=== PATIENT | male | born 1955 | race Two or more races ===

== ENCOUNTER 2018-07-10 11:31 | Emergency (ER) | payer MEDICAID ==
[~2018-07-10] VITALS: Ht 180.3 cm; Wt 95.3 kg
--- NOTE | 2018-07-10 11:29 | NUR ---
ED Nurse Note: PT BROUGHT IN BY [id number] FROM [facility] DUE TO CHRONIC BACK PAIN. PER EMS, PT C/O CHRONIC BACK PAIN, 8/10 X 4 YEARS AGO. PT WAS GIVEN NORCO 5/325 X 1 HOUR AGO BUT STATES PAIN IS UNRELIEVED BY MEDICATION. EMS STATES FACILITY REFUSED TO GIVE PT MORE MEDICATION. PT STATES HE HAD BACK SURGERY X 4 YEARS AGO AND HAS BEEN SUFFERING FROM PAIN SINCE THEN. PT STATES HE HAS AN APPOINTMENT WITH PAIN MANAGEMENT ON THURSDAY AT [facility]. OF NOTE, PT PRESENTS WITH BILATERAL LOWER EXTREMITY PITTING EDEMA, RIGHT>LEFT.
[2018-07-10 11:31] VITALS: BP 141/64
[2018-07-10] MEDS ORDERED: PANTOPRAZOLE SO40 MG ORAL (11:37)
[2018-07-10] MEDS ORDERED: GABAPENTIN600 MG ORAL (11:37)
[2018-07-10] MEDS ORDERED: METFORMIN HCL500 M1 ORAL (11:37)
[2018-07-10] MEDS ORDERED: NORCO 5-325 TA1 EACH ORAL (11:37)
[2018-07-10] MEDS ORDERED: LEVOTHYROXINE125 MCG ORAL (11:37)
[2018-07-10] MEDS ORDERED: DOCUSATE SODIU100 MG ORAL (11:37)
[2018-07-10] MEDS ORDERED: ATORVASTATIN CA40 MG ORAL (11:37)
[2018-07-10] MEDS ORDERED: LACTULOSE20 GM/301 ORAL (11:37)
[2018-07-10] MEDS ORDERED: JANUVIA25 MG ORAL (11:37)
[2018-07-10] MEDS ORDERED: FOLIC ACID1 MG ORAL (11:37)
[2018-07-10] MEDS ORDERED: ENALAPRIL MALEAT5 MG ORAL (11:37)
[2018-07-10] MEDS ORDERED: LANTUS SOL100 UNIT/1 SUBQ (11:37)
[2018-07-10] MEDS ORDERED: CALCIUM 500 +1 EAC3 PO (11:37)
[2018-07-10] MEDS ORDERED: Morphine Sulfate 2mg/ml Inj(IV/IM USE ONLY) IM ONE (12:30)
--- NOTE | 2018-07-10 12:30 | NUR ---
ED Nurse Note: MED ORDERED BUT UNABLE TO PULL MED DUE TO PYXIS MALFUNCTION. PHARMACY NOTIFIED.
--- NOTE | 2018-07-10 12:55 | NUR ---
ED Nurse Note: ER PYXIS NOT WORKING. MORPHINE ORDER PULLED FROM TELEMTRY PYXIS BY RENALDO CROWDER. MEDICATION ADMINISTERED TO PT BY PRIMARY RN IN ER.
--- NOTE | 2018-07-10 13:13 | NUR ---
ED Nurse Note: [facility] CALLED. SPOKE WITH CUSTOMER SERVICE SECURITY OFFICER, LUIS A, TO LET HER KNOW THAT PT IS READY FOR DISCHARGE AND THAT TRANSPORT WILL BE ARRIVING TO [facility] IN 10-15 MINUTES. PER LUIS A, FACILITY READY TO ACCEPT PT. WILL AWAIT TRANSPORT.
--- NOTE | 2018-07-10 13:32 | NUR ---
ED Nurse Note: [facility] AT BEDSIDE. REPORT GIVEN TO EMS. DISCHARGE PAPERWORK EXPLAINED TO PT. PT VERBALIZES UNDERSTANDING AND ALL QUESTIONS ANSWERED. DISCHARGE PAPERWORK GIVEN TO PT AND ID WRISTBAND REMOVED. PT TAKEN BACK TO [facility] VIA AMBULANCE WITH ALL BELONGINGS ACCOMPANIED BY EMS. VSS.
--- NOTE | 2018-07-10 13:32 | NUR ---
Note [place] in EDM - 07/10/18 at 1334 by PRINCESS ED Nurse Note: [facility] AT BEDSIDE. REPORT GIVEN TO EMS. PT TAKEN BACK TO [facility] VIA AMBULANCE WITH ALL BELONGINGS ACCOMPANIED ACCOMPANIED BY EMS. VSS.
--- NOTE | 2018-07-10 13:32 | NUR ---
Note [place] in EDM - 07/10/18 at 1344 by PRINCESS ED Nurse Note: [facility] AT BEDSIDE. REPORT GIVEN TO EMS. DISCHARGE PAPERWORK EXPLAINED TO PT. PT VERBALIZES UNDERSTANDING AND ALL QUESTIONS ANSWERED. DISCHARGE PAPERWORK GIVEN TO PT AND ID WRISTBAND REMOVED. PT TAKEN BACK TO [facility] VIA AMBULANCE WITH ALL BELONGINGS ACCOMPANIED ACCOMPANIED BY EMS. VSS.
[2018-07-10 13:44] VITALS: BP 136/68
--- NOTE | 2018-07-12 14:52 | Emergency Room Report ---
History of Present Illness General Chief Complaint: Back Pain-No Injury Source: Patient, Medical Record Present Illness HPI Patient presents with complaints of lower back pain Patient reports extensive past medical history of low back problems including previous surgery Patient also has multiple cardiac history including bypass grafting Patient reports that he has been recently transferred to the elderly care facility He was in rehabilitation for about one month prior to that Patient has not received his pain medication this morning and reports that he has pain because of this denies any change in weakness denies any change with bowel or urination habits denies any chest pain or shortness of breath And essentially presents reporting an complaining of pain secondary to lack of medication Allergies: Coded Allergies: No Known Allergies (Verified , 06/13/09) Patient History Past Medical History: see triage record Pertinent Family History: none Reviewed Nursing Documentation: PMH: Agreed; PSxH: Agreed Nursing Documentation-PMH Past Medical History: No History, Except For Hx Hypertension: Yes Hx Diabetes: Yes Hx Gastrointestinal Problems: No - ALCOHOLIC LIVER DISEASE History Of Psychiatric Problem: Yes - DEPRESSION Hx Neurological Problems: No - HYPOTHYROIDISM, HYPERLIPIDEMIA, SPINAL STENOSIS Review of Systems All Other Systems: negative except mentioned in HPI Physical Exam Vital Signs Date Time Temp Pulse Resp B/P (MAP) Pulse Ox O2 Delivery O2 Flow Rate FiO2 07/10/18 11:23 99.1 86 20 99 Room Air 07/10/18 11:31 141/64 Sp02 EP Interpretation: reviewed, normal General Appearance: mild distress Head: normocephalic, atraumatic Eyes: bilateral eye PERRL, bilateral eye EOMI ENT: normal pharynx, no angioedema Neck: supple Respiratory: lungs clear, no retraction, no accessory muscle use Cardiovascular #1: regular rate, rhythm Gastrointestinal: non tender, soft Musculoskeletal: other - Patient has sensory intact diffusely edema is noted in both lower extremity patient reports that this is baseline for him moving lower extremity appropriately as well Neurologic: alert, oriented x3, responsive Skin: normal color, no rash Lymphatic: no adenopathy Medical Decision Making Diagnostic Impression: Primary Impression: Back pain ER Course Contact was made with the patient's sister who reports the patient has been dealing with chronic back pain Multiple differential including the not limited to neurological, neurosurgical, infectious, orthopedic differentials and consideration patient is otherwise afebrile Denies any change with his muscle strength in upper or lower extremity Patient requesting pain medication And has done significantly better after intervention further evaluation or imaging has not been performed Patient reports fairly extensive workup recently and will have close follow-up , Last Vital Signs Date Time Temp Pulse Resp B/P (MAP) Pulse Ox O2 Delivery O2 Flow Rate FiO2 07/10/18 13:44 98.9 84 18 136/68 98 Room Air Status: improved Disposition: HOME, SELF-CARE Condition: Improved Referrals: NON PHYSICIAN (PCP) Patient Instructions: Back Pain, Adult Additional Instructions: Patient is provided with the discharge instructions notified to follow up with primary doctor in the next 2-3 days otherwise return to the er with any worsening symptoms. Please note that this report is being documented using PushCall technology. This can lead to erroneous entry secondary to incorrect interpretation by the dictating instrument. Raiza Will DO July 12, 2018 14:52
== END 2018-07-10 13:32 ==
LOC: EDBD 11:31 → EMR 12:00
DX: M54.5 Low back pain (principal); Z95.1 Presence of aortocoronary bypass graft; I10 Essential (primary) hypertension; E11.9 Type 2 diabetes mellitus without complications; F32.9 Major depressive disorder, single episode, unspecified; E03.9 Hypothyroidism, unspecified; E78.5 Hyperlipidemia, unspecified; G89.29 Other chronic pain; M48.00 Spinal stenosis, site unspecified
CPT/HCPCS: 96372; 99283; J2270

== ENCOUNTER 2018-08-15 00:17 | Emergency (ER) | payer MEDICAID ==
[~2018-08-15] VITALS: Ht 180.3 cm; Wt 95.3 kg
[~2018-08-15 00:17] MED LIST: ATORVASTATIN CA40 MG ORAL; CALCIUM 500 +1 EAC3 PO; DOCUSATE SODIU100 MG ORAL; ENALAPRIL MALEAT5 MG ORAL; FOLIC ACID1 MG ORAL; GABAPENTIN600 MG ORAL; JANUVIA25 MG ORAL; LACTULOSE20 GM/301 ORAL; LANTUS SOL100 UNIT/1 SUBQ; LEVOTHYROXINE125 MCG ORAL; METFORMIN HCL500 M1 ORAL; NORCO 5-325 TA1 EACH ORAL; PANTOPRAZOLE SO40 MG ORAL
[2018-08-15 00:20] VITALS: BP 125/82
--- NOTE | 2018-08-15 00:20 | NUR ---
ED Nurse Note: Pt was BIBA from home , c/o back pain tonight. Pt is A/OX4. Vital signs stable at this time, waiting for orders.
[2018-08-15] MEDS ORDERED: HYDROmorphone 1mg/ml Carpuject IM ONE (00:45)
--- NOTE | 2018-08-15 00:49 | Emergency Room Report ---
History of Present Illness General Chief Complaint: Back Pain-No Injury Source: Patient Present Illness HPI This is a 62-year-old male with a history of chronic back pain with prior surgery. Also history of high blood pressure and diabetes. He presents with chief complaint of back pain going down his knee. No trauma. He was just discharged from [place] [id number] a [facility]. At the usp he said that he is not getting his [place] or his morphine. He was only getting Tylenol No. 3 and gabapentin. He called 911 because of the pain. He told EMS that he has an appointment with his doctor at 6 AM. But the pain was too severe so he called 911. Per EMS, they have several runs on him for pain complaint and sepsis abuse. Prior visit here has very elevated alcohol level. Patient denies any new trauma. No fever chills. No unconscious of bowel or urine. Pain is 10 out of 10. Allergies: Coded Allergies: No Known Allergies (Verified , 06/13/09) Patient History Past Medical History: see triage record, old chart reviewed Past Surgical History: other Pertinent Family History: none Social History: Denies: smoking Immunizations: other Reviewed Nursing Documentation: PMH: Agreed; PSxH: Agreed Nursing Documentation-PMH Past Medical History: No History, Except For Hx Hypertension: Yes Hx Asthma: Yes Hx Diabetes: Yes Hx Gastrointestinal Problems: No - ALCOHOLIC LIVER DISEASE Hx Neurological Problems: No - HYPOTHYROIDISM, HYPERLIPIDEMIA, SPINAL STENOSIS Review of Systems Eye: Denies: eye pain, blurred vision ENT: Denies: ear pain, nose congestion, throat swelling Respiratory: Denies: cough, shortness of breath Cardiovascular: Denies: chest pain, palpitations Gastrointestinal: Denies: abdominal pain, diarrhea, nausea, vomiting Musculoskeletal: Reports: back pain; Denies: joint pain Skin: Denies: rash Neurological: Denies: headache, numbness Endocrine: Denies: increased thirst, increased urine Hematologic/Lymphatic: Denies: easy bruising All Other Systems: negative except mentioned in HPI Physical Exam Vital Signs Date Time Temp Pulse Resp B/P (MAP) Pulse Ox O2 Delivery O2 Flow Rate FiO2 08/15/18 00:15 98.2 108 19 125/82 (96) 99 Room Air vitals normal Sp02 EP Interpretation: reviewed, normal General Appearance: well appearing, no apparent distress, alert Head: normocephalic, atraumatic Eyes: bilateral eye PERRL, bilateral eye EOMI ENT: hearing grossly normal, normal pharynx Neck: full range of motion, supple, no meningismus Respiratory: chest non-tender, lungs clear, normal breath sounds Cardiovascular #1: regular rate, rhythm, no murmur Gastrointestinal: normal bowel sounds, non tender, no mass, no organomegaly, no bruit, non-distended Musculoskeletal: back normal - Diffuse tenderness. No step-off or anesthesia. , normal range of motion Psychiatric: mood/affect normal Skin: warm/dry Medical Decision Making Diagnostic Impression: Primary Impression: Back pain Qualified Codes: M54.5 - Low back pain ER Course Patient with exacerbation of chronic pain. No trauma. No red flags indicate cauda equina syndrome, spinal after abscess or neoplastic process. Patient has multiple workups done already. Said that he scheduled for another MRI. I see no need for emergent x-rays or CT scan done here. Last Vital Signs Date Time Temp Pulse Resp B/P (MAP) Pulse Ox O2 Delivery O2 Flow Rate FiO2 08/15/18 00:15 98.2 108 19 125/82 (96) 99 Room Air Status: improved Disposition: XFER SNF Condition: Stable Patient Instructions: Back Pain, Adult Additional Instructions: Follow-up with your Dr. in 2-3 days. Return if symptom worsen. Jossue Singer MD Aug 15, 2018 00:49
--- NOTE | 2018-08-15 00:52 | NUR ---
ED Nurse Note: [facility] was called and expecting arrival time @ 0200.
--- NOTE | 2018-08-15 00:57 | NUR ---
ED Nurse Note: Meds given as ordered.
--- NOTE | 2018-08-15 02:00 | NUR ---
ED Nurse Note: Still waiting for ambulance to arrive.
[2018-08-15 03:34] VITALS: BP 128/81
--- NOTE | 2018-08-15 03:34 | NUR ---
ER DISCHARGE NOTE: Ambulance arrived. Patient is cleared to be discharged per Lucrecia. Pt is aox4 on room air with stable vital signs. Pt was given dc and prescription instructions and was able to verbalize understanding. Pt ID band removed. pt is able to ambulate with cane and took all belongings.
== END 2018-08-15 03:34 ==
LOC: EDBD 00:17 → EMR 00:58
DX: M54.5 Low back pain (principal); I10 Essential (primary) hypertension; J45.909 Unspecified asthma, uncomplicated; E11.9 Type 2 diabetes mellitus without complications
CPT/HCPCS: 96372; 99283; J1170

== ENCOUNTER 2018-09-06 17:57 | Inpatient (IN) | payer MEDICAID ==
[~2018-09-06] VITALS: Ht 182.9 cm; Wt 90.7 kg
[2018-09-06] MEDS ORDERED: FOLIC ACID1 MG ORAL (17:58)
[2018-09-06] MEDS ORDERED: PANTOPRAZOLE SO40 MG ORAL (17:58)
[2018-09-06] MEDS ORDERED: METFORMIN HCL500 M1 ORAL (17:58)
[2018-09-06] MEDS ORDERED: DOCUSATE SODIU100 MG ORAL (17:58)
[2018-09-06] MEDS ORDERED: LEVOTHYROXINE125 MCG ORAL (17:58)
[2018-09-06] MEDS ORDERED: ATORVASTATIN CA40 MG ORAL (17:58)
[2018-09-06] MEDS ORDERED: GABAPENTIN600 MG ORAL (17:58)
[2018-09-06] MEDS ORDERED: JANUVIA25 MG ORAL (17:58)
[2018-09-06] MEDS ORDERED: ENALAPRIL MALEAT5 MG ORAL (17:58)
--- NOTE | 2018-09-06 18:00 | NUR ---
ED Nurse Note: Patient brought in by ambulance from [facility] per ems, caregiver at the facility witnessed patient's syncopal episode, "patient passed out on the bed" per ems, no head trauma noted. patient's BS on scene was 306. at this time, patient is sleepy, drowsy obtunded, not easily arousable.
[2018-09-06 18:09] VITALS: BP 156/89
[2018-09-06 18:53] LABS: APPEARANCE,URINE CLEAR; BILIRUBIN, URINE NEGATIVE (NEGATIVE); GLUCOSE, URINE (UA) 2+ (NEGATIVE); KETONES,URINE 1+ (NEGATIVE); LEUKOCYTE ESTERASE ,URINE 1+ (NEGATIVE); NITRITE,URINE NEGATIVE (NEGATIVE); PH,URINE 5 (4.5-8.0); PROTEIN,URINE 2+ (NEGATIVE); UROBILINOGEN,URINE 1 MG/DL (0.0-1.0)
[2018-09-06 18:54] LABS: COLOR,URINE YELLOW
--- NOTE | 2018-09-06 18:56 | NUR ---
ED Nurse Note: blood culture sent to lab. per maylin, it's ok as long as 1complete set of blood culture is sent.
--- NOTE | 2018-09-06 19:05 | NUR ---
ED Nurse Note: redness on the sacral area due to his pre-existing skin problem noted, picture taken, endorsed to Li MACARIO.
[2018-09-06 19:06] LABS: HEMATOCRIT 34.4 % (42.0-52.0); HEMOGLOBIN 10.7 G/DL (14.2-18.0); MEAN CORPUSCULAR VOLUME 93 FL (80-99); PLATELET COUNT 61 K/UL (150-450); RED BLOOD COUNT 3.72 M/UL (4.70-6.10); RED CELL DISTRIBUTION WIDTH 21.6 % (11.6-14.8); WHITE BLOOD COUNT 5.7 K/UL (4.8-10.8)
--- NOTE | 2018-09-06 19:08 | NUR ---
HAND-OFF: Report given to Li MACARIO.
[2018-09-06 19:16] LABS: ANION GAP 12 mmol/L (5-15); BLOOD UREA NITROGEN 27 mg/dL (7-18); CALCIUM 10.7 MG/DL (8.5-10.1); CARBON DIOXIDE 24 MMOL/L (21-32); CHLORIDE 100 MMOL/L (98-107); CREATININE 2.3 MG/DL (0.55-1.30); POTASSIUM 3.9 MMOL/L (3.5-5.1); SODIUM 136 MMOL/L (136-145)
[2018-09-06 19:30] LABS: ALANINE AMINOTRANSFERASE 31 U/L (12-78); ALBUMIN 3.3 G/DL (3.4-5.0); ALBUMIN/GLOBULIN RATIO 0.7 (1.0-2.7); ALKALINE PHOSPHATASE 115 U/L (46-116); ASPARTATE AMINO TRANSFERASE 76 U/L (15-37); BILIRUBIN,TOTAL 1.8 MG/DL (0.2-1.0); CKMB 15.5 NG/ML (0.0-3.6); CREATINE KINASE 3213 U/L (26-308)
[2018-09-06] MEDS ORDERED: cefTRIAXone 1 GM in NS 55 ML IVPB ONE (19:30)
[2018-09-06 19:32] LABS: BILIRUBIN,DIRECT 0.7 MG/DL (0.0-0.3)
[2018-09-06 20:13] VITALS: BP 137/65
--- NOTE | 2018-09-06 20:20 | NUR ---
ED Nurse Note: Patient had one episod of vomitting, AAO x1, HR 115, other VSS at this time. Tryed to give report, KenRN states that patient does not asighn to the alex yet.
--- NOTE | 2018-09-06 20:49 | NUR ---
NURSE NOTES: Pt received from RENALDO [place] alert and oriented x1 to name only, pt is lethargic (Per VISOR INSTALLER, pt is alert and oriented x4 as baseline). IV site on R upper arm 20g, saline lock. Belongings all with patient upon admission - signed with transferring RN, pt unable to sign for himself. Pt has skin tear on right 5th metatarsal toe and left 2nd metatarsal toe, localized rashes round in appearance on bilateral knees, bilateral elbows, bilateral buttocks, and bilateral trochanter. WCP taken and uploaded in chart - WCP implemented. Bed in lowest position, call light and belongings within reach. VSS stable. bus monitor on - ST (102).
--- NOTE | 2018-09-06 20:55 | NUR ---
ED Nurse Note: Patient was admited to Tele due to syncopy episode. Patient remain AAO x1, HR 107, other VSS at this time. Patient has psoriasis all over his body, severe red posey on his both buttocks, picture was taken and uploaded. Patient was transfered to TELE unit via gurney, by ACLS protocol with all belongings.
--- NOTE | 2018-09-06 21:05 | NUR ---
NURSE NOTES: Left message for Dr. Dodd for admission orders, currently awaiting call back.
[2018-09-06 21:56] VITALS: BP 144/66
[2018-09-06] MEDS ORDERED: Miralax 17gm pkt ORAL PRN (22:30)
[2018-09-06] MEDS ORDERED: Albuterol/Ipratropium 3ml neb HHN PRN (22:30)
[2018-09-06] MEDS ORDERED: Nitroglycerin Subl 0.4mg tab SL PRN (22:30)
--- NOTE | 2018-09-06 22:30 | NUR ---
NURSE NOTES: Dr. Dodd called back with admission orders: - Keep pt NPO d/t vomiting - NS with 20 of KCl at 75 - CBC, BMP, total CPK, TSH with T4, CT Brain w/o contrast, Troponin x3 q8h (IN AM) - Zofran 4 mg q4h PRN for nausea - continue atorvastatin 80 mg HS, enalapril 5 mg PO daily, synthroid 100 mcg PO, metformin 500 mg PO BID, Protonix 40 mg PO daily, Januvia 100 mg PO daily,
--- NOTE | 2018-09-06 22:57 | Emergency Room Report ---
History of Present Illness General Chief Complaint: Syncope Source: Medical Record Present Illness HPI Patient is a 63-year-old male brought in by EMS after a syncopal episode at his nursing facility. Patient had a prior history of hepatic encephalopathy. He had been noted to be tachycardic by EMS. He was noted to be somewhat somnolent. History is markedly limited by poor historian. Patient has had been sent in from [facility]. He had prior history of hepatic encephalopathy as well as chronic debilitation. He had also had some prior cardiac history. Allergies: Coded Allergies: No Known Allergies (Verified , 06/13/09) Patient History Past Medical History: see triage record Reviewed Nursing Documentation: PMH: Agreed; PSxH: Agreed Nursing Documentation-PMH Past Medical History: No History, Except For Hx Cardiac Problems: Yes Hx Hypertension: Yes Hx Asthma: Yes Hx Diabetes: Yes Hx Cancer: No Hx Gastrointestinal Problems: No Hx Neurological Problems: No Review of Systems All Other Systems: limited - by poor historian Physical Exam Vital Signs Date Time Temp Pulse Resp B/P (MAP) Pulse Ox O2 Delivery O2 Flow Rate FiO2 09/06/18 17:50 97.9 105 18 144/76 (98) 96 Room Air General Appearance: lethargic, Chronically Ill Eyes: bilateral eye PERRL ENT: hearing grossly normal Neck: limited range of motion Respiratory: crackles Cardiovascular #1: edema Gastrointestinal: non tender, soft Neurologic: motor weakness, other Psychiatric: depressed affect Skin: no rash Medical Decision Making Diagnostic Impression: Primary Impression: Syncope Additional Impressions: Rhabdomyolysis Chronic liver disease Encephalopathy ER Course Patient presented for syncopal episode. Differential diagnosis include is not limited to cardiac arrhythmia, sepsis, hepatic encephalopathy, seizure among others. Because of complexity of patient's case laboratory testing and imaging studies were ordered. Patient was noted to have prior history of some cardiac disease. He was noted to have prior medical diagnosis of hypothyroidism diabetes major depressive disorder rheumatoid arthritis as well as spinal stenosis. Patient started on IV fluids and given IV antibiotics.Chest x-ray one view interpreted by me showed status post sternotomy as well as bilateral vascular congestion and cardiomegaly. Questionable infiltrate. Patient was discussed with Dr. Mike Dodd for inpatient management due to covering physician Labs Test 09/06/18 18:20 09/06/18 19:55 White Blood Count 5.7 K/UL (4.8-10.8) Red Blood Count 3.72 M/UL (4.70-6.10) Hemoglobin 10.7 G/DL (14.2-18.0) Hematocrit 34.4 % (42.0-52.0) Mean Corpuscular Volume 93 FL (80-99) Mean Corpuscular Hemoglobin 28.7 PG (27.0-31.0) Mean Corpuscular Hemoglobin Concent 31.0 G/DL (32.0-36.0) Red Cell Distribution Width 21.6 % (11.6-14.8) Platelet Count 61 K/UL (150-450) Mean Platelet Volume 8.2 FL (6.5-10.1) Neutrophils (%) (Auto) % (45.0-75.0) Lymphocytes (%) (Auto) % (20.0-45.0) Monocytes (%) (Auto) % (1.0-10.0) Eosinophils (%) (Auto) % (0.0-3.0) Basophils (%) (Auto) % (0.0-2.0) Differential Total Cells Counted 100 Neutrophils % (Manual) 81 % (45-75) Lymphocytes % (Manual) 9 % (20-45) Monocytes % (Manual) 7 % (1-10) Eosinophils % (Manual) 1 % (0-3) Basophils % (Manual) 0 % (0-2) Band Neutrophils 2 % (0-8) Platelet Estimate Decreased Platelet Morphology Normal Hypochromasia 1+ Anisocytosis 1+ Urine Color Yellow Urine Appearance Clear Urine pH 5 (4.5-8.0) Urine Specific [place] 1.020 (1.005-1.035) Urine Protein 2+ (NEGATIVE) Urine Glucose (UA) 2+ (NEGATIVE) Urine Ketones 1+ (NEGATIVE) Urine Blood 5+ (NEGATIVE) Urine Nitrite Negative (NEGATIVE) Urine Bilirubin Negative (NEGATIVE) Urine Urobilinogen 1 MG/DL (0.0-1.0) Urine Leukocyte Esterase 1+ (NEGATIVE) Urine RBC 5-10 /HPF (0 - 0) Urine WBC 2-4 /HPF (0 - 0) Urine Squamous Epithelial Cells None /LPF (NONE/OCC) Urine Amorphous Sediment Few /LPF (NONE) Urine Bacteria Few /HPF (NONE) Sodium Level 136 MMOL/L (136-145) Potassium Level 3.9 MMOL/L (3.5-5.1) Chloride Level 100 MMOL/L (98-107) Carbon Dioxide Level 24 MMOL/L (21-32) Anion Gap 12 mmol/L (5-15) Blood Urea Nitrogen 27 mg/dL (7-18) Creatinine 2.3 MG/DL (0.55-1.30) Estimat Glomerular Filtration Rate 28.8 mL/min (>60) Glucose Level 290 MG/DL (74-106) Calcium Level 10.7 MG/DL (8.5-10.1) Total Bilirubin 1.8 MG/DL (0.2-1.0) Direct Bilirubin 0.7 MG/DL (0.0-0.3) Aspartate Amino Transf (AST/SGOT) 76 U/L (15-37) Alanine Aminotransferase (ALT/SGPT) 31 U/L (12-78) Alkaline Phosphatase 115 U/L (46-116) Total Creatine Kinase 3213 U/L (26-308) Creatine Kinase MB 15.5 NG/ML (0.0-3.6) Creatine Kinase MB Relative Index 0.4 Troponin I 0.002 ng/mL (0.000-0.056) Total Protein 8.2 G/DL (6.4-8.2) Albumin 3.3 G/DL (3.4-5.0) Globulin 4.9 g/dL Albumin/Globulin Ratio 0.7 (1.0-2.7) Lactic Acid Level 2.40 mmol/L (0.66-2.22) EKG Diagnostic Results Rate: tachycardiac Rhythm: NSR ST Segments: no acute changes Last Vital Signs Date Time Temp Pulse Resp B/P (MAP) Pulse Ox O2 Delivery O2 Flow Rate FiO2 09/06/18 22:02 Room Air 09/06/18 21:56 97.0 100 20 144/66 (92) 97 100 Status: improved Disposition: ADMITTED INPATIENT Condition: Stable Referrals: NON PHYSICIAN (PCP) Dom Arreola MD Sep 06, 2018 22:57
[2018-09-07] VITALS: BP 131/72
[2018-09-07] MEDS: NS w/KCl 20mEq 1000ml 1,000 ML IV SCH ×2 (00:05→13:28)
[2018-09-07] MEDS: Morphine Sulfate 2mg/ml Inj(IV/IM USE ONLY) IVP PRN ×5 (00:32→23:06)
[2018-09-07 04:00] VITALS: BP 130/65
[2018-09-07] MEDS: NovoLOG Insulin Flexpen SUBQ SCH ×4 (05:41→20:14)
[2018-09-07 06:51] LABS: HEMATOCRIT 32.3 % (42.0-52.0); HEMOGLOBIN 9.8 G/DL (14.2-18.0); MEAN CORPUSCULAR VOLUME 93 FL (80-99); PLATELET COUNT 75 K/UL (150-450); RED BLOOD COUNT 3.47 M/UL (4.70-6.10); RED CELL DISTRIBUTION WIDTH 22.4 % (11.6-14.8); WHITE BLOOD COUNT 5.4 K/UL (4.8-10.8)
--- NOTE | 2018-09-07 06:57 | General Progress Note ---
Assessment/Plan Problem List: (1) Hypothyroid ICD Codes: E03.9 - Hypothyroidism, unspecified SNOMED: 29434261 (2) KUMAR (acute kidney injury) ICD Codes: N17.9 - Acute kidney failure, unspecified SNOMED: 1236727, 75393268 (3) Diabetes mellitus out of control ICD Codes: E11.65 - Type 2 diabetes mellitus with hyperglycemia SNOMED: 03080326, 369756057 (4) Lactic acidosis ICD Codes: E87.2 - Acidosis SNOMED: 56353221 (5) Syncope ICD Codes: R55 - Syncope and collapse SNOMED: 150077912 (6) Chronic liver disease ICD Codes: K76.9 - Liver disease, unspecified SNOMED: 059140620 (7) Encephalopathy ICD Codes: G93.40 - Encephalopathy, unspecified SNOMED: 23214704 (8) Rhabdomyolysis ICD Codes: M62.82 - Rhabdomyolysis SNOMED: 233492916 Assessment/Plan: - hold Metformin - start Levemir 10 units daily - continue NISS ac / hs - IV hydration - follow TSH, A1c - continue LT4 100 mcg for now Subjective ROS Limited/Unobtainable: Yes Allergies: Coded Allergies: No Known Allergies (Verified , 06/13/09) Subjective Patient is a 63-year-old male brought in by EMS after a syncopal episode at his nursing facility. Patient had a prior history of hepatic encephalopathy. He had been noted to be tachycardic by EMS. He was noted to be somewhat somnolent. History is markedly limited by poor historian. Patient has had been sent in from [facility]. He had prior history of hepatic encephalopathy as well as chronic debilitation. He had also had some prior cardiac history. Objective Last 24 Hour Vital Signs Date Time Temp Pulse Resp B/P (MAP) Pulse Ox O2 Delivery O2 Flow Rate FiO2 09/07/18 04:00 88 09/07/18 04:00 98.1 100 20 130/65 (86) 98 100 09/07/18 00:00 98.3 105 20 131/72 (91) 98 105 09/07/18 00:00 90 09/06/18 22:02 Room Air 09/06/18 21:56 97.0 100 20 144/66 (92) 97 100 09/06/18 21:35 99 09/06/18 20:55 98.4 107 22 136/65 100 Room Air 107 09/06/18 20:13 97.9 100 18 137/65 100 Room Air 100 09/06/18 18:09 97.9 106 18 156/89 97 Room Air 09/06/18 17:50 97.9 105 18 144/76 (98) 96 Room Air Intake and Output 09/06/18 09/07/18 19:00 07:00 Intake Total 50 ml Balance 50 ml Intake Oral 50 ml # Voids 3 Laboratory Tests 09/06/18 18:20: White Blood Count 5.7, Red Blood Count 3.72L, Hemoglobin 10.7L, Hematocrit 34.4L , Mean Corpuscular Volume 93, Mean Corpuscular Hemoglobin 28.7, Mean Corpuscular Hemoglobin Concent 31.0L, Red Cell Distribution Width 21.6H, Platelet Count 61L, Mean Platelet Volume 8.2, Neutrophils (%) (Auto) , Lymphocytes (%) (Auto) , Monocytes (%) (Auto) , Eosinophils (%) (Auto) , Basophils (%) (Auto) , Differential Total Cells Counted 100, Neutrophils % ( Manual) 81H, Lymphocytes % (Manual) 9L, Monocytes % (Manual) 7, Eosinophils % ( Manual) 1, Basophils % (Manual) 0, Band Neutrophils 2, Platelet Estimate DecreasedL, Platelet Morphology Normal, Hypochromasia 1+, Anisocytosis 1+, Urine Color Yellow, Urine Appearance Clear, Urine pH 5, Urine Specific [place] 1.020, Urine Protein 2+H, Urine Glucose (UA) 2+H, Urine Ketones 1+H, Urine Blood 5+H, Urine Nitrite Negative, Urine Bilirubin Negative, Urine Urobilinogen 1H, Urine Leukocyte Esterase 1+H, Urine RBC 5-10H, Urine WBC 2-4, Urine Squamous Epithelial Cells None, Urine Amorphous Sediment FewH, Urine Bacteria Few, Sodium Level 136, Potassium Level 3.9, Chloride Level 100, Carbon Dioxide Level 24, Anion Gap 12, Blood Urea Nitrogen 27H, Creatinine 2.3H, Estimat Glomerular Filtration Rate 28.8, Glucose Level 290H, Lactic Acid Level 3.60H, Calcium Level 10.7H, Total Bilirubin 1.8H, Direct Bilirubin 0.7H, Aspartate Amino Transf (AST/SGOT) 76H, Alanine Aminotransferase (ALT/SGPT) 31, Alkaline Phosphatase 115, Total Creatine Kinase 3213H, Creatine Kinase MB 15.5H, Creatine Kinase MB Relative Index 0.4, Troponin I 0.002, Total Protein 8.2, Albumin 3.3L, Globulin 4.9, Albumin/Globulin Ratio 0.7L 09/06/18 19:55: Lactic Acid Level 2.40H 09/07/18 06:00: White Blood Count [Pending], Red Blood Count [Pending], Hemoglobin [Pending], Hematocrit [Pending], Mean Corpuscular Volume [Pending], Mean Corpuscular Hemoglobin [Pending], Mean Corpuscular Hemoglobin Concent [Pending], Red Cell Distribution Width [Pending], Platelet Count [Pending], Mean Platelet Volume [ Pending], Neutrophils (%) (Auto) [Pending], Lymphocytes (%) (Auto) [Pending], Monocytes (%) (Auto) [Pending], Eosinophils (%) (Auto) [Pending], Basophils (%) (Auto) [Pending], Sodium Level [Pending], Potassium Level [Pending], Chloride Level [Pending], Carbon Dioxide Level [Pending], Blood Urea Nitrogen [Pending], Creatinine [Pending], Estimat Glomerular Filtration Rate [Pending], Glucose Level [Pending], Calcium Level [Pending], Total Bilirubin [Pending], Aspartate Amino Transf (AST/SGOT) [Pending], Alanine Aminotransferase (ALT/SGPT) [Pending] , Alkaline Phosphatase [Pending], Total Creatine Kinase [Pending], Troponin I [ Pending], Total Protein [Pending], Albumin [Pending], Globulin [Pending], Hemoglobin A1c [Pending], Triglycerides Level [Pending], Cholesterol Level [ Pending], LDL Cholesterol [Pending], HDL Cholesterol [Pending], Cholesterol/HDL Ratio [Pending], Thyroid Stimulating Hormone (TSH) [Pending], Free Thyroxine [ Pending] Height (Feet): 6 Height (Inches): 0.00 Weight (Pounds): 200 General Appearance: no apparent distress Neck: normal alignment Cardiovascular: normal rate Respiratory/Chest: lungs clear Abdomen: normal bowel sounds Objective Current Medications Medications (Trade) Dose Ordered Sig/Alfredo Route PRN Reason Start Time Stop Time Status Last Admin Dose Admin Acetaminophen (Tylenol) 650 mg Q4H PRN ORAL fever 09/06/18 22:30 10/06/18 22:29 Acetaminophen/ Hydrocodone Bitart ([place] 5/325) 1 tab DAILY PRN ORAL For Pain 09/06/18 22:30 09/13/18 22:29 Albuterol/ Ipratropium (Albuterol/ Ipratropium) 3 ml EVERY 4 HOURS PRN HHN Shortness of Breath 09/06/18 22:30 09/11/18 22:29 Clonidine HCl (Catapres Tab) 0.1 mg EVERY 4 HOURS PRN ORAL sbp more than 160 09/06/18 22:30 10/06/18 22:29 Dextrose (Dextrose 50%) 25 ml Q30M PRN IV Hypoglycemia 09/06/18 22:30 10/06/18 22:29 Dextrose (Dextrose 50%) 50 ml Q30M PRN IV Hypoglycemia 09/06/18 22:30 10/06/18 22:29 Enalapril Maleate (Vasotec) 5 mg DAILY ORAL 09/07/18 09:00 10/07/18 08:59 Gabapentin (Neurontin) 600 mg BID ORAL 09/07/18 09:00 10/07/18 08:59 Heparin Sodium (Porcine) (Heparin 5000 units/ml) 5,000 units EVERY 12 HOURS SUBQ 09/07/18 09:00 10/07/18 08:59 UNV Insulin Aspart (NovoLOG) BEFORE MEALS AND HS SUBQ 09/07/18 06:30 10/07/18 06:29 Levothyroxine Sodium (Synthroid) 100 mcg DAILY@0630 ORAL 09/07/18 06:30 10/07/18 06:29 09/07/18 05:45 Morphine Sulfate (Morphine Sulfate) 2 mg EVERY 4 HOURS PRN IVP severe pain 7-10 09/06/18 22:30 09/13/18 22:29 09/07/18 00:32 Nitroglycerin (Ntg) 0.4 mg Q5M X 3 DOSES PRN SL Prn Chest Pain 09/06/18 22:30 10/06/18 22:29 Ondansetron HCl (Zofran) 4 mg EVERY 4 HOURS PRN IVP Nausea & Vomiting 09/06/18 22:45 10/06/18 22:29 Polyethylene Glycol (Miralax) 17 gm HSPRN PRN ORAL Constipation 09/06/18 22:30 10/06/18 22:29 Potassium Chloride/Sodium Chloride 1,000 ml @ 75 mls/hr [id number] IV 09/06/18 22:45 10/06/18 22:44 09/07/18 00:05 Sitagliptin Phosphate (Januvia) 100 mg DAILY ORAL 09/07/18 09:00 10/07/18 08:59 Temazepam (Restoril) 15 mg HSPRN PRN ORAL Insomnia 09/06/18 22:30 09/13/18 22:29 Sascha Oleary MD Sep 07, 2018 06:57
[2018-09-07 07:14] LABS: ALANINE AMINOTRANSFERASE 43 U/L (12-78); ALBUMIN 2.7 G/DL (3.4-5.0); ALBUMIN/GLOBULIN RATIO 0.6 (1.0-2.7); ALKALINE PHOSPHATASE 82 U/L (46-116); ANION GAP 12 mmol/L (5-15); ASPARTATE AMINO TRANSFERASE 209 U/L (15-37); BLOOD UREA NITROGEN 20 mg/dL (7-18); CALCIUM 9.7 MG/DL (8.5-10.1); CARBON DIOXIDE 23 MMOL/L (21-32); CHLORIDE 108 MMOL/L (98-107); CHOLESTEROL 97 MG/DL (< 200); CREATININE 1.5 MG/DL (0.55-1.30); HDL CHOLESTEROL 51 MG/DL (40-60); POTASSIUM 3.9 MMOL/L (3.5-5.1); SODIUM 143 MMOL/L (136-145); TRIGLYCERIDES 89 MG/DL (30-150)
--- NOTE | 2018-09-07 07:31 | NUR ---
HAND-OFF: Report given to RENALDO Silveira. No acute s/s of distress noted.
--- NOTE | 2018-09-07 07:46 | NUR ---
Nurse Note A+O x2-3, 11/26 pain in back. offered massage, refused. NPO, admin Morphine. BP 139/70, HR 85, O2 99% on room air
[2018-09-07 07:53] LABS: CREATINE KINASE 7161 U/L (26-308)
[2018-09-07 08:00] VITALS: BP 139/70
[2018-09-07] MEDS: Enalapril 5mg tab ORAL SCH (09:00)
[2018-09-07] MEDS: sitaGLIPtin 25mg tab ORAL SCH (09:00)
--- NOTE | 2018-09-07 09:27 | NUR ---
nurse note left message @ Dr. Dodd's office regarding NPO status and if ok to admin med.
--- NOTE | 2018-09-07 10:00 | NUR ---
CASE MANAGEMENT: INITIAL REVIEW 63 YO M CLEMENTE FROM PRISON CC: SYNCOPE PMHx: HEPATIC ENCEPHALOPATHY. HTN. ASTHMA. DM. SI: SYNCOPE. HYPERGLYCEMIA. T 97.9 HR 105 RR 18 B/P 144/76 SATS 96% ON RA BUN 27 CR 2.3 GLU 290 CR 10.7 TBILI 1.8 DBILI 0.7 AST 76 TOTAL CK 3213 IS: NS BOLUS X1 CEFTRIAXONE IV X1 PATIENT ADMITTED TO TELE 09/06/2018 @ 1928 DCP: PATIENT TO BE DISCHARGED TO HOME ONCE MEDICALLY CLEARED. PLAN OF CARE PER MD: - hold Metformin - start Levemir 10 units daily - continue NISS ac / hs - IV hydration - follow TSH, A1c - continue LT4 100 mcg for now 09/07/2018 SI: SYNCOPE. HYPERGLYCEMIA. T 98.1 HR 100 RR 20 B/P 130/65 SATS 98% ON RA CL 108 BUN 29 CR 1.5 GLU 191 AST 209 TOTAL CK 7161 IS: NS BOLUS X1 CEFTRIAXONE IV X1 TELE STATUS DCP: PATIENT TO BE DISCHARGED TO HOME ONCE MEDICALLY CLEARED. PLAN OF CARE PER MD: GLYCEMIC CONTROL AND MONITORING Addendum: 09/07/18 at 1254 by Leslie García CM INTERANDREA GONZALEZ
--- NOTE | 2018-09-07 11:09 | NUR ---
nurse note performed full bed bath skin assessment and skin treatment with wound care nurse. noted rash. informed MD Cho with TO for Elimite x1 and place on isolation. informed no meds given and NPO status d/t risk of aspiration. New order for swallow eval.
--- NOTE | 2018-09-07 11:48 | Consultation ---
History of Present Illness General Chief Complaint: Syncope Present Illness HPI 63-year-old male DM, HTN, chronic liver disease, a resident of an Assisted living, (for unclear reason), chronic debilitation, poor historian brought in by EMS after a syncopal episode at his nursing facility. He had been noted to be tachycardic and somnolent. He was found to have uncontrolled diabetes, renal insufficiency and severe anemia. Allergies: Coded Allergies: No Known Allergies (Verified , 06/13/09) Medication History Scheduled Atorvastatin Calcium* (Atorvastatin Calcium*), 80 MG ORAL BEDTIME, (Reported) Atorvastatin Calcium* (Atorvastatin Calcium*), 80 MG ORAL BEDTIME, (Reported) Docusate Sodium* (Docusate Sodium*), 100 MG ORAL TWICE A DAY, (Reported) Docusate Sodium* (Docusate Sodium*), 100 MG ORAL TWICE A DAY, (Reported) Enalapril Maleate* (Enalapril Maleate*), 5 MG ORAL DAILY, (Reported) Enalapril Maleate* (Enalapril Maleate*), 5 MG ORAL DAILY, (Reported) Folic Acid* (Folic Acid*), 1 MG ORAL DAILY, (Reported) Folic Acid* (Folic Acid*), 1 MG ORAL DAILY, (Reported) Gabapentin* (Gabapentin*), 600 MG ORAL TWICE A DAY, (Reported) Gabapentin* (Gabapentin*), 600 MG ORAL BID, (Reported) Insulin Glargine (Lantus), 0 SUBQ BEDTIME, (Reported) Lactulose (Lactulose*), 27.5 ML ORAL QID, (Reported) Levothyroxine Sodium* (Levothyroxine Sodium*), 100 MCG ORAL DAILY, (Reported) Levothyroxine Sodium* (Levothyroxine Sodium*), 100 MCG ORAL DAILY, (Reported) Metformin Hcl* (Metformin Hcl*), 500 MG ORAL TWICE A DAY, (Reported) Metformin Hcl* (Metformin Hcl*), 500 MG ORAL TWICE A DAY, (Reported) Pantoprazole* (Pantoprazole*), 40 MG ORAL DAILY, (Reported) Pantoprazole* (Pantoprazole*), 40 MG ORAL DAILY, (Reported) Sitagliptin* (Januvia*), 100 MG ORAL DAILY, (Reported) Sitagliptin* (Januvia*), 100 MG ORAL DAILY, (Reported) Scheduled PRN Hydrocodone Bit/Acetaminophen 5-325* ([place] 5-325*), 1 TAB ORAL DAILY PRN for For Pain, (Reported) Miscellaneous Medications Calcium Carbonate/Vitamin D3 (Calcium 500 + D Tablet), 1 EACH PO, (Reported) Patient History Healthcare decision maker N Resuscitation status Advanced Directive on File Past Medical/Surgical History Past Medical/Surgical History: (1) Chronic liver disease (2) Hypothyroid (3) Severe anemia (4) Diabetes mellitus Review of Systems Constitutional: Reports: no symptoms Eye: Reports: discharge Physical Exam General Appearance: WD/WN, no apparent distress Lines, tubes and drains: central line HEENT: normocephalic, atraumatic Neck: non-tender, normal alignment Respiratory/Chest: chest wall non-tender, normal breath sounds Cardiovascular/Chest: normal peripheral pulses Abdomen: normal bowel sounds, non tender Genitourinary/Rectal: normal genital exam Skin Exam: normal pigmentation Last 24 Hour Vital Signs Date Time Temp Pulse Resp B/P (MAP) Pulse Ox O2 Delivery O2 Flow Rate FiO2 09/07/18 09:58 85 18 97 Room Air 21 09/07/18 09:00 Room Air 09/07/18 09:00 139/70 09/07/18 08:00 98.6 86 16 139/70 (93) 99 86 09/07/18 08:00 104 09/07/18 04:00 88 09/07/18 04:00 98.1 100 20 130/65 (86) 98 100 09/07/18 00:00 98.3 105 20 131/72 (91) 98 105 09/07/18 00:00 90 09/06/18 22:02 Room Air 09/06/18 21:56 97.0 100 20 144/66 (92) 97 100 09/06/18 21:35 99 09/06/18 20:55 98.4 107 22 136/65 100 Room Air 107 09/06/18 20:13 97.9 100 18 137/65 100 Room Air 100 09/06/18 18:09 97.9 106 18 156/89 97 Room Air 09/06/18 17:50 97.9 105 18 144/76 (98) 96 Room Air Intake and Output 09/06/18 09/07/18 19:00 07:00 Intake Total 50 ml Balance 50 ml Intake Oral 50 ml # Voids 3 Laboratory Tests Test 09/06/18 18:20 09/06/18 19:55 09/07/18 06:00 White Blood Count 5.7 K/UL (4.8-10.8) 5.4 K/UL (4.8-10.8) Red Blood Count 3.72 M/UL (4.70-6.10) L 3.47 M/UL (4.70-6.10) L Hemoglobin 10.7 G/DL (14.2-18.0) L 9.8 G/DL (14.2-18.0) L Hematocrit 34.4 % (42.0-52.0) L 32.3 % (42.0-52.0) L Mean Corpuscular Volume 93 FL (80-99) 93 FL (80-99) Mean Corpuscular Hemoglobin 28.7 PG (27.0-31.0) 28.1 PG (27.0-31.0) Mean Corpuscular Hemoglobin Concent 31.0 G/DL (32.0-36.0) L 30.3 G/DL (32.0-36.0) L Red Cell Distribution Width 21.6 % (11.6-14.8) H 22.4 % (11.6-14.8) H Platelet Count 61 K/UL (150-450) L 75 K/UL (150-450) L Mean Platelet Volume 8.2 FL (6.5-10.1) 8.4 FL (6.5-10.1) Neutrophils (%) (Auto) % (45.0-75.0) % (45.0-75.0) Lymphocytes (%) (Auto) % (20.0-45.0) % (20.0-45.0) Monocytes (%) (Auto) % (1.0-10.0) % (1.0-10.0) Eosinophils (%) (Auto) % (0.0-3.0) % (0.0-3.0) Basophils (%) (Auto) % (0.0-2.0) % (0.0-2.0) Differential Total Cells Counted 100 100 Neutrophils % (Manual) 81 % (45-75) H 66 % (45-75) Lymphocytes % (Manual) 9 % (20-45) L 22 % (20-45) Monocytes % (Manual) 7 % (1-10) 10 % (1-10) Eosinophils % (Manual) 1 % (0-3) 2 % (0-3) Basophils % (Manual) 0 % (0-2) 0 % (0-2) Band Neutrophils 2 % (0-8) 0 % (0-8) Platelet Estimate Decreased L Decreased L Platelet Morphology Normal Normal Hypochromasia 1+ 2+ Anisocytosis 1+ 3+ Urine Color Yellow Urine Appearance Clear Urine pH 5 (4.5-8.0) Urine Specific [place] 1.020 (1.005-1.035) Urine Protein 2+ (NEGATIVE) H Urine Glucose (UA) 2+ (NEGATIVE) H Urine Ketones 1+ (NEGATIVE) H Urine Blood 5+ (NEGATIVE) H Urine Nitrite Negative (NEGATIVE) Urine Bilirubin Negative (NEGATIVE) Urine Urobilinogen 1 MG/DL (0.0-1.0) H Urine Leukocyte Esterase 1+ (NEGATIVE) H Urine RBC 5-10 /HPF (0 - 0) H Urine WBC 2-4 /HPF (0 - 0) Urine Squamous Epithelial Cells None /LPF (NONE/OCC) Urine Amorphous Sediment Few /LPF (NONE) H Urine Bacteria Few /HPF (NONE) Sodium Level 136 MMOL/L (136-145) 143 MMOL/L (136-145) Potassium Level 3.9 MMOL/L (3.5-5.1) 3.9 MMOL/L (3.5-5.1) Chloride Level 100 MMOL/L (98-107) 108 MMOL/L (98-107) H Carbon Dioxide Level 24 MMOL/L (21-32) 23 MMOL/L (21-32) Anion Gap 12 mmol/L (5-15) 12 mmol/L (5-15) Blood Urea Nitrogen 27 mg/dL (7-18) H 20 mg/dL (7-18) H Creatinine 2.3 MG/DL (0.55-1.30) H 1.5 MG/DL (0.55-1.30) H Estimat Glomerular Filtration Rate 28.8 mL/min (>60) 47.1 mL/min (>60) Glucose Level 290 MG/DL (74-106) H 191 MG/DL (74-106) #H Lactic Acid Level 3.60 mmol/L (0.4-2.0) H 2.40 mmol/L (0.66-2.22) H Calcium Level 10.7 MG/DL (8.5-10.1) H 9.7 MG/DL (8.5-10.1) Total Bilirubin 1.8 MG/DL (0.2-1.0) H 1.0 MG/DL (0.2-1.0) Direct Bilirubin 0.7 MG/DL (0.0-0.3) H Aspartate Amino Transf (AST/SGOT) 76 U/L (15-37) H 209 U/L (15-37) H Alanine Aminotransferase (ALT/SGPT) 31 U/L (12-78) 43 U/L (12-78) Alkaline Phosphatase 115 U/L (46-116) 82 U/L (46-116) Total Creatine Kinase 3213 U/L (26-308) H 7161 U/L (26-308) H Creatine Kinase MB 15.5 NG/ML (0.0-3.6) H Creatine Kinase MB Relative Index 0.4 Troponin I 0.002 ng/mL (0.000-0.056) 0.030 ng/mL (0.000-0.056) Total Protein 8.2 G/DL (6.4-8.2) 7.0 G/DL (6.4-8.2) Albumin 3.3 G/DL (3.4-5.0) L 2.7 G/DL (3.4-5.0) L Globulin 4.9 g/dL 4.3 g/dL Albumin/Globulin Ratio 0.7 (1.0-2.7) L 0.6 (1.0-2.7) L Hemoglobin A1c 8.0 % (4.3-6.0) H Triglycerides Level 89 MG/DL (30-150) Cholesterol Level 97 MG/DL (< 200) LDL Cholesterol 32 mg/dL (<100) HDL Cholesterol 51 MG/DL (40-60) Cholesterol/HDL Ratio 1.9 (3.3-4.4) L Thyroid Stimulating Hormone (TSH) 2.293 uiU/mL (0.358-3.740) Free Thyroxine 1.69 NG/DL (0.76-1.46) H Microbiology Date/Time Source Procedure Growth Status 09/06/18 19:55 Rectum Received Height (Feet): 6 Height (Inches): 0.00 Weight (Pounds): 200 Medications Current Medications Medications (Trade) Dose Ordered Sig/Alfredo Route PRN Reason Start Time Stop Time Status Last Admin Dose Admin Acetaminophen (Tylenol) 650 mg Q4H PRN ORAL fever 09/06/18 22:30 10/06/18 22:29 Acetaminophen/ Hydrocodone Bitart ([place] 5/325) 1 tab DAILY PRN ORAL For Pain 09/06/18 22:30 09/13/18 22:29 Albuterol/ Ipratropium (Albuterol/ Ipratropium) 3 ml EVERY 4 HOURS PRN HHN Shortness of Breath 09/06/18 22:30 09/11/18 22:29 Clonidine HCl (Catapres Tab) 0.1 mg EVERY 4 HOURS PRN ORAL sbp more than 160 09/06/18 22:30 10/06/18 22:29 Dextrose (Dextrose 50%) 25 ml Q30M PRN IV Hypoglycemia 09/06/18 22:30 10/06/18 22:29 Dextrose (Dextrose 50%) 50 ml Q30M PRN IV Hypoglycemia 09/06/18 22:30 10/06/18 22:29 Enalapril Maleate (Vasotec) 5 mg DAILY ORAL 09/07/18 09:00 10/07/18 08:59 Gabapentin (Neurontin) 600 mg BID ORAL 09/07/18 09:00 10/07/18 08:59 Heparin Sodium (Porcine) (Heparin 5000 units/ml) 5,000 units EVERY 12 HOURS SUBQ 09/07/18 09:00 10/07/18 08:59 UNV Insulin Aspart (NovoLOG) BEFORE MEALS AND HS SUBQ 09/07/18 06:30 10/07/18 06:29 Levothyroxine Sodium (Synthroid) 100 mcg DAILY@0630 ORAL 09/07/18 06:30 10/07/18 06:29 09/07/18 05:45 Morphine Sulfate (Morphine Sulfate) 2 mg EVERY 4 HOURS PRN IVP severe pain 7-10 09/06/18 22:30 09/13/18 22:29 09/07/18 07:46 Nitroglycerin (Ntg) 0.4 mg Q5M X 3 DOSES PRN SL Prn Chest Pain 09/06/18 22:30 10/06/18 22:29 Ondansetron HCl (Zofran) 4 mg EVERY 4 HOURS PRN IVP Nausea & Vomiting 09/06/18 22:45 10/06/18 22:29 Polyethylene Glycol (Miralax) 17 gm HSPRN PRN ORAL Constipation 09/06/18 22:30 10/06/18 22:29 Potassium Chloride/Sodium Chloride 1,000 ml @ 75 mls/hr [id number] IV 09/06/18 22:45 10/06/18 22:44 09/07/18 00:05 Sitagliptin Phosphate (Januvia) 100 mg DAILY ORAL 09/07/18 09:00 10/07/18 08:59 Temazepam (Restoril) 15 mg HSPRN PRN ORAL Insomnia 09/06/18 22:30 09/13/18 22:29 Assessment/Plan Problem List: (1) Diabetes mellitus out of control ICD Codes: E11.65 - Type 2 diabetes mellitus with hyperglycemia SNOMED: 45292590, 704732239 (2) Acute encephalopathy ICD Codes: G93.40 - Encephalopathy, unspecified SNOMED: 49044112, 137815919 (3) Severe anemia ICD Codes: D64.9 - Anemia, unspecified SNOMED: 349502322 (4) ATN (acute tubular necrosis) ICD Codes: N17.0 - Acute kidney failure with tubular necrosis SNOMED: 11852434 (5) Hypothyroid ICD Codes: E03.9 - Hypothyroidism, unspecified SNOMED: 93961748 (6) Chronic liver disease ICD Codes: K76.9 - Liver disease, unspecified SNOMED: 627212187 Assessment/Plan: iv fluids sliding scale check electrolytes renal evaluation pt.ot bedside swallow evaluation. dvt prophylaxis. Sudha Cho MD Sep 07, 2018 11:48
[2018-09-07 12:00] VITALS: BP 133/56
--- NOTE | 2018-09-07 12:01 | Diagnostic Imaging Report ---
Indication: Syncope Technique: Contiguous 5 mm thick transaxial imaging of the head obtained in a Siemens Sensation [address] scanner. Soft tissue and bone windows generated. Automatic Exposure Control was utilized. Total Dose length Product (DLP): 1471.[address] Dose Index Volume (CTDIvol): 70.38 mGy Comparison: none Findings: There is moderate prominence of the ventricles, basal cisterns, and cerebral sulci consistent with atrophy. Moderate, nonspecific, white matter hypoattenuation is noted throughout the brain consistent with chronic small vessel disease. There is no midline shift, edema, acute hemorrhage, mass effect, or abnormal extra-axial fluid collections. Bones are unremarkable. Impression: No acute intracranial bleed, mass effect or edema. Moderate atrophy of the brain. Evidence of chronic small vessel disease involving white matter tracts. The CT scanner at [facility] is accredited by the [place] [employer] and the scans are performed using dose optimization techniques as appropriate to a performed exam including Automatic Exposure control.
[2018-09-07 13:09] LABS: CREATINE KINASE 5519 U/L (26-308)
--- NOTE | 2018-09-07 13:15 | Diagnostic Imaging Report ---
Indication: Dyspnea Comparison: None A single view chest radiograph was obtained. Findings: Pulmonary vascular congestion is present. The heart is enlarged. Sternotomy noted. Bones are unremarkable. IMPRESSION: CHF
--- NOTE | 2018-09-07 13:49 | NUR ---
REFERRED BY DR CHILEL FOR A SWALLOW EVALUATION (PRIMARY MD DR BLAND) SEE FULL REPORT IN [facility] ACTIVITY SECTION DYSPHAGIA RISK FACTORS FOR THIS 63 Y.O. FARSI-SPEAKING MALE: ACUTE SYNCOPE, HYPERGLYCEMIA, HEPATIC ENCEPHALOPATHY (H/O), RHABDOMYOLYSIS, TACHYCARDIC, SOMNOLENT LUNGS MAY HAVE AN INFILTRATE BILATERAL VASCULAR CONGESTION AND CARDIOMEGALY AND CT HEAD SCAN: NEG FOR ACUTE ISSUES BUT HAS MODERATE BRAIN ATROPHY AND POOR HISTORIAN RELEVANT MEDS: ALBUTEROL, INSULIN H/O HTN, ASTHMA, DM, CHRONIC LIVER DZ, MDD, RA, AND SPINAL STENOSIS SCANNING CLERK AT [facility] ASSISTED LIVING ON A REGULAR TEXTURE DIET AND THIN LIQUIDS. CURRENTLY NPO (WAS ON CCHO-MED REGULAR TEXTURE DIET AND THIN LIQUIDS ? IF HE RECEIVED A TRAY). ALERT AND ABLE TO EXPRESS/UNDERSTAND BASIC NEEDS AND CONVERSE IN [place] THOUGH PRIMARY LANGUAGE IS FARSI. ORIENTED TO PLACE/TIME/SELF/SITUATION. HAS UPPER FULL DENTURES AND PARTIAL LOWER DENTURES MISSING DENTITION. DENIES ANY SWALLOWING PROBLEMS. INITIAL IMPRESSIONS: GROSSLY FUNCTIONAL SWALLOW WITH THIN LIQUIDS VIA CUP SEQUENTIAL SIPS (SHAQ 3 OZ SWALLOW EVAL), PUREED TSP, AND MASTICATED SOLID (1/2 CRACKER SALTINE CRACKER) W/O OVERT S/S OF ASPIRATION. HAS POSSIBLE RISK OF SILENT ASPIRATION (NEURO ISSUES ON CT HEAD SCAN AND POOR HISTORIAN) AND HAS POSSIBLE LUNG INFILTRATE. RECOMMENDATIONS: GIVEN SILENT ASPIRATION, CONSIDER COMPLETING A MODIFIED BARIUM SWALLOW STUDY (MBSS) IP OR OP IF DC TO FURTHER ASSESS SWALLOW, DETERMINE SILENT ASPIRATION RISK/ETIOLOGY, AND ATTEMPT TRIAL TX TECHNIQUES. INITIATE A CCHO-MED REGULAR TEXTURE DIET AND THIN LIQUIDS WITH GENERAL ASPIRATION PRECAUTIONS AND SUPERVISION INITIALLY (DOES NOT WANT ANY DOWNGRADED DIET/LIQUIDS) EDUCATED/TRAINED RN MING IN POSTED ASPIRATION PRECAUTIONS ESTABLISH ST GOALS IF INDICATED POST MEAL OBSERVATION AND MBSS. CONSIDER COGNITIVE-COMMUNICATIVE EVAL/TX TO MAKE SURE COGNITIVE SKILLS CLEARED FULLY. D/W RN AND PATIENT AND LEFT MESSAGE WITH DR CIHLEL
[2018-09-07 14:00] LABS: APPEARANCE,URINE CLEAR; BILIRUBIN, URINE NEGATIVE (NEGATIVE); COLOR,URINE PALE YELLOW; GLUCOSE, URINE (UA) NEGATIVE (NEGATIVE); KETONES,URINE 1+ (NEGATIVE); LEUKOCYTE ESTERASE ,URINE NEGATIVE (NEGATIVE); NITRITE,URINE NEGATIVE (NEGATIVE); PH,URINE 7 (4.5-8.0); PROTEIN,URINE 2+ (NEGATIVE); UROBILINOGEN,URINE NORMAL MG/DL (0.0-1.0)
[2018-09-07 16:00] VITALS: BP 136/64
--- NOTE | 2018-09-07 16:04 | NUR ---
NURSE NOTES:WOUND CARE NOTES:Pt presented on admission with red pimple and scaly rash noted to both axillae. Both upper ext,including web spaces of fingers both hands, abd folds , both groin areas and back. Pt complained of itching. Contact precautions observed during skin assessment. Dr. Cho visited and informed of rash and of pt's complaints of itching. Dr. Cho ordered Elimite Lotion.Primary nurse present during wound assessment and aware of Md's orders.No other evidence of skin breakdown noted.
--- NOTE | 2018-09-07 16:56 | History & Physical ---
History and Physical History & Physicial Dictated for Int Med no. [id number]. Mike Dodd MD Sep 07, 2018 16:56
--- NOTE | 2018-09-07 18:37 | Cardiac Electrophysiology PN ---
Subjective Subjective CABG Jorge, Syncope [id number] Objective Last 24 Hour Vital Signs Date Time Temp Pulse Resp B/P (MAP) Pulse Ox O2 Delivery O2 Flow Rate FiO2 09/07/18 17:03 97.9 09/07/18 12:00 90 09/07/18 12:00 97.9 107 20 133/56 (81) 96 107 09/07/18 09:58 85 18 97 Room Air 21 09/07/18 09:00 Room Air 09/07/18 09:00 139/70 09/07/18 08:00 98.6 86 16 139/70 (93) 99 86 09/07/18 08:00 104 09/07/18 04:00 88 09/07/18 04:00 98.1 100 20 130/65 (86) 98 100 09/07/18 00:00 98.3 105 20 131/72 (91) 98 105 09/07/18 00:00 90 09/06/18 22:02 Room Air 09/06/18 21:56 97.0 100 20 144/66 (92) 97 100 09/06/18 21:35 99 09/06/18 20:55 98.4 107 22 136/65 100 Room Air 107 09/06/18 20:13 97.9 100 18 137/65 100 Room Air 100 Intake and Output 09/06/18 09/07/18 19:00 07:00 Intake Total 50 ml Balance 50 ml Intake Oral 50 ml # Voids 3 Laboratory Tests Test 09/06/18 19:55 09/07/18 06:00 09/07/18 12:00 09/07/18 13:40 Lactic Acid Level 2.40 mmol/L (0.66-2.22) H White Blood Count 5.4 K/UL (4.8-10.8) Red Blood Count 3.47 M/UL (4.70-6.10) L Hemoglobin 9.8 G/DL (14.2-18.0) L Hematocrit 32.3 % (42.0-52.0) L Mean Corpuscular Volume 93 FL (80-99) Mean Corpuscular Hemoglobin 28.1 PG (27.0-31.0) Mean Corpuscular Hemoglobin Concent 30.3 G/DL (32.0-36.0) L Red Cell Distribution Width 22.4 % (11.6-14.8) H Platelet Count 75 K/UL (150-450) L Mean Platelet Volume 8.4 FL (6.5-10.1) Neutrophils (%) (Auto) % (45.0-75.0) Lymphocytes (%) (Auto) % (20.0-45.0) Monocytes (%) (Auto) % (1.0-10.0) Eosinophils (%) (Auto) % (0.0-3.0) Basophils (%) (Auto) % (0.0-2.0) Differential Total Cells Counted 100 Neutrophils % (Manual) 66 % (45-75) Lymphocytes % (Manual) 22 % (20-45) Monocytes % (Manual) 10 % (1-10) Eosinophils % (Manual) 2 % (0-3) Basophils % (Manual) 0 % (0-2) Band Neutrophils 0 % (0-8) Platelet Estimate Decreased L Platelet Morphology Normal Hypochromasia 2+ Anisocytosis 3+ Sodium Level 143 MMOL/L (136-145) Potassium Level 3.9 MMOL/L (3.5-5.1) Chloride Level 108 MMOL/L (98-107) H Carbon Dioxide Level 23 MMOL/L (21-32) Anion Gap 12 mmol/L (5-15) Blood Urea Nitrogen 20 mg/dL (7-18) H Creatinine 1.5 MG/DL (0.55-1.30) H Estimat Glomerular Filtration Rate 47.1 mL/min (>60) Glucose Level 191 MG/DL (74-106) #H Hemoglobin A1c 8.0 % (4.3-6.0) H Calcium Level 9.7 MG/DL (8.5-10.1) Total Bilirubin 1.0 MG/DL (0.2-1.0) Aspartate Amino Transf (AST/SGOT) 209 U/L (15-37) H Alanine Aminotransferase (ALT/SGPT) 43 U/L (12-78) Alkaline Phosphatase 82 U/L (46-116) Total Creatine Kinase 7161 U/L (26-308) H 5519 U/L (26-308) H Troponin I 0.030 ng/mL (0.000-0.056) Pro-B-Type Natriuretic Peptide 408 pg/mL (0-125) H Total Protein 7.0 G/DL (6.4-8.2) Albumin 2.7 G/DL (3.4-5.0) L Globulin 4.3 g/dL Albumin/Globulin Ratio 0.6 (1.0-2.7) L Triglycerides Level 89 MG/DL (30-150) Cholesterol Level 97 MG/DL (< 200) LDL Cholesterol 32 mg/dL (<100) HDL Cholesterol 51 MG/DL (40-60) Cholesterol/HDL Ratio 1.9 (3.3-4.4) L Thyroid Stimulating Hormone (TSH) 2.293 uiU/mL (0.358-3.740) Free Thyroxine 1.69 NG/DL (0.76-1.46) H Uric Acid 9.6 MG/DL (2.6-7.2) H Urine Color Pale yellow Urine Appearance Clear Urine pH 7 (4.5-8.0) Urine Specific [place] 1.010 (1.005-1.035) Urine Protein 2+ (NEGATIVE) H Urine Glucose (UA) Negative (NEGATIVE) Urine Ketones 1+ (NEGATIVE) H Urine Blood 5+ (NEGATIVE) H Urine Nitrite Negative (NEGATIVE) Urine Bilirubin Negative (NEGATIVE) Urine Urobilinogen Normal MG/DL (0.0-1.0) Urine Leukocyte Esterase Negative (NEGATIVE) Urine RBC 2-4 /HPF (0 - 0) H Urine WBC 2-4 /HPF (0 - 0) Urine Squamous Epithelial Cells Occasional /LPF Urine Bacteria Occasional /HPF (NONE) Urine Eosinophils None seen (NONE SEEN) Urine Random Sodium 127 mmol/L (20-110) H Urine Potassium Timed 16 mmol/L (12-62) Microbiology Date/Time Source Procedure Growth Status 09/06/18 19:55 Rectum Received Gabino Juarez MD Sep 07, 2018 18:37
--- NOTE | 2018-09-07 19:20 | NUR ---
NURSE NOTES: Report received from RENALDO Silveira. Observed pt lying on the bed. A/O x3 but forgetful, c/o pain at left hip area, constant aching, 10/10, will give prn pain med. SR with monitor technician. On room air with no signs of SOB. Abd soft, round, and non-tender. Condom catheter intact and draining well. Sacral redness noted. Small skin tears on both feet noted. IV on R UA 22G, running NS 20KCL at 75cc/hr. Bed in the lowest position. Side rails up x2. Call light within reach. Will continue to monitor.
--- NOTE | 2018-09-07 19:30 | History and Physical Report ---
DATE OF ADMISSION: 09/06/2018 CHIEF COMPLAINT: The patient is a 63-year-old white male with history of coronary artery disease, who presents with chief complaint of syncopal episode. HISTORY OF PRESENT ILLNESS: The patient is a resident of an assisted living facility. The patient was apparently trying to get out of his bed yesterday, 09/06/2018. The patient fell backwards onto the bed. The patient was found more less unresponsive. EMS was called. The patient presented to [facility]. The patient then began to develop chest pain. The patient is admitted with syncopal episode and chest pain to rule out acute coronary syndrome. REVIEW OF SYSTEMS: CONSTITUTIONAL: The patient denies weight loss or weight gain. The patient denies fevers or chills. HEENT: The patient denies ear or throat pain. The patient denies headache. CARDIOVASCULAR: The patient complains of chest pain as above. The patient denies palpitations. ABDOMEN: The patient denies nausea, vomiting, diarrhea, or constipation. CHEST: The patient denies wheeze or shortness of breath. GENITOURINARY: The patient denies dysuria or increased frequency of urination. NEUROMUSCULAR: The patient denies seizures. The patient complains of syncopal episode as above. The patient denies generalized weakness. PAST MEDICAL HISTORY: Significant for: 1. Coronary artery disease, status post coronary artery bypass graft. 2. Diabetes type 2. 3. Hypertension. 4. Iron deficiency anemia. 5. History of hepatic encephalopathy. PAST SURGICAL HISTORY: Significant for: 1. Lumbar laminectomy. 2. Coronary artery bypass graft in 2004. 3. Right hip open reduction and internal fixation in 2017. CURRENT MEDICATIONS: 1. Atorvastatin 80 mg p.o. daily. 2. Calcium carbonate 500 mg plus D daily. 3. Enalapril 5 mg p.o. daily. 4. Folic acid 1 mg p.o. daily. 5. Gabapentin 600 mg p.o. twice daily. 6. [place] 5/325 mg one tablet p.o. q.6 h. p.r.n. 7. Lantus insulin, unknown dose nightly. 8. Lactulose 20 g p.o. twice daily. 9. Levoxyl 100 mcg p.o. daily. 10. Metformin 500 mg one tablet p.o. twice daily. 11. Pantoprazole 40 mg p.o. daily. 12. Januvia 100 mg p.o. daily. ALLERGIES: No known drug allergies. SOCIAL HISTORY: The patient is and lives in an assisted living facility named [facility]. The patient denies tobacco use. The patient denies alcohol use, having quit "when my divorce was final." PHYSICAL EXAMINATION: VITAL SIGNS: Temperature 97.9, respirations 18, pulse 105, and blood pressure 144/76. GENERAL: A well-developed and well-nourished white male, in no apparent distress. HEENT: Eyes, pupils are equal and responsive to light and accommodation. Extraocular movements are intact. NECK: Supple without lymphadenopathy. CHEST: Lungs are clear to auscultation bilaterally without wheezes or rales. CARDIOVASCULAR: Regular rhythm and rate. S1 and S2 are normal with a 2/6 systolic ejection murmur without gallops. ABDOMEN: Soft, nontender, and nondistended. Positive bowel sounds. No evidence of hepatosplenomegaly. Currently, no rebound or guarding noted. EXTREMITIES: Negative for clubbing, cyanosis, or edema. RECTAL/GENITAL: Not performed. NEUROLOGIC: Cranial nerves II through XII are grossly intact without focal deficits. Motor strength is 5/5 bilaterally. Deep tendon reflexes are 2+ plantar. LABORATORY STUDIES: WBC 5.7, hemoglobin 10.7, hematocrit 34.4, and platelets 61,000. Sodium 136, potassium 3.9, chloride 100, CO2 24, BUN 27, and creatinine 2.3. Glucose 290. Total CPK elevated at 3213. CK-MB fraction 15.5. A CT scan of the brain failed to demonstrate acute bleed or infarct. An EKG demonstrated sinus rhythm at approximately 100 beats per minute. There were occasional premature ventricular contractions noted. Otherwise, no acute ST changes or Q-waves noted. ASSESSMENT: This is a 63-year-old white male with: 1. Syncopal episode. 2. Chest pain. 3. Diabetes type 2. 4. Hypertension. 5. History of coronary artery disease. 6. Hypercholesterolemia. 7. Hypothyroidism. TREATMENT: 1. Syncopal episode/chest pain. Chest pain is concerning in a patient with previous history of coronary artery disease, status post coronary artery bypass graft. The patient has an elevated total CPK and MB fraction. Troponin is within normal limits. This may indicate a previous myocardial infarction. A Cardiology consultation has been obtained with Dr. Gabino Juarez. Serial troponin levels will be performed. An echocardiogram is pending. 2. Diabetes type 2. Lantus has been discontinued. An Endocrinology consultation has been obtained with Dr. Oleary. The patient has been started on a NovoLog sliding scale. 3. Hypertension. Continue enalapril as above. 4. Hypercholesterolemia. Continue Lipitor as above. 5. Hypothyroidism. Continue Levoxyl as above. 6. Anemia. An iron panel is pending. Mike Dodd M.D. DR: JOE JOB#: [id number] CC:
[2018-09-07 20:00] VITALS: BP 120/72
--- NOTE | 2018-09-07 20:00 | Consultation ---
DATE OF CONSULTATION: 09/07/2018 CARDIOLOGY CONSULTATION CONSULTING PHYSICIAN: Gabino Juarez M.D. REFERRING PHYSICIAN: Mike Dodd M.D. REASON FOR CONSULTATION: Syncope. HISTORY OF PRESENT ILLNESS: The patient is a 63-year-old gentleman with history of hypertension, diabetes, and asthma, was brought in after he had a syncopal episode in the nursing facility. The patient also has history of hepatic encephalopathy. The patient also noted to be tachycardic by paramedics, was somnolent. The patient was sent from [facility]. On telemetry, the patient was in sinus rhythm with occasional PVCs. REVIEW OF SYSTEMS: Negative other than what was mentioned in history of present illness. PAST MEDICAL HISTORY: As mentioned above. FAMILY HISTORY: Noncontributory. SOCIAL HISTORY: He is a halfway resident. Does not smoke or drink alcohol. PHYSICAL EXAMINATION: VITAL SIGNS: Show blood pressure 132/56, pulse 107, respirations 18, and temperature 97.9. HEAD AND NECK: Shows no JVD. LUNGS: Decreased breath sounds. CARDIOVASCULAR: Shows irregular S1 and S2 with no gallop or murmur. ABDOMEN: Soft. EXTREMITIES: 1+ pitting edema. LABORATORY AND DIAGNOSTIC DATA: His EKG shows sinus tachycardia with occasional PVCs with poor R-wave progression. His labs show white count 5.4, hemoglobin 9.8, hematocrit 32.3, and platelet count 75. Sodium 142, potassium 3.9, BUN 20, and creatinine 1.5. Glucose of 191. His uric acid is 9.6. CK is 7161. Troponin is negative. BNP is 408. ASSESSMENT AND PLAN: 1. Hypertension. The patient is on Vasotec 5 mg daily that will be continued. The patient is also on p.r.n. clonidine. 2. Syncope, etiology is not clear. Head CT showed no acute intracranial findings. We will see what the echocardiogram shows. Keep the patient on telemetry and check orthostatic vital signs. 3. Chronic liver disease. 4. Chronic debilitation. 5. History of hyperlipidemia for which he is on Lipitor. 6. Hypothyroidism, on Synthroid. 7. Diabetes, on metformin. 8. Severe anemia. Thank you very much for allowing me to participate in the care of this patient. Please do not hesitate to contact me for any questions regarding my evaluation. Gabino Juarez M.D. DR: DAIVD JOB#: [id number] CC:
--- NOTE | 2018-09-07 20:00 | NUR ---
NURSE NOTES: Pt took off every dressing on him and refused to put dressings back. Sacral redness noted. Small skin tears noted on both feet. Will continue to monitor.
[2018-09-07] MEDS: HYDROcodone/Acetamin 5/325 tab ORAL PRN (20:12)
[2018-09-07] MEDS: Heparin 5000 units/ml inj SUBQ SCH (20:33)
--- NOTE | 2018-09-07 22:00 | NUR ---
NURSE NOTES: Pt does not want any information and medical record given to his family member except his mother.
--- NOTE | 2018-09-07 23:00 | NUR ---
NURSE NOTES: pt c/o pain at left hip area. prn med given. Bed bath given to distract pain. New IV on right hand 18G, running NS 20KCL at 75cc/hr. Observed pt tying to sleep. Will continue to monitor.
[2018-09-08] VITALS: BP 124/71
--- NOTE | 2018-09-08 01:13 | NUR ---
NURSE NOTES: Pt refused to have IV fluid, explained risks and benefits, and still refused. Will continue to monitor.
[2018-09-08] MEDS: NS w/KCl 20mEq 1000ml 1,000 ML IV SCH ×2 (01:25→15:09)
[2018-09-08 04:00] VITALS: BP 145/81
[2018-09-08] MEDS: NovoLOG Insulin Flexpen SUBQ SCH ×4 (05:56→21:39)
[2018-09-08] MEDS: Morphine Sulfate 2mg/ml Inj(IV/IM USE ONLY) IVP PRN ×3 (06:30→21:30)
--- NOTE | 2018-09-08 07:00 | NUR ---
NURSE NOTES: pt awake alert, no distress. no c/o pain. call light within reach. bed in lowest position, locked.
[2018-09-08 07:15] LABS: HEMOGLOBIN 9.7 G/DL (14.2-18.0); MEAN CORPUSCULAR VOLUME 94 FL (80-99); PLATELET COUNT 58 K/UL (150-450); RED BLOOD COUNT 3.41 M/UL (4.70-6.10); RED CELL DISTRIBUTION WIDTH 22.3 % (11.6-14.8); WHITE BLOOD COUNT 3.6 K/UL (4.8-10.8)
--- NOTE | 2018-09-08 07:22 | NUR ---
CASE MANAGEMENT: REVIEW 09/08/2018 SI: SYNCOPE. HYPERGLYCEMIA. T 98.4 HR 69 RR 20 B/P 124/71 SATS 96% ON RA AML PENDING IS: LOPRESSOR PO Q12H NORVASC PO QD PROTONIX PO QD CARAFATE PO QID TELE STATUS DCP: PATIENT TO BE DISCHARGED TO HOME ONCE MEDICALLY CLEARED. PLAN OF CARE PER MD: GLYCEMIC CONTROL AND MONITORING MRI L SPINE NM myocardial perfusion study results (-)
--- NOTE | 2018-09-08 07:25 | NUR ---
HAND-OFF: Report given to RENALDO Raines. No acute distress noted at this time.
[2018-09-08 07:54] VITALS: BP 118/78
[2018-09-08 07:55] LABS: ANION GAP 14 mmol/L (5-15); BLOOD UREA NITROGEN 18 mg/dL (7-18); CALCIUM 9.3 MG/DL (8.5-10.1); CARBON DIOXIDE 21 MMOL/L (21-32); CHLORIDE 107 MMOL/L (98-107); CKMB 5.7 NG/ML (0.0-3.6); CREATINE KINASE 3653 U/L (26-308); CREATININE 1.2 MG/DL (0.55-1.30); POTASSIUM 3.9 MMOL/L (3.5-5.1); SODIUM 142 MMOL/L (136-145)
[2018-09-08 07:56] LABS: LACTATE DEHYDROGENASE 338 U/L (81-234); PHOSPHORUS 2.8 MG/DL (2.5-4.9)
[2018-09-08] MEDS: Heparin 5000 units/ml inj SUBQ SCH ×2 (08:10→19:43)
[2018-09-08] MEDS: Enalapril 5mg tab ORAL SCH (08:10)
[2018-09-08] MEDS: sitaGLIPtin 25mg tab ORAL SCH (08:10)
[2018-09-08 08:17] LABS: INR 1.1 (0.9-1.1)
[2018-09-08] MEDS: HYDROcodone/Acetamin 5/325 tab ORAL PRN (08:50)
[2018-09-08 08:59] LABS: % IRON SATURATION 21 % (15-50); IRON 68 ug/dL (50-175); TOTAL IRON BINDING CAPACITY 325 ug/dL (250-450)
--- NOTE | 2018-09-08 11:24 | Diagnostic Imaging Report ---
APPROVED REPORT CPT Code: 37565 Vascular Symptoms Comments: SYNCOPE. Doppler Spectral Velocity Analysis RightLeft carotid artery.Imaging also reveals irregular, minimal plaque in the carotid bulb and carotid artery. The Doppler spectral flow analysis indicates the degree of stenosis is minimal (10%) in the common carotid artery, mild (20%) in the internal carotid artery. VERTEBRAL- The vertebral artery is patent, without evidence of stenosis or steal. Imaging reveals no significant plaque in the internal and external carotid arteries. . The Doppler spectral flow analysis is within normal limits throughout the extracranial carotid arteries. VERTEBRAL- The vertebral artery was not well visualized.
--- NOTE | 2018-09-08 11:39 | Internal Med Progress Note ---
Subjective Date of Service: Sep 08, 2018 Physician Name Mike Dodd Attending Physician Mike Dodd MD Current Medications Medications (Trade) Dose Ordered Sig/Alfredo Route PRN Reason Start Time Stop Time Status Last Admin Dose Admin Acetaminophen (Tylenol) 650 mg Q4H PRN ORAL fever 09/06/18 22:30 10/06/18 22:29 Acetaminophen/ Hydrocodone Bitart ([place] 5/325) 1 tab DAILY PRN ORAL For Pain 09/06/18 22:30 09/13/18 22:29 09/08/18 08:50 Albuterol/ Ipratropium (Albuterol/ Ipratropium) 3 ml EVERY 4 HOURS PRN HHN Shortness of Breath 09/06/18 22:30 09/11/18 22:29 Clonidine HCl (Catapres Tab) 0.1 mg EVERY 4 HOURS PRN ORAL sbp more than 160 09/06/18 22:30 10/06/18 22:29 Dextrose (Dextrose 50%) 25 ml Q30M PRN IV Hypoglycemia 09/06/18 22:30 10/06/18 22:29 Dextrose (Dextrose 50%) 50 ml Q30M PRN IV Hypoglycemia 09/06/18 22:30 10/06/18 22:29 Enalapril Maleate (Vasotec) 5 mg DAILY ORAL 09/07/18 09:00 10/07/18 08:59 09/08/18 08:10 Gabapentin (Neurontin) 600 mg Q12HR ORAL 09/08/18 21:00 10/08/18 20:59 Heparin Sodium (Porcine) (Heparin 5000 units/ml) 5,000 units EVERY 12 HOURS SUBQ 09/07/18 21:00 10/07/18 20:59 Insulin Aspart (NovoLOG) BEFORE MEALS AND HS SUBQ 09/07/18 06:30 10/07/18 06:29 09/08/18 05:56 Levothyroxine Sodium (Synthroid) 100 mcg DAILY@0630 ORAL 09/07/18 06:30 10/07/18 06:29 09/08/18 05:54 Morphine Sulfate (Morphine Sulfate) 2 mg EVERY 4 HOURS PRN IVP severe pain 7-09/06/18 22:30 09/13/18 22:29 09/08/18 10:53 Nitroglycerin (Ntg) 0.4 mg Q5M X 3 DOSES PRN SL Prn Chest Pain 09/06/18 22:30 10/06/18 22:29 Ondansetron HCl (Zofran) 4 mg EVERY 4 HOURS PRN IVP Nausea & Vomiting 09/06/18 22:45 10/06/18 22:29 Polyethylene Glycol (Miralax) 17 gm HSPRN PRN ORAL Constipation 09/06/18 22:30 10/06/18 22:29 Potassium Chloride/Sodium Chloride 1,000 ml @ 75 mls/hr [id number] IV 09/06/18 22:45 10/06/18 22:44 09/07/18 13:28 Sitagliptin Phosphate (Januvia) 100 mg DAILY ORAL 09/07/18 09:00 10/07/18 08:59 09/08/18 08:10 Temazepam (Restoril) 15 mg HSPRN PRN ORAL Insomnia 09/06/18 22:30 09/13/18 22:29 09/08/18 00:18 Allergies: Coded Allergies: No Known Allergies (Verified , 06/13/09) ROS Limited/Unobtainable: No Constitutional: Reports: no symptoms HEENT: Reports: no symptoms Cardiovascular: Reports: chest pain Respiratory: Reports: no symptoms Gastrointestinal/Abdominal: Reports: no symptoms Genitourinary: Reports: no symptoms Neurologic/Psychiatric: Reports: no symptoms Subjective 63 YO M admitted with chest pain and elevated CPK. Await echocardiogram. Objective Last Vital Signs Date Time Temp Pulse Resp B/P (MAP) Pulse Ox O2 Delivery O2 Flow Rate FiO2 09/08/18 09:20 98.0 09/08/18 08:25 Room Air 09/08/18 08:10 118/78 09/08/18 07:54 91 20 98 09/08/18 07:16 21 Laboratory Tests Test 09/07/18 12:00 09/07/18 13:40 09/08/18 06:11 Uric Acid 9.6 MG/DL (2.6-7.2) H Total Creatine Kinase 5519 U/L (26-308) H 3653 U/L (26-308) H Urine Color Pale yellow Urine Appearance Clear Urine pH 7 (4.5-8.0) Urine Specific [place] 1.010 (1.005-1.035) Urine Protein 2+ (NEGATIVE) H Urine Glucose (UA) Negative (NEGATIVE) Urine Ketones 1+ (NEGATIVE) H Urine Blood 5+ (NEGATIVE) H Urine Nitrite Negative (NEGATIVE) Urine Bilirubin Negative (NEGATIVE) Urine Urobilinogen Normal MG/DL (0.0-1.0) Urine Leukocyte Esterase Negative (NEGATIVE) Urine RBC 2-4 /HPF (0 - 0) H Urine WBC 2-4 /HPF (0 - 0) Urine Squamous Epithelial Cells Occasional /LPF Urine Bacteria Occasional /HPF (NONE) Urine Eosinophils None seen (NONE SEEN) Urine Random Sodium 127 mmol/L (20-110) H Urine Potassium Timed 16 mmol/L (12-62) White Blood Count 3.6 K/UL (4.8-10.8) L Red Blood Count 3.41 M/UL (4.70-6.10) L Hemoglobin 9.7 G/DL (14.2-18.0) L Hematocrit 32.0 % (42.0-52.0) L Mean Corpuscular Volume 94 FL (80-99) Mean Corpuscular Hemoglobin 28.6 PG (27.0-31.0) Mean Corpuscular Hemoglobin Concent 30.4 G/DL (32.0-36.0) L Red Cell Distribution Width 22.3 % (11.6-14.8) H Platelet Count 58 K/UL (150-450) L Mean Platelet Volume 8.8 FL (6.5-10.1) Neutrophils (%) (Auto) % (45.0-75.0) Lymphocytes (%) (Auto) % (20.0-45.0) Monocytes (%) (Auto) % (1.0-10.0) Eosinophils (%) (Auto) % (0.0-3.0) Basophils (%) (Auto) % (0.0-2.0) Differential Total Cells Counted 100 Neutrophils % (Manual) 65 % (45-75) Lymphocytes % (Manual) 26 % (20-45) Monocytes % (Manual) 7 % (1-10) Eosinophils % (Manual) 2 % (0-3) Basophils % (Manual) 0 % (0-2) Band Neutrophils 0 % (0-8) Platelet Estimate Decreased L Platelet Morphology Normal Polychromasia 1+ Hypochromasia 1+ Anisocytosis 3+ Tear Drop Cells Occasional Ovalocytes 1+ Erythrocyte Sedimentation Rate 51 MM/HR (0-20) H Reticulocyte Count Pending Prothrombin Time 11.9 SEC (9.30-11.50) H Prothromb Time International Ratio 1.1 (0.9-1.1) Activated Partial Thromboplast Time 24 SEC (23-33) Sodium Level 142 MMOL/L (136-145) Potassium Level 3.9 MMOL/L (3.5-5.1) Chloride Level 107 MMOL/L (98-107) Carbon Dioxide Level 21 MMOL/L (21-32) Anion Gap 14 mmol/L (5-15) Blood Urea Nitrogen 18 mg/dL (7-18) Creatinine 1.2 MG/DL (0.55-1.30) Estimat Glomerular Filtration Rate > 60 mL/min (>60) Glucose Level 163 MG/DL (74-106) H Calcium Level 9.3 MG/DL (8.5-10.1) Phosphorus Level 2.8 MG/DL (2.5-4.9) Magnesium Level 1.2 MG/DL (1.8-2.4) L Iron Level 68 ug/dL (50-175) Total Iron Binding Capacity 325 ug/dL (250-450) Percent Iron Saturation 21 % (15-50) Unsaturated Iron Binding 257 ug/dL (112-346) Lactate Dehydrogenase 338 U/L (81-234) H Creatine Kinase MB 5.7 NG/ML (0.0-3.6) H Creatine Kinase MB Relative Index 0.1 Troponin I 0.011 ng/mL (0.000-0.056) C-Reactive Protein, Quantitative 3.6 mg/dL (0.00-0.90) H Pro-B-Type Natriuretic Peptide 677 pg/mL (0-125) H Carcinoembryonic Antigen Pending Vitamin B12 Level > 2000 PG/ML (193-986) H Folate 24.3 NG/ML (8.6-58.9) Thyroid Stimulating Hormone (TSH) 3.300 uiU/mL (0.358-3.740) Microbiology Date/Time Source Procedure Growth Status 09/06/18 18:45 Blood Blood Culture - Preliminary NO GROWTH AFTER 24 HOURS Resulted 09/06/18 19:55 Rectum Received Intake and Output 09/07/18 09/08/18 19:00 07:00 Intake Total 315 ml 540 ml Output Total 400 ml Balance -85 ml 540 ml Intake Oral 240 ml 240 ml IV Total 75 ml 300 ml Output Urine Total 400 ml # Voids 1 2 Objective PHYSICAL EXAMINATION: GENERAL: A well-developed and well-nourished white male, in no apparent distress. HEENT: Eyes, pupils are equal and responsive to light and accommodation. Extraocular movements are intact. NECK: Supple without lymphadenopathy. CHEST: Lungs are clear to auscultation bilaterally without wheezes or rales. CARDIOVASCULAR: Regular rhythm and rate. S1 and S2 are normal with a 2/6 systolic ejection murmur without gallops. ABDOMEN: Soft, nontender, and nondistended. Positive bowel sounds. No evidence of hepatosplenomegaly. Currently, no rebound or guarding noted. EXTREMITIES: Negative for clubbing, cyanosis, or edema. RECTAL/GENITAL: Not performed. NEUROLOGIC: Cranial nerves II through XII are grossly intact without focal deficits. Motor strength is 5/5 bilaterally. Deep tendon reflexes are 2+ plantar. Assessment/Plan Assessment/Plan ASSESSMENT: This is a 63-year-old white male with: 1. Syncopal episode. 2. Chest pain. 3. Diabetes type 2. 4. Hypertension. 5. History of coronary artery disease. 6. Hypercholesterolemia. 7. Hypothyroidism. 8. Elevated CPK TREATMENT: 1. Syncopal episode/chest pain. Chest pain is concerning in a patient with previous history of coronary artery disease, status post coronary artery bypass graft. The patient has an elevated total CPK and MB fraction. Troponin is within normal limits. ?rhabdomyolysis vs previous myocardial infarction. A Cardiology consultation has been obtained with Dr. Gabino Juarez. An echocardiogram is pending. 2. Diabetes type 2. Lantus has been discontinued. An Endocrinology consultation has been obtained with Dr. Oleary. The patient has been started on a NovoLog sliding scale. 3. Hypertension. Continue enalapril as above. 4. Hypercholesterolemia. Continue Lipitor as above. 5. Hypothyroidism. Continue Levoxyl as above. 6. Anemia. An iron panel is pending. Mike Dodd MD Sep 08, 2018 11:39
[2018-09-08 12:00] VITALS: BP 120/69
--- NOTE | 2018-09-08 12:08 | Cardiac Electrophysiology PN ---
Assessment/Plan Assessment/Plan 1. Hypertension. The patient is on Vasotec 5 mg daily and p.r.n. clonidine. 2. Syncope, etiology is not clear. Head CT showed no acute intracranial findings. Echocardiogram shows Nl EF. 3. S/P CABG 4. Chronic debilitation. 5. Hyperlipidemia on Lipitor. 6. Hypothyroidism, on Synthroid. 7. Diabetes, on metformin. 8. Severe anemia. TIMBO RN and Dr Cho Subjective Subjective No CP or SOB.In SR Objective Last 24 Hour Vital Signs Date Time Temp Pulse Resp B/P (MAP) Pulse Ox O2 Delivery O2 Flow Rate FiO2 09/08/18 11:23 98.0 09/08/18 09:20 98.0 09/08/18 08:25 Room Air 09/08/18 08:10 118/78 09/08/18 07:54 98.0 91 20 118/78 (91) 98 09/08/18 07:31 85 09/08/18 07:16 88 20 94 Room Air 21 09/08/18 04:00 98.0 91 20 145/81 (102) 98 83 09/08/18 04:00 93 09/08/18 00:00 88 09/08/18 00:00 97.8 92 20 124/71 (88) 98 83 09/07/18 21:00 Room Air 09/07/18 20:07 88 20 97 Room Air 21 09/07/18 20:00 98.2 104 20 120/72 (88) 96 83 09/07/18 20:00 100 09/07/18 16:00 98.3 83 20 136/64 (88) 96 83 09/07/18 16:00 88 Intake and Output 09/07/18 09/08/18 19:00 07:00 Intake Total 315 ml 540 ml Output Total 400 ml Balance -85 ml 540 ml Intake Oral 240 ml 240 ml IV Total 75 ml 300 ml Output Urine Total 400 ml # Voids 1 2 Laboratory Tests Test 09/07/18 13:40 09/08/18 06:11 Urine Color Pale yellow Urine Appearance Clear Urine pH 7 (4.5-8.0) Urine Specific [place] 1.010 (1.005-1.035) Urine Protein 2+ (NEGATIVE) H Urine Glucose (UA) Negative (NEGATIVE) Urine Ketones 1+ (NEGATIVE) H Urine Blood 5+ (NEGATIVE) H Urine Nitrite Negative (NEGATIVE) Urine Bilirubin Negative (NEGATIVE) Urine Urobilinogen Normal MG/DL (0.0-1.0) Urine Leukocyte Esterase Negative (NEGATIVE) Urine RBC 2-4 /HPF (0 - 0) H Urine WBC 2-4 /HPF (0 - 0) Urine Squamous Epithelial Cells Occasional /LPF Urine Bacteria Occasional /HPF (NONE) Urine Eosinophils None seen (NONE SEEN) Urine Random Sodium 127 mmol/L (20-110) H Urine Potassium Timed 16 mmol/L (12-62) White Blood Count 3.6 K/UL (4.8-10.8) L Red Blood Count 3.41 M/UL (4.70-6.10) L Hemoglobin 9.7 G/DL (14.2-18.0) L Hematocrit 32.0 % (42.0-52.0) L Mean Corpuscular Volume 94 FL (80-99) Mean Corpuscular Hemoglobin 28.6 PG (27.0-31.0) Mean Corpuscular Hemoglobin Concent 30.4 G/DL (32.0-36.0) L Red Cell Distribution Width 22.3 % (11.6-14.8) H Platelet Count 58 K/UL (150-450) L Mean Platelet Volume 8.8 FL (6.5-10.1) Neutrophils (%) (Auto) % (45.0-75.0) Lymphocytes (%) (Auto) % (20.0-45.0) Monocytes (%) (Auto) % (1.0-10.0) Eosinophils (%) (Auto) % (0.0-3.0) Basophils (%) (Auto) % (0.0-2.0) Differential Total Cells Counted 100 Neutrophils % (Manual) 65 % (45-75) Lymphocytes % (Manual) 26 % (20-45) Monocytes % (Manual) 7 % (1-10) Eosinophils % (Manual) 2 % (0-3) Basophils % (Manual) 0 % (0-2) Band Neutrophils 0 % (0-8) Platelet Estimate Decreased L Platelet Morphology Normal Polychromasia 1+ Hypochromasia 1+ Anisocytosis 3+ Tear Drop Cells Occasional Ovalocytes 1+ Erythrocyte Sedimentation Rate 51 MM/HR (0-20) H Reticulocyte Count Pending Prothrombin Time 11.9 SEC (9.30-11.50) H Prothromb Time International Ratio 1.1 (0.9-1.1) Activated Partial Thromboplast Time 24 SEC (23-33) Sodium Level 142 MMOL/L (136-145) Potassium Level 3.9 MMOL/L (3.5-5.1) Chloride Level 107 MMOL/L (98-107) Carbon Dioxide Level 21 MMOL/L (21-32) Anion Gap 14 mmol/L (5-15) Blood Urea Nitrogen 18 mg/dL (7-18) Creatinine 1.2 MG/DL (0.55-1.30) Estimat Glomerular Filtration Rate > 60 mL/min (>60) Glucose Level 163 MG/DL (74-106) H Calcium Level 9.3 MG/DL (8.5-10.1) Phosphorus Level 2.8 MG/DL (2.5-4.9) Magnesium Level 1.2 MG/DL (1.8-2.4) L Iron Level 68 ug/dL (50-175) Total Iron Binding Capacity 325 ug/dL (250-450) Percent Iron Saturation 21 % (15-50) Unsaturated Iron Binding 257 ug/dL (112-346) Lactate Dehydrogenase 338 U/L (81-234) H Total Creatine Kinase 3653 U/L (26-308) H Creatine Kinase MB 5.7 NG/ML (0.0-3.6) H Creatine Kinase MB Relative Index 0.1 Troponin I 0.011 ng/mL (0.000-0.056) C-Reactive Protein, Quantitative 3.6 mg/dL (0.00-0.90) H Pro-B-Type Natriuretic Peptide 677 pg/mL (0-125) H Carcinoembryonic Antigen Pending Vitamin B12 Level > 2000 PG/ML (193-986) H Folate 24.3 NG/ML (8.6-58.9) Thyroid Stimulating Hormone (TSH) 3.300 uiU/mL (0.358-3.740) Microbiology Date/Time Source Procedure Growth Status 09/06/18 18:45 Blood Blood Culture - Preliminary NO GROWTH AFTER 24 HOURS Resulted 09/06/18 19:55 Rectum Received Objective HEAD AND NECK: No JVD. LUNGS: Decreased breath sounds. CARDIOVASCULAR: Irregular S1 and S2 with no gallop or murmur. CABG scar intact ABDOMEN: Soft. EXTREMITIES: 1+ pitting edema. Gabino Juarez MD Sep 08, 2018 12:08
--- NOTE | 2018-09-08 12:11 | Pulmonology Progress Note ---
Assessment/Plan Problems: (1) Diabetes mellitus out of control (2) Acute encephalopathy (3) Severe anemia (4) ATN (acute tubular necrosis) (5) Hypothyroid (6) Chronic liver disease Assessment/Plan BS controlled no new complains anemia w/u in progress Subjective ROS Limited/Unobtainable: No Interval Events: doing better Allergies: Coded Allergies: No Known Allergies (Verified , 06/13/09) Objective Last 24 Hour Vital Signs Date Time Temp Pulse Resp B/P (MAP) Pulse Ox O2 Delivery O2 Flow Rate FiO2 09/08/18 11:23 98.0 09/08/18 09:20 98.0 09/08/18 08:25 Room Air 09/08/18 08:10 118/78 09/08/18 07:54 98.0 91 20 118/78 (91) 98 09/08/18 07:31 85 09/08/18 07:16 88 20 94 Room Air 21 09/08/18 04:00 98.0 91 20 145/81 (102) 98 83 09/08/18 04:00 93 09/08/18 00:00 88 09/08/18 00:00 97.8 92 20 124/71 (88) 98 83 09/07/18 21:00 Room Air 09/07/18 20:07 88 20 97 Room Air 21 09/07/18 20:00 98.2 104 20 120/72 (88) 96 83 09/07/18 20:00 100 09/07/18 16:00 98.3 83 20 136/64 (88) 96 83 09/07/18 16:00 88 Intake and Output 09/07/18 09/08/18 19:00 07:00 Intake Total 315 ml 540 ml Output Total 400 ml Balance -85 ml 540 ml Intake Oral 240 ml 240 ml IV Total 75 ml 300 ml Output Urine Total 400 ml # Voids 1 2 General Appearance: WD/WN HEENT: normocephalic, atraumatic, anicteric Respiratory/Chest: chest wall non-tender, lungs clear Cardiovascular: normal peripheral pulses, normal rate Abdomen: normal bowel sounds, soft, non tender Genitourinary: normal external genitalia Extremities: no clubbing Skin: no rash Microbiology Date/Time Source Procedure Growth Status 09/06/18 18:45 Blood Blood Culture - Preliminary NO GROWTH AFTER 24 HOURS Resulted 09/06/18 19:55 Rectum Received Laboratory Tests 09/07/18 13:40: Urine Color Pale yellow, Urine Appearance Clear, Urine pH 7, Urine Specific [place] 1.010, Urine Protein 2+H, Urine Glucose (UA) Negative, Urine Ketones 1+H , Urine Blood 5+H, Urine Nitrite Negative, Urine Bilirubin Negative, Urine Urobilinogen Normal, Urine Leukocyte Esterase Negative, Urine RBC 2-4H, Urine WBC 2-4, Urine Squamous Epithelial Cells Occasional, Urine Bacteria Occasional, Urine Eosinophils None seen, Urine Random Sodium 127H, Urine Potassium Timed 16 09/08/18 06:11: White Blood Count 3.6L, Red Blood Count 3.41L, Hemoglobin 9.7L, Hematocrit 32.0L , Mean Corpuscular Volume 94, Mean Corpuscular Hemoglobin 28.6, Mean Corpuscular Hemoglobin Concent 30.4L, Red Cell Distribution Width 22.3H, Platelet Count 58L, Mean Platelet Volume 8.8, Neutrophils (%) (Auto) , Lymphocytes (%) (Auto) , Monocytes (%) (Auto) , Eosinophils (%) (Auto) , Basophils (%) (Auto) , Differential Total Cells Counted 100, Neutrophils % ( Manual) 65, Lymphocytes % (Manual) 26, Monocytes % (Manual) 7, Eosinophils % ( Manual) 2, Basophils % (Manual) 0, Band Neutrophils 0, Platelet Estimate DecreasedL, Platelet Morphology Normal, Polychromasia 1+, Hypochromasia 1+, Anisocytosis 3+, Tear Drop Cells Occasional, Ovalocytes 1+, Erythrocyte Sedimentation Rate 51H, Reticulocyte Count [Pending], Prothrombin Time 11.9H, Prothromb Time International Ratio 1.1, Activated Partial Thromboplast Time 24, Sodium Level 142, Potassium Level 3.9, Chloride Level 107, Carbon Dioxide Level 21, Anion Gap 14, Blood Urea Nitrogen 18, Creatinine 1.2, Estimat Glomerular Filtration Rate > 60, Glucose Level 163H, Calcium Level 9.3, Phosphorus Level 2.8, Magnesium Level 1.2L, Iron Level 68, Total Iron Binding Capacity 325, Percent Iron Saturation 21, Unsaturated Iron Binding 257, Lactate Dehydrogenase 338H, Total Creatine Kinase 3653H, Creatine Kinase MB 5.7H, Creatine Kinase MB Relative Index 0.1, Troponin I 0.011, C-Reactive Protein, Quantitative 3.6H, Pro -B-Type Natriuretic Peptide 677H, Carcinoembryonic Antigen [Pending], Vitamin B12 Level > 2000H, Folate 24.3, Thyroid Stimulating Hormone (TSH) 3.300 Current Medications Medications (Trade) Dose Ordered Sig/Alfredo Route PRN Reason Start Time Stop Time Status Last Admin Dose Admin Acetaminophen (Tylenol) 650 mg Q4H PRN ORAL fever 09/06/18 22:30 10/06/18 22:29 Acetaminophen/ Hydrocodone Bitart ([place] 5/325) 1 tab DAILY PRN ORAL For Pain 09/06/18 22:30 09/13/18 22:29 09/08/18 08:50 Albuterol/ Ipratropium (Albuterol/ Ipratropium) 3 ml EVERY 4 HOURS PRN HHN Shortness of Breath 09/06/18 22:30 09/11/18 22:29 Clonidine HCl (Catapres Tab) 0.1 mg EVERY 4 HOURS PRN ORAL sbp more than 160 09/06/18 22:30 10/06/18 22:29 Dextrose (Dextrose 50%) 25 ml Q30M PRN IV Hypoglycemia 09/06/18 22:30 10/06/18 22:29 Dextrose (Dextrose 50%) 50 ml Q30M PRN IV Hypoglycemia 09/06/18 22:30 10/06/18 22:29 Enalapril Maleate (Vasotec) 5 mg DAILY ORAL 09/07/18 09:00 10/07/18 08:59 09/08/18 08:10 Gabapentin (Neurontin) 600 mg Q12HR ORAL 09/08/18 21:00 10/08/18 20:59 Heparin Sodium (Porcine) (Heparin 5000 units/ml) 5,000 units EVERY 12 HOURS SUBQ 09/07/18 21:00 10/07/18 20:59 Insulin Aspart (NovoLOG) BEFORE MEALS AND HS SUBQ 09/07/18 06:30 10/07/18 06:29 09/08/18 11:38 Levothyroxine Sodium (Synthroid) 100 mcg DAILY@0630 ORAL 09/07/18 06:30 10/07/18 06:29 09/08/18 05:54 Morphine Sulfate (Morphine Sulfate) 2 mg EVERY 4 HOURS PRN IVP severe pain 7-09/06/18 22:30 09/13/18 22:29 09/08/18 10:53 Nitroglycerin (Ntg) 0.4 mg Q5M X 3 DOSES PRN SL Prn Chest Pain 09/06/18 22:30 10/06/18 22:29 Ondansetron HCl (Zofran) 4 mg EVERY 4 HOURS PRN IVP Nausea & Vomiting 09/06/18 22:45 10/06/18 22:29 Polyethylene Glycol (Miralax) 17 gm HSPRN PRN ORAL Constipation 09/06/18 22:30 10/06/18 22:29 Potassium Chloride/Sodium Chloride 1,000 ml @ 75 mls/hr [id number] IV 09/06/18 22:45 10/06/18 22:44 09/07/18 13:28 Sitagliptin Phosphate (Januvia) 100 mg DAILY ORAL 09/07/18 09:00 10/07/18 08:59 09/08/18 08:10 Temazepam (Restoril) 15 mg HSPRN PRN ORAL Insomnia 09/06/18 22:30 09/13/18 22:29 09/08/18 00:18 Sudha Cho MD Sep 08, 2018 12:11
--- NOTE | 2018-09-08 12:45 | NUR ---
SWALLOW/SPEECH THERAPY NOTE: SWALLOW STATUS: PATIENT WANTS A SHOWER, WILL TELL R.N. PATIENT HAS NO APPETITE, WILL SEND GLUCERNA VANILLA FLAVOR SINCE HE IS NOT EATING HIS MEAL TODAY (TOOK 75% YESTERDAY ONE MEAL). PATIENT ENCOURAGED INCREASE INTAKE OF MEAL OR HIGH CALORIE DRINK. ORDER FOR MOD BARIUM SWALLOW STUDY AND COG-COM EVAL NOT YET SIGNED. PLAN: CONTINUE WITH CURRENT DIET/LIQUIDS WITH GENERAL ASPIRATION PRECAUTIONS F/UP WITH PLAN OF CARE IN SWALLOW EVAL REPORT. D/W PATIENT AND RN (MELINA) D/W RD NEED FOR DESK SERGEANT TO GIVE FOODS OF PREFERENCE CONSIDER APPETITE STIMULANT
--- NOTE | 2018-09-08 13:29 | NUR ---
NURSE NOTES: pt refused tele monitor, rn attempted contact dr Marquis ackerman level 1.2 , no response pt wants to leave ama, paged dr Dodd's office pt refusing iv pt refused bed bath, wants to shower, patient is unsteady gait, assisted pt while ambulating to shower , rn explained risks of falling , patient got up and walked, pt is in shower at this time, pole frame construction worker on stand-by assist with the patient Addendum: 09/08/18 at 1345 by MELINA GOMES RN Received order from dr Marquis ackerman 2gm iv x1 received call from dr Dodd "pt can leave ama if he wants"
--- NOTE | 2018-09-08 15:21 | Cardiology Report ---
APPROVED REPORT EXAM: Two-dimensional and M-mode echocardiogram with Doppler and color Doppler. INDICATION Chest Pain M-Mode DIMENSIONS IVSd1.0 (0.7-1.1cm)Left Atrium (MM)3.8 (1.6-4.0cm) LVDd4.8 (3.5-5.6cm)Aortic Root3.5 (2.0-3.7cm) PWd0.9 (0.7-1.1cm)Aortic Cusp Exc.2.2 (1.5-2.0cm) IVSs1.3 cm LVDs3.3 (2.5-4.0cm) PWs1.5 cm Technically difficult study due to poor acoustical windows. Normal left ventricular chamber size. Anteroseptal wall hypokinesis. Left ventricular ejection fraction estimated to be 45-50%. Mild left ventricular hypertrophy by 2-D. Anterior Echo-free space, may be due to pericardial fat or effusion. All other cardiac chamber sizes are within normal limits. Aortic valve calcification with normal cusp excursion . Mildly thickened mitral valve leaflets with normal excursion. Mild mitral annulus and aortic root calcification. Pulmonic valve not well visualized. IVC at normal size with physiologic collapse . A color flow and spectral Doppler study was performed and revealed: No aortic insufficiency . Mitral diastolic velocities suggest reduced left ventricular relaxation c/w mild LV diastolic dysfunction (Grade I ) Mild mitral regurgitation. Mild tricuspid regurgitation. Tricuspid systolic velocities suggests peak right ventricular systolic pressure of 33mmHg.
--- NOTE | 2018-09-08 15:46 | NUR ---
HAND-OFF: Report given to KEESHA MACARIO.
--- NOTE | 2018-09-08 15:47 | NUR ---
NURSE NOTES: Received report from RENALDO Raines. Patient is resting, sleeping in bed in stable condition. Breathing unlabored on room air. Bed in lowest position with two side rails up, brakes on, call light and bed side table within reach. Will continue plan of care.
[2018-09-08 16:00] VITALS: BP 124/72
--- NOTE | 2018-09-08 16:08 | Cardiology Report ---
APPROVED REPORT EKG Measurement Heart [id number] Sinus tachycardia with occasional premature ventricular complexes Possible Anterior infarct, age undetermined Abnormal ECG
--- NOTE | 2018-09-08 19:13 | General Progress Note ---
Assessment/Plan Problem List: (1) Hypothyroid ICD Codes: E03.9 - Hypothyroidism, unspecified SNOMED: 15173187 (2) Diabetes mellitus out of control ICD Codes: E11.65 - Type 2 diabetes mellitus with hyperglycemia SNOMED: 95240943, 455976322 (3) Lactic acidosis ICD Codes: E87.2 - Acidosis SNOMED: 68643421 (4) Chronic liver disease ICD Codes: K76.9 - Liver disease, unspecified SNOMED: 710790274 Assessment/Plan: - start Levemir 10 units qhs - continue Januvia 100 mg daily - continue NISS ac / hs - continue LT4 100 mcg Subjective ROS Limited/Unobtainable: Yes Allergies: Coded Allergies: No Known Allergies (Verified , 06/13/09) Subjective events noted interval notes reviewed Item Value Date Time Bedside Blood Glucose 183 mg/dl H 09/07/18 0630 Bedside Blood Glucose 308 mg/dl H 09/08/18 1709 Bedside Blood Glucose 236 mg/dl H 09/08/18 1138 Bedside Blood Glucose 171 mg/dl H 09/08/18 0630 Objective Last 24 Hour Vital Signs Date Time Temp Pulse Resp B/P (MAP) Pulse Ox O2 Delivery O2 Flow Rate FiO2 09/08/18 16:00 98.0 83 18 124/72 (89) 99 09/08/18 12:00 97.8 85 20 120/69 (86) 98 09/08/18 11:30 84 09/08/18 11:23 98.0 09/08/18 09:20 98.0 09/08/18 08:25 Room Air 09/08/18 08:10 118/78 09/08/18 07:54 98.0 91 20 118/78 (91) 98 09/08/18 07:31 85 09/08/18 07:16 88 20 94 Room Air 21 09/08/18 04:00 98.0 91 20 145/81 (102) 98 83 09/08/18 04:00 93 09/08/18 00:00 88 09/08/18 00:00 97.8 92 20 124/71 (88) 98 83 09/07/18 21:00 Room Air 09/07/18 20:07 88 20 97 Room Air 21 09/07/18 20:00 98.2 104 20 120/72 (88) 96 83 09/07/18 20:00 100 Intake and Output 09/07/18 09/08/18 19:00 07:00 Intake Total 315 ml 540 ml Output Total 400 ml Balance -85 ml 540 ml Intake Oral 240 ml 240 ml IV Total 75 ml 300 ml Output Urine Total 400 ml # Voids 1 2 Laboratory Tests 09/08/18 06:11: White Blood Count 3.6L, Red Blood Count 3.41L, Hemoglobin 9.7L, Hematocrit 32.0L , Mean Corpuscular Volume 94, Mean Corpuscular Hemoglobin 28.6, Mean Corpuscular Hemoglobin Concent 30.4L, Red Cell Distribution Width 22.3H, Platelet Count 58L, Mean Platelet Volume 8.8, Neutrophils (%) (Auto) , Lymphocytes (%) (Auto) , Monocytes (%) (Auto) , Eosinophils (%) (Auto) , Basophils (%) (Auto) , Differential Total Cells Counted 100, Neutrophils % ( Manual) 65, Lymphocytes % (Manual) 26, Monocytes % (Manual) 7, Eosinophils % ( Manual) 2, Basophils % (Manual) 0, Band Neutrophils 0, Platelet Estimate DecreasedL, Platelet Morphology Normal, Polychromasia 1+, Hypochromasia 1+, Anisocytosis 3+, Tear Drop Cells Occasional, Ovalocytes 1+, Erythrocyte Sedimentation Rate 51H, Reticulocyte Count 3.3H, Prothrombin Time 11.9H, Prothromb Time International Ratio 1.1, Activated Partial Thromboplast Time 24, Sodium Level 142, Potassium Level 3.9, Chloride Level 107, Carbon Dioxide Level 21, Anion Gap 14, Blood Urea Nitrogen 18, Creatinine 1.2, Estimat Glomerular Filtration Rate > 60, Glucose Level 163H, Calcium Level 9.3, Phosphorus Level 2.8, Magnesium Level 1.2L, Iron Level 68, Total Iron Binding Capacity 325, Percent Iron Saturation 21, Unsaturated Iron Binding 257, Lactate Dehydrogenase 338H, Total Creatine Kinase 3653H, Creatine Kinase MB 5.7H, Creatine Kinase MB Relative Index 0.1, Troponin I 0.011, C-Reactive Protein, Quantitative 3.6H, Pro -B-Type Natriuretic Peptide 677H, Carcinoembryonic Antigen [Pending], Vitamin B12 Level > 2000H, Folate 24.3, Thyroid Stimulating Hormone (TSH) 3.300 Height (Feet): 6 Height (Inches): 0.00 Weight (Pounds): 214 General Appearance: no apparent distress Neck: normal alignment Cardiovascular: normal rate Respiratory/Chest: decreased breath sounds Abdomen: normal bowel sounds Objective Current Medications Medications (Trade) Dose Ordered Sig/Alfredo Route PRN Reason Start Time Stop Time Status Last Admin Dose Admin Acetaminophen (Tylenol) 650 mg Q4H PRN ORAL fever 09/06/18 22:30 10/06/18 22:29 Acetaminophen/ Hydrocodone Bitart ([place] 5/325) 1 tab DAILY PRN ORAL For Pain 09/06/18 22:30 09/13/18 22:29 09/08/18 08:50 Albuterol/ Ipratropium (Albuterol/ Ipratropium) 3 ml EVERY 4 HOURS PRN HHN Shortness of Breath 09/06/18 22:30 09/11/18 22:29 Clonidine HCl (Catapres Tab) 0.1 mg EVERY 4 HOURS PRN ORAL sbp more than 160 09/06/18 22:30 10/06/18 22:29 Dextrose (Dextrose 50%) 25 ml Q30M PRN IV Hypoglycemia 09/06/18 22:30 10/06/18 22:29 Dextrose (Dextrose 50%) 50 ml Q30M PRN IV Hypoglycemia 09/06/18 22:30 10/06/18 22:29 Enalapril Maleate (Vasotec) 5 mg DAILY ORAL 09/07/18 09:00 10/07/18 08:59 09/08/18 08:10 Gabapentin (Neurontin) 600 mg TID ORAL 09/08/18 13:11 10/08/18 13:10 09/08/18 17:05 Heparin Sodium (Porcine) (Heparin 5000 units/ml) 5,000 units EVERY 12 HOURS SUBQ 09/07/18 21:00 10/07/18 20:59 Insulin Aspart (NovoLOG) BEFORE MEALS AND HS SUBQ 09/07/18 06:30 10/07/18 06:29 09/08/18 17:09 Levothyroxine Sodium (Synthroid) 100 mcg DAILY@0630 ORAL 09/07/18 06:30 10/07/18 06:29 09/08/18 05:54 Morphine Sulfate (Morphine Sulfate) 2 mg EVERY 4 HOURS PRN IVP severe pain 7-09/06/18 22:30 09/13/18 22:29 09/08/18 10:53 Nitroglycerin (Ntg) 0.4 mg Q5M X 3 DOSES PRN SL Prn Chest Pain 09/06/18 22:30 10/06/18 22:29 Ondansetron HCl (Zofran) 4 mg EVERY 4 HOURS PRN IVP Nausea & Vomiting 09/06/18 22:45 10/06/18 22:29 Polyethylene Glycol (Miralax) 17 gm HSPRN PRN ORAL Constipation 09/06/18 22:30 10/06/18 22:29 Potassium Chloride/Sodium Chloride 1,000 ml @ 75 mls/hr [id number] IV 09/06/18 22:45 10/06/18 22:44 09/08/18 15:09 Sitagliptin Phosphate (Januvia) 100 mg DAILY ORAL 09/07/18 09:00 10/07/18 08:59 09/08/18 08:10 Temazepam (Restoril) 15 mg HSPRN PRN ORAL Insomnia 09/06/18 22:30 09/13/18 22:29 09/08/18 00:18 Sascha Oleary MD Sep 08, 2018 19:13
--- NOTE | 2018-09-08 19:33 | NUR ---
HAND-OFF: Report given to RENALDO Krishnamurthy.
--- NOTE | 2018-09-08 19:35 | NUR ---
NURSE NOTES: Received report from Viridiana Luque RN. Patient in bed AAO X3-4 with no complaints of acute pain or discomfort at this time. Kept clean, dry, and comfortable in bed with continuous cardiac monitoring in place per protocol. IV line intact and patent with prescribed fluids running as ordered. Placed on contact isolation per protocol d/t unknown skin issue, given Elimite cream 7/2 HS and showered after the following morning. offered bedside urinal PRN and changed for episodes of incontinence. Safety precaution in place; siderails X3 up, call light within reach, bed in lowest position, brakes and alarm on at all times. Needs and wants anticipated and attended, will continue plan of care and monitor for any changes noted.
[2018-09-08 20:00] VITALS: BP 101/66
--- NOTE | 2018-09-08 20:00 | NUR ---
NURSE NOTES: Report received from Warren MACARIO. Patient is observed in bed, awake, alert, oriented, and able to make needs known. Patient denies pain at this time. Respiratory even and unlabored. IVF is running at a prescribed rate. Bed is in lowest position with side rails up x2 and brakes are engaged. Bed alarm is on. Call light and urinal at bedside. Will continue to monitor. Addendum: 09/10/18 at 0153 by ANDREY MORALES RN Wrong date: 09/09/18
[2018-09-08] MEDS: Levemir Flexpen SUBQ SCH (21:38)
[2018-09-09] VITALS: BP 110/63
--- NOTE | 2018-09-09 02:16 | NUR ---
NURSE NOTES: Patient in bed asleep with no complaint of distress or discomfort at this time. Will continue to monitor.
[2018-09-09] MEDS: NS w/KCl 20mEq 1000ml 1,000 ML IV SCH ×2 (02:29→17:14)
[2018-09-09 04:00] VITALS: BP 105/53
[2018-09-09] MEDS: NovoLOG Insulin Flexpen SUBQ SCH ×4 (05:59→21:53)
[2018-09-09] MEDS: Morphine Sulfate 2mg/ml Inj(IV/IM USE ONLY) IVP PRN ×4 (06:08→21:58)
[2018-09-09 06:27] LABS: HEMATOCRIT 30.6 % (42.0-52.0); HEMOGLOBIN 9.3 G/DL (14.2-18.0); MEAN CORPUSCULAR VOLUME 94 FL (80-99); PLATELET COUNT 56 K/UL (150-450); RED BLOOD COUNT 3.24 M/UL (4.70-6.10); RED CELL DISTRIBUTION WIDTH 21.4 % (11.6-14.8); WHITE BLOOD COUNT 3.4 K/UL (4.8-10.8)
--- NOTE | 2018-09-09 07:11 | NUR ---
HAND-OFF: Report given to Viridiana Luque RN. Patient in bed in stable condition. Endorsed plan of care.
--- NOTE | 2018-09-09 07:11 | NUR ---
NURSE NOTES: Received report from RENALDO Krishnamurthy. Patient is resting in bed, sleeping in stable condition. Breathing unlabored in Room Air. Bed in lowest position with two side rails up, brakes on, call light and bed side table within reach. Will continue plan of care.
[2018-09-09 07:12] LABS: ALANINE AMINOTRANSFERASE 54 U/L (12-78); ALBUMIN 2.5 G/DL (3.4-5.0); ALBUMIN/GLOBULIN RATIO 0.7 (1.0-2.7); ALKALINE PHOSPHATASE 80 U/L (46-116); ANION GAP 4 mmol/L (5-15); ASPARTATE AMINO TRANSFERASE 132 U/L (15-37); BILIRUBIN,TOTAL 0.9 MG/DL (0.2-1.0); BLOOD UREA NITROGEN < 1 mg/dL (7-18); CALCIUM 9.3 MG/DL (8.5-10.1); CARBON DIOXIDE 21 MMOL/L (21-32); CKMB 2.1 NG/ML (0.0-3.6)
[2018-09-09 07:34] LABS: CHLORIDE 108 MMOL/L (98-107); CREATINE KINASE 2471 U/L (26-308); POTASSIUM 4.5 MMOL/L (3.5-5.1); SODIUM 142 MMOL/L (136-145)
[2018-09-09] MEDS: Heparin 5000 units/ml inj SUBQ SCH ×2 (07:42→19:57)
--- NOTE | 2018-09-09 07:50 | General Progress Note ---
Assessment/Plan Problem List: (1) Hypothyroid ICD Codes: E03.9 - Hypothyroidism, unspecified SNOMED: 71711245 (2) Diabetes mellitus out of control ICD Codes: E11.65 - Type 2 diabetes mellitus with hyperglycemia SNOMED: 11033810, 487680401 (3) Lactic acidosis ICD Codes: E87.2 - Acidosis SNOMED: 06573569 (4) Chronic liver disease ICD Codes: K76.9 - Liver disease, unspecified SNOMED: 017586235 Assessment/Plan: - continue Levemir 10 units qhs - continue Januvia 100 mg daily - continue NISS ac / hs - continue LT4 100 mcg Subjective ROS Limited/Unobtainable: Yes Allergies: Coded Allergies: No Known Allergies (Verified , 06/13/09) Subjective events noted interval notes reviewed Item Value Date Time Bedside Blood Glucose 167 mg/dl H 09/09/18 0630 Bedside Blood Glucose 187 mg/dl H 09/08/18 2139 Bedside Blood Glucose 308 mg/dl H 09/08/18 1709 Objective Last 24 Hour Vital Signs Date Time Temp Pulse Resp B/P (MAP) Pulse Ox O2 Delivery O2 Flow Rate FiO2 09/09/18 04:00 98.0 93 18 105/53 (70) 94 09/09/18 04:00 92 09/09/18 00:00 98.2 85 18 110/63 (79) 95 09/09/18 00:00 94 09/08/18 21:00 Room Air 09/08/18 20:00 90 20 93 Room Air 21 09/08/18 20:00 98.2 87 18 101/66 (78) 96 09/08/18 16:00 98.0 83 18 124/72 (89) 99 09/08/18 12:00 97.8 85 20 120/69 (86) 98 09/08/18 11:30 84 09/08/18 11:23 98.0 09/08/18 09:20 98.0 09/08/18 08:25 Room Air 09/08/18 08:10 118/78 09/08/18 07:54 98.0 91 20 118/78 (91) 98 Intake and Output 09/08/18 09/09/18 18:59 06:59 Intake Total 2500 ml 400 ml Balance 2500 ml 400 ml Intake Oral 2500 ml 400 ml # Voids 5 4 # Bowel Movements 1 Laboratory Tests 09/09/18 05:44: White Blood Count 3.4L, Red Blood Count 3.24L, Hemoglobin 9.3L, Hematocrit 30.6L , Mean Corpuscular Volume 94, Mean Corpuscular Hemoglobin 28.6, Mean Corpuscular Hemoglobin Concent 30.3L, Red Cell Distribution Width 21.4H, Platelet Count 56L, Mean Platelet Volume 8.9, Neutrophils (%) (Auto) , Lymphocytes (%) (Auto) , Monocytes (%) (Auto) , Eosinophils (%) (Auto) , Basophils (%) (Auto) , Neutrophils % (Manual) [Pending], Lymphocytes % (Manual) [Pending], Platelet Estimate [Pending], Platelet Morphology [Pending], Sodium Level 142, Potassium Level 4.5, Chloride Level 108H, Carbon Dioxide Level 21, Anion Gap 4L, Blood Urea Nitrogen < 1L, Creatinine 1.0, Estimat Glomerular Filtration Rate > 60, Glucose Level 166H, Calcium Level 9.3, Total Bilirubin 0.9 , Aspartate Amino Transf (AST/SGOT) 132H, Alanine Aminotransferase (ALT/SGPT) 54 , Alkaline Phosphatase 80, Total Creatine Kinase 2471H, Creatine Kinase MB 2.1, Creatine Kinase MB Relative Index 0.0, Troponin I 0.006, Pro-B-Type Natriuretic Peptide 515H, Total Protein 6.2L, Albumin 2.5L, Globulin 3.7, Albumin/Globulin Ratio 0.7L Height (Feet): 6 Height (Inches): 0.00 Weight (Pounds): 200 General Appearance: no apparent distress Neck: normal alignment Cardiovascular: normal rate Respiratory/Chest: lungs clear Abdomen: normal bowel sounds Pelvis: normal external exam Objective Current Medications Medications (Trade) Dose Ordered Sig/Alfredo Route PRN Reason Start Time Stop Time Status Last Admin Dose Admin Acetaminophen (Tylenol) 650 mg Q4H PRN ORAL fever 09/06/18 22:30 10/06/18 22:29 Acetaminophen/ Hydrocodone Bitart ([place] 5/325) 1 tab DAILY PRN ORAL For Pain 09/06/18 22:30 09/13/18 22:29 09/08/18 08:50 Albuterol/ Ipratropium (Albuterol/ Ipratropium) 3 ml EVERY 4 HOURS PRN HHN Shortness of Breath 09/06/18 22:30 09/11/18 22:29 Clonidine HCl (Catapres Tab) 0.1 mg EVERY 4 HOURS PRN ORAL sbp more than 160 09/06/18 22:30 10/06/18 22:29 Dextrose (Dextrose 50%) 25 ml Q30M PRN IV Hypoglycemia 09/08/18 19:30 10/08/18 19:29 Dextrose (Dextrose 50%) 50 ml Q30M PRN IV Hypoglycemia 09/08/18 19:30 10/08/18 19:29 Enalapril Maleate (Vasotec) 5 mg DAILY ORAL 09/07/18 09:00 10/07/18 08:59 09/08/18 08:10 Gabapentin (Neurontin) 600 mg Q8HR ORAL 09/09/18 06:00 10/08/18 13:10 09/09/18 05:58 Heparin Sodium (Porcine) (Heparin 5000 units/ml) 5,000 units EVERY 12 HOURS SUBQ 09/07/18 21:00 10/07/18 20:59 Insulin Aspart (NovoLOG) BEFORE MEALS AND HS SUBQ 09/07/18 06:30 10/07/18 06:29 09/09/18 05:59 Insulin Detemir (Levemir) 10 units BEDTIME SUBQ 09/08/18 21:00 10/08/18 20:59 09/08/18 21:38 Levothyroxine Sodium (Synthroid) 100 mcg DAILY@0630 ORAL 09/07/18 06:30 10/07/18 06:29 09/09/18 05:58 Morphine Sulfate (Morphine Sulfate) 2 mg EVERY 4 HOURS PRN IVP severe pain 7-09/06/18 22:30 09/13/18 22:29 09/09/18 06:08 Nitroglycerin (Ntg) 0.4 mg Q5M X 3 DOSES PRN SL Prn Chest Pain 09/06/18 22:30 10/06/18 22:29 Ondansetron HCl (Zofran) 4 mg EVERY 4 HOURS PRN IVP Nausea & Vomiting 09/06/18 22:45 10/06/18 22:29 Polyethylene Glycol (Miralax) 17 gm HSPRN PRN ORAL Constipation 09/06/18 22:30 10/06/18 22:29 Potassium Chloride/Sodium Chloride 1,000 ml @ 75 mls/hr [id number] IV 09/06/18 22:45 10/06/18 22:44 09/09/18 02:29 Sitagliptin Phosphate (Januvia) 100 mg DAILY ORAL 09/07/18 09:00 10/07/18 08:59 09/08/18 08:10 Temazepam (Restoril) 15 mg HSPRN PRN ORAL Insomnia 09/06/18 22:30 09/13/18 22:29 09/08/18 23:01 Sascha Oleary MD Sep 09, 2018 07:50
[2018-09-09 08:00] VITALS: BP 123/66
--- NOTE | 2018-09-09 08:32 | Diagnostic Imaging Report ---
EXAM: XR Chest, 1 View CLINICAL HISTORY: DYSPNEA TECHNIQUE: Frontal view of the chest. COMPARISON: Chest x-ray dated 09/06/18 FINDINGS: Lungs: Interval improvement of the pulmonary vascular congestion. The lungs are otherwise clear. Pleural space: Unremarkable. The costophrenic angles are sharp. No visible pneumothorax. Heart: Cardiomegaly. Mediastinum: Unremarkable. Bones/joints: Status post median sternotomy. Tubes, lines and devices: Telemetry leads overlie the thorax. IMPRESSION: 1. Interval improvement of the pulmonary vascular congestion. 2. Cardiomegaly.
[2018-09-09] MEDS: Enalapril 5mg tab ORAL SCH (09:14)
[2018-09-09] MEDS: sitaGLIPtin 25mg tab ORAL SCH (09:14)
[2018-09-09 12:00] VITALS: BP 127/69
--- NOTE | 2018-09-09 12:08 | NUR ---
CASE MANAGEMENT: REVIEW 09/09/2018 SI: SYNCOPE. HYPERGLYCEMIA. T 98 HR 79 RR 20 B/P 123/66 SATS 97% ON RA WBC 3.4 CL 108 BUN <1 GLU 166 AST 132 TOTAL CK 2471 BNP 515 IS: LOPRESSOR PO Q12H NORVASC PO QD PROTONIX PO QD CARAFATE PO QID TELE STATUS DCP: PATIENT TO BE DISCHARGED TO HOME ONCE MEDICALLY CLEARED. PLAN OF CARE PER MD: GLYCEMIC CONTROL AND MONITORING
--- NOTE | 2018-09-09 13:44 | Cardiac Electrophysiology PN ---
Assessment/Plan Assessment/Plan 1. Hypertension. On Vasotec 5 mg daily and p.r.n. clonidine. 2. Syncope, etiology is not clear. Head CT showed no acute intracranial findings. Echocardiogram shows Nl EF. 3. S/P CABG, no CP 4. Chronic debilitation. 5. Hyperlipidemia on Lipitor. 6. Hypothyroidism, on Synthroid. 7. Diabetes, on metformin. 8. Severe anemia. DW RN Subjective Subjective No CP or SOB.Comfortable in SR Objective Last 24 Hour Vital Signs Date Time Temp Pulse Resp B/P (MAP) Pulse Ox O2 Delivery O2 Flow Rate FiO2 09/09/18 12:00 97.7 83 20 127/69 (88) 97 09/09/18 09:14 123/66 09/09/18 09:00 Room Air 09/09/18 08:00 82 09/09/18 08:00 98.0 79 20 123/66 (85) 97 09/09/18 07:54 80 18 96 Room Air 21 09/09/18 04:00 98.0 93 18 105/53 (70) 94 09/09/18 04:00 92 09/09/18 00:00 98.2 85 18 110/63 (79) 95 09/09/18 00:00 94 09/08/18 21:00 Room Air 09/08/18 20:00 90 20 93 Room Air 21 09/08/18 20:00 98.2 87 18 101/66 (78) 96 09/08/18 16:00 98.0 83 18 124/72 (89) 99 Intake and Output 09/08/18 09/09/18 19:00 07:00 Intake Total 2500 ml 400 ml Balance 2500 ml 400 ml Intake Oral 2500 ml 400 ml # Voids 5 4 # Bowel Movements 1 Laboratory Tests Test 09/09/18 05:44 White Blood Count 3.4 K/UL (4.8-10.8) L Red Blood Count 3.24 M/UL (4.70-6.10) L Hemoglobin 9.3 G/DL (14.2-18.0) L Hematocrit 30.6 % (42.0-52.0) L Mean Corpuscular Volume 94 FL (80-99) Mean Corpuscular Hemoglobin 28.6 PG (27.0-31.0) Mean Corpuscular Hemoglobin Concent 30.3 G/DL (32.0-36.0) L Red Cell Distribution Width 21.4 % (11.6-14.8) H Platelet Count 56 K/UL (150-450) L Mean Platelet Volume 8.9 FL (6.5-10.1) Neutrophils (%) (Auto) % (45.0-75.0) Lymphocytes (%) (Auto) % (20.0-45.0) Monocytes (%) (Auto) % (1.0-10.0) Eosinophils (%) (Auto) % (0.0-3.0) Basophils (%) (Auto) % (0.0-2.0) Differential Total Cells Counted 100 Neutrophils % (Manual) 59 % (45-75) Lymphocytes % (Manual) 30 % (20-45) Monocytes % (Manual) 9 % (1-10) Eosinophils % (Manual) 1 % (0-3) Basophils % (Manual) 1 % (0-2) Band Neutrophils 0 % (0-8) Platelet Estimate Decreased L Platelet Morphology Normal Hypochromasia 2+ Anisocytosis 3+ Sodium Level 142 MMOL/L (136-145) Potassium Level 4.5 MMOL/L (3.5-5.1) Chloride Level 108 MMOL/L (98-107) H Carbon Dioxide Level 21 MMOL/L (21-32) Anion Gap 4 mmol/L (5-15) L Blood Urea Nitrogen < 1 mg/dL (7-18) L Creatinine 1.0 MG/DL (0.55-1.30) Estimat Glomerular Filtration Rate > 60 mL/min (>60) Glucose Level 166 MG/DL (74-106) H Calcium Level 9.3 MG/DL (8.5-10.1) Total Bilirubin 0.9 MG/DL (0.2-1.0) Aspartate Amino Transf (AST/SGOT) 132 U/L (15-37) H Alanine Aminotransferase (ALT/SGPT) 54 U/L (12-78) Alkaline Phosphatase 80 U/L (46-116) Total Creatine Kinase 2471 U/L (26-308) H Creatine Kinase MB 2.1 NG/ML (0.0-3.6) Creatine Kinase MB Relative Index 0.0 Troponin I 0.006 ng/mL (0.000-0.056) Pro-B-Type Natriuretic Peptide 515 pg/mL (0-125) H Total Protein 6.2 G/DL (6.4-8.2) L Albumin 2.5 G/DL (3.4-5.0) L Globulin 3.7 g/dL Albumin/Globulin Ratio 0.7 (1.0-2.7) L Microbiology Date/Time Source Procedure Growth Status 09/06/18 18:45 Blood Blood Culture - Preliminary NO GROWTH AFTER 48 HOURS Resulted 09/06/18 19:55 Nasal Nares MRSA Culture - Final Staphylococcus Aureus - Mrsa Complete 09/06/18 19:55 Rectum VRE Culture - Final NO VANCOMYCIN RESISTANT ENTEROCOCCUS ... Complete 09/06/18 19:55 Rectum - Final NO CARBAPENEM-RESISTANT ENTEROBACTERI... Complete Objective HEAD AND NECK: No JVD. LUNGS: Decreased breath sounds. CARDIOVASCULAR: Irregular S1 and S2 with no gallop or murmur. CABG scar intact ABDOMEN: Soft. EXTREMITIES: 1+ pitting edema. Gabino Juarez MD Sep 09, 2018 13:44
[2018-09-09 16:00] VITALS: BP 125/73
--- NOTE | 2018-09-09 19:31 | NUR ---
HAND-OFF: Report given to RENALDO Foster.
[2018-09-09 20:11] VITALS: BP 110/63
[2018-09-09] MEDS: Levemir Flexpen SUBQ SCH (21:53)
[2018-09-10] VITALS: BP 118/57
--- NOTE | 2018-09-10 01:53 | NUR ---
NURSE NOTES: Patient is asleep but arousable by voice. Denies pain at this time. VSS. Will continue to monitor.
[2018-09-10] MEDS: Morphine Sulfate 2mg/ml Inj(IV/IM USE ONLY) IVP PRN ×3 (02:34→10:06)
[2018-09-10 04:00] VITALS: BP 98/50
[2018-09-10] MEDS: NovoLOG Insulin Flexpen SUBQ SCH ×2 (06:21→11:52)
--- NOTE | 2018-09-10 06:21 | NUR ---
NURSE NOTES: Patient is complaining of "20 out of 10" back pain. Upon assessment, patient's blood pressure is 98/67. Primary RN suggested non-pharmacological interventions and recommended [place] until blood pressure stabilizes, patient verbalized understanding and agreed.
[2018-09-10] MEDS: HYDROcodone/Acetamin 5/325 tab ORAL PRN (06:22)
--- NOTE | 2018-09-10 06:44 | General Progress Note ---
Assessment/Plan Problem List: (1) Hypothyroid ICD Codes: E03.9 - Hypothyroidism, unspecified SNOMED: 39954689 (2) Diabetes mellitus out of control ICD Codes: E11.65 - Type 2 diabetes mellitus with hyperglycemia SNOMED: 05474592, 757321963 (3) Lactic acidosis ICD Codes: E87.2 - Acidosis SNOMED: 24320464 (4) Chronic liver disease ICD Codes: K76.9 - Liver disease, unspecified SNOMED: 349755844 Assessment/Plan: - add Starlix 60 mg ac tid - continue Levemir 10 units qhs - continue Januvia 100 mg daily - continue NISS ac / hs - continue LT4 100 mcg Subjective ROS Limited/Unobtainable: Yes Allergies: Coded Allergies: No Known Allergies (Verified , 06/13/09) Subjective events noted interval notes reviewed Item Value Date Time Bedside Blood Glucose 121 mg/dl H 09/10/18 0621 Bedside Blood Glucose 229 mg/dl H 09/09/18 2153 Bedside Blood Glucose 246 mg/dl H 09/09/18 1641 Bedside Blood Glucose 276 mg/dl H 09/09/18 1137 Objective Last 24 Hour Vital Signs Date Time Temp Pulse Resp B/P (MAP) Pulse Ox O2 Delivery O2 Flow Rate FiO2 09/10/18 04:00 98.0 79 18 98/50 (66) 98 09/10/18 03:51 72 09/10/18 00:00 98.6 85 20 118/57 (77) 98 09/09/18 23:27 94 09/09/18 21:00 Room Air 09/09/18 20:11 98.0 83 20 110/63 (79) 98 09/09/18 19:42 81 18 95 Room Air 21 09/09/18 19:10 82 09/09/18 16:00 80 09/09/18 16:00 98.0 81 20 125/73 (90) 98 09/09/18 12:00 97.7 83 20 127/69 (88) 97 09/09/18 12:00 76 09/09/18 09:14 123/66 09/09/18 09:00 Room Air 09/09/18 08:00 82 09/09/18 08:00 98.0 79 20 123/66 (85) 97 09/09/18 07:54 80 18 96 Room Air 21 Intake and Output 09/09/18 09/10/18 18:59 06:59 # Voids 3 Height (Feet): 6 Height (Inches): 0.00 Weight (Pounds): 200 General Appearance: no apparent distress Neck: normal alignment Cardiovascular: normal rate Respiratory/Chest: lungs clear Abdomen: normal bowel sounds Pelvis: normal external exam Objective Current Medications Medications (Trade) Dose Ordered Sig/Alfredo Route PRN Reason Start Time Stop Time Status Last Admin Dose Admin Acetaminophen (Tylenol) 650 mg Q4H PRN ORAL fever 09/06/18 22:30 10/06/18 22:29 Acetaminophen/ Hydrocodone Bitart ([place] 5/325) 1 tab DAILY PRN ORAL For Pain 09/06/18 22:30 09/13/18 22:29 09/10/18 06:22 Albuterol/ Ipratropium (Albuterol/ Ipratropium) 3 ml EVERY 4 HOURS PRN HHN Shortness of Breath 09/06/18 22:30 09/11/18 22:29 Clonidine HCl (Catapres Tab) 0.1 mg EVERY 4 HOURS PRN ORAL sbp more than 160 09/06/18 22:30 10/06/18 22:29 Dextrose (Dextrose 50%) 25 ml Q30M PRN IV Hypoglycemia 09/08/18 19:30 10/08/18 19:29 Dextrose (Dextrose 50%) 50 ml Q30M PRN IV Hypoglycemia 09/08/18 19:30 10/08/18 19:29 Enalapril Maleate (Vasotec) 5 mg DAILY ORAL 09/07/18 09:00 10/07/18 08:59 09/09/18 09:14 Gabapentin (Neurontin) 600 mg Q8HR ORAL 09/09/18 06:00 10/08/18 13:10 09/10/18 06:21 Heparin Sodium (Porcine) (Heparin 5000 units/ml) 5,000 units EVERY 12 HOURS SUBQ 09/07/18 21:00 10/07/18 20:59 Insulin Aspart (NovoLOG) BEFORE MEALS AND HS SUBQ 09/07/18 06:30 10/07/18 06:29 09/10/18 06:21 Insulin Detemir (Levemir) 10 units BEDTIME SUBQ 09/08/18 21:00 10/08/18 20:59 09/09/18 21:53 Levothyroxine Sodium (Synthroid) 100 mcg DAILY@0630 ORAL 09/07/18 06:30 10/07/18 06:29 09/10/18 06:21 Morphine Sulfate (Morphine Sulfate) 2 mg EVERY 4 HOURS PRN IVP severe pain 7-10 09/06/18 22:30 09/13/18 22:29 09/10/18 02:34 Nitroglycerin (Ntg) 0.4 mg Q5M X 3 DOSES PRN SL Prn Chest Pain 09/06/18 22:30 10/06/18 22:29 Ondansetron HCl (Zofran) 4 mg EVERY 4 HOURS PRN IVP Nausea & Vomiting 09/06/18 22:45 10/06/18 22:29 Polyethylene Glycol (Miralax) 17 gm HSPRN PRN ORAL Constipation 09/06/18 22:30 10/06/18 22:29 Potassium Chloride/Sodium Chloride 1,000 ml @ 75 mls/hr [id number] IV 09/06/18 22:45 10/06/18 22:44 09/09/18 17:14 Sitagliptin Phosphate (Januvia) 100 mg DAILY ORAL 09/07/18 09:00 10/07/18 08:59 09/09/18 09:14 Temazepam (Restoril) 15 mg HSPRN PRN ORAL Insomnia 09/06/18 22:30 09/13/18 22:29 09/09/18 23:43 Sascha Oleary MD Sep 10, 2018 06:44
[2018-09-10] MEDS: NS w/KCl 20mEq 1000ml 1,000 ML IV SCH (06:58)
--- NOTE | 2018-09-10 07:45 | NUR ---
NURSE NOTES: During change of shift report, BUSINESS CHANGE MANAGER reported that the patient stated "I fell on the floor." BUSINESS CHANGE MANAGER Torri Vu stated that she found the patient on bed with non-skid socks on and bed alarm is still green and in zone 1. When primary RN assessed the patient, the patient stated "I was trying to pull myself up after breakfast but I slipped and fell on the floor, but nothing happened. I did not hurt myself." Upon assessment, primary RN asked the patient who helped him off the floor, patient stated "No one. I did it by myself. The bed alarm was off. It is on right now because it goes on and off by itself." Night charge nurse and day shift charge nurse are at the bedside. Vital signs are stable. No acute changes in mental status. Will notify primary MD.
[2018-09-10 08:00] VITALS: BP 126/72
--- NOTE | 2018-09-10 08:09 | NUR ---
NURSE NOTES: pt in bed in lowest position. Bed is locked,alarm is on. Call light is next to pt. Pt AOx4. Pt on pipe puller no signs of cardiac or respiratory distress. Breakfast at bedside. IV running fluids intact and patent, Pt calm and cooperative but at times attempts to get out of bed and is at high risk for fall... was instructed to call the nurse if he needs to get up. Pt stated that he slid to the floor this morning but get himself back on the bed, he stated he did not fall, pt however, does complain of back pain, Charge nurse from previous shift had spoken to the patient but his recall was very confusing, will notify MD of incident, no s/s of distress or sob noted.
--- NOTE | 2018-09-10 08:16 | NUR ---
HAND-OFF: Report given to Fernando MACARIO. Patient is in stable condition. senior research manager at the bedside. Patient denies pain at this time. Endorsed plan of care.
--- NOTE | 2018-09-10 08:39 | NUR ---
CASE MANAGEMENT: REVIEW 09/10/2018 SI: SYNCOPE. HYPERGLYCEMIA. T 98 HR 86 RR 18 B/P 126/72 SATS 99% ON RA WBC 3.4 CL 108 BUN <1 GLU 166 AST 132 TOTAL CK 2471 BNP 515 IS: LOPRESSOR PO Q12H NORVASC PO QD PROTONIX PO QD CARAFATE PO QID TELE STATUS DCP: PATIENT TO BE DISCHARGED TO HOME ONCE MEDICALLY CLEARED. PLAN OF CARE PER MD: GLYCEMIC CONTROL AND MONITORING
[2018-09-10] MEDS: Heparin 5000 units/ml inj SUBQ SCH (09:00)
[2018-09-10] MEDS: sitaGLIPtin 25mg tab ORAL SCH (09:09)
[2018-09-10] MEDS: Enalapril 5mg tab ORAL SCH (09:10)
[2018-09-10] MEDS ORDERED: LEVEMIR FL100 UNIT/1 SUBQ (10:52)
[2018-09-10] MEDS ORDERED: NOVOLOG100 UNITS1 SUBQ (10:52)
[2018-09-10] MEDS ORDERED: STARLIX60 MG ORAL (10:52)
--- NOTE | 2018-09-10 10:53 | Pulmonology Progress Note ---
Assessment/Plan Problems: (1) Diabetes mellitus out of control (2) Acute encephalopathy (3) Severe anemia (4) ATN (acute tubular necrosis) (5) Hypothyroid (6) Chronic liver disease Assessment/Plan wants to go back to his assisted living Endo recommendations appreciated and followed. cardio note reviewed no new complains anemia w/u in progress Subjective ROS Limited/Unobtainable: No Constitutional: Reports: no symptoms HEENT: Repors: no symptoms Respiratory: Reports: no symptoms Allergies: Coded Allergies: No Known Allergies (Verified , 06/13/09) Objective Last 24 Hour Vital Signs Date Time Temp Pulse Resp B/P (MAP) Pulse Ox O2 Delivery O2 Flow Rate FiO2 09/10/18 10:36 98.0 09/10/18 09:10 126/72 09/10/18 08:52 Room Air 09/10/18 08:00 91 09/10/18 08:00 98.0 86 18 126/72 (90) 99 09/10/18 04:00 98.0 79 18 98/50 (66) 98 09/10/18 03:51 72 09/10/18 00:00 98.6 85 20 118/57 (77) 98 09/09/18 23:27 94 09/09/18 21:00 Room Air 09/09/18 20:11 98.0 83 20 110/63 (79) 98 09/09/18 19:42 81 18 95 Room Air 21 09/09/18 19:10 82 09/09/18 16:00 80 09/09/18 16:00 98.0 81 20 125/73 (90) 98 09/09/18 12:00 97.7 83 20 127/69 (88) 97 09/09/18 12:00 76 Intake and Output 09/09/18 09/10/18 18:59 06:59 # Voids 3 General Appearance: WD/WN HEENT: normocephalic, atraumatic Respiratory/Chest: chest wall non-tender, lungs clear Cardiovascular: normal peripheral pulses, normal rate Abdomen: normal bowel sounds, soft, non tender Neurologic/Psychiatric: edge molder II-XII grossly normal Lymphatic: no neck adenopathy Current Medications Medications (Trade) Dose Ordered Sig/Alfredo Route PRN Reason Start Time Stop Time Status Last Admin Dose Admin Acetaminophen (Tylenol) 650 mg Q4H PRN ORAL fever 09/06/18 22:30 10/06/18 22:29 Acetaminophen/ Hydrocodone Bitart ([place] 5/325) 1 tab DAILY PRN ORAL For Pain 09/06/18 22:30 09/13/18 22:29 09/10/18 06:22 Albuterol/ Ipratropium (Albuterol/ Ipratropium) 3 ml EVERY 4 HOURS PRN HHN Shortness of Breath 09/06/18 22:30 09/11/18 22:29 Clonidine HCl (Catapres Tab) 0.1 mg EVERY 4 HOURS PRN ORAL sbp more than 160 09/06/18 22:30 10/06/18 22:29 Dextrose (Dextrose 50%) 25 ml Q30M PRN IV Hypoglycemia 09/08/18 19:30 10/08/18 19:29 Dextrose (Dextrose 50%) 50 ml Q30M PRN IV Hypoglycemia 09/08/18 19:30 10/08/18 19:29 Enalapril Maleate (Vasotec) 5 mg DAILY ORAL 09/07/18 09:00 10/07/18 08:59 09/10/18 09:10 Gabapentin (Neurontin) 600 mg Q8HR ORAL 09/09/18 06:00 10/08/18 13:10 09/10/18 06:21 Heparin Sodium (Porcine) (Heparin 5000 units/ml) 5,000 units EVERY 12 HOURS SUBQ 09/07/18 21:00 10/07/18 20:59 Insulin Aspart (NovoLOG) BEFORE MEALS AND HS SUBQ 09/07/18 06:30 10/07/18 06:29 09/10/18 06:21 Insulin Detemir (Levemir) 10 units BEDTIME SUBQ 09/08/18 21:00 10/08/18 20:59 09/09/18 21:53 Levothyroxine Sodium (Synthroid) 100 mcg DAILY@0630 ORAL 09/07/18 06:30 10/07/18 06:29 09/10/18 06:21 Morphine Sulfate (Morphine Sulfate) 2 mg EVERY 4 HOURS PRN IVP severe pain 7-09/06/18 22:30 09/13/18 22:29 09/10/18 10:06 Nateglinide (Starlix) 60 mg TIAC ORAL 09/10/18 11:30 10/10/18 11:29 Nitroglycerin (Ntg) 0.4 mg Q5M X 3 DOSES PRN SL Prn Chest Pain 09/06/18 22:30 10/06/18 22:29 Ondansetron HCl (Zofran) 4 mg EVERY 4 HOURS PRN IVP Nausea & Vomiting 09/06/18 22:45 10/06/18 22:29 Polyethylene Glycol (Miralax) 17 gm HSPRN PRN ORAL Constipation 09/06/18 22:30 10/06/18 22:29 Potassium Chloride/Sodium Chloride 1,000 ml @ 75 mls/hr [id number] IV 09/06/18 22:45 10/06/18 22:44 09/10/18 06:58 Sitagliptin Phosphate (Januvia) 100 mg DAILY ORAL 09/07/18 09:00 10/07/18 08:59 09/10/18 09:09 Temazepam (Restoril) 15 mg HSPRN PRN ORAL Insomnia 09/06/18 22:30 09/13/18 22:29 09/09/18 23:43 Sudha Cho MD Sep 10, 2018 10:53
--- NOTE | 2018-09-10 11:06 | Cardiac Electrophysiology PN ---
Assessment/Plan Assessment/Plan 1. Hypertension. On Vasotec 5 mg daily and p.r.n. clonidine. 2. Syncope, etiology is not clear. Head CT showed no acute intracranial findings. Echocardiogram shows Nl EF. 3. S/P CABG, no CP 4. Chronic debilitation. 5. Hyperlipidemia on Lipitor. 6. Hypothyroidism, on Synthroid. 7. Diabetes, on metformin. 8. Severe anemia. TIMBO RN DC to [facility] today Subjective Subjective No CP or SOB.Comfortable in SR. DC planning today to [facility]. In SR Objective Last 24 Hour Vital Signs Date Time Temp Pulse Resp B/P (MAP) Pulse Ox O2 Delivery O2 Flow Rate FiO2 09/10/18 10:36 98.0 09/10/18 09:10 126/72 09/10/18 08:52 Room Air 09/10/18 08:00 91 09/10/18 08:00 98.0 86 18 126/72 (90) 99 09/10/18 04:00 98.0 79 18 98/50 (66) 98 09/10/18 03:51 72 09/10/18 00:00 98.6 85 20 118/57 (77) 98 09/09/18 23:27 94 09/09/18 21:00 Room Air 09/09/18 20:11 98.0 83 20 110/63 (79) 98 09/09/18 19:42 81 18 95 Room Air 21 09/09/18 19:10 82 09/09/18 16:00 80 09/09/18 16:00 98.0 81 20 125/73 (90) 98 09/09/18 12:00 97.7 83 20 127/69 (88) 97 09/09/18 12:00 76 Intake and Output 09/09/18 09/10/18 18:59 06:59 # Voids 3 Objective HEAD AND NECK: No JVD. LUNGS: Decreased breath sounds. CARDIOVASCULAR: Irregular S1 and S2 with no gallop or murmur. CABG scar intact ABDOMEN: Soft. EXTREMITIES: 1+ pitting edema. Gabino Juarez MD Sep 10, 2018 11:06
[2018-09-10] MEDS ORDERED: Nateglinide 60mg tab ORAL SCH (11:30)
[2018-09-10 11:58] VITALS: BP 121/67
--- NOTE | 2018-09-10 12:10 | NUR ---
DISCHARGE PLANNING: NOTE PATIENT TO BE DISCHARGED TO [facility] [address] [facility] [address] T: [phone] LUIS A (NO REPORT) [facility] ETA 1431 SISTER BYRON WAS MADE AWARE OF DC VIA VM
--- NOTE | 2018-09-10 13:41 | NUR ---
NURSE NOTES: phone engineer here to mushroom picker the patient, returning to [facility], ID and IV removed, pt reviewed belongings and stated he had all his stuff, aftercare plan and med recon given, vitals wnl, pt Ox4 calm and cooperative, no s/s of distress or sob noted. pt has discharge packet .. Pt leaving now will all belongings including cell phone and all property
--- NOTE | 2018-09-10 14:47 | Discharge Summary ---
Discharge Summary Hospital Course Date of Admission Sep 06, 2018 at 19:28 Date of Discharge Sep 10, 2018 at 13:57 Admitting Diagnosis SYNCOPE,HYPERGLYCEMIA HPI Toan Haider is a 63 year old male who was admitted on Sep 06, 2018 at 19: 28 for Syncope,Hyperglycemia Hospital Course Discharge Discharge Disposition Patient was discharged to Kumar Mcfarland MD Sep 10, 2018 14:47
--- NOTE | 2018-09-10 16:30 | Discharge Summary ---
DATE OF ADMISSION: 09/06/2018 DATE OF DISCHARGE: 09/10/2018 HOSPITAL COURSE: This is a 63-year-old gentleman with past medical history significant for coronary artery disease as well as hypertension, diabetes type 2, iron-deficiency anemia, hepatic encephalopathy with chronic liver disease who was presented to the hospital from nursing facility after was noted to have syncopal episode and altered mental status. Shortly after initial evaluation, the patient was admitted to the hospital with a syncopal episode with collapse. Throughout the hospital course, the patient was consulted with Dr. Sascha Oleary from Endocrine, Dr. Sudha Cho Pulmonary Critical Care and Dr. Gabino Juarez from Cardiology Electrophysiology. The patient status gradually improved and subsequently was discharged back to the nursing facility to be followed by as outpatient. FINAL DIAGNOSES: 1. Hypertension . 2. Syncope. 3. Chronic debilitation. 4. Acute encephalopathy . 5. Diabetes type 2. 6. ATN. 7. Chronic liver disease. 8. Lactic acidosis. 9. Hypothyroidism. 10. Anemia MEDICATIONS ON DISCHARGE: Continue discharge medication list . ACTIVITY: As tolerated. DIET: An 1800-ADA cardiac diet. The patient will be discharged to the nursing facility to be followed closely. Kumar Mcfarland M.D. DR: Amira JOB#: [id number] CC: HAI
== END 2018-09-10 13:57 | disposition home or self-care (01) | DRG 420 ==
LOC: EDBD 17:57 → EMR 19:10 → 2E 19:28 → EDBEDREQ 20:22
DX: E11.65 Type 2 diabetes mellitus with hyperglycemia (principal); N17.0 Acute kidney failure with tubular necrosis; G93.40 Encephalopathy, unspecified; M62.82 Rhabdomyolysis; E87.2 Acidosis; Z95.1 Presence of aortocoronary bypass graft; I25.10 Atherosclerotic heart disease of native coronary artery without angina pectoris; I10 Essential (primary) hypertension; Z79.4 Long term (current) use of insulin; E78.00 Pure hypercholesterolemia, unspecified; E03.9 Hypothyroidism, unspecified; K76.9 Liver disease, unspecified; R53.81 Other malaise; D64.9 Anemia, unspecified
CPT/HCPCS: 36415; 70450; 71045; 80048; 80053; 80061; 81001; 81003; 82248; 82378; 82550; 82553; 82607; 82746; 82962; 83036; 83540; 83550; 83605; 83615; 83735; 83880; 84100; 84133; 84300; 84439; 84443; 84484; 84550; 85007; 85025; 85044; 85060; 85610; 85651; 85730; 86140; 87040; 87081; 89050; 93005; 93306; 93880; 94664; 96361; 96365; 99285; J1815; S5561

== ENCOUNTER 2018-09-28 19:06 | Inpatient (IN) | payer MEDICAID ==
[~2018-09-28] VITALS: Ht 180.3 cm; Wt 95.3 kg
[~2018-09-28 19:06] MED LIST changes: +LEVEMIR FL100 UNIT/1 SUBQ; +NOVOLOG100 UNITS1 SUBQ; +STARLIX60 MG ORAL
[2018-09-28 19:20] VITALS: BP 73/54
--- NOTE | 2018-09-28 19:30 | NUR ---
ED Nurse Note: Patient was BIBA from [facility] due to generalized weakness x3 days. AAO x4, BP upon arrival 91/51, other VSS at this time, patient presented with a lot of bruises all over the body, when RN asked how he got them, stated that he is not remember. Skin is dry intact warm to touch.
--- NOTE | 2018-09-28 19:32 | Emergency Room Report ---
History of Present Illness General Chief Complaint: Generalized Weakness Source: Patient Present Illness HPI Patient presents from nursing facility with reports of general weakness patient himself is a poor historian appears to have been here recently with a questionable syncopal episode at that time patient denies any chest pain reports decreased oral intake denies any vomiting or diarrhea unknown regarding fever Patient otherwise is a poor historian and cannot provide significant medical history Allergies: Coded Allergies: No Known Allergies (Verified , 06/13/09) Patient History Past Medical History: see triage record Pertinent Family History: none Reviewed Nursing Documentation: PMH: Agreed; PSxH: Agreed Nursing Documentation-PMH Past Medical History: No History, Except For Hx Cardiac Problems: Yes Hx Hypertension: Yes Hx Asthma: Yes Hx Diabetes: Yes Hx Cancer: No Hx Gastrointestinal Problems: No Hx Neurological Problems: No Review of Systems All Other Systems: negative except mentioned in HPI Physical Exam Vital Signs Date Time Temp Pulse Resp B/P (MAP) Pulse Ox O2 Delivery O2 Flow Rate FiO2 09/28/18 19:09 97.7 100 14 73/54 (60) 96 Room Air Sp02 EP Interpretation: reviewed, normal General Appearance: no apparent distress Head: normocephalic, atraumatic Eyes: bilateral eye PERRL, bilateral eye EOMI ENT: dry mucus membranes Neck: supple Respiratory: lungs clear, no rhonchi, no respiratory distress Cardiovascular #1: regular rate, rhythm Gastrointestinal: non tender, soft Genitourinary: no CVA tenderness Musculoskeletal: swelling - Right lower extremity Neurologic: alert, oriented x3 Skin: other - As above Lymphatic: no adenopathy Medical Decision Making Diagnostic Impression: Primary Impression: Episode of generalized weakness Additional Impression: Dehydration ER Course Patient is a fairly complex patient with multiple differential to consideration including but not limited to cardiac cardiopulmonary and vascular emergencies patient's Blood work reveals similar findings as previous with low platelets otherwise urine sample is clear Patient does show some signs of acidosis and dehydration Further hydrated and requires inpatient care Labs Test 09/28/18 19:30 09/28/18 20:15 09/28/18 20:22 White Blood Count 5.4 K/UL (4.8-10.8) Red Blood Count 3.92 M/UL (4.70-6.10) Hemoglobin 11.9 G/DL (14.2-18.0) Hematocrit 36.9 % (42.0-52.0) Mean Corpuscular Volume 94 FL (80-99) Mean Corpuscular Hemoglobin 30.4 PG (27.0-31.0) Mean Corpuscular Hemoglobin Concent 32.4 G/DL (32.0-36.0) Red Cell Distribution Width 18.4 % (11.6-14.8) Platelet Count 69 K/UL (150-450) Mean Platelet Volume 8.4 FL (6.5-10.1) Neutrophils (%) (Auto) % (45.0-75.0) Lymphocytes (%) (Auto) % (20.0-45.0) Monocytes (%) (Auto) % (1.0-10.0) Eosinophils (%) (Auto) % (0.0-3.0) Basophils (%) (Auto) % (0.0-2.0) Differential Total Cells Counted 100 Neutrophils % (Manual) 66 % (45-75) Lymphocytes % (Manual) 21 % (20-45) Monocytes % (Manual) 8 % (1-10) Eosinophils % (Manual) 3 % (0-3) Basophils % (Manual) 2 % (0-2) Band Neutrophils 0 % (0-8) Platelet Estimate Decreased Platelet Morphology Normal Red Blood Cell Morphology Normal Sodium Level 141 MMOL/L (136-145) Potassium Level 3.9 MMOL/L (3.5-5.1) Chloride Level 104 MMOL/L (98-107) Carbon Dioxide Level 22 MMOL/L (21-32) Anion Gap 15 mmol/L (5-15) Blood Urea Nitrogen 29 mg/dL (7-18) Creatinine 1.6 MG/DL (0.55-1.30) Estimat Glomerular Filtration Rate 43.7 mL/min (>60) Glucose Level 124 MG/DL (74-106) Lactic Acid Level 3.50 mmol/L (0.4-2.0) Calcium Level 10.2 MG/DL (8.5-10.1) Total Bilirubin 1.5 MG/DL (0.2-1.0) Direct Bilirubin 0.7 MG/DL (0.0-0.3) Aspartate Amino Transf (AST/SGOT) 34 U/L (15-37) Alanine Aminotransferase (ALT/SGPT) 24 U/L (12-78) Alkaline Phosphatase 98 U/L (46-116) Total Creatine Kinase 275 U/L (26-308) Creatine Kinase MB 1.5 NG/ML (0.0-3.6) Creatine Kinase MB Relative Index 0.5 Troponin I 0.008 ng/mL (0.000-0.056) Total Protein 7.8 G/DL (6.4-8.2) Albumin 3.4 G/DL (3.4-5.0) Globulin 4.4 g/dL Albumin/Globulin Ratio 0.8 (1.0-2.7) Lipase 200 U/L (73-393) Urine Color Pale yellow Urine Appearance Clear Urine pH 5 (4.5-8.0) Urine Specific [place] 1.010 (1.005-1.035) Urine Protein Negative (NEGATIVE) Urine Glucose (UA) Negative (NEGATIVE) Urine Ketones Negative (NEGATIVE) Urine Blood Negative (NEGATIVE) Urine Nitrite Negative (NEGATIVE) Urine Bilirubin Negative (NEGATIVE) Urine Urobilinogen Normal MG/DL (0.0-1.0) Urine Leukocyte Esterase Negative (NEGATIVE) Rhythm Strip Diag. Results EP Interpretation: yes Rate: 80 Rhythm: NSR, no PVC's, no ectopy Chest X-Ray Diagnostic Results Chest X-Ray Diagnostic Results : Chest X-Ray Ordered: Yes # of Views/Limited/Complete: 1 View Indication: Chest Pain EP Interpretation: Yes Interpretation: no consolidation, no effusion, no pneumothorax Impression: No acute disease - Cardiomegaly mild congestion Electronically Signed by: Raiza Will DO Last Vital Signs Date Time Temp Pulse Resp B/P (MAP) Pulse Ox O2 Delivery O2 Flow Rate FiO2 09/28/18 19:09 97.7 100 14 73/54 (60) 96 Room Air Status: improved Disposition: ADMITTED INPATIENT Condition: Serious Raiza Will DO Sep 28, 2018 19:32
--- NOTE | 2018-09-28 19:40 | NUR ---
ED Nurse Note: blood collected sent down
[2018-09-28 19:51] LABS: HEMATOCRIT 36.9 % (42.0-52.0); HEMOGLOBIN 11.9 G/DL (14.2-18.0); MEAN CORPUSCULAR VOLUME 94 FL (80-99); PLATELET COUNT 69 K/UL (150-450); RED BLOOD COUNT 3.92 M/UL (4.70-6.10); RED CELL DISTRIBUTION WIDTH 18.4 % (11.6-14.8); WHITE BLOOD COUNT 5.4 K/UL (4.8-10.8)
[2018-09-28 20:07] LABS: ANION GAP 15 mmol/L (5-15); BLOOD UREA NITROGEN 29 mg/dL (7-18); CALCIUM 10.2 MG/DL (8.5-10.1); CARBON DIOXIDE 22 MMOL/L (21-32); CHLORIDE 104 MMOL/L (98-107); CREATININE 1.6 MG/DL (0.55-1.30); POTASSIUM 3.9 MMOL/L (3.5-5.1); SODIUM 141 MMOL/L (136-145)
[2018-09-28 20:20] LABS: ALANINE AMINOTRANSFERASE 24 U/L (12-78); ALBUMIN 3.4 G/DL (3.4-5.0); ALBUMIN/GLOBULIN RATIO 0.8 (1.0-2.7); ALKALINE PHOSPHATASE 98 U/L (46-116); ASPARTATE AMINO TRANSFERASE 34 U/L (15-37); BILIRUBIN,TOTAL 1.5 MG/DL (0.2-1.0); CKMB 1.5 NG/ML (0.0-3.6); CREATINE KINASE 275 U/L (26-308)
[2018-09-28 20:26] LABS: BILIRUBIN,DIRECT 0.7 MG/DL (0.0-0.3)
[2018-09-28 20:43] LABS: APPEARANCE,URINE CLEAR; BILIRUBIN, URINE NEGATIVE (NEGATIVE); COLOR,URINE PALE YELLOW; GLUCOSE, URINE (UA) NEGATIVE (NEGATIVE); KETONES,URINE NEGATIVE (NEGATIVE); LEUKOCYTE ESTERASE ,URINE NEGATIVE (NEGATIVE); NITRITE,URINE NEGATIVE (NEGATIVE); PH,URINE 5 (4.5-8.0); PROTEIN,URINE NEGATIVE (NEGATIVE); UROBILINOGEN,URINE NORMAL MG/DL (0.0-1.0)
[2018-09-28 21:30] VITALS: BP 73/54
--- NOTE | 2018-09-28 21:30 | NUR ---
ED Nurse Note: Patient was admited to Tele due to generalized weaknes. Patient was transfered to the unit via gurney, by ACLS protocol with all belongings. AAO x4, VSS at this time, skin is dry intact, warm to touch.
--- NOTE | 2018-09-28 22:00 | NUR ---
NURSE NOTES: Received patient from ED, patient is awake, oriented x4, but lethargic and a poor historian. Sister at bedside. On room air, no s/s of respiratory distress. Placed on cardiac monitor technician. Oriented patient to the unit and the admission process. Attempted to get medical history, patient was only able to give limited history and medications he is taking. Redness on sacrum, right hip, patient states he had right hip surgery and back surgery. Mild generalized rash throughout bilateral lower extremities, patient denies itching. Bilateral lower extremity swelling down to the ankles. Per sister, patient has psoriasis on both elbows. Bilateral lungs clear, bowel sounds active, last BM today according to the patient.
[2018-09-28 22:08] VITALS: BP 100/54
[2018-09-28 22:30] VITALS: BP 105/52
--- NOTE | 2018-09-28 23:15 | NUR ---
NURSE NOTES: Received admitting orders from Dr. Mcfarland.
[2018-09-28] MEDS ORDERED: LORazepam Inj 2mg/ml 1ml IV PRN (23:45)
[2018-09-28] MEDS ORDERED: Zolpidem 5mg tab ORAL PRN (23:45)
[2018-09-28] MEDS ORDERED: Miralax 17gm pkt ORAL PRN (23:45)
[2018-09-28] MEDS ORDERED: NS w/KCl 20mEq 1000ml 1,000 ML IV ONE (23:45)
[2018-09-29] VITALS: BP 118/71
[2018-09-29] MEDS ORDERED: Nitroglycerin Subl 0.4mg tab SL PRN (01:30)
[2018-09-29] MEDS: Morphine Sulfate 2mg/ml Inj(IV/IM USE ONLY) IVP PRN ×2 (03:07→06:52)
--- NOTE | 2018-09-29 03:07 | NUR ---
NURSE NOTES: Patient c/o back pain. Administered morphine 1mg ivp.
[2018-09-29 04:00] VITALS: BP 125/75
--- NOTE | 2018-09-29 04:02 | NUR ---
NURSE NOTES: Patient still c/o pain unrelieved by morphine. Explained to patient that he can only have the morphine every 4 hours. Offered tylenol and/or ativan. Patient refused.
[2018-09-29] MEDS: Nateglinide 60mg tab ORAL SCH ×3 (05:51→17:24)
[2018-09-29] MEDS: NovoLOG Insulin Flexpen SUBQ SCH ×4 (06:13→20:27)
[2018-09-29 07:11] LABS: HEMATOCRIT 33.6 % (42.0-52.0); HEMOGLOBIN 10.4 G/DL (14.2-18.0); MEAN CORPUSCULAR VOLUME 99 FL (80-99); PLATELET COUNT 48 K/UL (150-450); RED BLOOD COUNT 3.39 M/UL (4.70-6.10); RED CELL DISTRIBUTION WIDTH 19.9 % (11.6-14.8); WHITE BLOOD COUNT 4.5 K/UL (4.8-10.8)
[2018-09-29 07:38] LABS: ALANINE AMINOTRANSFERASE 17 U/L (12-78); ALBUMIN 2.7 G/DL (3.4-5.0); ALBUMIN/GLOBULIN RATIO 0.6 (1.0-2.7); ALKALINE PHOSPHATASE 76 U/L (46-116); ANION GAP 13 mmol/L (5-15); ASPARTATE AMINO TRANSFERASE 33 U/L (15-37); BILIRUBIN,DIRECT 0.4 MG/DL (0.0-0.3); BILIRUBIN,TOTAL 1.3 MG/DL (0.2-1.0); BLOOD UREA NITROGEN 27 mg/dL (7-18); CALCIUM 8.8 MG/DL (8.5-10.1); CARBON DIOXIDE 19 MMOL/L (21-32); CHLORIDE 107 MMOL/L (98-107); CHOLESTEROL 88 MG/DL (< 200); CREATININE 1.5 MG/DL (0.55-1.30); HDL CHOLESTEROL 41 MG/DL (40-60); POTASSIUM 3.7 MMOL/L (3.5-5.1); SODIUM 139 MMOL/L (136-145); TRIGLYCERIDES 104 MG/DL (30-150)
[2018-09-29 07:41] LABS: PHOSPHORUS 2.9 MG/DL (2.5-4.9)
[2018-09-29 08:00] VITALS: BP 124/68
--- NOTE | 2018-09-29 08:13 | NUR ---
NURSE NOTES: Received report from RENALDO Foster. Patient in bed resting, no active s/s cardiac ,respiratory distress noticed at this time. Patient on room air, AOX4. IV on right FA 22G, asymptomatic, patent, intact. Bed in lowest position, side rails upx3, call light within reach. Will continue to monitor.
[2018-09-29] MEDS ORDERED: Heparin 5000 units/ml inj SUBQ SCH ×2 (09:00)
[2018-09-29] MEDS: Lactulose 10gm/15ml UDC ORAL SCH ×3 (09:46→17:27)
[2018-09-29] MEDS: Aspirin Baby 81mg ORAL SCH (09:47)
[2018-09-29] MEDS: Enalapril 5mg tab ORAL SCH (09:47)
[2018-09-29] MEDS: sitaGLIPtin 25mg tab ORAL SCH (09:47)
--- NOTE | 2018-09-29 10:55 | Diagnostic Imaging Report ---
Indication: Chest pain Comparison: 09/09/2018 A single view chest radiograph was obtained. Findings: Pulmonary vascular congestion demonstrated with cardiomegaly. Sternotomy noted. IMPRESSION: CHF
--- NOTE | 2018-09-29 11:09 | Consultation ---
History of Present Illness General Date patient seen: Sep 29, 2018 Chief Complaint: Generalized Weakness Present Illness HPI 63-year-old male DM, HTN, chronic liver disease, a resident of an Assisted living, chronic debilitation, poor historian brought in by EMS with increased weakness and frequent falls.. He had been noted to be tachycardic and somnolent. He was found to have uncontrolled diabetes, renal insufficiency. He is admitted to telemetry for further evaluation. Allergies: Coded Allergies: No Known Allergies (Verified , 06/13/09) Medication History Scheduled Atorvastatin Calcium* (Atorvastatin Calcium*), 80 MG ORAL BEDTIME, (Reported) Atorvastatin Calcium* (Atorvastatin Calcium*), 80 MG ORAL BEDTIME, (Reported) Docusate Sodium* (Docusate Sodium*), 100 MG ORAL TWICE A DAY, (Reported) Docusate Sodium* (Docusate Sodium*), 100 MG ORAL TWICE A DAY, (Reported) Enalapril Maleate* (Enalapril Maleate*), 5 MG ORAL DAILY, (Reported) Enalapril Maleate* (Enalapril Maleate*), 5 MG ORAL DAILY, (Reported) Folic Acid* (Folic Acid*), 1 MG ORAL DAILY, (Reported) Folic Acid* (Folic Acid*), 1 MG ORAL DAILY, (Reported) Gabapentin* (Gabapentin*), 600 MG ORAL TWICE A DAY, (Reported) Gabapentin* (Gabapentin*), 600 MG ORAL BID, (Reported) Insulin Aspart (Novolog Flexpen), 0 UNITS SUBQ BEFORE MEALS AND HS Insulin Detemir (Levemir Flexpen), 10 UNITS SUBQ BEDTIME Insulin Glargine (Lantus), 0 SUBQ BEDTIME, (Reported) Lactulose (Lactulose*), 27.5 ML ORAL QID, (Reported) Levothyroxine Sodium* (Levothyroxine Sodium*), 100 MCG ORAL DAILY, (Reported) Levothyroxine Sodium* (Levothyroxine Sodium*), 100 MCG ORAL DAILY, (Reported) Metformin Hcl* (Metformin Hcl*), 500 MG ORAL TWICE A DAY, (Reported) Nateglinide* (Starlix*), 60 MG ORAL TIAC Pantoprazole* (Pantoprazole*), 40 MG ORAL DAILY, (Reported) Pantoprazole* (Pantoprazole*), 40 MG ORAL DAILY, (Reported) Sitagliptin* (Januvia*), 100 MG ORAL DAILY, (Reported) Sitagliptin* (Januvia*), 100 MG ORAL DAILY, (Reported) Scheduled PRN Hydrocodone Bit/Acetaminophen 5-325* ([place] 5-325*), 1 TAB ORAL DAILY PRN for For Pain, (Reported) Miscellaneous Medications Calcium Carbonate/Vitamin D3 (Calcium 500 + D Tablet), 1 EACH PO, (Reported) Patient History Healthcare decision maker N Resuscitation status Full Code Advanced Directive on File Past Medical/Surgical History Past Medical/Surgical History: (1) S/P CABG (coronary artery bypass graft) (2) Diabetes mellitus (3) Acute encephalopathy (4) Generalized weakness (5) Lactic acidosis (6) Hypothyroid Review of Systems All Other Systems: negative except mentioned in HPI Physical Exam General Appearance: WD/WN, mild distress Lines, tubes and drains: peripheral HEENT: normocephalic, atraumatic Neck: non-tender, normal alignment Respiratory/Chest: chest wall non-tender, lungs clear Breasts: no masses Cardiovascular/Chest: normal peripheral pulses Abdomen: normal bowel sounds, non tender Genitourinary/Rectal: normal genital exam Extremities: normal range of motion Skin Exam: normal pigmentation Last 24 Hour Vital Signs Date Time Temp Pulse Resp B/P (MAP) Pulse Ox O2 Delivery O2 Flow Rate FiO2 09/29/18 09:47 124/68 09/29/18 08:00 97.4 98 22 124/68 (86) 100 09/29/18 04:00 97.4 74 19 125/75 (92) 95 09/29/18 04:00 86 09/29/18 00:00 98.9 81 19 118/71 (87) 96 09/29/18 00:00 77 09/28/18 22:30 79 105/52 (69) 09/28/18 22:08 97.9 76 20 100/54 (69) 95 09/28/18 22:00 Room Air 09/28/18 21:30 97.7 14 73/54 96 Room Air 09/28/18 21:30 97.7 14 73/54 96 Room Air 09/28/18 19:20 97.7 14 73/54 96 Room Air 09/28/18 19:20 100 14 Room Air 09/28/18 19:09 97.7 100 14 73/54 (60) 96 Room Air Intake and Output 09/28/18 09/29/18 19:00 07:00 # Voids 1 Laboratory Tests Test 09/28/18 19:30 09/28/18 20:15 09/28/18 20:42 09/29/18 06:23 White Blood Count 5.4 K/UL (4.8-10.8) 4.5 K/UL (4.8-10.8) L Red Blood Count 3.92 M/UL (4.70-6.10) L 3.39 M/UL (4.70-6.10) L Hemoglobin 11.9 G/DL (14.2-18.0) L 10.4 G/DL (14.2-18.0) L Hematocrit 36.9 % (42.0-52.0) L 33.6 % (42.0-52.0) L Mean Corpuscular Volume 94 FL (80-99) 99 FL (80-99) Mean Corpuscular Hemoglobin 30.4 PG (27.0-31.0) 30.7 PG (27.0-31.0) Mean Corpuscular Hemoglobin Concent 32.4 G/DL (32.0-36.0) 31.0 G/DL (32.0-36.0) L Red Cell Distribution Width 18.4 % (11.6-14.8) H 19.9 % (11.6-14.8) H Platelet Count 69 K/UL (150-450) L 48 K/UL (150-450) L Mean Platelet Volume 8.4 FL (6.5-10.1) 9.1 FL (6.5-10.1) Neutrophils (%) (Auto) % (45.0-75.0) % (45.0-75.0) Lymphocytes (%) (Auto) % (20.0-45.0) % (20.0-45.0) Monocytes (%) (Auto) % (1.0-10.0) % (1.0-10.0) Eosinophils (%) (Auto) % (0.0-3.0) % (0.0-3.0) Basophils (%) (Auto) % (0.0-2.0) % (0.0-2.0) Differential Total Cells Counted 100 100 Neutrophils % (Manual) 66 % (45-75) 70 % (45-75) Lymphocytes % (Manual) 21 % (20-45) 21 % (20-45) Monocytes % (Manual) 8 % (1-10) 8 % (1-10) Eosinophils % (Manual) 3 % (0-3) 1 % (0-3) Basophils % (Manual) 2 % (0-2) 0 % (0-2) Band Neutrophils 0 % (0-8) 0 % (0-8) Platelet Estimate Decreased L Decreased L Platelet Morphology Normal Normal Red Blood Cell Morphology Normal Sodium Level 141 MMOL/L (136-145) 139 MMOL/L (136-145) Potassium Level 3.9 MMOL/L (3.5-5.1) 3.7 MMOL/L (3.5-5.1) Chloride Level 104 MMOL/L (98-107) 107 MMOL/L (98-107) Carbon Dioxide Level 22 MMOL/L (21-32) 19 MMOL/L (21-32) L Anion Gap 15 mmol/L (5-15) 13 mmol/L (5-15) Blood Urea Nitrogen 29 mg/dL (7-18) H 27 mg/dL (7-18) H Creatinine 1.6 MG/DL (0.55-1.30) H 1.5 MG/DL (0.55-1.30) H Estimat Glomerular Filtration Rate 43.7 mL/min (>60) 47.1 mL/min (>60) Glucose Level 124 MG/DL (74-106) H 230 MG/DL (74-106) #H Lactic Acid Level 3.50 mmol/L (0.4-2.0) H 3.30 mmol/L (0.66-2.22) H Calcium Level 10.2 MG/DL (8.5-10.1) H 8.8 MG/DL (8.5-10.1) Total Bilirubin 1.5 MG/DL (0.2-1.0) H 1.3 MG/DL (0.2-1.0) H Direct Bilirubin 0.7 MG/DL (0.0-0.3) H 0.4 MG/DL (0.0-0.3) H Aspartate Amino Transf (AST/SGOT) 34 U/L (15-37) 33 U/L (15-37) Alanine Aminotransferase (ALT/SGPT) 24 U/L (12-78) 17 U/L (12-78) Alkaline Phosphatase 98 U/L (46-116) 76 U/L (46-116) Total Creatine Kinase 275 U/L (26-308) Creatine Kinase MB 1.5 NG/ML (0.0-3.6) Creatine Kinase MB Relative Index 0.5 Troponin I 0.008 ng/mL (0.000-0.056) Total Protein 7.8 G/DL (6.4-8.2) 7.1 G/DL (6.4-8.2) Albumin 3.4 G/DL (3.4-5.0) 2.7 G/DL (3.4-5.0) L Globulin 4.4 g/dL 4.4 g/dL Albumin/Globulin Ratio 0.8 (1.0-2.7) L 0.6 (1.0-2.7) L Lipase 200 U/L (73-393) Urine Color Pale yellow Urine Appearance Clear Urine pH 5 (4.5-8.0) Urine Specific [place] 1.010 (1.005-1.035) Urine Protein Negative (NEGATIVE) Urine Glucose (UA) Negative (NEGATIVE) Urine Ketones Negative (NEGATIVE) Urine Blood Negative (NEGATIVE) Urine Nitrite Negative (NEGATIVE) Urine Bilirubin Negative (NEGATIVE) Urine Urobilinogen Normal MG/DL (0.0-1.0) Urine Leukocyte Esterase Negative (NEGATIVE) Hypochromasia 1+ Anisocytosis 1+ Macrocytosis 1+ Phosphorus Level 2.9 MG/DL (2.5-4.9) Magnesium Level 1.2 MG/DL (1.8-2.4) L Pro-B-Type Natriuretic Peptide 196 pg/mL (0-125) H Triglycerides Level 104 MG/DL (30-150) Cholesterol Level 88 MG/DL (< 200) LDL Cholesterol 37 mg/dL (<100) HDL Cholesterol 41 MG/DL (40-60) Cholesterol/HDL Ratio 2.1 (3.3-4.4) L Microbiology Date/Time Source Procedure Growth Status 09/28/18 20:35 Rectum Received Height (Feet): 5 Height (Inches): 11.00 Weight (Pounds): 210 Medications Current Medications Medications (Trade) Dose Ordered Sig/Alfredo Route PRN Reason Start Time Stop Time Status Last Admin Dose Admin Acetaminophen (Tylenol) 650 mg Q4H PRN ORAL fever 09/28/18 23:45 10/28/18 23:44 Acetaminophen (Tylenol) 650 mg Q6H PRN ORAL Mild Pain/Temp > 100.5 09/28/18 23:45 10/28/18 23:44 Aspirin (ASA) 81 mg DAILY ORAL 09/29/18 09:00 10/29/18 08:59 09/29/18 09:47 Atorvastatin Calcium (Lipitor) 80 mg BEDTIME ORAL 09/29/18 21:00 10/29/18 20:59 Dextrose (Dextrose 50%) 25 ml Q30M PRN IV Hypoglycemia 09/28/18 23:45 10/28/18 23:44 Dextrose (Dextrose 50%) 50 ml Q30M PRN IV Hypoglycemia 09/28/18 23:45 10/28/18 23:44 Enalapril Maleate (Vasotec) 5 mg DAILY ORAL 09/29/18 09:00 10/29/18 08:59 09/29/18 09:47 Folic Acid (Folate) 1 mg DAILY ORAL 09/29/18 09:00 10/29/18 08:59 09/29/18 09:46 Gabapentin (Neurontin) 600 mg BID ORAL 09/29/18 09:00 10/29/18 08:59 09/29/18 09:47 Hydroxyzine HCl (Atarax) 25 mg QHS ORAL 09/29/18 21:00 10/29/18 20:59 Insulin Aspart (NovoLOG) BEFORE MEALS AND HS SUBQ 09/29/18 06:30 10/29/18 06:29 09/29/18 06:13 Lactulose (Cephulac) 10 gm THREE TIMES A DAY ORAL 09/29/18 09:00 10/29/18 08:59 09/29/18 09:46 Levothyroxine Sodium (Synthroid) 100 mcg DAILY@0630 ORAL 09/29/18 06:30 10/29/18 06:29 09/29/18 05:51 Lorazepam (Ativan 2mg/ml 1ml) 0.5 mg Q4H PRN IV For Anxiety 09/28/18 23:45 10/05/18 23:44 Morphine Sulfate (Morphine Sulfate) 4 mg Q4H PRN IVP PAIN 4-10 09/29/18 08:00 10/06/18 07:59 Nateglinide (Starlix) 60 mg TIAC ORAL 09/29/18 06:30 10/29/18 06:29 09/29/18 05:51 Nitroglycerin (Ntg) 0.4 mg Q5M PRN SL Prn Chest Pain 09/29/18 01:30 10/29/18 01:29 Ondansetron HCl (Zofran ODT) 4 mg THREE TIMES A DAY PRN SL N/V 09/29/18 01:30 10/29/18 01:29 Ondansetron HCl (Zofran) 4 mg Q6H PRN IVP Nausea & Vomiting 09/28/18 23:45 10/28/18 23:44 Pantoprazole (Protonix) 40 mg DAILY ORAL 09/29/18 09:00 10/29/18 08:59 09/29/18 09:47 Polyethylene Glycol (Miralax) 17 gm HSPRN PRN ORAL Constipation 09/28/18 23:45 10/28/18 23:44 Potassium Chloride/Sodium Chloride 1,000 ml @ 75 mls/hr [id number] ONCE IV 09/28/18 23:45 09/29/18 13:04 09/29/18 00:11 Sitagliptin Phosphate (Januvia) 100 mg DAILY ORAL 09/29/18 09:00 10/29/18 08:59 09/29/18 09:47 Sodium Chloride 1,000 ml @ 150 mls/hr Q6H40M IV 09/29/18 11:00 10/29/18 10:59 UNV Sodium Chloride 1,000 ml @ 999 mls/hr Q1H1M ONCE IV 09/29/18 11:00 09/29/18 12:00 UNV Tamsulosin HCl (Flomax) 0.4 mg BEDTIME ORAL 09/29/18 21:00 10/29/18 20:59 Zolpidem Tartrate (Ambien) 5 mg HSPRN PRN ORAL Insomnia 09/28/18 23:45 10/05/18 23:44 Assessment/Plan Problem List: (1) Acute encephalopathy ICD Codes: G93.40 - Encephalopathy, unspecified SNOMED: 64869313, 800963370 (2) Generalized weakness ICD Codes: R53.1 - Weakness SNOMED: 08699750 (3) ATN (acute tubular necrosis) ICD Codes: N17.0 - Acute kidney failure with tubular necrosis SNOMED: 07983367 (4) Hypothyroid ICD Codes: E03.9 - Hypothyroidism, unspecified SNOMED: 69192586 (5) S/P CABG (coronary artery bypass graft) ICD Codes: Z95.1 - Presence of aortocoronary bypass graft SNOMED: 12811669, 869633156, 073170131 Assessment/Plan: iv fluids renal evaluation check electroltyes accucheck sliding scale NS bolus for tachycardia Sudha Cho MD Sep 29, 2018 11:08
[2018-09-29] MEDS: Morphine Sulfate 4mg/ml Inj (IV USE ONLY) IVP PRN ×2 (11:59→20:17)
[2018-09-29 12:00] VITALS: BP 119/64
--- NOTE | 2018-09-29 14:30 | NUR ---
NURSE NOTES:WOUND CARE NOTES:PT presented on admission with scaly rash to R flank,R thoracic area,bilat groin and posterior aspects of both upper thighs. Pt complained of being itchy .Dry plaques noted to R and L elbows .Pt stated he has Hx of Psoriasis. Partial thickness pressure injury to sacrum .Base of wound moist -viable with surrounding non-blanchable erythema without induration or fluctuance.(L)3.5cm x (W)3cm. Non-blanchable erythema without fluctuance or induration noted to R hip .Pt complained site is tender when palpated. (L)7.5cm x (W)5cm.Pt verbalized having fallen at Assisted Living facility and was on floor for 2 days. Serous blister medial L heel oozing serous exudate. Scattered small purple areas within base of blister.Non-blanching erythema with fluctuance periwound. R heel boggy but blanchable. Recommendations: Please follow up with PCP regarding rash. Apply Moisture Barrier paste to Sacrum .Cover with Optifoam drsg. Change every 3 days and prn. Apply Betadine to L heel blister.Cover with Optifoam drsg every 3 days and prn. Apply Cavilon Skin Barrier to R heel. Cover with Optifoam drsg. Change every 7 days and prn. Assist with repositioning at least every 2hours or as tolerated. Off-load heels with pillow.
--- NOTE | 2018-09-29 15:19 | Cardiology Report ---
APPROVED REPORT EKG Measurement Heart [id number] Normal sinus rhythm Normal ECG
--- NOTE | 2018-09-29 15:31 | NUR ---
CASE MANAGEMENT:REVIEW 63 YR OLD MALE BIBA FROM [facility] CC: GENERALIZED WEAKNESS X3 DAYS SI: WEAKNESS. HYPOTENSION. DEHYDRATION 97.7 100 14 73/54 96% ON RA PLT-69 BUN+29 CR+1.6 IS: 1L NS BOLUS X2 CHEST XRAY BLOOD CX : TO TELEMETRY UNIT DCP: RETURN TO [facility] INTERQUAL CRITERIA MET
--- NOTE | 2018-09-29 15:33 | NUR ---
NURSE NOTES: Wound assessment with wound nurse, Blister on right heel scant amount of leaking with clear fluid, Non blanchable redness on sacral , redness on right hip where patient got surgery done. Patient c/o itchiness on right lower abdomen, per wound nurse suspecting scabies. Dr. Cho made aware of scabies, no order given at this time. Will continue to monitor.
[2018-09-29 16:00] VITALS: BP 123/69
--- NOTE | 2018-09-29 18:48 | NUR ---
NURSE NOTES: Family member at the bedside, sister, stated patient observed left heel blister since 5 days ago. Patient and family member made aware blister has been treated with wound care nurse.
--- NOTE | 2018-09-29 18:49 | NUR ---
NURSE NOTES: Asked sister for the reason patient has two different name. Per Sister and patient, he has two name one Turkish name one Prussian name. When patient admitted Sister only have ID with Arturo Ramos which is different from previous admission name, Toan Tena
--- NOTE | 2018-09-29 18:50 | NUR ---
NURSE NOTES: Dr. Dodd at the bedside, made aware wound care nurse and RN suspecting scabies. Per Dr. Dodd will put order.
--- NOTE | 2018-09-29 18:56 | History & Physical ---
History and Physical History & Physicial Dictated for Int Med-Dr Mcfarland no. [id number]. Mike Dodd MD Sep 29, 2018 18:56
[2018-09-29] MEDS: Clobetasol Cream 0.05% 15gm TOPIC SCH (19:00)
[2018-09-29] MEDS ORDERED: NOVOLOG100 UNITS1 SUBQ (19:28)
[2018-09-29] MEDS ORDERED: GABAPENTIN300 MG ORAL (19:29)
--- NOTE | 2018-09-29 19:37 | NUR ---
HAND-OFF: Report given to RENALDO Foster.
[2018-09-29] MEDS ORDERED: CLOTRIMAZOLE15 GM TOPIC (19:41)
[2018-09-29] MEDS ORDERED: VOLTAREN100 G1 TP (19:41)
[2018-09-29] MEDS ORDERED: POTASSIUM CHLO10 MEQ ORAL (19:41)
[2018-09-29] MEDS ORDERED: LIDODERM700 M1 TOPIC (19:41)
[2018-09-29] MEDS ORDERED: ASPIRIN81 MG ORAL (19:41)
[2018-09-29] MEDS ORDERED: ZOFRAN ODT8 MG ORAL (19:41)
[2018-09-29] MEDS ORDERED: VITAMIN D250000 UNI1 ORAL (19:41)
[2018-09-29] MEDS ORDERED: HYDROXYZINE HCL25 M1 PO (19:41)
[2018-09-29] MEDS ORDERED: FLOMAX0.4 MG ORAL (19:41)
[2018-09-29] MEDS ORDERED: ACETAMINOPHEN325 M1 ORAL (19:41)
[2018-09-29] MEDS ORDERED: SPIRONOLACTONE50 MG ORAL (19:41)
[2018-09-29] MEDS ORDERED: DEXILANT60 MG ORAL (19:41)
[2018-09-29] MEDS ORDERED: ISOSORBIDE MONO30 M1 PO (19:41)
[2018-09-29] MEDS ORDERED: NITROSTAT0.4 M1 SL (19:41)
[2018-09-29] MEDS ORDERED: DOVONEX TP (19:41)
[2018-09-29] MEDS ORDERED: LIDEX15 GM TOPIC (19:41)
[2018-09-29] MEDS ORDERED: LIDOCAINE 3% TOPIC (19:41)
--- NOTE | 2018-09-29 19:42 | NUR ---
NURSE NOTES: Received patient from Toshia RN. Patient in bed, awake, alert and oriented x4. On room air, no s/s of respiratory distress. Bed in low position, locked, bed alarm on, call light within reach. PIV #22 on right forearm with 1/2 NS infusing at 150ml/hr. No signs of infection or infiltration.
[2018-09-29 20:00] VITALS: BP 133/74
[2018-09-29] MEDS ORDERED: Atorvastatin 80mg tab ORAL SCH (21:00)
[2018-09-29] MEDS ORDERED: HydrOXYzine tab 25mg tab ORAL SCH (21:00)
[2018-09-29] MEDS ORDERED: Tamsulosin 0.4mg cap ORAL SCH (21:00)
--- NOTE | 2018-09-29 22:00 | NUR ---
NURSE NOTES: Elamite applied to the patient as ordered.
--- NOTE | 2018-09-29 22:15 | History and Physical Report ---
DATE OF ADMISSION: 09/28/2018 CHIEF COMPLAINT: The patient is a 63-year-old white male, who presents with a chief complaint of syncopal episode. HISTORY OF PRESENT ILLNESS: The patient was admitted to [facility] from 09/06/2018 to 09/10/2018. The patient was admitted at that time for congestive heart failure. Please see history and physical and discharge summary dictated at that time. According to the patient and his sister, who is at the bedside, the patient essentially lost consciousness on 09/24/2018. The family had been trying to get a hold of them. The patient is a resident at [facility]. Currently, no body at the [facility] checked on the patient. The patient was visited by his niece yesterday. The patient was noted to have altered mental status. The patient presented to [place] emergency room. The patient is admitted with altered mental status and syncopal episode. PAST MEDICAL HISTORY: Significant for: 1. Coronary artery disease, status post coronary artery bypass graft. 2. Congestive heart failure. 3. Diabetes type 2. 4. Hypertension. 5. Iron deficiency anemia. 6. History of hepatic encephalopathy. 7. Hypothyroidism. PAST SURGICAL HISTORY: Significant for: 1. Lumbar laminectomy. 2. Coronary artery bypass graft in 2003. 3. Right hip open reduction and internal fixation in 2016. CURRENT MEDICATIONS: 1. Atorvastatin 80 mg p.o. at bedtime. 2. Calcium carbonate plus vitamin D one tablet p.o. daily. 3. Vasotec 5 mg p.o. daily. 4. Folic acid 1 mg p.o. daily. 5. Gabapentin 600 mg p.o. twice daily. 6. [place] 5/325 mg one tablet p.o. q.6 h. p.r.n. 7. NovoLog sliding scale. 8. Levemir 10 units subcutaneously at bedtime. 9. Lactulose 27.5 mL p.o. 4 times daily. 10. Levoxyl 0.1 mg p.o. daily. 11. Metformin 500 mg p.o. twice daily. 12. Nateglinide 60 mg one tab p.o. 3 times daily with meals. 13. Protonix 40 mg p.o. daily. 14. Januvia 100 mg p.o. daily. ALLERGIES: No known drug allergies. SOCIAL HISTORY: The patient is and lives at [facility]. The patient denies tobacco use. The patient admits to rare alcohol use. REVIEW OF SYSTEMS: CONSTITUTIONAL: The patient denies weight loss or weight gain. The patient denies fevers or chills. HEENT: The patient denies ear or throat pain. The patient denies headache. CARDIOVASCULAR: The patient denies palpitations or chest pain. CHEST: The patient denies wheeze or shortness of breath. ABDOMINAL: The patient denies nausea, vomiting, diarrhea, or constipation. GENITOURINARY: The patient denies dysuria or increased frequency of urination. NEUROMUSCULAR: The patient complains of syncopal episode as above. The patient denies seizures or generalized weakness. PHYSICAL EXAMINATION: VITAL SIGNS: Temperature 97.4, respirations 19, pulse 74, and blood pressure 125/75. GENERAL: The patient is a well-developed and well-nourished white male, in no apparent distress. HEENT: Eyes, pupils are equal and responsive to light and accommodation. Extraocular movements are intact. NECK: Supple without lymphadenopathy. CHEST: Lungs are clear to auscultation bilaterally without wheezes or rales. CARDIOVASCULAR: Regular rhythm and rate. S1 and S2 are normal without murmurs, rubs, or gallops. ABDOMEN: Soft, nontender, and nondistended. Positive bowel sounds. No evidence of hepatosplenomegaly. Currently, no rebound or guarding noted. EXTREMITIES: Negative for clubbing, cyanosis, or edema. RECTAL/GENITAL: Refused. NEUROLOGIC: Cranial nerves II through XII are grossly intact without focal deficits. Motor strength is 5/5 bilaterally. Deep tendon reflexes are 2+ plantar. LABORATORY STUDIES: WBC 5.4, hemoglobin 11.9, hematocrit 36.9, and platelets 69,000. Sodium 139, potassium 3.7, chloride 107, CO2 19, BUN 27, creatinine 1.5, and glucose 230. Lactic acid 3.5. Troponin 0.008. BNP 196. Chest x-ray was reported as pulmonary vascular congestion consistent with congestive heart failure. ASSESSMENT: This is a 63-year-old white male. 1. Syncopal episode. 2. Congestive heart failure. 3. Coronary artery disease. 4. Contusion to the right eye. 5. Psoriasis. 6. Diabetes type 2. 7. Hypertension. 8. Hypothyroidism. 9. History of hepatic encephalopathy. 10. History of iron deficiency anemia. TREATMENT: 1. Syncope. A MRI of the brain is pending. Carotid duplex Dopplers are pending. Syncope may be secondary to acute cerebrovascular accident versus acute arrhythmia. A Cardiology consultation has been obtained with Dr. Gabino Juarez. We will follow recommendations of Cardiology and Neurology. 2. Coronary artery disease. As above, a Cardiology consultation has been obtained with Dr. Gabino Juarez. 3. Right eye contusion. It is unknown whether the patient fell during his syncopal episode. A CT scan of the right eye orbit is pending. 4. Psoriasis. The patient will be placed on Temovate twice daily. 5. Diabetes type 2. NovoLog sliding scale has been instituted. 6. Hypertension. Continue enalapril as above. 7. Hypothyroidism. A TSH is pending. Continue Levoxyl as above. 8. Hepatic encephalopathy. Continue lactulose as above. Mike Dodd M.D. DR: DIANNE JOB#: [id number] CC:
[2018-09-30] VITALS: BP 139/72
[2018-09-30] MEDS: Morphine Sulfate 4mg/ml Inj (IV USE ONLY) IVP PRN ×3 (00:40→09:44)
[2018-09-30 04:00] VITALS: BP 114/74
[2018-09-30] MEDS: Nateglinide 60mg tab ORAL SCH ×3 (05:38→17:27)
[2018-09-30] MEDS: NovoLOG Insulin Flexpen SUBQ SCH ×3 (05:49→17:30)
[2018-09-30 07:09] LABS: HEMATOCRIT 31.4 % (42.0-52.0); MEAN CORPUSCULAR VOLUME 97 FL (80-99); PLATELET COUNT 34 K/UL (150-450); RED BLOOD COUNT 3.23 M/UL (4.70-6.10); RED CELL DISTRIBUTION WIDTH 19.1 % (11.6-14.8); WHITE BLOOD COUNT 3.2 K/UL (4.8-10.8)
[2018-09-30 07:14] LABS: ALANINE AMINOTRANSFERASE 7 U/L (12-78); ALBUMIN 2.5 G/DL (3.4-5.0); ALBUMIN/GLOBULIN RATIO 0.7 (1.0-2.7); ALKALINE PHOSPHATASE 98 U/L (46-116); ANION GAP 6 mmol/L (5-15); ASPARTATE AMINO TRANSFERASE 16 U/L (15-37); BILIRUBIN,TOTAL 0.9 MG/DL (0.2-1.0); BLOOD UREA NITROGEN 13 mg/dL (7-18); CALCIUM 8.5 MG/DL (8.5-10.1); CARBON DIOXIDE 26 MMOL/L (21-32); CHLORIDE 107 MMOL/L (98-107); CREATININE 1.1 MG/DL (0.55-1.30); PHOSPHORUS 2.2 MG/DL (2.5-4.9); POTASSIUM 3.8 MMOL/L (3.5-5.1); SODIUM 138 MMOL/L (136-145)
--- NOTE | 2018-09-30 07:42 | NUR ---
NURSE NOTES: Received report from RENALDO Foster. Patient is resting in bed, sleeping in semi-ely's position. No signs of acute distress at this moment. Respiration even and non labored on room air. IV is patent and running at RX dose. Bed in lowest position, side rails up x2, wheels locked. Call light and bed side table within reach. Will continue plan of care.
[2018-09-30 08:00] VITALS: BP 110/72
[2018-09-30] MEDS: Aspirin Baby 81mg ORAL SCH (09:30)
[2018-09-30] MEDS: Lactulose 10gm/15ml UDC ORAL SCH ×2 (09:35→12:15)
[2018-09-30] MEDS: Enalapril 5mg tab ORAL SCH (09:36)
[2018-09-30] MEDS: Clobetasol Cream 0.05% 15gm TOPIC SCH (09:37)
[2018-09-30] MEDS: sitaGLIPtin 25mg tab ORAL SCH (09:37)
--- NOTE | 2018-09-30 11:07 | Pulmonology Progress Note ---
Assessment/Plan Problems: (1) Acute encephalopathy (2) Generalized weakness (3) ATN (acute tubular necrosis) (4) Hypothyroid (5) S/P CABG (coronary artery bypass graft) Assessment/Plan no new complains doing better symptomatic treatment dc to [facility] dc aldactone Subjective ROS Limited/Unobtainable: No Constitutional: Reports: no symptoms HEENT: Repors: no symptoms Respiratory: Reports: no symptoms Allergies: Coded Allergies: No Known Allergies (Verified , 06/13/09) Objective Last 24 Hour Vital Signs Date Time Temp Pulse Resp B/P (MAP) Pulse Ox O2 Delivery O2 Flow Rate FiO2 09/30/18 09:36 114/74 09/30/18 04:00 98.1 98 20 114/74 (87) 96 09/30/18 03:26 96 09/30/18 00:00 98.1 98 20 139/72 (94) 98 09/29/18 23:41 82 09/29/18 21:00 Room Air 09/29/18 20:04 91 09/29/18 20:00 98.6 103 18 133/74 (93) 97 09/29/18 16:00 88 09/29/18 16:00 98.3 86 22 123/69 (87) 96 09/29/18 12:00 98.4 95 22 119/64 (82) 96 09/29/18 12:00 108 Intake and Output 09/29/18 09/30/18 19:00 07:00 Intake Total 517.5 ml 1080 ml Output Total 1500 ml Balance 517.5 ml -420 ml Intake Oral 480 ml 480 ml IV Total 37.5 ml 600 ml Output Urine Total 1500 ml # Voids 4 3 # Bowel Movements 1 1 General Appearance: WD/WN HEENT: normocephalic, atraumatic Respiratory/Chest: chest wall non-tender, lungs clear, no respiratory distress Cardiovascular: normal peripheral pulses, normal rate Abdomen: normal bowel sounds, soft, non tender Genitourinary: normal external genitalia Extremities: no cyanosis Skin: no rash Neurologic/Psychiatric: no motor/sensory deficits, abnormal gait Microbiology Date/Time Source Procedure Growth Status 09/28/18 19:30 Blood Blood Culture - Preliminary NO GROWTH AFTER 24 HOURS Resulted 09/28/18 19:15 Blood Blood Culture - Preliminary NO GROWTH AFTER 24 HOURS Resulted 09/29/18 05:00 Stool Clostridium difficile Toxin Assay - Final Complete 09/28/18 20:35 Rectum Received Laboratory Tests 09/30/18 04:00: Sodium Level 138, Potassium Level 3.8, Chloride Level 107, Carbon Dioxide Level 26, Anion Gap 6, Blood Urea Nitrogen 13, Creatinine 1.1, Estimat Glomerular Filtration Rate > 60, Glucose Level 169H, Calcium Level 8.5, Phosphorus Level 2.2L, Magnesium Level 1.2L, Total Bilirubin 0.9, Aspartate Amino Transf (AST/ SGOT) 16, Alanine Aminotransferase (ALT/SGPT) 7L, Alkaline Phosphatase 98, Total Protein 6.2L, Albumin 2.5L, Globulin 3.7, Albumin/Globulin Ratio 0.7L 09/30/18 06:25: White Blood Count 3.2L, Red Blood Count 3.23L, Hemoglobin 10.0L, Hematocrit 31.4L, Mean Corpuscular Volume 97, Mean Corpuscular Hemoglobin 31.0, Mean Corpuscular Hemoglobin Concent 31.9L, Red Cell Distribution Width 19.1H, Platelet Count 34L, Mean Platelet Volume 9.6, Neutrophils (%) (Auto) , Lymphocytes (%) (Auto) , Monocytes (%) (Auto) , Eosinophils (%) (Auto) , Basophils (%) (Auto) , Differential Total Cells Counted 100, Neutrophils % ( Manual) 63, Lymphocytes % (Manual) 26, Monocytes % (Manual) 7, Eosinophils % ( Manual) 4H, Basophils % (Manual) 0, Band Neutrophils 0, Platelet Estimate DecreasedL, Platelet Morphology Normal, Anisocytosis 1+, Macrocytosis 1+, Troponin I 0.019, Pro-B-Type Natriuretic Peptide 430H, Thyroid Stimulating Hormone (TSH) 3.193, Free Thyroxine 1.47H, Triiodothyonine (T3) [Pending], Triiodothyronine (T3) Uptake [Pending] Current Medications Medications (Trade) Dose Ordered Sig/Alfredo Route PRN Reason Start Time Stop Time Status Last Admin Dose Admin Acetaminophen (Tylenol) 650 mg Q4H PRN ORAL fever 09/28/18 23:45 10/28/18 23:44 Acetaminophen (Tylenol) 650 mg Q6H PRN ORAL Mild Pain/Temp > 100.5 09/28/18 23:45 10/28/18 23:44 Al Hydroxide/Mg Hydroxide (Mylanta) 30 ml Q6H PRN ORAL heartburn 09/30/18 07:45 10/30/18 07:44 Aspirin (ASA) 81 mg DAILY ORAL 09/29/18 09:00 10/29/18 08:59 09/29/18 09:47 Atorvastatin Calcium (Lipitor) 80 mg BEDTIME ORAL 09/29/18 21:00 10/29/18 20:59 09/29/18 20:19 Clobetasol Propionate (Temovate) 1 applic TWICE A DAY TOPIC 09/29/18 19:00 10/29/18 18:59 09/30/18 09:37 Dextrose (Dextrose 50%) 25 ml Q30M PRN IV Hypoglycemia 09/28/18 23:45 10/28/18 23:44 Dextrose (Dextrose 50%) 50 ml Q30M PRN IV Hypoglycemia 09/28/18 23:45 10/28/18 23:44 Enalapril Maleate (Vasotec) 5 mg DAILY ORAL 09/29/18 09:00 10/29/18 08:59 09/30/18 09:36 Folic Acid (Folate) 1 mg DAILY ORAL 09/29/18 09:00 10/29/18 08:59 09/30/18 09:36 Gabapentin (Neurontin) 600 mg BID ORAL 09/29/18 09:00 10/29/18 08:59 09/30/18 09:35 Hydroxyzine HCl (Atarax) 25 mg QHS ORAL 09/29/18 21:00 10/29/18 20:59 09/29/18 20:19 Insulin Aspart (NovoLOG) BEFORE MEALS AND HS SUBQ 09/29/18 06:30 10/29/18 06:29 09/30/18 05:49 Lactulose (Cephulac) 10 gm THREE TIMES A DAY ORAL 09/29/18 09:00 10/29/18 08:59 09/30/18 09:35 Levothyroxine Sodium (Synthroid) 100 mcg DAILY@0630 ORAL 09/29/18 06:30 10/29/18 06:29 09/30/18 05:38 Lorazepam (Ativan 2mg/ml 1ml) 0.5 mg Q4H PRN IV For Anxiety 09/28/18 23:45 10/05/18 23:44 09/30/18 03:21 Morphine Sulfate (Morphine Sulfate) 4 mg Q4H PRN IVP PAIN 4-10 09/29/18 08:00 10/06/18 07:59 09/30/18 09:44 Nateglinide (Starlix) 60 mg TIAC ORAL 09/29/18 06:30 10/29/18 06:29 09/30/18 05:38 Nitroglycerin (Ntg) 0.4 mg Q5M PRN SL Prn Chest Pain 09/29/18 01:30 10/29/18 01:29 Ondansetron HCl (Zofran ODT) 4 mg THREE TIMES A DAY PRN SL N/V 09/29/18 01:30 10/29/18 01:29 Ondansetron HCl (Zofran) 4 mg Q6H PRN IVP Nausea & Vomiting 09/28/18 23:45 10/28/18 23:44 09/29/18 13:47 Pantoprazole (Protonix) 40 mg DAILY ORAL 09/29/18 09:00 10/29/18 08:59 09/30/18 09:36 Polyethylene Glycol (Miralax) 17 gm HSPRN PRN ORAL Constipation 09/28/18 23:45 10/28/18 23:44 Sitagliptin Phosphate (Januvia) 100 mg DAILY ORAL 09/29/18 09:00 10/29/18 08:59 09/30/18 09:37 Sodium Chloride 1,000 ml @ 150 mls/hr Q6H40M IV 09/29/18 12:00 10/29/18 11:59 09/30/18 09:44 Tamsulosin HCl (Flomax) 0.4 mg BEDTIME ORAL 09/29/18 21:00 10/29/18 20:59 09/29/18 20:19 Zolpidem Tartrate (Ambien) 5 mg HSPRN PRN ORAL Insomnia 09/28/18 23:45 10/05/18 23:44 Sudha Cho MD Sep 30, 2018 11:07
--- NOTE | 2018-09-30 11:10 | Cardiac Electrophysiology PN ---
Subjective Subjective [id number] Objective Last 24 Hour Vital Signs Date Time Temp Pulse Resp B/P (MAP) Pulse Ox O2 Delivery O2 Flow Rate FiO2 09/30/18 09:36 114/74 09/30/18 04:00 98.1 98 20 114/74 (87) 96 09/30/18 03:26 96 09/30/18 00:00 98.1 98 20 139/72 (94) 98 09/29/18 23:41 82 09/29/18 21:00 Room Air 09/29/18 20:04 91 09/29/18 20:00 98.6 103 18 133/74 (93) 97 09/29/18 16:00 88 09/29/18 16:00 98.3 86 22 123/69 (87) 96 09/29/18 12:00 98.4 95 22 119/64 (82) 96 09/29/18 12:00 108 Intake and Output 09/29/18 09/30/18 19:00 07:00 Intake Total 517.5 ml 1080 ml Output Total 1500 ml Balance 517.5 ml -420 ml Intake Oral 480 ml 480 ml IV Total 37.5 ml 600 ml Output Urine Total 1500 ml # Voids 4 3 # Bowel Movements 1 1 Laboratory Tests Test 09/30/18 04:00 09/30/18 06:25 Sodium Level 138 MMOL/L (136-145) Potassium Level 3.8 MMOL/L (3.5-5.1) Chloride Level 107 MMOL/L (98-107) Carbon Dioxide Level 26 MMOL/L (21-32) Anion Gap 6 mmol/L (5-15) Blood Urea Nitrogen 13 mg/dL (7-18) Creatinine 1.1 MG/DL (0.55-1.30) Estimat Glomerular Filtration Rate > 60 mL/min (>60) Glucose Level 169 MG/DL (74-106) H Calcium Level 8.5 MG/DL (8.5-10.1) Phosphorus Level 2.2 MG/DL (2.5-4.9) L Magnesium Level 1.2 MG/DL (1.8-2.4) L Total Bilirubin 0.9 MG/DL (0.2-1.0) Aspartate Amino Transf (AST/SGOT) 16 U/L (15-37) Alanine Aminotransferase (ALT/SGPT) 7 U/L (12-78) L Alkaline Phosphatase 98 U/L (46-116) Total Protein 6.2 G/DL (6.4-8.2) L Albumin 2.5 G/DL (3.4-5.0) L Globulin 3.7 g/dL Albumin/Globulin Ratio 0.7 (1.0-2.7) L White Blood Count 3.2 K/UL (4.8-10.8) L Red Blood Count 3.23 M/UL (4.70-6.10) L Hemoglobin 10.0 G/DL (14.2-18.0) L Hematocrit 31.4 % (42.0-52.0) L Mean Corpuscular Volume 97 FL (80-99) Mean Corpuscular Hemoglobin 31.0 PG (27.0-31.0) Mean Corpuscular Hemoglobin Concent 31.9 G/DL (32.0-36.0) L Red Cell Distribution Width 19.1 % (11.6-14.8) H Platelet Count 34 K/UL (150-450) L Mean Platelet Volume 9.6 FL (6.5-10.1) Neutrophils (%) (Auto) % (45.0-75.0) Lymphocytes (%) (Auto) % (20.0-45.0) Monocytes (%) (Auto) % (1.0-10.0) Eosinophils (%) (Auto) % (0.0-3.0) Basophils (%) (Auto) % (0.0-2.0) Differential Total Cells Counted 100 Neutrophils % (Manual) 63 % (45-75) Lymphocytes % (Manual) 26 % (20-45) Monocytes % (Manual) 7 % (1-10) Eosinophils % (Manual) 4 % (0-3) H Basophils % (Manual) 0 % (0-2) Band Neutrophils 0 % (0-8) Platelet Estimate Decreased L Platelet Morphology Normal Anisocytosis 1+ Macrocytosis 1+ Troponin I 0.019 ng/mL (0.000-0.056) Pro-B-Type Natriuretic Peptide 430 pg/mL (0-125) H Thyroid Stimulating Hormone (TSH) 3.193 uiU/mL (0.358-3.740) Free Thyroxine 1.47 NG/DL (0.76-1.46) H Triiodothyonine (T3) Pending Triiodothyronine (T3) Uptake Pending Microbiology Date/Time Source Procedure Growth Status 09/28/18 19:30 Blood Blood Culture - Preliminary NO GROWTH AFTER 24 HOURS Resulted 09/28/18 19:15 Blood Blood Culture - Preliminary NO GROWTH AFTER 24 HOURS Resulted 09/29/18 05:00 Stool Clostridium difficile Toxin Assay - Final Complete 09/28/18 20:35 Rectum Received Gabino Juarez MD Sep 30, 2018 11:10
[2018-09-30 12:00] VITALS: BP 107/57
[2018-09-30 16:00] VITALS: BP 111/53
--- NOTE | 2018-09-30 17:02 | Internal Med Progress Note ---
Subjective Date of Service: Sep 30, 2018 Physician Name JuMike Attending Physician Kumar Mcfarland MD Current Medications Medications (Trade) Dose Ordered Sig/Alfredo Route PRN Reason Start Time Stop Time Status Last Admin Dose Admin Acetaminophen (Tylenol) 650 mg Q4H PRN ORAL fever 09/28/18 23:45 10/28/18 23:44 Acetaminophen (Tylenol) 650 mg Q6H PRN ORAL Mild Pain/Temp > 100.5 09/28/18 23:45 10/28/18 23:44 Al Hydroxide/Mg Hydroxide (Mylanta) 30 ml Q6H PRN ORAL heartburn 09/30/18 07:45 10/30/18 07:44 Aspirin (ASA) 81 mg DAILY ORAL 09/29/18 09:00 10/29/18 08:59 09/29/18 09:47 Atorvastatin Calcium (Lipitor) 80 mg BEDTIME ORAL 09/29/18 21:00 10/29/18 20:59 09/29/18 20:19 Clobetasol Propionate (Temovate) 1 applic TWICE A DAY TOPIC 09/29/18 19:00 10/29/18 18:59 09/30/18 09:37 Dextrose (Dextrose 50%) 25 ml Q30M PRN IV Hypoglycemia 09/28/18 23:45 10/28/18 23:44 Dextrose (Dextrose 50%) 50 ml Q30M PRN IV Hypoglycemia 09/28/18 23:45 10/28/18 23:44 Enalapril Maleate (Vasotec) 5 mg DAILY ORAL 09/29/18 09:00 10/29/18 08:59 09/30/18 09:36 Folic Acid (Folate) 1 mg DAILY ORAL 09/29/18 09:00 10/29/18 08:59 09/30/18 09:36 Gabapentin (Neurontin) 600 mg BID ORAL 09/29/18 09:00 10/29/18 08:59 09/30/18 09:35 Hydroxyzine HCl (Atarax) 25 mg QHS ORAL 09/29/18 21:00 10/29/18 20:59 09/29/18 20:19 Insulin Aspart (NovoLOG) BEFORE MEALS AND HS SUBQ 09/29/18 06:30 10/29/18 06:29 09/30/18 12:16 Lactulose (Cephulac) 10 gm THREE TIMES A DAY ORAL 09/29/18 09:00 10/29/18 08:59 09/30/18 12:15 Levothyroxine Sodium (Synthroid) 100 mcg DAILY@0630 ORAL 09/29/18 06:30 10/29/18 06:29 09/30/18 05:38 Lorazepam (Ativan 2mg/ml 1ml) 0.5 mg Q4H PRN IV For Anxiety 09/28/18 23:45 10/05/18 23:44 09/30/18 03:21 Morphine Sulfate (Morphine Sulfate) 4 mg Q4H PRN IVP PAIN 4-10 09/29/18 08:00 10/06/18 07:59 09/30/18 09:44 Nateglinide (Starlix) 60 mg TIAC ORAL 09/29/18 06:30 10/29/18 06:29 09/30/18 12:16 Nitroglycerin (Ntg) 0.4 mg Q5M PRN SL Prn Chest Pain 09/29/18 01:30 10/29/18 01:29 Ondansetron HCl (Zofran ODT) 4 mg THREE TIMES A DAY PRN SL N/V 09/29/18 01:30 10/29/18 01:29 Ondansetron HCl (Zofran) 4 mg Q6H PRN IVP Nausea & Vomiting 09/28/18 23:45 10/28/18 23:44 09/29/18 13:47 Pantoprazole (Protonix) 40 mg DAILY ORAL 09/29/18 09:00 10/29/18 08:59 09/30/18 09:36 Polyethylene Glycol (Miralax) 17 gm HSPRN PRN ORAL Constipation 09/28/18 23:45 10/28/18 23:44 Sitagliptin Phosphate (Januvia) 100 mg DAILY ORAL 09/29/18 09:00 10/29/18 08:59 09/30/18 09:37 Sodium Chloride 1,000 ml @ 150 mls/hr Q6H40M IV 09/29/18 12:00 10/29/18 11:59 09/30/18 15:09 Tamsulosin HCl (Flomax) 0.4 mg BEDTIME ORAL 09/29/18 21:00 10/29/18 20:59 09/29/18 20:19 Zolpidem Tartrate (Ambien) 5 mg HSPRN PRN ORAL Insomnia 09/28/18 23:45 10/05/18 23:44 Allergies: Coded Allergies: No Known Allergies (Verified , 06/13/09) ROS Limited/Unobtainable: No Constitutional: Reports: no symptoms HEENT: Reports: no symptoms Cardiovascular: Reports: no symptoms Respiratory: Reports: no symptoms Gastrointestinal/Abdominal: Reports: no symptoms Genitourinary: Reports: no symptoms Neurologic/Psychiatric: Reports: no symptoms Subjective 63 YO M admitted with syncope. Cover for Int Carlos-Dr Mcfarland Objective Last Vital Signs Date Time Temp Pulse Resp B/P (MAP) Pulse Ox O2 Delivery O2 Flow Rate FiO2 09/30/18 12:00 98.8 99 20 107/57 (74) 96 09/30/18 09:00 Room Air Laboratory Tests Test 09/30/18 04:00 09/30/18 06:25 Sodium Level 138 MMOL/L (136-145) Potassium Level 3.8 MMOL/L (3.5-5.1) Chloride Level 107 MMOL/L (98-107) Carbon Dioxide Level 26 MMOL/L (21-32) Anion Gap 6 mmol/L (5-15) Blood Urea Nitrogen 13 mg/dL (7-18) Creatinine 1.1 MG/DL (0.55-1.30) Estimat Glomerular Filtration Rate > 60 mL/min (>60) Glucose Level 169 MG/DL (74-106) H Calcium Level 8.5 MG/DL (8.5-10.1) Phosphorus Level 2.2 MG/DL (2.5-4.9) L Magnesium Level 1.2 MG/DL (1.8-2.4) L Total Bilirubin 0.9 MG/DL (0.2-1.0) Aspartate Amino Transf (AST/SGOT) 16 U/L (15-37) Alanine Aminotransferase (ALT/SGPT) 7 U/L (12-78) L Alkaline Phosphatase 98 U/L (46-116) Total Protein 6.2 G/DL (6.4-8.2) L Albumin 2.5 G/DL (3.4-5.0) L Globulin 3.7 g/dL Albumin/Globulin Ratio 0.7 (1.0-2.7) L White Blood Count 3.2 K/UL (4.8-10.8) L Red Blood Count 3.23 M/UL (4.70-6.10) L Hemoglobin 10.0 G/DL (14.2-18.0) L Hematocrit 31.4 % (42.0-52.0) L Mean Corpuscular Volume 97 FL (80-99) Mean Corpuscular Hemoglobin 31.0 PG (27.0-31.0) Mean Corpuscular Hemoglobin Concent 31.9 G/DL (32.0-36.0) L Red Cell Distribution Width 19.1 % (11.6-14.8) H Platelet Count 34 K/UL (150-450) L Mean Platelet Volume 9.6 FL (6.5-10.1) Neutrophils (%) (Auto) % (45.0-75.0) Lymphocytes (%) (Auto) % (20.0-45.0) Monocytes (%) (Auto) % (1.0-10.0) Eosinophils (%) (Auto) % (0.0-3.0) Basophils (%) (Auto) % (0.0-2.0) Differential Total Cells Counted 100 Neutrophils % (Manual) 63 % (45-75) Lymphocytes % (Manual) 26 % (20-45) Monocytes % (Manual) 7 % (1-10) Eosinophils % (Manual) 4 % (0-3) H Basophils % (Manual) 0 % (0-2) Band Neutrophils 0 % (0-8) Platelet Estimate Decreased L Platelet Morphology Normal Anisocytosis 1+ Macrocytosis 1+ Troponin I 0.019 ng/mL (0.000-0.056) Pro-B-Type Natriuretic Peptide 430 pg/mL (0-125) H Thyroid Stimulating Hormone (TSH) 3.193 uiU/mL (0.358-3.740) Free Thyroxine 1.47 NG/DL (0.76-1.46) H Triiodothyonine (T3) Pending Triiodothyronine (T3) Uptake Pending Microbiology Date/Time Source Procedure Growth Status 09/28/18 19:30 Blood Blood Culture - Preliminary NO GROWTH AFTER 24 HOURS Resulted 09/28/18 19:15 Blood Blood Culture - Preliminary NO GROWTH AFTER 24 HOURS Resulted 09/29/18 05:00 Stool Clostridium difficile Toxin Assay - Final Complete 09/28/18 20:35 Rectum Received Intake and Output 09/29/18 09/30/18 19:00 07:00 Intake Total 517.5 ml 1080 ml Output Total 1500 ml Balance 517.5 ml -420 ml Intake Oral 480 ml 480 ml IV Total 37.5 ml 600 ml Output Urine Total 1500 ml # Voids 4 3 # Bowel Movements 1 1 Objective PHYSICAL EXAMINATION: GENERAL: The patient is a well-developed and well-nourished white male, in no apparent distress. HEENT: Eyes, pupils are equal and responsive to light and accommodation. Extraocular movements are intact. NECK: Supple without lymphadenopathy. CHEST: Lungs are clear to auscultation bilaterally without wheezes or rales. CARDIOVASCULAR: Regular rhythm and rate. S1 and S2 are normal without murmurs, rubs, or gallops. ABDOMEN: Soft, nontender, and nondistended. Positive bowel sounds. No evidence of hepatosplenomegaly. Currently, no rebound or guarding noted. EXTREMITIES: Negative for clubbing, cyanosis, or edema. RECTAL/GENITAL: Refused. NEUROLOGIC: Cranial nerves II through XII are grossly intact without focal deficits. Motor strength is 5/5 bilaterally. Deep tendon reflexes are 2+ plantar. Assessment/Plan Assessment/Plan ASSESSMENT: This is a 63-year-old white male. 1. Syncopal episode. 2. Congestive heart failure. 3. Coronary artery disease. 4. Contusion to the right eye. 5. Psoriasis. 6. Diabetes type 2. 7. Hypertension. 8. Hypothyroidism. 9. History of hepatic encephalopathy. 10. History of iron deficiency anemia. TREATMENT: 1. Syncope. A MRI of the brain is pending. Carotid duplex Dopplers are pending. Syncope may be secondary to acute cerebrovascular accident versus acute arrhythmia. A Cardiology consultation has been obtained with Dr. Gabino Juarez. We will follow recommendations of Cardiology and Neurology. 2. Coronary artery disease. As above, a Cardiology consultation has been obtained with Dr. Gabino Juarez. 3. Right eye contusion. It is unknown whether the patient fell during his syncopal episode. A CT scan of the right eye orbit is pending. 4. Psoriasis. The patient will be placed on Temovate twice daily. 5. Diabetes type 2. NovoLog sliding scale has been instituted. 6. Hypertension. Continue enalapril as above. 7. Hypothyroidism. A TSH is pending. Continue Levoxyl as above. 8. Hepatic encephalopathy. Continue lactulose as above. Mike Dodd MD Sep 30, 2018 17:01
--- NOTE | 2018-09-30 17:55 | NUR ---
NURSE NOTES: Patient discharged home, self care per Dr. Cho's order. All discharge instruction explained to patient, verbalized understanding. IV removed, Heart monitor removed and returned to ekg monitor tech. Patient received all his belonging. ID band removed. Patient left the hospital with [facility] to home ( Assisted living) in stable condition.
--- NOTE | 2018-09-30 18:00 | Consultation ---
DATE OF CONSULTATION: 09/30/2018 CARDIOLOGY CONSULTATION CONSULTING PHYSICIAN: Gabino Juarez M.D. REFERRING PHYSICIAN: Kumar Mcfarland M.D. REASON FOR CONSULTATION: Evaluation of hypertension, syncope, and history of coronary artery bypass graft. HISTORY OF PRESENT ILLNESS: The patient is a 63-year-old [place] gentleman with history of hypertension, diabetes, and coronary artery bypass graft in the past as well as history of chronic liver disease, resident of half-way facility was brought in for frequent falls and weakness. The patient also noted to be tachycardic, have uncontrolled diabetes, and renal failure. The patient was admitted and a Cardiology consultation was obtained for further evaluation and management. REVIEW OF SYSTEMS: Review of systems was negative other than what was mentioned in the history of present illness. MEDICATIONS: Per reconciliation. FAMILY HISTORY: Noncontributory. SOCIAL HISTORY: He lives in intermediate. Does not smoke or drink alcohol. PHYSICAL EXAMINATION: VITAL SIGNS: Blood pressure is 140/74, pulse 98, respirations 18, and he is afebrile. HEAD AND NECK: Showed no JVD. LUNGS: Clear. CARDIOVASCULAR: Status post sternotomy. ABDOMEN: Soft. EXTREMITIES: No pitting edema. LABORATORY AND DIAGNOSTIC DATA: White count 3.7, hematocrit 10, hematocrit of 31.4, and platelet count 34,000. Sodium was 138, potassium 3.8, BUN of 13, creatinine 1.1, glucose of 169. Troponin is negative. ASSESSMENT AND PLAN: 1. Coronary artery disease with history of coronary artery bypass graft. He remains without any chest pain. The patient is on Lipitor 80 mg daily and aspirin 81 mg daily. I will discontinue aspirin as the patient's platelet count is only 34. 2. Status post fall versus syncope. We will get an echocardiogram for further evaluation and management. 3. Hyperlipidemia on Lipitor. 4. Hypertension on enalapril 5 mg daily. 5. History of liver failure on lactulose. 6. Hypothyroidism on Synthroid. 7. Diabetes. 8. Anemia. It is of note that the patient's recent echocardiogram showed ejection fraction. Thank you very much for allowing me to participate in the care of this patient. Please do not hesitate to contact me for any questions regarding my evaluation. Gabino Juarez M.D. DR: Alejandro JOB#: [id number] CC:
--- NOTE | 2018-10-01 10:34 | Discharge Summary ---
Discharge Summary Discharge Summary _ DATE OF ADMISSION: 09/28/2018 DATE OF DISCHARGE: 09/30/2018 DISCHARGED BY: Dr. Bartolo Wright REASON FOR ADMISSION: 63 years old male with past medical history of diabetes mellitus, hypertension, chronic liver disease, resident of assisted living, chronic debilitation, poor historian, brought by EMS with increased weakness and frequent falls. Upon evaluation patient noted to be tachycardic and somnolent. Blood pressure was in the low side. Laboratory work-up revealed low platelets 69. BUN 29, creatinine 1.6. Lactic acid 3.5. Total bilirubin 1.5. Stable AST and ALT. Troponin 0 0.008. Albumin 3.4. Lipase 200. Urinalysis revealed no evidence of UTI. EKG revealed normal sinus rhythm no acute ischemic changes chest x-ray revealed no acute cardiopulmonary pathology. Patient subsequently admitted to telemetry floor for further management CONSULTANTS: wool fleece grader Dr. Wright neurologist pulmonary Dr. Marquis PICKERING specialist GI specialist lye bath operator wind technician/oncologist surgery psychiatrist HOSPITAL COURSE: [] Patient admitted to telemetry floor. Patient started on IV fluids. Renal parameters electrolytes are closely monitor. Electrolytes corrected as needed. Nephrotoxins were avoided. Patient received wool fleece grader follow. Patient received IV bolus IV fluids for tachycardia. Patient was continued on antiplatelet therapy with aspirin and statin. However aspirin was discontinued since platelet count was low. Blood pressure was managed with Vasotec. Lactulose provided for renal failure. Synthroid continued. Blood sugar was managed with sliding scale of insulin. Hemoglobin hematocrit for closely monitor his goal to keep hemoglobin above 7. Prior BUN 13, creatinine 1.1. Hemoglobin 10, hematocrit 31.4. Platelet counts closely monitor renal due to chronic liver disease. Repeated troponin negative. Prior to discharge BUN 13, creatinine 1.1. TSH within normal limits. Panel stable. Magnesium was replaced urinalysis revealed no evidence of UTI echocardiogram preliminary revealed ejection fraction 40 to 45% with mild anteroseptal inferior septal and inferior hypokinesis. Borderline mild left ventricular hypertrophy. FINAL DIAGNOSES: 1. [] Acute encephalopathy Syncopal episode Acute tubular necrosis Coronary artery disease status post CABG Hypothyroidism History of hepatic encephalopathy. Anemia DISCHARGE MEDICATIONS: See Medication Reconciliation list. DISCHARGE INSTRUCTIONS: [] Patient was discharged home . Follow up with primary care provider in one week. I have been assigned to dictate discharge summary for this account. I was not involved in the patient's management. Stacey Hutson NP Oct 01, 2018 10:34
--- NOTE | 2018-10-01 11:00 | Cardiology Report ---
APPROVED REPORT EXAM: Two-dimensional and M-mode echocardiogram with Doppler and color Doppler. INDICATION Syncope M-Mode DIMENSIONS IVSd1.1 (0.7-1.1cm)Left Atrium (MM)4.7 (1.6-4.0cm) LVDd4.9 (3.5-5.6cm)Aortic Root3.2 (2.0-3.7cm) PWd1.1 (0.7-1.1cm)Aortic Cusp Exc.1.7 (1.5-2.0cm) LVDs3.7 (2.5-4.0cm) PWs1.4 cm Other Information Technically limited study due to poor apical acoustical windows. Normal left ventricular chamber size, systolic function and wall motion. Left ventricular ejection fraction estimated to be 55%. Borderline mild left ventricular hypertrophy by 2-D. Anterior Echo-free space, may be due to pericardial fat or effusion. Mild left atrial enlargement. Right cardiac chamber sizes are within normal limits. Focal aortic valve sclerosis with adequate cusp excursion. Thickened mitral valve leaflets with normal excursion. Mild mitral annulus and aortic root calcification. Pulmonic valve not well visualized. Normal tricuspid valve structure. IVC measured at 1.9 cm with physiologic collapse. A color flow and spectral Doppler study was performed and revealed: Trace aortic regurgitation. Trace to mild mitral regurgitation. Mitral diastolic velocities suggest reduced left ventricular relaxation c/w mild LV diastolic dysfunction (Grade I ). Trace to mild tricuspid regurgitation. Tricuspid systolic velocities suggests peak right ventricular systolic pressure of 35 mmHg, consistent with borderline mild pulmonary hypertension. No pulmonic regurgitation present.
== END 2018-09-30 17:55 | disposition home or self-care (01) | DRG 52 ==
LOC: EDBD 19:06 → EMR 19:45 → 2E 20:02 → EDBEDREQ 21:21
DX: G93.40 Encephalopathy, unspecified (principal); N17.0 Acute kidney failure with tubular necrosis; E11.65 Type 2 diabetes mellitus with hyperglycemia; I11.0 Hypertensive heart disease with heart failure; D64.9 Anemia, unspecified; S00.11XA Contusion of right eyelid and periocular area, initial encounter; R55 Syncope and collapse; E86.0 Dehydration; I25.10 Atherosclerotic heart disease of native coronary artery without angina pectoris; Z95.1 Presence of aortocoronary bypass graft; Z79.4 Long term (current) use of insulin; L40.9 Psoriasis, unspecified; R29.6 Repeated falls; E03.9 Hypothyroidism, unspecified; X58.XXXA Exposure to other specified factors, initial encounter
CPT/HCPCS: 36415; 71045; 80053; 80061; 81003; 82248; 82550; 82553; 82962; 83605; 83690; 83735; 83880; 84100; 84439; 84443; 84480; 84484; 85007; 85025; 87040; 87081; 87324; 93005; 93306; 93880; 96360; 96361; 99285; J1815; J2405

== ENCOUNTER 2019-01-21 21:32 | Emergency (ER) | payer MEDICAID ==
[~2019-01-21] VITALS: Ht 180.3 cm; Wt 93.0 kg
[~2019-01-21 21:32] MED LIST changes: +ACETAMINOPHEN325 M1 ORAL; +ASPIRIN81 MG ORAL; +CLOTRIMAZOLE15 GM TOPIC; +DEXILANT60 MG ORAL; +DOVONEX TP; +FLOMAX0.4 MG ORAL; +GABAPENTIN300 MG ORAL; +HYDROCODON-ACE1 EA15 ORAL; +HYDROXYZINE HCL25 M1 PO; +ISOSORBIDE MONO30 M1 PO; +LIDEX15 GM TOPIC; +LIDOCAINE 3% TOPIC; +LIDODERM700 M1 TOPIC; +NITROSTAT0.4 M1 SL; +POTASSIUM CHLO10 MEQ ORAL; +SPIRONOLACTONE50 MG ORAL; +VITAMIN D250000 UNI1 ORAL; +VOLTAREN100 G1 TP; +ZOFRAN ODT8 MG ORAL
[2019-01-21 21:56] VITALS: BP 100/61
--- NOTE | 2019-01-21 21:58 | NUR ---
ED Nurse Note: Patient came in to ER on the wheelchair c/o lower back pain. AAO x4, VSS at this time, skin is warm to touch.
[2019-01-21] MEDS ORDERED: VOLTAREN100 G1 TP (22:14)
[2019-01-21] MEDS ORDERED: Acetaminophen 500mg (ES) tab ORAL ONE (22:15)
--- NOTE | 2019-01-21 22:17 | Emergency Room Report ---
History of Present Illness General Chief Complaint: Back Pain-No Injury Source: Patient, EMS Present Illness HPI Patient is a 63-year-old male presents after back pain for the past 3 to 4 days. Patient reports having long-standing back pain for greater than 5 years. He had prior back surgery. He is currently in pain management. Patient had multiple prior medical conditions including CHF as well as cirrhosis and hypothyroid he reports having prior hip and back surgery. He had recently been given a prescription for [place] at this emergency department. He was advised to follow-up with his primary care physician. Patient states that his primary care doctor had not been giving him pain medications and had been slowly tapering his Dilaudid. Patient apparently has been having increased difficulty with pain. Allergies: Coded Allergies: No Known Allergies (Verified , 01/21/19) Patient History Reviewed Nursing Documentation: PMH: Agreed; PSxH: Agreed Nursing Documentation-PMH Hx Cardiac Problems: Yes Hx Hypertension: Yes Hx Asthma: Yes Hx Diabetes: Yes Hx Cancer: No Hx Gastrointestinal Problems: Yes - Alcoholic Liver Disease, Alcoholic hepatic failure without coma Hx Neurological Problems: No Review of Systems All Other Systems: negative except mentioned in HPI Physical Exam Vital Signs Date Time Temp Pulse Resp B/P (MAP) Pulse Ox O2 Delivery O2 Flow Rate FiO2 01/21/19 21:48 98.4 84 18 100/61 (74) 100 Room Air General Appearance: alert, GCS 15, Chronically Ill Eyes: bilateral eye PERRL ENT: hearing grossly normal Neck: full range of motion Respiratory: lungs clear, normal breath sounds Cardiovascular #1: edema - chronic per patient Gastrointestinal: normal inspection, soft Musculoskeletal: decreased range of motion Neurologic: alert, oriented x3, other - Using motorized wheelchair Skin: no rash Medical Decision Making Diagnostic Impression: Primary Impression: Chronic back pain ER Course Patient present for chronic back pain. Differential diagnosis included but was not limited to herniated disc, cauda equina syndrome, abdominal aortic aneurysm , perforated ulcer, spinal epidural abscess, spinal stenosis, lumbar fracture, metastatic lesion, pyelonephritis. Patient does not appear to require any narcotic pain medications at this time.Patient was offered nonnarcotic pain medications which he declined. Patient was noted to have a benign exam and history. Does not show any signs of incontinence or urinary retention. Patient was advised that he should have a single doctor managing his chronic pain episodes. Patient was given prescription for Voltaren gel. Patient was advised to return if he had any worsening of condition or any other concerns. Last Vital Signs Date Time Temp Pulse Resp B/P (MAP) Pulse Ox O2 Delivery O2 Flow Rate FiO2 01/21/19 21:56 98.4 18 100/61 100 Room Air 01/21/19 21:48 84 Status: improved Disposition: HOME, SELF-CARE Condition: Stable Scripts Diclofenac Sodium (VOLTAREN) 100 Gm Gel..gram. 5 GM TP DAILY, #100 GM Prov: Dom Arreola MD 01/21/19 Referrals: NOT CHOSEN IPA/,REFERRING (PCP) Patient Instructions: Back Pain, Adult Additional Instructions: Follow up with your doctor for pain medications as indicated. You should have only one doctor treating you for pain. Return for fever, or other concerns. Dom Arreola MD Jan 21, 2019 22:17
--- NOTE | 2019-01-21 22:20 | NUR ---
ED Nurse Note: Pt cleared by health care Provider for discharge. DC instructions/prescription was given and explained to pt and verbalized understanding of teachings. All medical deviecs such as ID band removed. Pt is AAO x4, ambulatory and left with all personal belongings.
[2019-01-21 22:32] VITALS: BP 100/61
== END 2019-01-21 22:20 | disposition home or self-care (01) ==
LOC: EMR 22:04
DX: G89.29 Other chronic pain (principal); M54.9 Dorsalgia, unspecified; I10 Essential (primary) hypertension; J45.909 Unspecified asthma, uncomplicated; E11.9 Type 2 diabetes mellitus without complications; K70.9 Alcoholic liver disease, unspecified
CPT/HCPCS: 99282

== ENCOUNTER 2019-01-31 16:48 | Inpatient (IN) | payer MEDICAID ==
[~2019-01-31] VITALS: Ht 172.7 cm; Wt 77.8 kg
--- NOTE | 2019-01-31 16:48 | NUR ---
ED Nurse Note: PT ARRIVED ON THE ED FROM [facility] / [facility] WITH MEDREACH WITH THE C/O SWOLLEN LEGS. HERNANDEZ, RUSSELL CODE, NKA. PLACED ON L Addendum: 01/31/19 at 1725 by [facility] ED Nurse Note: PT ARRIVED ON THE ED FROM [facility] / [facility] WITH MEDREACH WITH THE C/O SWOLLEN LEGS. HERNANDEZ, FULL CODE, NKA. PLACED ON HOSP GOWN AND MONITOR. ESTABLISHED IV LINE ON R AC W/ 20G, INTACT AND PATENT.
[2019-01-31 16:50] VITALS: BP 116/52
--- NOTE | 2019-01-31 16:58 | NUR ---
ED Nurse Note: X-RAY AT BEDSIDE.
--- NOTE | 2019-01-31 17:00 | NUR ---
ED Nurse Note: X-RAY COMPLETED. BLOOD COLLECTED. SENT TO LABS.
[2019-01-31 17:14] LABS: HEMATOCRIT 31.5 % (42.0-52.0); HEMOGLOBIN 10.1 G/DL (14.2-18.0); MEAN CORPUSCULAR VOLUME 95 FL (80-99); PLATELET COUNT 67 K/UL (150-450); RED BLOOD COUNT 3.31 M/UL (4.70-6.10); RED CELL DISTRIBUTION WIDTH 16.9 % (11.6-14.8); WHITE BLOOD COUNT 4.2 K/UL (4.8-10.8)
--- NOTE | 2019-01-31 17:26 | NUR ---
Note [place] in EDM - 01/31/19 at 1815 by TAVO ED Nurse Note: X-RAY AT BEDSIDE.
[2019-01-31 17:44] LABS: ANION GAP 16 mmol/L (5-15); BLOOD UREA NITROGEN 37 mg/dL (7-18); CALCIUM 10.1 MG/DL (8.5-10.1); CARBON DIOXIDE 22 MMOL/L (21-32); CHLORIDE 103 MMOL/L (98-107); CREATININE 1.5 MG/DL (0.55-1.30); POTASSIUM 4.3 MMOL/L (3.5-5.1); SODIUM 141 MMOL/L (136-145)
[2019-01-31 17:55] LABS: ALANINE AMINOTRANSFERASE 23 U/L (12-78); ALBUMIN 2.6 G/DL (3.4-5.0); ALBUMIN/GLOBULIN RATIO 0.5 (1.0-2.7); ALKALINE PHOSPHATASE 142 U/L (46-116); ASPARTATE AMINO TRANSFERASE 34 U/L (15-37); BILIRUBIN,TOTAL 0.7 MG/DL (0.2-1.0)
[2019-01-31 19:15] VITALS: BP 133/97
--- NOTE | 2019-01-31 19:19 | NUR ---
HAND-OFF: Report given to Renee MACARIO.
[2019-01-31] MEDS ORDERED: Nitroglycerin Subl 0.4mg tab SL PRN (20:15)
--- NOTE | 2019-01-31 20:49 | Emergency Room Report ---
History of Present Illness General Chief Complaint: Edema Source: Patient, EMS Present Illness HPI 63-year-old male presents ED for evaluation. Brought in by EMS from the living. Complaining of leg swelling for the last few days. Notes shortness of breath. Denies chest pain. History of CHF. States he takes Lasix. Denies fevers or chills. No other aggravating relieving factors. Denies any other associated symptoms. Allergies: Coded Allergies: No Known Allergies (Unverified , 01/31/19) Patient History Past Medical History: HTN, CAD Past Surgical History: none Pertinent Family History: none Social History: Denies: smoking, alcohol use, drug use Immunizations: UTD Reviewed Nursing Documentation: PMH: Agreed; PSxH: Agreed Nursing Documentation-PMH Hx Cardiac Problems: Yes - hypothyroidism, hyperlipidemia, atherosclerosis Hx Hypertension: Yes Hx Diabetes: Yes Review of Systems All Other Systems: negative except mentioned in HPI Physical Exam Vital Signs Date Time Temp Pulse Resp B/P (MAP) Pulse Ox O2 Delivery O2 Flow Rate FiO2 01/31/19 16:40 97.2 75 17 127/55 (79) 92 Room Air Sp02 EP Interpretation: reviewed, normal General Appearance: no apparent distress, alert, GCS 15, non-toxic Head: normocephalic, atraumatic Eyes: bilateral eye normal inspection, bilateral eye PERRL ENT: hearing grossly normal, normal pharynx, no angioedema, normal voice Neck: full range of motion, supple/symm/no masses Respiratory: chest non-tender, normal breath sounds, crackles, speaking full sentences Cardiovascular #1: regular rate, rhythm, no edema Cardiovascular #2: 2+ carotid (R), 2+ carotid (L), 2+ radial (R), 2+ radial (L) , 2+ dorsalis pedis (R), 2+ dorsalis pedis (L) Gastrointestinal: normal bowel sounds, non tender, soft, non-distended, no guarding, no rebound Rectal: deferred Genitourinary: normal inspection, no CVA tenderness Musculoskeletal: back normal, normal range of motion, gait/station normal, swelling - 2+ pitting edema b/l LEs Neurologic: alert, motor strength/tone normal, oriented x3, sensory intact, responsive, speech normal Psychiatric: judgement/insight normal, memory normal, mood/affect normal, no suicidal/homicidal ideation Reflexes: 3+ bicep (R), 3+ bicep (L), 3+ tricep (R), 3+ tricep (L), 3+ knee (R) , 3+ knee (L) Skin: no rash Lymphatic: no adenopathy Medical Decision Making Diagnostic Impression: Primary Impression: CHF (congestive heart failure) Qualified Codes: I50.9 - Heart failure, unspecified Additional Impression: Renal insufficiency ER Course Hospital Course 63-year-old male presents ED complaining of shortness of breath, leg swelling Differential diagnoses include: NV/unstable angina, contusion, muscle strain, PTX, rib fracture Clinical course Patient placed on stretcher. on supervising appraiser. After initial history and physical I ordered labs, EKG, chest x-ray labs reviewed- no leukocytosis, hemoglobin/hematocrit stable, creatinine elevated, troponins negative, BNP elevated EKG - NSR, no acute ischemic changes interpreted by me Chest x-ray- cardiomegaly. interstitial congestion Lasix given. Case discussed with Dr. Aponte and he agreed to accept the patient to his service for further care and support I. I feel this is a highly complex case requiring extensive working including EKG/Rhythm strip, Xray/CT/US, Blood/urine lab work, repeat exams while in ED, and administration of strong opiates/narcotics for pain control, admission to hospital or close patient follow up. Diagnosis - CHF exacerbation, renal insufficiency admitted to telemetry in serious condition Labs Test 01/31/19 17:00 White Blood Count 4.2 K/UL (4.8-10.8) Red Blood Count 3.31 M/UL (4.70-6.10) Hemoglobin 10.1 G/DL (14.2-18.0) Hematocrit 31.5 % (42.0-52.0) Mean Corpuscular Volume 95 FL (80-99) Mean Corpuscular Hemoglobin 30.4 PG (27.0-31.0) Mean Corpuscular Hemoglobin Concent 31.9 G/DL (32.0-36.0) Red Cell Distribution Width 16.9 % (11.6-14.8) Platelet Count 67 K/UL (150-450) Mean Platelet Volume 10.3 FL (6.5-10.1) Neutrophils (%) (Auto) % (45.0-75.0) Lymphocytes (%) (Auto) % (20.0-45.0) Monocytes (%) (Auto) % (1.0-10.0) Eosinophils (%) (Auto) % (0.0-3.0) Basophils (%) (Auto) % (0.0-2.0) Differential Total Cells Counted 100 Neutrophils % (Manual) 56 % (45-75) Lymphocytes % (Manual) 35 % (20-45) Monocytes % (Manual) 7 % (1-10) Eosinophils % (Manual) 2 % (0-3) Basophils % (Manual) 0 % (0-2) Band Neutrophils 0 % (0-8) Platelet Estimate Decreased Platelet Morphology Normal Hypochromasia 1+ Anisocytosis 1+ Sodium Level 141 MMOL/L (136-145) Potassium Level 4.3 MMOL/L (3.5-5.1) Chloride Level 103 MMOL/L (98-107) Carbon Dioxide Level 22 MMOL/L (21-32) Anion Gap 16 mmol/L (5-15) Blood Urea Nitrogen 37 mg/dL (7-18) Creatinine 1.5 MG/DL (0.55-1.30) Estimat Glomerular Filtration Rate 47.1 mL/min (>60) Glucose Level 371 MG/DL (74-106) Calcium Level 10.1 MG/DL (8.5-10.1) Total Bilirubin 0.7 MG/DL (0.2-1.0) Aspartate Amino Transf (AST/SGOT) 34 U/L (15-37) Alanine Aminotransferase (ALT/SGPT) 23 U/L (12-78) Alkaline Phosphatase 142 U/L (46-116) Pro-B-Type Natriuretic Peptide 421 pg/mL (0-125) Total Protein 7.7 G/DL (6.4-8.2) Albumin 2.6 G/DL (3.4-5.0) Globulin 5.1 g/dL Albumin/Globulin Ratio 0.5 (1.0-2.7) EKG Diagnostic Results Rate: normal Rhythm: NSR ST Segments: no acute changes ASA given to the pt in ED: No Rhythm Strip Diag. Results EP Interpretation: yes Rhythm: NSR, no PVC's, no ectopy Chest X-Ray Diagnostic Results Chest X-Ray Diagnostic Results : Chest X-Ray Ordered: Yes # of Views/Limited/Complete: 1 View Indication: Shortness of Breath EP Interpretation: Yes Interpretation: no consolidation, no pneumothorax, other - cardiomegaly. interstitial congestion Impression: Other - chf Electronically Signed by: Electronically signed by Emory Cardoza MD Last Vital Signs Date Time Temp Pulse Resp B/P (MAP) Pulse Ox O2 Delivery O2 Flow Rate FiO2 01/31/19 19:15 97.2 92 15 133/97 99 Room Air Status: improved Disposition: ADMITTED INPATIENT Condition: Serious Referrals: NON PHYSICIAN (PCP) Emory Cardoza MD Jan 31, 2019 20:49
[2019-01-31] MEDS ORDERED: Heparin 5000 units/ml inj SUBQ SCH (21:00)
--- NOTE | 2019-01-31 21:02 | NUR ---
ER Nurse Note: Pt a&ox4, VSS, no signs of distress, RA. Pt denies pain, n/v. Pt has bilateral lower extremity swelling. Skin intact. All safety measures met, belongings accounted for. Knife taken to security; pt aware. Pt refused CRE/VRE swab, agreed to MRSA swab. Contact information: sister Zuleta - ; sister contacted and updated on pt status.
--- NOTE | 2019-01-31 21:11 | NUR ---
ER Nurse Note: Merlyn contacted, no answer, left a message. Pt aware. Pt pending admission. Will continue to [facility].
[2019-01-31 21:12] VITALS: BP 136/60
[2019-01-31 21:25] VITALS: BP 135/89
--- NOTE | 2019-01-31 21:25 | NUR ---
NURSE NOTES: Pt received alert and oriented x4 with no acute s/s of distress noted. Vitals stable. front desk monitor applied - sinus Rhythm (81). Per pt, he does not get the flu or pneumonia vaccine. Pt had BM upon arrival. Per pt, he uses a walker at the SNF but did not bring it with him (RN provided walker for patient to use while inpatient). No open wounds noted but pt did have clustered reddened dry spots on bilateral elbows, bilateral knees, and knuckles on both hands - per pt, "from psoriasis". Belongings with patient upon admission except for knife - per Renee from ER, pt is aware that knife was removed from his person and placed with security for safe-keeping. IV site asymptmatic and patent on R ac 20g, saline lock. Bed in lowest position, bed alarm on. Call light and belongings within reach.
--- NOTE | 2019-01-31 21:28 | NUR ---
ER Nurse Note: Report givent to RENALDO Galvan for continuity of care. Pt stable.
[2019-01-31] MEDS: NovoLOG Insulin Flexpen SUBQ SCH (22:37)
--- NOTE | 2019-01-31 23:15 | History and Physical Report ---
DATE OF ADMISSION: 01/31/2019 REASON FOR ADMISSION: 1. CHF. 2. Lower extremity edema. 3. Alcohol consumption/intoxication. HISTORY OF PRESENT ILLNESS: The patient was brought in through the emergency room for further evaluation and care from [facility], mildly altered level of consciousness. Per the chart review states that the EMS found empty bottle of vodka next to the patient. He is much more awake and alert currently. In no overt distress. States he has a history of underlying myocardial infarction and CHF. Denies any current shortness of breath, nausea, vomiting, or diarrhea. Feeling tired and fatigued. ALLERGIES: No known drug allergies. PAST MEDICAL HISTORY: 1. CKD. 2. CHF. 3. CAD. 4. Diabetes mellitus. 5. Diabetic neuropathy. FAMILY HISTORY: Positive for hypertension and diabetes. PAST SURGICAL HISTORY: Noncontributory. REVIEW OF SYSTEMS: NEUROLOGIC: The patient denies headache, change in vision, syncope, or presyncopal episodes. CARDIOVASCULAR: No current chest pain, palpitations, or angina. PULMONARY: No shortness of breath, cough, or sputum. GASTROINTESTINAL/GENITOURINARY: No change in urinary or bowel habits. No nausea, vomiting, or diarrhea. ENDOCRINOLOGY: No night sweats, fevers, or chills. MUSCULOSKELETAL: The patient is feeling weak, tired, and fatigued. LABORATORY DATA: Labs dated January 31, 2019, white cell count 4.2, hemoglobin 10.1, and platelet count 67. Sodium 141, potassium 4.3, creatinine 1.5. PHYSICAL EXAMINATION: VITAL SIGNS: Blood pressure 133/97, respiratory rate 15, pulse 92, temperature 97.2, and 99% oxygen saturation on room air. GENERAL: The patient awake, alert, not in distress. HEENT: Extraocular muscles intact. No lymphadenopathy. Oropharyngeal mucosa is clear and dry. CARDIOVASCULAR: S1, S2. No rubs or gallops. PULMONARY: Mild upper rhonchi. Fair air movement in all lee. ABDOMEN: Obese, nondistended, and nontender. EXTREMITIES: A 1+ edema. ASSESSMENT AND PLAN: 1. CHF, mild decompensation. At this time, Cardiology has been consulted for further evaluation and management. We will start Lasix 40 mg IV b.i.d. 2. Acute on chronic kidney disease. Baseline creatinine unclear. At this time, avoid any nephrotoxins. We will monitor renal function carefully. No further renal investigation required. Creatinine at 1.5. 3. Alcohol intoxication. Per EMS, bottles of vodka found near his bed, unclear. We will initiate thiamine and folate and monitor for any withdrawals. 4. Diabetes mellitus. Continue low-carbohydrate diet with insulin sliding scale and his home dose of metformin and Starlix. 5. DVT prophylaxis with SCDs. The patient is thrombocytopenic. 6. Thrombocytopenia, multifactorial, most likely secondary to alcohol use. We will continue to trend platelet level. 7. GI prophylaxis with famotidine. Darrin Aponte MD DR: KRISTA/CIERA JOB#: [id number] CC:
[2019-02-01] VITALS: BP 125/76
[2019-02-01 04:00] VITALS: BP 134/86
[2019-02-01] MEDS: GlipiZIDE 5mg tab ORAL SCH (05:51)
[2019-02-01] MEDS: metFORMIN 500mg tab ORAL SCH ×3 (05:51→16:44)
[2019-02-01] MEDS: Nateglinide 60mg tab ORAL SCH ×3 (05:51→16:44)
[2019-02-01] MEDS: NovoLOG Insulin Flexpen SUBQ SCH ×4 (05:52→21:26)
[2019-02-01 06:35] LABS: HEMATOCRIT 30.9 % (42.0-52.0); HEMOGLOBIN 10.1 G/DL (14.2-18.0); MEAN CORPUSCULAR VOLUME 94 FL (80-99); PLATELET COUNT 57 K/UL (150-450); RED BLOOD COUNT 3.29 M/UL (4.70-6.10); RED CELL DISTRIBUTION WIDTH 16.7 % (11.6-14.8); WHITE BLOOD COUNT 3.5 K/UL (4.8-10.8)
[2019-02-01 06:59] LABS: ANION GAP 9 mmol/L (5-15); BLOOD UREA NITROGEN 33 mg/dL (7-18); CARBON DIOXIDE 31 MMOL/L (21-32); CHLORIDE 101 MMOL/L (98-107); CREATININE 1.3 MG/DL (0.55-1.30); POTASSIUM 3.5 MMOL/L (3.5-5.1); SODIUM 141 MMOL/L (136-145)
--- NOTE | 2019-02-01 07:08 | NUR ---
HAND-OFF: Report given to RENALDO Lacy. Plan of care endorsed.
--- NOTE | 2019-02-01 07:15 | NUR ---
NURSE NOTES: HANDOFF RECEIVED FROM RENALDO HAYWOOD. PATIENT RECEIVED AWAKE AND ALERT AND RESTING IN BED. NO ACUTE SIGNS OF DISTRESS NOTED. PATIENT IS ABLE TO MAKE NEEDS KNOWN. IV SITE IS CLEAN, DRY AND INTACT, SALINE LOCKED WITH SOME SLIGHT BRUISING AT SITE. BED IN THE LOW AND LOCKED [id number] WITH CALL LIGHT WITHIN REACH, WILL CONTINUE TO MONITOR PATIENT.
[2019-02-01 08:00] VITALS: BP 134/73
--- NOTE | 2019-02-01 08:10 | Nephrology Progress Note ---
Assessment/Plan Assessment/Plan: ASSESSMENT AND PLAN: 1. CHF - mild decompensation. Cardiology has been consulted for further evaluation and management. Lasix 40 mg IV b.i.d. ASA, CARIDAD-I 2. KUMAR on CKD. Baseline creatinine unclear - Cr improved to 1.3 - continue diuresing patient 3. Alcohol intoxication. Per EMS, bottles of vodka found near his bed - thiamine and folate 4. Diabetes mellitus. - low-carbohydrate diet with insulin sliding scale and his home dose of metformin and Starlix. 5. DVT prophylaxis with SCDs. The patient is thrombocytopenic. 6. Thrombocytopenia, multifactorial, most likely secondary to alcohol use. We will continue to trend platelet level. 7. GI prophylaxis with famotidine. Subjective Date patient seen: Feb 01, 2019 Time patient seen: 08:06 ROS Limited/Unobtainable: No Allergies: Coded Allergies: No Known Allergies (Unverified , 01/31/19) Subjective Patient feeling better. No SOB or CP Objective Last 24 Hour Vital Signs Date Time Temp Pulse Resp B/P (MAP) Pulse Ox O2 Delivery O2 Flow Rate FiO2 02/01/19 04:00 89 02/01/19 04:00 98.0 82 18 134/86 (102) 99 02/01/19 00:00 97 02/01/19 00:00 97.5 74 18 125/76 (92) 98 01/31/19 22:37 Room Air 01/31/19 21:51 92 01/31/19 21:30 97.8 81 18 135/89 98 Room Air 01/31/19 21:25 97.8 81 18 135/89 (104) 98 01/31/19 21:12 97.5 89 16 136/60 99 Room Air 01/31/19 19:15 97.2 92 15 133/97 99 Room Air 01/31/19 16:50 74 20 Room Air 01/31/19 16:50 97.2 74 20 116/52 95 Room Air 01/31/19 16:40 97.2 75 17 127/55 (79) 92 Room Air Intake and Output 01/31/19 02/01/19 19:00 07:00 Output Total 1200 ml Balance -1200 ml Output Urine Total 1200 ml # Voids 1 4 # Bowel Movements 2 Laboratory Tests 01/31/19 17:00: White Blood Count 4.2L, Red Blood Count 3.31L, Hemoglobin 10.1L, Hematocrit 31.5L, Mean Corpuscular Volume 95, Mean Corpuscular Hemoglobin 30.4, Mean Corpuscular Hemoglobin Concent 31.9L, Red Cell Distribution Width 16.9H, Platelet Count 67L, Mean Platelet Volume 10.3H, Neutrophils (%) (Auto) , Lymphocytes (%) (Auto) , Monocytes (%) (Auto) , Eosinophils (%) (Auto) , Basophils (%) (Auto) , Differential Total Cells Counted 100, Neutrophils % ( Manual) 56, Lymphocytes % (Manual) 35, Monocytes % (Manual) 7, Eosinophils % ( Manual) 2, Basophils % (Manual) 0, Band Neutrophils 0, Platelet Estimate DecreasedL, Platelet Morphology Normal, Hypochromasia 1+, Anisocytosis 1+, Sodium Level 141, Potassium Level 4.3, Chloride Level 103, Carbon Dioxide Level 22, Anion Gap 16H, Blood Urea Nitrogen 37H, Creatinine 1.5H, Estimat Glomerular Filtration Rate 47.1, Glucose Level 371H, Calcium Level 10.1, Total Bilirubin 0.7, Aspartate Amino Transf (AST/SGOT) 34, Alanine Aminotransferase (ALT/SGPT) 23, Alkaline Phosphatase 142H, Pro-B-Type Natriuretic Peptide 421H, Total Protein 7.7, Albumin 2.6L, Globulin 5.1, Albumin/Globulin Ratio 0.5L 02/01/19 06:11: White Blood Count 3.5L, Red Blood Count 3.29L, Hemoglobin 10.1L, Hematocrit 30.9L, Mean Corpuscular Volume 94, Mean Corpuscular Hemoglobin 30.5, Mean Corpuscular Hemoglobin Concent 32.5, Red Cell Distribution Width 16.7H, Platelet Count 57L, Mean Platelet Volume 10.1, Neutrophils (%) (Auto) , Lymphocytes (%) (Auto) , Monocytes (%) (Auto) , Eosinophils (%) (Auto) , Basophils (%) (Auto) , Neutrophils % (Manual) [Pending], Lymphocytes % (Manual) [Pending], Platelet Estimate [Pending], Platelet Morphology [Pending], Sodium Level 141, Potassium Level 3.5, Chloride Level 101, Carbon Dioxide Level 31, Anion Gap 9, Blood Urea Nitrogen 33H, Creatinine 1.3, Estimat Glomerular Filtration Rate 55.6, Glucose Level 331H, Calcium Level 10.0 Height (Feet): 5 Height (Inches): 8.00 Weight (Pounds): 170 General Appearance: no apparent distress, alert EENT: normal ENT inspection Neck: normal alignment, supple Cardiovascular: normal rate, regular rhythm Respiratory/Chest: lungs clear, normal breath sounds Abdomen: non tender, soft Edema: 1+ Arm (L), 1+ Arm (R), 1+ Leg (L), 1+ Leg (R), 1+ Pedal (L), 1+ Pedal ( R), 1+ Generalized Darrin Aponte MD Feb 01, 2019 08:10
[2019-02-01] MEDS: Thiamine 100mg tab ORAL SCH (09:08)
[2019-02-01] MEDS: Enalapril 5mg tab ORAL SCH (09:09)
[2019-02-01] MEDS: Aspirin Baby 81mg ORAL SCH (09:09)
--- NOTE | 2019-02-01 10:23 | Cardiac Electrophysiology PN ---
Subjective Subjective [id number] Objective Last 24 Hour Vital Signs Date Time Temp Pulse Resp B/P (MAP) Pulse Ox O2 Delivery O2 Flow Rate FiO2 02/01/19 09:09 134/86 02/01/19 08:00 98.1 77 16 134/73 (93) 95 02/01/19 04:00 89 02/01/19 04:00 98.0 82 18 134/86 (102) 99 02/01/19 00:00 97 02/01/19 00:00 97.5 74 18 125/76 (92) 98 01/31/19 22:37 Room Air 01/31/19 21:51 92 01/31/19 21:30 97.8 81 18 135/89 98 Room Air 01/31/19 21:25 97.8 81 18 135/89 (104) 98 01/31/19 21:12 97.5 89 16 136/60 99 Room Air 01/31/19 19:15 97.2 92 15 133/97 99 Room Air 01/31/19 16:50 74 20 Room Air 01/31/19 16:50 97.2 74 20 116/52 95 Room Air 01/31/19 16:40 97.2 75 17 127/55 (79) 92 Room Air Intake and Output 01/31/19 02/01/19 19:00 07:00 Output Total 1200 ml Balance -1200 ml Output Urine Total 1200 ml # Voids 1 4 # Bowel Movements 2 Laboratory Tests Test 01/31/19 17:00 02/01/19 06:11 White Blood Count 4.2 K/UL (4.8-10.8) L 3.5 K/UL (4.8-10.8) L Red Blood Count 3.31 M/UL (4.70-6.10) L 3.29 M/UL (4.70-6.10) L Hemoglobin 10.1 G/DL (14.2-18.0) L 10.1 G/DL (14.2-18.0) L Hematocrit 31.5 % (42.0-52.0) L 30.9 % (42.0-52.0) L Mean Corpuscular Volume 95 FL (80-99) 94 FL (80-99) Mean Corpuscular Hemoglobin 30.4 PG (27.0-31.0) 30.5 PG (27.0-31.0) Mean Corpuscular Hemoglobin Concent 31.9 G/DL (32.0-36.0) L 32.5 G/DL (32.0-36.0) Red Cell Distribution Width 16.9 % (11.6-14.8) H 16.7 % (11.6-14.8) H Platelet Count 67 K/UL (150-450) L 57 K/UL (150-450) L Mean Platelet Volume 10.3 FL (6.5-10.1) H 10.1 FL (6.5-10.1) Neutrophils (%) (Auto) % (45.0-75.0) % (45.0-75.0) Lymphocytes (%) (Auto) % (20.0-45.0) % (20.0-45.0) Monocytes (%) (Auto) % (1.0-10.0) % (1.0-10.0) Eosinophils (%) (Auto) % (0.0-3.0) % (0.0-3.0) Basophils (%) (Auto) % (0.0-2.0) % (0.0-2.0) Differential Total Cells Counted 100 100 Neutrophils % (Manual) 56 % (45-75) 56 % (45-75) Lymphocytes % (Manual) 35 % (20-45) 25 % (20-45) Monocytes % (Manual) 7 % (1-10) 13 % (1-10) H Eosinophils % (Manual) 2 % (0-3) 5 % (0-3) H Basophils % (Manual) 0 % (0-2) 1 % (0-2) Band Neutrophils 0 % (0-8) 0 % (0-8) Platelet Estimate Decreased L Decreased L Platelet Morphology Normal Normal Hypochromasia 1+ Anisocytosis 1+ 1+ Sodium Level 141 MMOL/L (136-145) 141 MMOL/L (136-145) Potassium Level 4.3 MMOL/L (3.5-5.1) 3.5 MMOL/L (3.5-5.1) Chloride Level 103 MMOL/L (98-107) 101 MMOL/L (98-107) Carbon Dioxide Level 22 MMOL/L (21-32) 31 MMOL/L (21-32) Anion Gap 16 mmol/L (5-15) H 9 mmol/L (5-15) Blood Urea Nitrogen 37 mg/dL (7-18) H 33 mg/dL (7-18) H Creatinine 1.5 MG/DL (0.55-1.30) H 1.3 MG/DL (0.55-1.30) Estimat Glomerular Filtration Rate 47.1 mL/min (>60) 55.6 mL/min (>60) Glucose Level 371 MG/DL (74-106) H 331 MG/DL (74-106) H Calcium Level 10.1 MG/DL (8.5-10.1) 10.0 MG/DL (8.5-10.1) Total Bilirubin 0.7 MG/DL (0.2-1.0) Aspartate Amino Transf (AST/SGOT) 34 U/L (15-37) Alanine Aminotransferase (ALT/SGPT) 23 U/L (12-78) Alkaline Phosphatase 142 U/L (46-116) H Pro-B-Type Natriuretic Peptide 421 pg/mL (0-125) H Total Protein 7.7 G/DL (6.4-8.2) Albumin 2.6 G/DL (3.4-5.0) L Globulin 5.1 g/dL Albumin/Globulin Ratio 0.5 (1.0-2.7) L Gabino Juarez MD Feb 01, 2019 10:23
--- NOTE | 2019-02-01 10:57 | NUR ---
*-* INSURANCE *-* ALL AVAILABLE CLINICALS HAVE BEEN FAXED TO: [facility] [phone] SPOKE W/CATALINO, INFORMED OF ER ADMISSION TRACKING#[id number] NO CM YET PH#[phone] FAX#[phone] REVIEWS/CLINICALS
--- NOTE | 2019-02-01 11:08 | Diagnostic Imaging Report ---
Indication: Dyspnea Comparison: None A single view chest radiograph was obtained. Findings: Pulmonary vascular congestion demonstrated with prominent cephalized vessels, cardiomegaly and interstitial densities. The lung bases are obscured due to breast attenuation. Sternotomy noted. IMPRESSION: CHF
[2019-02-01 11:59] VITALS: BP 121/70
--- NOTE | 2019-02-01 13:28 | NUR ---
NURSE NOTES: PATIENT COMPLAINING OF 8/10 LOWER BACK PAIN. NOTIFIED PRIMARY MD QUINTERO PER PATIENT REQUEST FOR PAIN MEDICATION. WILL FOLLOW DOCTORS ORDERS ONCE RECEIVED.
[2019-02-01] MEDS: Morphine Sulfate 2mg/ml Inj(IV/IM USE ONLY) IVP PRN ×2 (14:00→23:40)
--- NOTE | 2019-02-01 15:21 | Cardiology Report ---
APPROVED REPORT EXAM: Two-dimensional and M-mode echocardiogram with Doppler and color Doppler. INDICATION Chest Pain M-Mode DIMENSIONS IVSd1.3 (0.7-1.1cm)Left Atrium (MM)5.6 (1.6-4.0cm) LVDd5.5 (3.5-5.6cm)Aortic Root2.5 (2.0-3.7cm) PWd1.2 (0.7-1.1cm)Aortic Cusp Exc.1.8 (1.5-2.0cm) LVDs4.3 (2.5-4.0cm) PWs1.8 cm Technically difficult study due to poor acoustical windows. Normal left ventricular chamber size, systolic function and wall motion to extent visualized.However the distal septum appear hypokinetic Left ventricular ejection fraction estimated to be 55 %. Borderline left ventricular hypertrophy. No evidence of pericardial effusion. Left atrial enlargement. Right cardiac chamber sizes are within normal limits. Focal aortic valve sclerosis with adequate cusp excursion. Thickened mitral valve leaflets with normal excursion. Mitral annulus and aortic root calcification. Pulmonic valve not well visualized. Normal tricuspid valve structure. IVC dilated at 2.1 cm with slight physiologic collapse suggestive of mildly increased RA pressure. A color flow and spectral Doppler study was performed and revealed: Trace mitral regurgitation. Mitral diastolic velocities suggest reduced left ventricular relaxation c/w mild LV diastolic dysfunction (Grade I ). Trace to mild tricuspid regurgitation. Tricuspid systolic velocities suggests peak right ventricular systolic pressure of 36 mmHg, consistent with borderline mild pulmonary hypertension.
--- NOTE | 2019-02-01 15:45 | Consultation ---
DATE OF CONSULTATION: 02/01/2019 CARDIOLOGY CONSULTATION CONSULTING PHYSICIAN: Gabino Juarez M.D. REFERRING PHYSICIAN: Darrin Aponte M.D. REASON FOR CONSULTATION: Chest pain in a patient with history of coronary artery bypass graft. HISTORY OF PRESENT ILLNESS: The patient is a 63-year-old [place]ian gentleman with history of hypertension, coronary artery disease with history of coronary artery bypass graft as well as diabetes, chronic kidney disease, and diabetic neuropathy, who presented to the emergency room from [facility] living with altered level of consciousness. EMS found an empty bottle of vodka next to the patient. The patient states that he also has history of congestive heart failure, was admitted to [facility] about a year ago. The patient was admitted to the hospital and Cardiology consultation was requested for further evaluation. REVIEW OF SYSTEMS: Negative other than what was mentioned in history of present illness. PAST MEDICAL HISTORY: As mentioned above. FAMILY HISTORY: Noncontributory. SOCIAL HISTORY: He lives in senior care. He continues to drink alcohol. PHYSICAL EXAMINATION: VITAL SIGNS: Show blood pressure of 134/86, pulse 77, respirations 18, and temperature 98.1. HEAD AND NECK: Showed no JVD. LUNGS: Coarse rhonchi. CARDIOVASCULAR: Shows regular S1 and S2 with no gallop or murmur. ABDOMEN: Soft. EXTREMITIES: No pitting edema. LABORATORY AND DIAGNOSTIC DATA: EKG shows normal sinus rhythm with low-voltage QRS. Labs showed white count 3.5, hematocrit 10.9, hematocrit 31, and platelet count of only 57,000. Sodium 141, potassium 3.5, BUN 32, creatinine 1.3, and glucose 331. BNP is 430 and 421. His troponin was negative. ASSESSMENT AND PLAN: 1. Chest pain in a patient with history of coronary artery bypass graft. We will completely rule out myocardial infarction protocol. His EKG is nonischemic. Continue him on aspirin, beta josé luis and statin. 2. History of congestive heart failure. We will get an echocardiogram for further evaluation. The patient is on 5 mg daily. Add Coreg to his medical regimen. 3. Diabetes, on metformin, glipizide, and insulin. The patient is also on Lasix 40 mg IV b.i.d. for his congestive heart failure. An echocardiogram is pending. 4. Heavy alcohol use. Thank you very much for allowing me to participate in the care of this patient. Please do not hesitate to contact me for any questions regarding my evaluation. Gabino Juarez M.D. DR: DAVID JOB#: [id number] CC:
[2019-02-01 16:00] VITALS: BP 136/64
--- NOTE | 2019-02-01 16:10 | NUR ---
NURSE NOTES: CHARTED ON WRONG PATIENT RHYTHM STIP. IGNORE THE FRST ENTERED DATA FOR 1600. THE ACCURATE STRIP ANALYSIS IS CT INTERVAL 0.16, QRS COMPLEX 0.08 PULSE RATE OF 80 SINUS RHYTHM.
--- NOTE | 2019-02-01 16:30 | NUR ---
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 97.2 HR 75 RR 17 B/P 127/55 O2 SAT 92% RA AGAP 16 BUN 37 CR 1.5 BNP 421 ALK PHOS 142 CXR= CHF 2DECHO= 582 IS: LASIX IV ADMITTED TO TELE@ 2130 TELE STATUS DCP RETURN TO [facility]
--- NOTE | 2019-02-01 16:53 | NUR ---
NURSE NOTES: PATIENT'S BLOOD GLUCOSE 433 12 UNITS GIVEN PER SLIDING SCALE. DR GAUN NOTIFIED PER PROTOCOL.
[2019-02-01] MEDS ORDERED: Levemir Flexpen SUBQ SCH (18:00)
--- NOTE | 2019-02-01 19:25 | NUR ---
HAND-OFF: Report given to RENALDO STEARNS.
--- NOTE | 2019-02-01 19:37 | NUR ---
NURSE NOTES: Pt received from RENALDO Lacy alert and oriented x4 with no acute s/s of distress noted. IV site asymptomatic and patent. Bed in lowest position, bed alarm on. Call light and belongings within reach.
[2019-02-01 20:00] VITALS: BP 110/64
[2019-02-01] MEDS ORDERED: DOCUSATE SODIU100 MG ORAL (20:41)
[2019-02-01] MEDS ORDERED: JANUVIA100 MG ORAL (20:41)
[2019-02-01] MEDS ORDERED: CALCIUM 500 +1 EAC7 PO (20:41)
[2019-02-01] MEDS ORDERED: NATEGLINIDE60 MG PO (20:41)
[2019-02-01] MEDS ORDERED: GABAPENTIN600 MG ORAL (20:41)
[2019-02-02] VITALS: BP 102/53
[2019-02-02 03:33] LABS: HEMOGLOBIN 10.6 G/DL (14.2-18.0); MEAN CORPUSCULAR VOLUME 92 FL (80-99); PLATELET COUNT 58 K/UL (150-450); RED BLOOD COUNT 3.59 M/UL (4.70-6.10); WHITE BLOOD COUNT 4.2 K/UL (4.8-10.8)
[2019-02-02 03:43] LABS: ANION GAP 8 mmol/L (5-15); BLOOD UREA NITROGEN 35 mg/dL (7-18); CARBON DIOXIDE 32 MMOL/L (21-32); CHLORIDE 101 MMOL/L (98-107); CREATININE 1.7 MG/DL (0.55-1.30); POTASSIUM 3.6 MMOL/L (3.5-5.1); SODIUM 141 MMOL/L (136-145)
[2019-02-02 04:00] VITALS: BP 118/59
[2019-02-02] MEDS: metFORMIN 500mg tab ORAL SCH ×3 (05:59→17:40)
[2019-02-02] MEDS: Nateglinide 60mg tab ORAL SCH ×3 (05:59→17:35)
[2019-02-02] MEDS: GlipiZIDE 5mg tab ORAL SCH (05:59)
[2019-02-02] MEDS: NovoLOG Insulin Flexpen SUBQ SCH ×4 (06:03→21:16)
--- NOTE | 2019-02-02 07:14 | NUR ---
HAND-OFF: Report given to RENALDO Mabry. Plan of care endorsed.
--- NOTE | 2019-02-02 07:24 | NUR ---
NURSE NOTES: Report received from RENALDO Diaz. Pt. sleeping comfortably, no breathing difficulty or discomfort noted. Bed on lowest position, side rails upx2, brakes engaged. Environment made clear of clutter. Hospital walker at bedside, per RN Pt. able to ambulate to the restroom. Call light placed within easy reach.
[2019-02-02 08:00] VITALS: BP 108/69
--- NOTE | 2019-02-02 08:51 | Nephrology Progress Note ---
Assessment/Plan Assessment/Plan: ASSESSMENT AND PLAN: 1. CHF - mild decompensation. ECHO 55% DC Lasix 40 mg IV b.i.d and Cr increased . ASA, CARIDAD-I 2. KUMAR on CKD. Baseline creatinine unclear - Cr up to to 1.7. DC lasix - gentle fluid bolus 3. Alcohol intoxication. Per EMS, bottles of vodka found near his bed - thiamine and folate 4. Diabetes mellitus. - low-carbohydrate diet with insulin sliding scale and his home dose of metformin and Starlix. 5. DVT prophylaxis with SCDs. The patient is thrombocytopenic. 6. Thrombocytopenia, multifactorial, most likely secondary to alcohol use. We will continue to trend platelet level. 7. GI prophylaxis with famotidine. DC once cleared by cardiology Subjective Date patient seen: Feb 02, 2019 Time patient seen: 08:49 ROS Limited/Unobtainable: No Allergies: Coded Allergies: No Known Allergies (Verified , 01/21/19) Subjective Patient sleeping comfortably Objective Last 24 Hour Vital Signs Date Time Temp Pulse Resp B/P (MAP) Pulse Ox O2 Delivery O2 Flow Rate FiO2 02/02/19 04:00 98.7 93 18 118/59 (78) 95 02/02/19 04:00 91 02/02/19 00:00 98.9 85 18 102/53 (69) 96 02/02/19 00:00 81 02/01/19 21:26 85 110/64 02/01/19 21:00 Nasal Cannula 2.0 02/01/19 20:00 98.5 85 20 110/64 (79) 96 02/01/19 20:00 84 02/01/19 16:00 98.2 81 20 136/64 (88) 95 02/01/19 16:00 75 02/01/19 16:00 80 02/01/19 12:05 82 121/70 02/01/19 12:00 76 02/01/19 11:59 97.3 82 18 121/70 (87) 94 02/01/19 09:09 134/86 02/01/19 09:00 Nasal Cannula 2.0 Intake and Output 02/01/19 02/02/19 19:00 07:00 Intake Total 250 ml Output Total 1600 ml 700 ml Balance -1600 ml -450 ml Intake Oral 250 ml Output Urine Total 1600 ml 700 ml Laboratory Tests 02/01/19 10:55: Troponin I 0.000 02/01/19 19:05: Troponin I 0.000 02/02/19 03:09: Troponin I 0.013, White Blood Count 4.2L, Red Blood Count 3.59L, Hemoglobin 10.6L, Hematocrit 33.0L, Mean Corpuscular Volume 92, Mean Corpuscular Hemoglobin 29.6, Mean Corpuscular Hemoglobin Concent 32.2, Red Cell Distribution Width 16.0H, Platelet Count 58L, Mean Platelet Volume 10.6H, Neutrophils (%) (Auto) , Lymphocytes (%) (Auto) , Monocytes (%) (Auto) , Eosinophils (%) (Auto) , Basophils (%) (Auto) , Differential Total Cells Counted 100, Neutrophils % (Manual) 53, Lymphocytes % (Manual) 39, Monocytes % ( Manual) 6, Eosinophils % (Manual) 2, Basophils % (Manual) 0, Band Neutrophils 0 , Platelet Estimate DecreasedL, Platelet Morphology Normal, Hypochromasia 1+, Anisocytosis 1+, Sodium Level 141, Potassium Level 3.6, Chloride Level 101, Carbon Dioxide Level 32, Anion Gap 8, Blood Urea Nitrogen 35H, Creatinine 1.7H, Estimat Glomerular Filtration Rate 40.8, Glucose Level 206#H, Calcium Level 10.0 Height (Feet): 5 Height (Inches): 8.00 Weight (Pounds): 171 General Appearance: no apparent distress EENT: normal ENT inspection Neck: normal alignment, supple Cardiovascular: normal rate, regular rhythm Respiratory/Chest: lungs clear, normal breath sounds Abdomen: non tender, soft Edema: no edema noted Arm (L), no edema noted Arm (R), no edema noted Leg (L), no edema noted Leg (R), no edema noted Pedal (L), no edema noted Pedal (R), no edema noted Generalized Darrin Aponte MD Feb 02, 2019 08:51
[2019-02-02] MEDS: Thiamine 100mg tab ORAL SCH (09:21)
[2019-02-02] MEDS: Aspirin Baby 81mg ORAL SCH (09:21)
[2019-02-02] MEDS: Enalapril 5mg tab ORAL SCH (09:23)
[2019-02-02] MEDS: Morphine Sulfate 2mg/ml Inj(IV/IM USE ONLY) IVP PRN ×3 (09:55→20:50)
--- NOTE | 2019-02-02 10:25 | NUR ---
-* INSURANCE *-* ALL AVAILABLE CLINICALS HAVE BEEN FAXED TO: [facility] [phone] DES W/CATALINO, INFORMED OF ER ADMISSION TRACKING#[id number] NO CM YET PH#[phone] FAX#[phone] REVIEWS/CLINICALS
--- NOTE | 2019-02-02 11:04 | Cardiac Electrophysiology PN ---
Assessment/Plan Assessment/Plan 1. Chest pain in a patient with history of coronary artery bypass graft. Ruled out for myocardial infarction. His EKG is nonischemic. Continue aspirin, beta josé luis and statin. EF 55% Schedule for stress test today 2. History of congestive heart failure. Echo Nl EF. On Enalapril 5 mg daily, Lasix and Coreg 3. Diabetes, on metformin, glipizide, and insulin. 4. Heavy alcohol use. Subjective Subjective Alert in NAD. No CP Objective Last 24 Hour Vital Signs Date Time Temp Pulse Resp B/P (MAP) Pulse Ox O2 Delivery O2 Flow Rate FiO2 02/02/19 09:23 108/67 02/02/19 09:22 90 108/67 02/02/19 09:00 Nasal Cannula 2.0 02/02/19 08:00 88 02/02/19 04:00 98.7 93 18 118/59 (78) 95 02/02/19 04:00 91 02/02/19 00:00 98.9 85 18 102/53 (69) 96 02/02/19 00:00 81 02/01/19 21:26 85 110/64 02/01/19 21:00 Nasal Cannula 2.0 02/01/19 20:00 98.5 85 20 110/64 (79) 96 02/01/19 20:00 84 02/01/19 16:00 98.2 81 20 136/64 (88) 95 02/01/19 16:00 75 02/01/19 16:00 80 02/01/19 12:05 82 121/70 02/01/19 12:00 76 02/01/19 11:59 97.3 82 18 121/70 (87) 94 Intake and Output 02/01/19 02/02/19 19:00 07:00 Intake Total 250 ml Output Total 1600 ml 700 ml Balance -1600 ml -450 ml Intake Oral 250 ml Output Urine Total 1600 ml 700 ml Laboratory Tests Test 02/01/19 19:05 02/02/19 03:09 Troponin I 0.000 ng/mL (0.000-0.056) 0.013 ng/mL (0.000-0.056) White Blood Count 4.2 K/UL (4.8-10.8) L Red Blood Count 3.59 M/UL (4.70-6.10) L Hemoglobin 10.6 G/DL (14.2-18.0) L Hematocrit 33.0 % (42.0-52.0) L Mean Corpuscular Volume 92 FL (80-99) Mean Corpuscular Hemoglobin 29.6 PG (27.0-31.0) Mean Corpuscular Hemoglobin Concent 32.2 G/DL (32.0-36.0) Red Cell Distribution Width 16.0 % (11.6-14.8) H Platelet Count 58 K/UL (150-450) L Mean Platelet Volume 10.6 FL (6.5-10.1) H Neutrophils (%) (Auto) % (45.0-75.0) Lymphocytes (%) (Auto) % (20.0-45.0) Monocytes (%) (Auto) % (1.0-10.0) Eosinophils (%) (Auto) % (0.0-3.0) Basophils (%) (Auto) % (0.0-2.0) Differential Total Cells Counted 100 Neutrophils % (Manual) 53 % (45-75) Lymphocytes % (Manual) 39 % (20-45) Monocytes % (Manual) 6 % (1-10) Eosinophils % (Manual) 2 % (0-3) Basophils % (Manual) 0 % (0-2) Band Neutrophils 0 % (0-8) Platelet Estimate Decreased L Platelet Morphology Normal Hypochromasia 1+ Anisocytosis 1+ Sodium Level 141 MMOL/L (136-145) Potassium Level 3.6 MMOL/L (3.5-5.1) Chloride Level 101 MMOL/L (98-107) Carbon Dioxide Level 32 MMOL/L (21-32) Anion Gap 8 mmol/L (5-15) Blood Urea Nitrogen 35 mg/dL (7-18) H Creatinine 1.7 MG/DL (0.55-1.30) H Estimat Glomerular Filtration Rate 40.8 mL/min (>60) Glucose Level 206 MG/DL (74-106) #H Calcium Level 10.0 MG/DL (8.5-10.1) Objective HEAD AND NECK: Showed no JVD. LUNGS: Coarse rhonchi. CARDIOVASCULAR: Shows regular S1 and S2 with no gallop or murmur. ABDOMEN: Soft. EXTREMITIES: No pitting edema. Gabino Juarez MD Feb 02, 2019 11:04
[2019-02-02] MEDS ORDERED: Lexiscan 0.4mg/5ml syringe IV SCH (11:15)
[2019-02-02] MEDS ORDERED: Lexiscan 0.4mg/5ml syringe IV PRN (11:15)
[2019-02-02 12:00] VITALS: BP 105/59
--- NOTE | 2019-02-02 15:04 | NUR ---
FLOOR REFINISHERIRONWORKER SI; CHF T. 97.2 HR 81 RR 18 B/P 105/59 2L NC O2 SAT @ 98% BUN 35 CR 1.7 IS: ASA PO COREG PO HEPARIN SUBC TELE STATUS
[2019-02-02 16:00] VITALS: BP 137/87
--- NOTE | 2019-02-02 16:30 | NUR ---
NM Myocardial Perfusion scan complete.
--- NOTE | 2019-02-02 16:58 | Diagnostic Imaging Report ---
Indications: Chest pain Technique: Single day single isotope protocol utilized. Initially, resting images obtained using IV administration 9.8 millicuries 99M technetium Myoview. Subsequently, patient underwent lexiscan stress testing. See cardiology report for details. During Lexiscan infusion, IV administration 32 mCi 99 M technetium Myoview. SPECT and planar images obtained. SPECT images gated to 8 phases of the cardiac cycle were also obtained, and reformatted into cine images for evaluation of ejection fraction. Comparison: none Findings: Per cardiology report, patient experienced no chest pain during infusion. Per cardiology report, resting EKG demonstrates normal sinus rhythm with possible anterior KS. No ST changes noted during infusion. Imaging demonstrates an apparent post stress perfusion defect in the anteroseptal wall near the apex. This appears mostly fixed, but may be slightly smaller at the periphery on the resting images. No other fixed nor reversible perfusion defects. The cardiac chamber size is normal.. Calculated post stress ejection fraction 64%. Wall motion images demonstrate decreased wall motion in the septal wall Impression: Nonischemic clinical response to pharmacologic stress, per cardiology report Nonischemic electrocardiographic response to pharmacologic stress, per cardiology report Mostly fixed perfusion defect with some slight peripheral reversibility in the anteroseptal wall near the apex. This most likely represents a small infarct, possibly with some cecile-infarct ischemia Calculated post stress ejection fraction 64%
[2019-02-02] MEDS: Levemir Flexpen SUBQ SCH (17:37)
--- NOTE | 2019-02-02 19:20 | NUR ---
NURSE NOTES: Received report from RENALDO Mabry. Patient is asleep, lying in semi ely's; resting comfortably. No signs of distress noted. Checked IV site and flushed. No erythema, bleeding or infiltration noted. Bed at lowest position, brakes on, siderailsx2. Call light within reach.
--- NOTE | 2019-02-02 19:43 | NUR ---
HAND-OFF: Report given to RENALDO Nelson. Plan of care endorsed.
[2019-02-02 20:00] VITALS: BP 111/47
--- NOTE | 2019-02-03 02:41 | NUR ---
NURSE NOTES: Resting throughout the night. No significant change of condition noted. Will continue to monitor.
[2019-02-03] MEDS: Morphine Sulfate 2mg/ml Inj(IV/IM USE ONLY) IVP PRN ×2 (02:52→12:05)
[2019-02-03] MEDS: Nateglinide 60mg tab ORAL SCH ×2 (05:36→11:59)
[2019-02-03] MEDS: GlipiZIDE 5mg tab ORAL SCH (05:36)
[2019-02-03] MEDS: metFORMIN 500mg tab ORAL SCH ×2 (05:36→11:59)
[2019-02-03] MEDS: NovoLOG Insulin Flexpen SUBQ SCH ×2 (05:37→12:04)
[2019-02-03 07:15] LABS: ANION GAP 9 mmol/L (5-15); BLOOD UREA NITROGEN 36 mg/dL (7-18); CALCIUM 9.3 MG/DL (8.5-10.1); CARBON DIOXIDE 27 MMOL/L (21-32); CHLORIDE 103 MMOL/L (98-107); CREATININE 1.5 MG/DL (0.55-1.30); POTASSIUM 4.1 MMOL/L (3.5-5.1); SODIUM 139 MMOL/L (136-145)
--- NOTE | 2019-02-03 07:15 | NUR ---
HAND-OFF: Report given to RENALDO Mabry. Plan of care endorsed.
--- NOTE | 2019-02-03 07:15 | NUR ---
NURSE NOTES: Report received from RENALDO Nelson. Pt. sleeping comfortably. In RA. No S/S of distress noted. Room made free of clutter. Board updated. Pt. had asked not to be disturbed. Will continue to monitor.
[2019-02-03 08:00] VITALS: BP 117/59
--- NOTE | 2019-02-03 08:33 | Nephrology Progress Note ---
Assessment/Plan Assessment/Plan: ASSESSMENT AND PLAN: 1. CHF - mild decompensation. ECHO 55% Lasix for EDW, and monitor Cr . ASA, CARIDAD-I. DC back on home dose - DC today if cleared by cardiology 2. KUMAR on CKD. Baseline creatinine unclear - Cr up to to 1.7. DC lasix and Cr improved to 1.5 3. Alcohol intoxication. Per EMS, bottles of vodka found near his bed - thiamine and folate 4. Diabetes mellitus. - low-carbohydrate diet with insulin/levemir sliding scale and metformin and Starlix. 5. DVT prophylaxis with SCDs. The patient is thrombocytopenic. 6. Thrombocytopenia, multifactorial, most likely secondary to alcohol use. We will continue to trend platelet level. 7. GI prophylaxis with famotidine. DC today once cleared by cardiology Subjective Date patient seen: Feb 03, 2019 Time patient seen: 08:30 ROS Limited/Unobtainable: No Allergies: Coded Allergies: No Known Allergies (Verified , 01/21/19) Subjective Patient feels better. DC home today Objective Last 24 Hour Vital Signs Date Time Temp Pulse Resp B/P (MAP) Pulse Ox O2 Delivery O2 Flow Rate FiO2 02/03/19 04:00 88 02/03/19 03:22 97.8 02/03/19 00:00 84 02/02/19 21:00 Nasal Cannula 2.0 02/02/19 20:49 95 111/47 02/02/19 20:00 84 02/02/19 20:00 97.8 95 18 111/47 (68) 95 95 02/02/19 16:00 97.9 95 21 137/87 (104) 96 95 02/02/19 16:00 78 02/02/19 12:00 84 02/02/19 12:00 97.2 81 18 105/59 (74) 95 02/02/19 09:23 108/67 02/02/19 09:22 90 108/67 02/02/19 09:00 Nasal Cannula 2.0 Intake and Output 02/02/19 02/03/19 19:00 07:00 Intake Total 480 ml 120 ml Output Total 300 ml 450 ml Balance 180 ml -330 ml Intake Oral 480 ml 120 ml Output Urine Total 300 ml 450 ml # Voids 1 2 Laboratory Tests 02/03/19 05:40: Sodium Level 139, Potassium Level 4.1, Chloride Level 103, Carbon Dioxide Level 27, Anion Gap 9, Blood Urea Nitrogen 36H, Creatinine 1.5H, Estimat Glomerular Filtration Rate 47.1, Glucose Level 303H, Calcium Level 9.3 Height (Feet): 5 Height (Inches): 8.00 Weight (Pounds): 171 General Appearance: no apparent distress, alert EENT: normal ENT inspection Neck: normal alignment, supple Cardiovascular: normal rate, regular rhythm Respiratory/Chest: lungs clear, normal breath sounds Abdomen: non tender, soft Edema: no edema noted Arm (L), no edema noted Arm (R), no edema noted Leg (L), no edema noted Leg (R), no edema noted Pedal (L), no edema noted Pedal (R), no edema noted Generalized Darrin Aponte MD Feb 03, 2019 08:33
--- NOTE | 2019-02-03 08:44 | Cardiac Electrophysiology PN ---
Assessment/Plan Assessment/Plan 1. Chest pain in a patient with history of coronary artery bypass graft. Ruled out for myocardial infarction. His EKG is nonischemic. Continue aspirin, beta josé luis and statin. EF 55% Stress test yesterday showed no significant ischemia "Mostly fixed perfusion defect with some slight peripheral reversibility in the anteroseptal wall near the apex. This most likely represents a small infarct, possibly with some cecile-infarct ischemia" 2. History of congestive heart failure. Echo Nl EF. On Enalapril 5 mg daily, Lasix and Coreg 3. Diabetes, on metformin, glipizide, and insulin. 4. Heavy alcohol use. TIMBO RN and Dr Aponte Subjective Subjective Alert in NAD. No CP Objective Last 24 Hour Vital Signs Date Time Temp Pulse Resp B/P (MAP) Pulse Ox O2 Delivery O2 Flow Rate FiO2 02/03/19 04:00 88 02/03/19 03:22 97.8 02/03/19 00:00 84 02/02/19 21:00 Nasal Cannula 2.0 02/02/19 20:49 95 111/47 02/02/19 20:00 84 02/02/19 20:00 97.8 95 18 111/47 (68) 95 95 02/02/19 16:00 97.9 95 21 137/87 (104) 96 95 02/02/19 16:00 78 02/02/19 12:00 84 02/02/19 12:00 97.2 81 18 105/59 (74) 95 02/02/19 09:23 108/67 02/02/19 09:22 90 108/67 02/02/19 09:00 Nasal Cannula 2.0 Intake and Output 02/02/19 02/03/19 19:00 07:00 Intake Total 480 ml 120 ml Output Total 300 ml 450 ml Balance 180 ml -330 ml Intake Oral 480 ml 120 ml Output Urine Total 300 ml 450 ml # Voids 1 2 Laboratory Tests Test 02/03/19 05:40 Sodium Level 139 MMOL/L (136-145) Potassium Level 4.1 MMOL/L (3.5-5.1) Chloride Level 103 MMOL/L (98-107) Carbon Dioxide Level 27 MMOL/L (21-32) Anion Gap 9 mmol/L (5-15) Blood Urea Nitrogen 36 mg/dL (7-18) H Creatinine 1.5 MG/DL (0.55-1.30) H Estimat Glomerular Filtration Rate 47.1 mL/min (>60) Glucose Level 303 MG/DL (74-106) H Calcium Level 9.3 MG/DL (8.5-10.1) Objective HEAD AND NECK: Showed no JVD. LUNGS: Coarse rhonchi. CARDIOVASCULAR: Shows regular S1 and S2 with no gallop or murmur. ABDOMEN: Soft. EXTREMITIES: No pitting edema. Gabino Juarez MD Feb 03, 2019 08:44
--- NOTE | 2019-02-03 08:55 | Discharge Instructions ---
Discharge Instructions Discharge Instructions Services at Discharge: day care Diet: 2 GM sodium (low sodium), diabetic calorie control Follow Up Orders Abstain from alcohol ASA 81 mg daily Coreg 3.25 mg bid For Congestive Heart Failure Reminder Report to your physician any weight gain of 5 pounds or more in one week. Darrin Aponte MD Feb 03, 2019 08:55
[2019-02-03] MEDS: Aspirin Baby 81mg ORAL SCH (09:44)
[2019-02-03] MEDS: Enalapril 5mg tab ORAL SCH (09:45)
[2019-02-03] MEDS: Thiamine 100mg tab ORAL SCH (09:45)
[2019-02-03] MEDS: Levemir Flexpen SUBQ SCH (09:47)
[2019-02-03 12:00] VITALS: BP 121/71
--- NOTE | 2019-02-03 15:00 | NUR ---
NURSE NOTE: Discharge Note: Pt. aware of DC plan, sister called and notified. Pt. stable. Newly prescribed medication teaching done. DC teaching done, verbalized understanding. DC package given. Belongings checked signed and filed. quality assurance monitor removed. IV removed intact, covered. Taxi ride provided. Left floor safe, via wheelchair, accompanied by RN.
--- NOTE | 2019-02-04 09:49 | NUR ---
-* INSURANCE *-* ALL AVAILABLE CLINICALS HAVE BEEN FAXED TO: [facility] [phone] DES W/CATALINO, INFORMED OF ER ADMISSION TRACKING#[id number] NO CM YET PH#[phone] FAX#[phone] REVIEWS/CLINICALS
--- NOTE | 2019-02-05 13:10 | Discharge Summary ---
Discharge Summary Discharge Summary _ DATE OF ADMISSION: 01/31/2019 DATE OF DISCHARGE: 02/03/2019 DISCHARGED BY: Dr. Aponte REASON FOR ADMISSION: 63 years old male with past medical history of hypertension, congestive heart failure, coronary artery disease, presented to emergency room from the assisted living complaining of leg swelling for the last few days. Patient also reported shortness of breath. Patient denied chest pain. No fever , no chills. Upon evaluation vital signs were stable. Laboratory work-up revealed no leukocytosis , hemoglobin 10.1, hematocrit 31.5 , platelet count 67. Patient reported taking Lasix. Stable electrolytes. BUN 27, creatinine 1.5. Glucose 371. Stable LFT. Pro BNP 421. EKG revealed sinus rhythm, no acute ischemic changes. Chest x-ray revealed cardiomegaly and evidence of congestive heart failure. Patient subsequently admitted for further management. CONSULTANTS: machine stuffer automatic Dr Wright [facility] HOSPITAL COURSE: Patient admitted to telemetry floor . Power House Engineer followed. Serial troponin were negative. EKG revealed no acute ischemic changes. Patient was ruled out for acute myocardial infarction. Echocardiogram demonstrated ejection fraction of 65% with borderline left ventricular hypertrophy. No evidence of pericardial effusion. Right ventricular systolic pressure of 36 consistent with borderline mild pulmonary hypertension. Myocardial perfusion scan test demonstrated mostly fixed perfusion defect with some slight peripheral reversibility in the anteroseptal wall near the apex. Most likely represented a small infarct possibly with some cecile-infarct ischemia. Calculated post stress ejection fraction 64%. Patient had underlying history of coronary artery bypass graft. Antiplatelet therapy with aspirin, beta-josé luis and statin continued. Guideline directed medical therapy for congestive heart failure continued with beta-josé luis, CARIDAD inhibitor, and diuretic. Volumes and cardiorenal parameters were closely monitored. Blood sugar was managed with metformin , glipizide , Starlix and sliding scale of insulin. Diabetic diet provided. Patient was counseled on compliance with medication regimen. Patient was counseled on abstinence from alcohol use. According to paramedics , bottle of vodka was found near his bed. Patient started on thiamine and folic acid. DVT and GI prophylaxis provided. Supportive care provided. Platelet count was closely monitored, most likely secondary to alcohol abuse. Prior to discharge platelet count 58. Renal parameters and electrolytes were closely monitored. Creatinine remained at the baseline; one-time decreased to 1.3 , baseline of the creatinine was unclear. Recommended to avoid if possible nephrotoxic in future. Patient clinically stabilized and was ready for discharge to assisted living for further management. FINAL DIAGNOSES: Chest pain in a patient with a history of coronary artery bypass graft. Congestive heart failure with mild decompensation Acute kidney injury on chronic kidney disease Diabetes mellitus Heavy alcohol use Alcohol intoxication Thrombocytopenia DISCHARGE MEDICATIONS: See Medication Reconciliation list. DISCHARGE INSTRUCTIONS: Patient was discharged to residential care /assisted living. Follow-up with primary care provider in 1 week. I have been assigned to dictate discharge summary for this account. I was not involved in the patient's management. Stacey Hutson NP Feb 05, 2019 13:10
--- NOTE | 2019-02-07 11:07 | NUR ---
-* INSURANCE *-* DISCHARGE SUMMARY HAS BEEN FAXED TO: [facility]#[id number] NO CM YET #[phone] FAX#[phone] REVIEWS/CLINICALS
--- NOTE | 2019-02-09 15:59 | Cardiology Report ---
APPROVED REPORT EKG Measurement Heart [id number] Normal sinus rhythm Low voltage QRS Borderline ECG
== END 2019-02-03 15:05 | DRG 194 ==
LOC: EDBD 16:48 → EMR 18:59 → MERGE 19:29 → 2E 19:29 → EDBEDREQ 19:49
DX: I50.9 Heart failure, unspecified (principal); N17.9 Acute kidney failure, unspecified; F10.129 Alcohol abuse with intoxication, unspecified; E11.22 Type 2 diabetes mellitus with diabetic chronic kidney disease; N18.9 Chronic kidney disease, unspecified; D69.6 Thrombocytopenia, unspecified; Z95.1 Presence of aortocoronary bypass graft; E11.40 Type 2 diabetes mellitus with diabetic neuropathy, unspecified; Z79.4 Long term (current) use of insulin; I27.20 Pulmonary hypertension, unspecified; R07.9 Chest pain, unspecified; E03.9 Hypothyroidism, unspecified; I25.2 Old myocardial infarction
CPT/HCPCS: 36415; 71045; 78452; 80048; 80053; 82962; 83880; 84484; 85007; 85025; 87081; 93005; 93017; 93306; 96374; 99285; J1815; J2405; J2785; S5561

== ENCOUNTER 2019-02-21 03:58 | Emergency (ER) | payer MEDICAID ==
[~2019-02-21] VITALS: Ht 177.8 cm; Wt 113.4 kg
[~2019-02-21 03:58] MED LIST changes: +CALCIUM 500 +1 EAC7 PO; +JANUVIA100 MG ORAL; +NATEGLINIDE60 MG PO
[2019-02-21] MEDS ORDERED: ASPIRIN-LOW81 MG ORAL (04:28)
[2019-02-21] MEDS ORDERED: JENTADUETO 2.51 EAC2 PO (04:28)
[2019-02-21] MEDS ORDERED: TRAMADOL HCL50 MG ORAL (04:28)
[2019-02-21] MEDS ORDERED: COREG3.125 MG ORAL (04:28)
[2019-02-21] MEDS ORDERED: LIPITOR80 MG ORAL (04:28)
[2019-02-21] MEDS ORDERED: PROPRANOLOL HCL60 M1 PO (04:28)
[2019-02-21] MEDS ORDERED: METOPROLOL SUCC25 MG ORAL (04:28)
[2019-02-21] MEDS ORDERED: ZINC SULFATE220 M1 ORAL (04:28)
[2019-02-21] MEDS ORDERED: PROTONIX20 MG ORAL (04:28)
[2019-02-21] MEDS ORDERED: FUROSEMIDE40 MG ORAL (04:28)
[2019-02-21] MEDS ORDERED: NADOLOL40 MG ORAL (04:28)
[2019-02-21] MEDS ORDERED: IRON325 M1 PO (04:28)
[2019-02-21] MEDS ORDERED: GLIPIZIDE10 MG PO (04:28)
[2019-02-21] MEDS ORDERED: ALDACTONE50 MG ORAL (04:28)
[2019-02-21] MEDS ORDERED: METFORMIN HCL500 M1 ORAL (04:28)
[2019-02-21] MEDS ORDERED: HYDROcodone/Acetamin 10/325 tab ORAL ONE (04:30)
--- NOTE | 2019-02-21 04:33 | Emergency Room Report ---
History of Present Illness General Chief Complaint: Pain Source: Patient, Medical Record Present Illness HPI Disclaimer: Please note that this report is being documented using [employer] technology. This can lead to erroneous entry secondary to incorrect interpretation by the dictating instrument. HPI: 63-year-old male with a history of obesity, hypertension, hyperlipidemia, diabetes, CAD presents for evaluation of pain. Patient states he has had chronic body wide pain for many years and sees a pain specialist at [facility] as well as his PMD. He is frustrated over the current pain medication regimen he is on and states is not adequately controlling his diffuse body wide pain. States his pain is been worse over the past 3 days. He complains pain mostly in the legs, hips, back. There is no new injury or trauma. He is taking tramadol and gabapentin. He admits to drinking a few beers earlier today. He reports chronic lower extremity swelling in his right leg present since the veins were grafted for his coronary bypass. He has an appointment to see his PMD tomorrow. He is also expressing concern over the amount of pills he is taking daily and would like to start cutting them back. No other complaints at this time. PMH: CAD, hypertension, hyperlipidemia, obesity, diabetes PSH: CABG, knee replacement, back surgery Allergies: Denies Social Hx: Reports alcohol use Allergies: Coded Allergies: No Known Allergies (Verified , 01/21/19) Nursing Documentation-PMH Hx Hypertension: Yes Hx Diabetes: Yes Review of Systems All Other Systems: negative except mentioned in HPI Physical Exam Vital Signs Date Time Temp Pulse Resp B/P (MAP) Pulse Ox O2 Delivery O2 Flow Rate FiO2 02/21/19 03:59 97.0 84 18 130/85 (100) 99 Room Air General: Awake and alert, no acute distress HEENT: NC/AT. EOMI. Cardiovascular: RRR. S1 and S2 normal. No murmur appreciated Resp: Normal work of breathing. No cough, wheezing or crackles appreciated Abdomen: Abdomen is soft, nondistended. Nontender Skin: Intact. No abrasions, laceration or rash over the exposed skin MSK: Normal tone and bulk. Moving all extremities. Right lower extremity is edematous compared to the left. Soft compartments, patient is complaining of pain diffusely over the feet, calves, thighs, hips, lower back and over the upper extremities as well. No obvious deformity is identified. Patient has full range of motion in his extremities. Neuro: Awake and alert. Mentating appropriately. Medical Decision Making Diagnostic Impression: Primary Impression: Chronic back pain Additional Impression: Chronic pain ER Course 63-year-old male presents for evaluation of chronic pain and requesting reevaluation of his medication regimen. No new trauma or injury. Patient appears to be at his baseline. He states his right lower extremity edema is constant since a vein graft for his CABG. He has been worked up for lower extremity DVT in the past. Reports no changes in appearance but states that his chronic pain is not currently controlled on gabapentin and tramadol. He has a apprentice painter hand at [facility] and is scheduled to see his PMD later today. I do not see indication to perform emergent labs or imaging at this time. There is no new trauma and the patient appears to be at his baseline. We will treat with oral pain medication here in the emergency department and discharged home. He can discuss his pain management and other medication regimens with his PMD at his appointment later today. Patient stable for outpatient follow-up. Discussed reasons to return to the emergency department. Understands and agrees with this treatment plan. Last Vital Signs Date Time Temp Pulse Resp B/P (MAP) Pulse Ox O2 Delivery O2 Flow Rate FiO2 02/21/19 03:59 97.0 84 18 130/85 (100) 99 Room Air Disposition: ASSISTED LIVING Condition: Stable Referrals: Sophie Villanueva [facility] Patient Instructions: Neuropathic Pain Additional Instructions: Please follow-up with your doctor at your scheduled appointment for today to discuss your multiple medications and your current pain medication regimen. If you have a new injury or uncontrollable pain return to the emergency department any new or worsening symptoms. Russ Cheng MD Feb 21, 2019 04:33
[2019-02-21 04:51] VITALS: BP 138/86
[2019-03-06] MEDS ORDERED: NORCO 5-325 TA1 EACH ORAL (09:37)
[2019-03-06] MEDS ORDERED: NOVOLOG100 UNIT/4 SQ (09:39)
[2019-03-06] MEDS ORDERED: LANTUS SOL100 UNIT/1 SUBQ (09:39)
== END 2019-02-21 04:40 | disposition home or self-care (01) ==
LOC: EDUNIT# 03:58 → EDBD 03:58 → EMR 04:35
DX: G89.29 Other chronic pain (principal); E11.9 Type 2 diabetes mellitus without complications; E78.5 Hyperlipidemia, unspecified; I11.9 Hypertensive heart disease without heart failure; I25.10 Atherosclerotic heart disease of native coronary artery without angina pectoris; Z95.1 Presence of aortocoronary bypass graft
CPT/HCPCS: 99282

== ENCOUNTER 2019-02-23 05:45 | Inpatient (IN) | payer MEDICAID ==
[~2019-02-23] VITALS: Ht 175.3 cm; Wt 95.3 kg
[~2019-02-23 05:45] MED LIST changes: +ALDACTONE50 MG ORAL; +ASPIRIN-LOW81 MG ORAL; +COREG3.125 MG ORAL; +FUROSEMIDE40 MG ORAL; +GLIPIZIDE10 MG PO; +IRON325 M1 PO; +JENTADUETO 2.51 EAC2 PO; +LIPITOR80 MG ORAL; +METOPROLOL SUCC25 MG ORAL; +NADOLOL40 MG ORAL; +PROPRANOLOL HCL60 M1 PO; +PROTONIX20 MG ORAL; +TRAMADOL HCL50 MG ORAL; +ZINC SULFATE220 M1 ORAL
--- NOTE | 2019-02-23 05:47 | Emergency Room Report ---
History of Present Illness General Chief Complaint: Chest Pain Source: Patient, EMS (Tan Reddy MD) Present Illness HPI 63-year-old male possible history of CABG, hypertension, hyperlipidemia, CAD, presents with shortness of breath, chest pain that started at 8 PM, constant no known aggravating factors severity is moderate patient denies any diaphoresis, no radiation of the pain, patient states it woke him from sleep, it happened at rest Patient was given aspirin and nitroglycerin in route by EMS with improvement in chest pain (Tan Reddy MD) Allergies: Coded Allergies: No Known Allergies (Verified , 01/21/19) Patient History Past Medical History: see triage record Reviewed Nursing Documentation: PMH: Agreed; PSxH: Agreed (Tan Reddy MD) Nursing Documentation-PMH Hx Hypertension: Yes Hx Diabetes: Yes (Tan Reddy MD) Review of Systems All Other Systems: negative except mentioned in HPI (Tan Reddy MD) Physical Exam Vital Signs Date Time Temp Pulse Resp B/P (MAP) Pulse Ox O2 Delivery O2 Flow Rate FiO2 02/23/19 05:39 98.4 18 130/60 (83) 96 Room Air Sp02 EP Interpretation: reviewed, normal General Appearance: well appearing, no apparent distress, alert Head: normocephalic, atraumatic Eyes: bilateral eye PERRL, bilateral eye EOMI ENT: uvula midline, moist mucus membranes Neck: supple, thyroid normal, supple/symm/no masses Respiratory: lungs clear, no respiratory distress, no retraction, no accessory muscle use Cardiovascular #1: normal peripheral pulses, regular rate, rhythm, no edema, no gallop, no murmur Gastrointestinal: non tender, soft, no guarding, no rebound Musculoskeletal: normal inspection Neurologic: alert, oriented x3 Psychiatric: mood/affect normal Skin: no rash, warm/dry (Tan Reddy MD) Medical Decision Making Diagnostic Impression: Primary Impression: ACS (acute coronary syndrome) Additional Impressions: Elevated troponin Renal insufficiency Hyperglycemia ER Course 63-year-old male presents with chest pain concerning for possible ACS versus pneumonia versus pneumothorax Patient given 324mg of aspirin in route, and nitroglycerin Will obtain labs, chest x-ray Plan to admit patient to telemetry (Tan Reddy MD) ER Course Patient presented to the emergency department today complaining of chest pain. Differential diagnoses include acute coronary syndrome, pulmonary embolism, pneumothorax, chest wall pain, pleurisy, pericarditis, acute anxiety reaction just to name a few. Given the severity of the patient's presentation I felt this is a highly complex patient. This patient required extensive workup. CBC , chemistry, EKG, chest x-ray, cardiac enzymes, liver profile were all obtained. 12-lead EKG performed for nontraumatic chest pain. [facility] documentation: EKG was performed. Please refer to below for interpretation. Patient's troponin slightly elevated. Glucose is also elevated. BUN/ creatinine are elevated. Given patient's risk factors prior history of cardiac disease and advanced age I felt a highly complex case patient require admission to the hospital. Patient was started on aspirin nitro prior to arrival. Given patient's elevated glucose will administer insulin. Patient will be admitted telemetry for further evaluation and treatment. Case was discussed with Dr. Granger who admitted patient in the past. Labs Test 02/23/19 05:57 White Blood Count 2.9 K/UL (4.8-10.8) Red Blood Count 3.51 M/UL (4.70-6.10) Hemoglobin 10.7 G/DL (14.2-18.0) Hematocrit 33.5 % (42.0-52.0) Mean Corpuscular Volume 95 FL (80-99) Mean Corpuscular Hemoglobin 30.4 PG (27.0-31.0) Mean Corpuscular Hemoglobin Concent 31.9 G/DL (32.0-36.0) Red Cell Distribution Width 16.1 % (11.6-14.8) Platelet Count 57 K/UL (150-450) Mean Platelet Volume 7.7 FL (6.5-10.1) Neutrophils (%) (Auto) % (45.0-75.0) Lymphocytes (%) (Auto) % (20.0-45.0) Monocytes (%) (Auto) % (1.0-10.0) Eosinophils (%) (Auto) % (0.0-3.0) Basophils (%) (Auto) % (0.0-2.0) Prothrombin Time 11.7 SEC (9.30-11.50) Prothromb Time International Ratio 1.1 (0.9-1.1) Activated Partial Thromboplast Time 23 SEC (23-33) Sodium Level 137 MMOL/L (136-145) Potassium Level 3.9 MMOL/L (3.5-5.1) Chloride Level 101 MMOL/L (98-107) Carbon Dioxide Level 25 MMOL/L (21-32) Anion Gap 11 mmol/L (5-15) Blood Urea Nitrogen 10 mg/dL (7-18) Creatinine 1.4 MG/DL (0.55-1.30) Estimat Glomerular Filtration Rate 51.0 mL/min (>60) Glucose Level 408 MG/DL (74-106) Calcium Level 9.2 MG/DL (8.5-10.1) Total Bilirubin 0.9 MG/DL (0.2-1.0) Aspartate Amino Transf (AST/SGOT) 50 U/L (15-37) Alanine Aminotransferase (ALT/SGPT) 43 U/L (12-78) Alkaline Phosphatase 160 U/L (46-116) Troponin I 0.017 ng/mL (0.000-0.056) Pro-B-Type Natriuretic Peptide 347 pg/mL (0-125) Total Protein 7.4 G/DL (6.4-8.2) Albumin 2.8 G/DL (3.4-5.0) Globulin 4.6 g/dL Albumin/Globulin Ratio 0.6 (1.0-2.7) (Kulwant Roberts MD) EKG Diagnostic Results EKG Time: 05:36 EP Interpretation: Rate 92, QTc 464, no acute ST elevations, normal axis (Tan Reddy MD) Rate: normal Rhythm: NSR ST Segments: no acute changes (Kulwant Roberts MD) Rhythm Strip Diag. Results Rhythm Strip Time: 05:46 EP Interpretation: yes Rate: 94 Rhythm: NSR, no PVC's, no ectopy (Tan Reddy MD) EP Interpretation: yes Rate: 92 Rhythm: NSR, no PVC's (Kulwant Roberts MD) Chest X-Ray Diagnostic Results Chest X-Ray Diagnostic Results : Chest X-Ray Ordered: Yes # of Views/Limited/Complete: 1 View Indication: Chest Pain EP Interpretation: Yes Interpretation: no consolidation, no effusion, no pneumothorax, no acute cardiopulmonary disease Impression: No acute disease Electronically Signed by: Tan Reddy MD (Tan Reddy MD) Last Vital Signs Date Time Temp Pulse Resp B/P (MAP) Pulse Ox O2 Delivery O2 Flow Rate FiO2 02/23/19 05:39 98.4 18 130/60 (83) 96 Room Air (Tan Reddy MD) Status: improved (Kulwant Roberts MD) Disposition: ADMITTED INPATIENT Condition: Serious Tan Reddy MD Feb 23, 2019 05:47 Kulwant Roberts MD Feb 23, 2019 07:32
--- NOTE | 2019-02-23 05:55 | NUR ---
ED Nurse Note: RADHAD assessed patient upon arrival in ambulance bay.
--- NOTE | 2019-02-23 05:58 | NUR ---
ED Nurse Note: Patient brought in by ambulance RA61 d/t chest pain started at approximately 12am. Per EMS, they administered 325 ASA and 2 nitro spray, unrelieved. Upon assessment, pt denies chest pain and stated it has been relieved. Chronic back pain 12/16 and history of CABG and DM2. Patient aao x 4 and ambulatory with cane but weak d/t back pain. Patient placed in gown and woolen tester. 20g IV inserted on Right wrist, intact and patent. No acute distress at this time.
[2019-02-23 06:02] VITALS: BP 147/80
--- NOTE | 2019-02-23 06:07 | NUR ---
ED Nurse Note: X-ray at bedside
[2019-02-23 06:15] LABS: HEMATOCRIT 33.5 % (42.0-52.0); HEMOGLOBIN 10.7 G/DL (14.2-18.0); MEAN CORPUSCULAR VOLUME 95 FL (80-99); PLATELET COUNT 57 K/UL (150-450); RED BLOOD COUNT 3.51 M/UL (4.70-6.10); RED CELL DISTRIBUTION WIDTH 16.1 % (11.6-14.8); WHITE BLOOD COUNT 2.9 K/UL (4.8-10.8)
[2019-02-23 06:22] LABS: ANION GAP 11 mmol/L (5-15); BLOOD UREA NITROGEN 10 mg/dL (7-18); CALCIUM 9.2 MG/DL (8.5-10.1); CARBON DIOXIDE 25 MMOL/L (21-32); CHLORIDE 101 MMOL/L (98-107); CREATININE 1.4 MG/DL (0.55-1.30); POTASSIUM 3.9 MMOL/L (3.5-5.1); SODIUM 137 MMOL/L (136-145)
[2019-02-23 06:24] LABS: INR 1.1 (0.9-1.1)
[2019-02-23 06:34] LABS: ALANINE AMINOTRANSFERASE 43 U/L (12-78); ALBUMIN 2.8 G/DL (3.4-5.0); ALBUMIN/GLOBULIN RATIO 0.6 (1.0-2.7); ALKALINE PHOSPHATASE 160 U/L (46-116); ASPARTATE AMINO TRANSFERASE 50 U/L (15-37); BILIRUBIN,TOTAL 0.9 MG/DL (0.2-1.0)
--- NOTE | 2019-02-23 07:13 | NUR ---
HAND-OFF: Report given to RENALDO Monte.
--- NOTE | 2019-02-23 07:18 | NUR ---
ED Nurse Note: Received pt from RENALDO [place]. Patient is laying comfortably in bed. AAOx4, on room air with no complaints of chest pain at this moment.
[2019-02-23 07:24] VITALS: BP 155/71
[2019-02-23] MEDS ORDERED: Insulin Human Regular 100units/ml 3ml SUBQ ONE (07:45)
--- NOTE | 2019-02-23 08:17 | NUR ---
ED Nurse Note: Notified ERMKatie Roberts of patient's c/o back pain.
[2019-02-23] MEDS ORDERED: HYDROcodone/Acetamin 5/325 tab ORAL ONE (08:30)
[2019-02-23] MEDS ORDERED: Aspirin Baby 81mg ORAL SCH (09:00)
--- NOTE | 2019-02-23 09:02 | NUR ---
ED Nurse Note: Dr. Pearson at bedside.
[2019-02-23 09:30] VITALS: BP 132/72
--- NOTE | 2019-02-23 10:45 | NUR ---
ED Nurse Note: Called SDU and spoke with RENALDO Jones and gave report for continuity of care. Patient went to SDU with THADDEUS Fernandes with ACLS protocol. Went over patient belongings list with patient.
--- NOTE | 2019-02-23 11:00 | NUR ---
NURSE NOTES: Received pt a,new admission from ED,brought to SDU per junior ,awake,alert oriented in no distress denies any c/o pain or discomfort S-R on the monitor,[facility] .Report given by Divya TRAVIS RN.
--- NOTE | 2019-02-23 12:00 | NUR ---
NURSE NOTES: Pt with Psoriasis like skin dis to Rt and Lt elbow,skin appears dry.
[2019-02-23] MEDS: Enalapril 5mg tab ORAL SCH ×2 (13:04→21:42)
[2019-02-23] MEDS: Aspirin Baby 81mg ORAL SCH (13:05)
[2019-02-23] MEDS: NovoLOG Insulin Flexpen SUBQ SCH ×3 (13:08→21:44)
[2019-02-23] MEDS: Levemir Flexpen SUBQ SCH ×2 (13:11→17:57)
--- NOTE | 2019-02-23 13:31 | NUR ---
NURSE NOTES: Pt vomiting to large amount of liquid yellow emesis.will inform Dr Fletcher .
[2019-02-23] MEDS: Furosemide 40mg tab ORAL SCH (15:00)
--- NOTE | 2019-02-23 15:15 | History and Physical Report ---
DATE OF ADMISSION: 02/23/2019 REASON FOR ADMISSION: 1. Chest pain. 2. Coronary artery disease. HISTORY OF PRESENT ILLNESS: The patient is a 63-year-old gentleman with known underlying coronary artery disease, status post CABG, who presented to the emergency room complaining of chest pain and shortness of breath. The patient had been recently admitted over for similar symptoms, had cardiac workup which was essentially negative. The patient is currently resting comfortably. He states chest pain is much improved after nitroglycerin. PAST MEDICAL HISTORY: 1. CKD, stage 3. 2. Hypertension. 3. Diabetes mellitus. 4. Hyperlipidemia. 5. Coronary artery disease. PAST SURGICAL HISTORY: Noncontributory. ALLERGIES: No known drug allergies. FAMILY HISTORY: Positive for hypertension and diabetes. REVIEW OF SYSTEMS: NEUROLOGIC: The patient denies headache, change in vision, syncope, or presyncopal episodes. CARDIOVASCULAR: Having chest pain, but no pressure or palpitations. PULMONARY: Mild shortness of breath and nonproductive cough. GASTROINTESTINAL/GENITOURINARY: No change in urinary or bowel habits. No nausea, vomiting, or diarrhea. ENDOCRINE: No night sweats, fever, or chills. MUSCULOSKELETAL: The patient is feeling tired, weak, and fatigued. PHYSICAL EXAMINATION: VITAL SIGNS: Blood pressure 155/71, respiratory rate 16, pulse 87, temperature 98.4. GENERAL: The patient is awake and alert, not in distress. HEENT: Extraocular muscles intact. No lymphadenopathy noted. CARDIOVASCULAR: S1, S2. No rubs or gallops. PULMONARY: Clear to auscultation bilaterally. No rales, rhonchi, or wheezes. ABDOMEN: Nondistended and nontender. EXTREMITIES: No edema. LABORATORY DATA: Labs dated February 23, 2019, white cell count 2.9, hemoglobin 10.7, and platelet count 57,000. Sodium 137, potassium 3.9, creatinine 1.4. ASSESSMENT AND PLAN: 1. Acute coronary syndrome with chest pain. The patient had a recent negative workup during of 2018. Cardiology has been reconsulted. 2. Hypertension. Adjust medications as deemed appropriate. 3. Diabetes mellitus. Continue low carbohydrate diet with insulin sliding scale and oral anti-glycemic medications. 4. DVT prophylaxis with SCDs. 5. Pancytopenia. We will consult Hematology. 6. Shortness of breath. It could be secondary to chest pain. Pulmonary to follow. Darrin Aponte MD DR: CATHRYN JOB#: [id number] CC:
[2019-02-23] MEDS: HYDROcodone/Acetamin 5/325 tab ORAL PRN ×2 (17:03→23:39)
--- NOTE | 2019-02-23 18:00 | NUR ---
NURSE NOTES: Pt resting quietly in bed no further complaints presented,verbalized feeling better.
--- NOTE | 2019-02-23 19:00 | NUR ---
HAND-OFF: Report given to Manoj Aponte RN.
--- NOTE | 2019-02-23 19:10 | NUR ---
NURSE NOTES: pt report received from addis Caceres. pt is alert and oriented times 4, able to follow commands. pt is on nip wrapper showing NSR, no cardiac abnormalities noted. pt is on room air, able to sat at 99%, no resp distress noted. pt bed is low, locked, armed, bed rails up times 3. call light within reach. will follow plan of care.
--- NOTE | 2019-02-23 21:00 | NUR ---
NURSE NOTES: Imaging called and requested pt be NPO midnight untill imagine (ABD ultra sound) tomorrow.
[2019-02-23 21:40] LABS: INR 1.1 (0.9-1.1)
--- NOTE | 2019-02-23 23:00 | NUR ---
NURSE NOTES: Pt is sound asleep. pt appears in no distress. no complaints of pain, no signs symptoms of pain noted. will reassess in 30 min
--- NOTE | 2019-02-23 23:00 | NUR ---
NURSE NOTES: Pt refused vital signs for 0000 and 0400 (12..19) pt remains stable as of now.
[2019-02-24 05:13] LABS: HEMATOCRIT 29.6 % (42.0-52.0); HEMOGLOBIN 9.7 G/DL (14.2-18.0); MEAN CORPUSCULAR VOLUME 95 FL (80-99); PLATELET COUNT 41 K/UL (150-450); RED BLOOD COUNT 3.12 M/UL (4.70-6.10); RED CELL DISTRIBUTION WIDTH 16.4 % (11.6-14.8); WHITE BLOOD COUNT 2.4 K/UL (4.8-10.8)
[2019-02-24 05:37] LABS: ANION GAP 9 mmol/L (5-15); BLOOD UREA NITROGEN 11 mg/dL (7-18); CALCIUM 8.7 MG/DL (8.5-10.1); CARBON DIOXIDE 32 MMOL/L (21-32); CHLORIDE 98 MMOL/L (98-107); CREATININE 1.5 MG/DL (0.55-1.30); POTASSIUM 3.4 MMOL/L (3.5-5.1); SODIUM 138 MMOL/L (136-145)
[2019-02-24] MEDS: HYDROcodone/Acetamin 5/325 tab ORAL PRN (05:57)
[2019-02-24] MEDS: NovoLOG Insulin Flexpen SUBQ SCH ×2 (05:58→11:55)
[2019-02-24 06:13] LABS: % IRON SATURATION 14 % (15-50); IRON 41 ug/dL (50-175); TOTAL IRON BINDING CAPACITY 297 ug/dL (250-450)
--- NOTE | 2019-02-24 07:45 | NUR ---
HAND-OFF: Report given to Caden MACARIO TELE. Pt transfered with al belongings. pt remains stable.
--- NOTE | 2019-02-24 07:58 | NUR ---
NURSE NOTES: Pt transfered to the unit and was in stable condition, Ox4 calm and cooperative, Md Pearson made rounds and ordered discharge once cleared by Md Castillo Parts Sales Advisor. Will await for Md Castillo's recommendation..
[2019-02-24 08:00] VITALS: BP 135/71
--- NOTE | 2019-02-24 08:23 | CDS Physician Query ---
Clarification is required for compliance, coding accuracy, and to reflect severity of illness for this patient Dear Dr. Aponte Date: 02.24.19 CDS: Zeenat Connelly This patient presented with the following conditions:Glucose 408H on 02.23.19, patient received 4 units of Insulin Aspat on 02.23.18 and 10 units of Detemer on 02.23.19 as well. Please specify type as: [ ] Type I or Juvenile [ x] Type II [ ] Poorly controlled [ ] Inadequately controlled [ ] Out of control Please specify diabetic complication [x ] Hyperglycemia [ ] Hypoglycemia [ ] Other Present on Admission: [ ] Yes [ ] No [ ] Clinically Undetermined Physician signature Date Please also document in your Progress Notes and/or Discharge Summary and indicate if the condition was present on admission. MTDD
--- NOTE | 2019-02-24 08:47 | Nephrology Progress Note ---
Assessment/Plan Assessment/Plan: A/P 1) CP- resolved - recent neg stress test in Nov - if cleared by cardiology 2) Pancytopenia- ? MDS - continue to follow with Hematology 3) HTN- stable 4) DM - continue out pt mgmt Subjective Date patient seen: Feb 24, 2019 Time patient seen: 08:45 ROS Limited/Unobtainable: No Allergies: Coded Allergies: No Known Allergies (Verified , 01/21/19) Subjective Patient resting well. In no overt distress Objective Last 24 Hour Vital Signs Date Time Temp Pulse Resp B/P (MAP) Pulse Ox O2 Delivery O2 Flow Rate FiO2 02/24/19 08:39 Room Air 02/24/19 08:00 97.9 80 20 135/71 (92) 94 02/24/19 04:00 81 02/24/19 00:00 86 02/23/19 21:43 87 133/82 02/23/19 21:42 133/82 02/23/19 21:00 Room Air 02/23/19 20:00 88 02/23/19 16:00 84 02/23/19 13:04 132/87 02/23/19 13:03 105 132/87 02/23/19 12:44 Room Air 02/23/19 11:44 96 02/23/19 10:45 98.6 95 15 135/68 96 02/23/19 09:30 98.4 87 17 132/72 98 Room Air 02/23/19 09:03 98.4 Intake and Output 02/23/19 02/24/19 19:00 07:00 Intake Total 720 ml Output Total 900 ml Balance -180 ml Intake Oral 720 ml Output Urine Total 700 ml Emesis 200 ml # Voids 5 1 Laboratory Tests 02/23/19 21:10: Reticulocyte Count 2.2H, Prothrombin Time 12.0H, Prothromb Time International Ratio 1.1, Fibrinogen 227, Ferritin 60, Lactate Dehydrogenase 245H, Vitamin B12 Level 1581H, Folate 19.8, Thyroid Stimulating Hormone (TSH) 3.887H, Hepatitis A IgM Antibody [Pending], Hepatitis B Surface Antigen [Pending], Hepatitis B Core IgM Antibody [Pending], Hepatitis C Antibody [Pending], HIV (1&2) Antibody Rapid Negative 02/24/19 03:35: White Blood Count 2.4L, Red Blood Count 3.12L, Hemoglobin 9.7L, Hematocrit 29.6L , Mean Corpuscular Volume 95, Mean Corpuscular Hemoglobin 31.1H, Mean Corpuscular Hemoglobin Concent 32.7, Red Cell Distribution Width 16.4H, Platelet Count 41L, Mean Platelet Volume 7.5, Neutrophils (%) (Auto) , Lymphocytes (%) (Auto) , Monocytes (%) (Auto) , Eosinophils (%) (Auto) , Basophils (%) (Auto) , Neutrophils % (Manual) [Pending], Lymphocytes % (Manual) [Pending], Platelet Estimate [Pending], Platelet Morphology [Pending], Sodium Level 138, Potassium Level 3.4L, Chloride Level 98, Carbon Dioxide Level 32, Anion Gap 9, Blood Urea Nitrogen 11, Creatinine 1.5H, Estimat Glomerular Filtration Rate 47.1, Glucose Level 242#H, Calcium Level 8.7, Iron Level 41L, Total Iron Binding Capacity 297, Percent Iron Saturation 14L, Unsaturated Iron Binding 256 Height (Feet): 5 Height (Inches): 9.00 Weight (Pounds): 210 General Appearance: no apparent distress, alert EENT: normal ENT inspection Neck: normal alignment, supple Cardiovascular: normal rate Respiratory/Chest: lungs clear, normal breath sounds Abdomen: non tender, soft Edema: no edema noted Arm (L), no edema noted Arm (R), no edema noted Leg (L), no edema noted Leg (R), no edema noted Pedal (L), no edema noted Pedal (R), no edema noted Generalized Darrin Aponte MD Feb 24, 2019 08:47
--- NOTE | 2019-02-24 08:49 | Discharge Instructions ---
Discharge Instructions Discharge Instructions Services at Discharge: day care Diet: 2 GM sodium (low sodium), diabetic calorie control Resume Normal Activity?: Yes Activity: light activity Follow Up Orders Follow up PC and Hematology 1` week For Congestive Heart Failure Reminder Report to your physician any weight gain of 5 pounds or more in one week. Darrin Aponte MD Feb 24, 2019 08:49
--- NOTE | 2019-02-24 08:49 | Consultation ---
History of Present Illness General Chief Complaint: Chest Pain Present Illness Allergies: Coded Allergies: No Known Allergies (Verified , 01/21/19) Medication History Scheduled Aspirin (Aspirin EC), 81 MG ORAL DAILY, (Reported) Atorvastatin (Lipitor), 80 MG ORAL BEDTIME, (Reported) Calcium Carbonate/Vitamin D3 (Calcium 500 + Vit D3 400 Tab), 1 EACH PO TWICE A DAY, (Reported) Carvedilol (Coreg), 3.125 MG ORAL EVERY 12 HOURS, (Reported) Docusate Sodium* (Docusate Sodium*), 100 MG ORAL TWICE A DAY, (Reported) Enalapril Maleate* (Enalapril Maleate*), 5 MG ORAL DAILY, (Reported) Ferrous Sulfate (Iron), 325 MG PO BID, (Reported) Folic Acid* (Folic Acid*), 1 MG ORAL DAILY, (Reported) Furosemide* (Lasix*), 40 MG ORAL DAILY, (Reported) Gabapentin* (Gabapentin*), 600 MG ORAL TWICE A DAY, (Reported) Glipizide (Glipizide), 5 MG PO DAILY, (Reported) Linagliptin/Metformin Hcl (Jentadueto 2.5 Mg-1000 Mg Tab), 1 EACH PO DAILY, ( Reported) Metformin Hcl* (Metformin Hcl*), 500 MG ORAL TWICE A DAY, (Reported) Metoprolol Succinate* (Metoprolol Succinate*), 25 MG ORAL DAILY, (Reported) Nadolol* (Corgard*), 20 MG ORAL DAILY, (Reported) Nateglinide (Nateglinide), 60 MG PO THREE TIMES A DAY, (Reported) Pantoprazole Sodium (Protonix), 40 MG ORAL DAILY, (Reported) Propranolol Hcl (Propranolol Hcl), 20 MG PO TID, (Reported) Sitagliptin (Januvia), 100 MG ORAL DAILY, (Reported) Spironolactone (Aldactone), 50 MG ORAL DAILY, (Reported) Zinc Sulfate (Zinc Sulfate*), 220 MG ORAL DAILY, (Reported) Scheduled PRN Tramadol Hcl* (Ultram*), 50 MG ORAL DAILY PRN for For Pain, (Reported) Patient History Healthcare decision maker n/a Resuscitation status Full Code Advanced Directive on File No Physical Exam Last 24 Hour Vital Signs Date Time Temp Pulse Resp B/P (MAP) Pulse Ox O2 Delivery O2 Flow Rate FiO2 02/24/19 04:00 81 02/24/19 00:00 86 02/23/19 21:43 87 133/82 02/23/19 21:42 133/82 02/23/19 21:00 Room Air 02/23/19 20:00 88 02/23/19 16:00 84 02/23/19 13:04 132/87 02/23/19 13:03 105 132/87 02/23/19 12:44 Room Air 02/23/19 11:44 96 02/23/19 10:45 98.6 95 15 135/68 96 02/23/19 09:30 98.4 87 17 132/72 98 Room Air 02/23/19 09:03 98.4 Intake and Output 02/23/19 02/24/19 19:00 07:00 Intake Total 720 ml Output Total 900 ml Balance -180 ml Intake Oral 720 ml Output Urine Total 700 ml Emesis 200 ml # Voids 5 1 Laboratory Tests Test 02/23/19 21:10 02/24/19 03:35 Reticulocyte Count 2.2 % (0.5-2.0) H Prothrombin Time 12.0 SEC (9.30-11.50) H Prothromb Time International Ratio 1.1 (0.9-1.1) Fibrinogen 227 mg/dL (200-400) Ferritin 60 NG/ML (8-388) Lactate Dehydrogenase 245 U/L (81-234) H Vitamin B12 Level 1581 PG/ML (193-986) H Folate 19.8 NG/ML (8.6-58.9) Thyroid Stimulating Hormone (TSH) 3.887 uiU/mL (0.358-3.740) Hepatitis A IgM Antibody Pending Hepatitis B Surface Antigen Pending Hepatitis B Core IgM Antibody Pending Hepatitis C Antibody Pending HIV (1&2) Antibody Rapid Negative (NEGATIVE) White Blood Count 2.4 K/UL (4.8-10.8) L Red Blood Count 3.12 M/UL (4.70-6.10) L Hemoglobin 9.7 G/DL (14.2-18.0) L Hematocrit 29.6 % (42.0-52.0) L Mean Corpuscular Volume 95 FL (80-99) Mean Corpuscular Hemoglobin 31.1 PG (27.0-31.0) H Mean Corpuscular Hemoglobin Concent 32.7 G/DL (32.0-36.0) Red Cell Distribution Width 16.4 % (11.6-14.8) H Platelet Count 41 K/UL (150-450) L Mean Platelet Volume 7.5 FL (6.5-10.1) Neutrophils (%) (Auto) % (45.0-75.0) Lymphocytes (%) (Auto) % (20.0-45.0) Monocytes (%) (Auto) % (1.0-10.0) Eosinophils (%) (Auto) % (0.0-3.0) Basophils (%) (Auto) % (0.0-2.0) Neutrophils % (Manual) Pending Lymphocytes % (Manual) Pending Platelet Estimate Pending Platelet Morphology Pending Sodium Level 138 MMOL/L (136-145) Potassium Level 3.4 MMOL/L (3.5-5.1) L Chloride Level 98 MMOL/L (98-107) Carbon Dioxide Level 32 MMOL/L (21-32) Anion Gap 9 mmol/L (5-15) Blood Urea Nitrogen 11 mg/dL (7-18) Creatinine 1.5 MG/DL (0.55-1.30) H Estimat Glomerular Filtration Rate 47.1 mL/min (>60) Glucose Level 242 MG/DL (74-106) #H Calcium Level 8.7 MG/DL (8.5-10.1) Iron Level 41 ug/dL (50-175) L Total Iron Binding Capacity 297 ug/dL (250-450) Percent Iron Saturation 14 % (15-50) L Unsaturated Iron Binding 256 ug/dL (112-346) Height (Feet): 5 Height (Inches): 9.00 Weight (Pounds): 210 Medications Current Medications Medications (Trade) Dose Ordered Sig/Alfredo Route PRN Reason Start Time Stop Time Status Last Admin Dose Admin Acetaminophen (Tylenol) 650 mg Q4H PRN ORAL Mild Pain (Pain Scale 1-3) 02/23/19 08:45 03/25/19 08:44 Acetaminophen/ Hydrocodone Bitart ([place] 5/325) 1 tab Q6H PRN ORAL PAIN 4-10 02/23/19 16:15 03/02/19 16:14 02/24/19 05:57 Aspirin (ASA) 81 mg DAILY ORAL 02/23/19 09:00 03/25/19 08:59 02/23/19 13:05 Atorvastatin Calcium (Lipitor) 80 mg QHS ORAL 02/23/19 21:00 03/25/19 20:59 02/23/19 21:42 Carvedilol (Coreg) 3.125 mg EVERY 12 HOURS ORAL 02/23/19 11:30 03/25/19 11:29 02/23/19 21:43 Dextrose (Dextrose 50%) 25 ml Q30M PRN IV Hypoglycemia 02/23/19 08:45 03/25/19 08:44 Dextrose (Dextrose 50%) 50 ml Q30M PRN IV Hypoglycemia 02/23/19 08:45 03/25/19 08:44 Enalapril Maleate (Vasotec) 5 mg EVERY 12 HOURS ORAL 02/23/19 09:00 03/25/19 08:59 02/23/19 21:42 Famotidine (Pepcid) 20 mg DAILY ORAL 02/23/19 09:00 03/25/19 08:59 02/23/19 13:02 Furosemide (Lasix) 40 mg DAILY ORAL 02/23/19 14:37 03/25/19 14:36 02/23/19 15:00 Gabapentin (Neurontin) 300 mg BID ORAL 02/23/19 18:00 03/25/19 17:59 02/23/19 17:56 Insulin Aspart (NovoLOG) BEFORE MEALS AND HS SUBQ 02/23/19 11:30 03/25/19 11:29 02/24/19 05:58 Insulin Detemir (Levemir) 10 units BID SUBQ 02/23/19 11:30 03/25/19 11:29 02/23/19 17:57 Metformin HCl (Glucophage) 850 mg TIAC ORAL 02/23/19 11:30 03/25/19 11:29 02/24/19 05:56 Ondansetron HCl (Zofran) 4 mg Q6H PRN IVP Nausea & Vomiting 02/23/19 14:45 03/25/19 14:44 02/23/19 14:57 Assessment/Plan Assessment/Plan: Hematology Consultation REQ MD: Sophie Aponte RFC: Pancytopenia DOS: 02/24/19 ID 63-year-old male possible history of CABG, hypertension, hyperlipidemia, CAD, presents with shortness of breath, chest pain that started at 8 PM, constant no known aggravating factors severity is moderate patient denies any diaphoresis, no radiation of the pain, patient states it woke him from sleep, it happened at rest. Patient was given aspirin and nitroglycerin in route by EMS with improvement in chest pain. Noted to have pancytopenia and heme was consulted to eval and care. Has been following with Dr. Miranda and gets iv iron infusion at his office. Also he drinks currently. Allergies: No Known Allergies (Verified , 01/21/19) Patient History Past Medical History: see triage record Nursing Documentation-PMH Hx Hypertension: Yes Hx Diabetes: Yes Hx CHF Surgical: back surgery, CABG All: none noted Social hx: no tobacco use, illicit drugs, does smoke, , has 2 kids, used to work as aplanner and photographer portrait at events. Review of Systems negative except mentioned in HPI Physical Exam Vitals: reviewed, normal General: well appearing, no apparent distress Head: normocephalic, atraumatic Eyes: bilateral eye EOMI Respiratory: lungs clear, no respiratory distress, no retraction Cardiovascular: no mgr noted Gastrointestinal: non tender, soft, no guarding, no rebound Musculoskeletal: normal inspection Skin: no rash, warm/dry Labs: noted Imaging: noted Assessment and Recs: # Pancytopenia -- likely due to either MDS or from recent alcohol use, continues to drink --> anemia panel has been ordered --> hepatitis and hiv ordered as well --> us of the abd r/o cirrhosis and hsm --> smear has been reviewed --> meds noted --> plt trend 56-->41k --> us of the abd --> obtain bone marrow biopsy from [facility] order has been placed # Anemia of iron deficiency --> continue on iv iron --> smear has been noted --> continue f/u with Dr. Miranda # ACS (acute coronary syndrome) --> r/o acs --> 324mg of aspirin in route, and nitroglycerin prn # Elevated troponin --> likely due to demand ischemia # Renal insufficiency --> per baseline, per renal recs # Hyperglycemia -> a1c goal <8, accuchecks qac and qhs DW Attending and appreciate consultation. Jake Briones MD Feb 24, 2019 08:49
[2019-02-24] MEDS: Levemir Flexpen SUBQ SCH (09:47)
[2019-02-24] MEDS: Aspirin Baby 81mg ORAL SCH (09:47)
[2019-02-24] MEDS: Enalapril 5mg tab ORAL SCH (09:48)
[2019-02-24] MEDS: Furosemide 40mg tab ORAL SCH (09:54)
--- NOTE | 2019-02-24 09:54 | Cardiology Progress Note ---
Assessment/Plan Assessment/Plan The patient is seen and examined, full consult note will be dictated. Objective Last 24 Hour Vital Signs Date Time Temp Pulse Resp B/P (MAP) Pulse Ox O2 Delivery O2 Flow Rate FiO2 02/24/19 09:48 135/71 02/24/19 09:47 80 135/71 02/24/19 08:39 Room Air 02/24/19 08:00 97.9 80 20 135/71 (92) 94 02/24/19 07:48 79 02/24/19 04:00 81 02/24/19 00:00 86 02/23/19 21:43 87 133/82 02/23/19 21:42 133/82 02/23/19 21:00 Room Air 02/23/19 20:00 88 02/23/19 16:00 84 02/23/19 13:04 132/87 02/23/19 13:03 105 132/87 02/23/19 12:44 Room Air 02/23/19 11:44 96 02/23/19 10:45 98.6 95 15 135/68 96 Intake and Output 02/23/19 02/24/19 19:00 07:00 Intake Total 720 ml Output Total 900 ml Balance -180 ml Intake Oral 720 ml Output Urine Total 700 ml Emesis 200 ml # Voids 5 1 Laboratory Tests Test 02/23/19 21:10 02/24/19 03:35 Reticulocyte Count 2.2 % (0.5-2.0) H Prothrombin Time 12.0 SEC (9.30-11.50) H Prothromb Time International Ratio 1.1 (0.9-1.1) Fibrinogen 227 mg/dL (200-400) Ferritin 60 NG/ML (8-388) Lactate Dehydrogenase 245 U/L (81-234) H Vitamin B12 Level 1581 PG/ML (193-986) H Folate 19.8 NG/ML (8.6-58.9) Thyroid Stimulating Hormone (TSH) 3.887 uiU/mL (0.358-3.740) Hepatitis A IgM Antibody Pending Hepatitis B Surface Antigen Pending Hepatitis B Core IgM Antibody Pending Hepatitis C Antibody Pending HIV (1&2) Antibody Rapid Negative (NEGATIVE) White Blood Count 2.4 K/UL (4.8-10.8) L Red Blood Count 3.12 M/UL (4.70-6.10) L Hemoglobin 9.7 G/DL (14.2-18.0) L Hematocrit 29.6 % (42.0-52.0) L Mean Corpuscular Volume 95 FL (80-99) Mean Corpuscular Hemoglobin 31.1 PG (27.0-31.0) H Mean Corpuscular Hemoglobin Concent 32.7 G/DL (32.0-36.0) Red Cell Distribution Width 16.4 % (11.6-14.8) H Platelet Count 41 K/UL (150-450) L Mean Platelet Volume 7.5 FL (6.5-10.1) Neutrophils (%) (Auto) % (45.0-75.0) Lymphocytes (%) (Auto) % (20.0-45.0) Monocytes (%) (Auto) % (1.0-10.0) Eosinophils (%) (Auto) % (0.0-3.0) Basophils (%) (Auto) % (0.0-2.0) Neutrophils % (Manual) Pending Lymphocytes % (Manual) Pending Platelet Estimate Pending Platelet Morphology Pending Sodium Level 138 MMOL/L (136-145) Potassium Level 3.4 MMOL/L (3.5-5.1) L Chloride Level 98 MMOL/L (98-107) Carbon Dioxide Level 32 MMOL/L (21-32) Anion Gap 9 mmol/L (5-15) Blood Urea Nitrogen 11 mg/dL (7-18) Creatinine 1.5 MG/DL (0.55-1.30) H Estimat Glomerular Filtration Rate 47.1 mL/min (>60) Glucose Level 242 MG/DL (74-106) #H Calcium Level 8.7 MG/DL (8.5-10.1) Iron Level 41 ug/dL (50-175) L Total Iron Binding Capacity 297 ug/dL (250-450) Percent Iron Saturation 14 % (15-50) L Unsaturated Iron Binding 256 ug/dL (112-346) Gabino Castillo MD Feb 24, 2019 09:54
--- NOTE | 2019-02-24 10:36 | NUR ---
NURSE NOTES: Cleared by Md Castillo. Addendum: 02/24/19 at 1036 by GISELLE ALVES RN waiting on ABD US results.
[2019-02-24 12:00] VITALS: BP 125/71
--- NOTE | 2019-02-24 12:12 | Diagnostic Imaging Report ---
Indication: Abnormal liver function tests, abnormal renal function tests Technique: Guadalupe-scale and duplex images of the upper abdomen were obtained Comparison: none Findings: Exam is limited due to overlying bowel gas Gallbladder is unremarkable, without stones, wall thickening, nor pericholecystic fluid. Sonographic Muñoz's sign is negative. Common bile duct measures 5 mm in diameter. No intrahepatic biliary ductal dilatation. Liver demonstrates heterogeneous echogenicity. There is surface nodularity . Reversed flow is seen within the portal venous system Pancreas is obscured by bowel gas. The spleen is enlarged, measures 15.9 cm long axis dimension. Left kidney measures 11.5 cm in length. Right kidney measures 11.5 cm length. Both kidneys demonstrate normal echogenicity. There is no hydronephrosis. There are bilateral renal cysts. Renal contours are lobulated . Abdominal aorta is partially obscured by bowel gas, visualized portions are non-aneurysmal . There is some free intraperitoneal fluid Impression: Negative for gallstones or dilated bile ducts Evidence of hepatic cirrhosis, with surface nodularity and heterogeneous echogenicity Evidence of portal hypertension, with splenomegaly, ascites, and flow reversal within the portal venous system Incidental finding bilateral renal cysts Note inability to visualize the pancreas and portions of the abdominal aorta
--- NOTE | 2019-02-24 13:43 | NUR ---
NURSE NOTES: contacted Pcp, stated he could go, Pt dressed and ready to go, IV and Id Band removed, aftercare plan and med recon printed and reviewed with the pt, pt understood teaching, Ox4 calm and cooperative. called taxi for medicinal plant picker,
--- NOTE | 2019-02-24 15:49 | NUR ---
DISCHARGE PLANNED: PATIENT IS RETURNING TO [facility] T:[phone] [facility] NURSE TO NURSE REPORT ROOM # [id number] CONFIRMED BY LUIS A WREN CALLED BY NURSE
--- NOTE | 2019-02-24 19:27 | Diagnostic Imaging Report ---
Indication: Chest pain, shortness of breath Technique: One view of the chest Comparison: 09/28/2018 Findings: The heart is borderline enlarged. Lungs and pleural spaces are clear. Previously demonstrated interstitial congestion is no longer evident. There are median sternotomy sutures again demonstrated. Impression: Borderline cardiomegaly No acute process
[2019-02-24] MEDS ORDERED: Iron Sucrose 100 MG in NS 55 ML IV SCH (21:00)
--- NOTE | 2019-02-25 02:45 | Consultation ---
DATE OF CONSULTATION: 02/24/2019 PULMONARY CONSULTATION CONSULTING PHYSICIAN: Carlton Black M.D. HISTORY OF PRESENT ILLNESS: This is a 63-year-old male with a history of CABG, hypertension, hyperlipidemia, CAD, who came to the hospital with shortness of breath and chest pain. He was seen and admitted to the hospital after being worked up. On evaluation, the patient denies any shortness of breath. He reports he has mild discomfort of his left chest wall. The patient was admitted to the hospital, concerned about acute coronary event. The patient has been seen by Cardiology and states he is feeling better. Apart from the cardiac history, he has also a history of CKD, hypertension, diabetes mellitus, hyperlipidemia. ALLERGIES: None. PAST SURGICAL HISTORY: None. FAMILY HISTORY: Notable for hypertension and diabetes. REVIEW OF SYSTEMS: Denies any headaches, hematemesis, melena, or hematochezia. PHYSICAL EXAMINATION: GENERAL: Reveals a 63-year-old male. HEENT: Unremarkable. LUNGS: Clear breath sounds bilaterally. HEART: Normal heart sounds. ABDOMEN: Soft. EXTREMITIES: There is no edema. NEUROLOGIC: Nonfocal. LABORATORY DATA: Lab testing is unremarkable except for creatinine of 1.4. IMPRESSION: 1. Chest pain. 2. Hypertension. 3. Diabetes mellitus. 4. Shortness of breath. I suspect his chest pain and his shortness of breath is due to chest discomfort. I do not suspect an active pulmonary pathology. I reviewed his ultrasound of the abdomen and note he has evidence of liver cirrhosis. At this time, there is no active pulmonary intervention required. Recommend cardiology workup. We will follow. Carlton Black M.D. DR: LISA JOB#: [id number] CC:
--- NOTE | 2019-02-27 11:15 | NUR ---
CASE MANAGEMENT: CM review and clinical information (face sheet/ H&P/DC summary) faxed to [facility] @ [phone]. T#[id number]
--- NOTE | 2019-02-28 12:50 | Discharge Summary ---
Discharge Summary Discharge Summary _ Primary DATE OF ADMISSION: 02/23/2019 DATE OF DISCHARGE: 02/24/2019 DISCHARGED BY: Dr.De Schilling 63 years old male REASON FOR ADMISSION: [] 63 years old male with past medical history of chronic kidney disease stage III, hypertension, diabetes mellitus type 2, hyperlipidemia, coronary artery disease, presented to emergency room complaining of chest pain or shortness of breath. Patient recently was admitted with for similar symptoms over the s at that time cardiac work-up was essentially negative patient was discharged. Patient reported chest pain improved after nitroglycerin patient need to telemetry floor for further management CONSULTANTS: vacuum furnace operator Dr. Aranda neurologist pulmonary intermediate ID specialist GI specialist carpenter assembler senior tax specialist/oncologist surgery psychiatrist HOSPITAL COURSE: [] Patient made to telemetry floor. Troponin was negative. EKG revealed sinus rhythm no acute ischemic changes. Telemetry was negative. Replenishment Associate closely followed. Blood pressure was managed with current medication regimen. Low carbohydrate diet provided. Blood sugar was managed with oral anti- glycemic sliding scale of insulin was on board as needed. DVT prophylaxis provided. Patient noted to have pancytopenia. Healthcare Educator consulted. Shortness of breath was possibly due to chest pain. Fishing Tool Technician [employer] followed. Supplemental oxygen was on board as needed to keep pulse oximetry above 92%. Pulse oximetry remained stable on room air bronchodilator therapy was on board as needed. Chest x-ray revealed no acute cardiopulmonary pathology. Borderline cardiomegaly. Pulmonology chest pain and shortness of breath likely due to chest discomfort. Pulmonology did not suspect any active pulmonary pathology. Patient noted to have pancytopenia and abnormal liver function test. Abdominal ultrasound revealed no evidence of gallstones or dilated bile duct. Evidence of hepatic cirrhosis with surface nodularity and heterogeneous echogenicity. Evidence of portal hypertension with hepatomegaly, ascites and flow reversal within the portal venous system. Hepatitis panel was negative HIV test was nonreactive. Hemoglobin hematocrit were closely monitored with goal to keep hemoglobin above 7. Anemia work-up was consistent with anemia of chronic disease. Stable folate elevated B12 level. Renal parameters electrolytes were closely monitored and creatinine remained in the range of 1.4- 1.5 likely due to diabetic diabetes. Chest pain resolved. Patient had a recent negative stress test in January. Patient to follow-up as outpatient with a senior tax specialist. Abdominal ultrasound was done revealed evidence of liver cirrhosis. FINAL DIAGNOSES: Chest pain resolved recent negative stress test Hypertension stable Pancytopenia possible MDS Liver cirrhosis 1. [] Hyperglycemia due to type 2 diabetes mellitus DISCHARGE MEDICATIONS: See Medication Reconciliation list. DISCHARGE INSTRUCTIONS: [] Patient was discharged home I have been assigned to dictate discharge summary for this account. I was not involved in the patient's management. Stacey Hutson NP Feb 28, 2019 12:50
== END 2019-02-24 15:53 | disposition home or self-care (01) | DRG 198 ==
LOC: EDBD 05:45 → EMR 06:36 → 2W 06:37 → EDBEDREQ 10:08 → 2E 02-24 07:53
DX: I24.9 Acute ischemic heart disease, unspecified (principal); I10 Essential (primary) hypertension; I25.10 Atherosclerotic heart disease of native coronary artery without angina pectoris; E11.65 Type 2 diabetes mellitus with hyperglycemia; Z95.1 Presence of aortocoronary bypass graft; R07.9 Chest pain, unspecified; I12.9 Hypertensive chronic kidney disease with stage 1 through stage 4 chronic kidney disease, or unspecified chronic kidney disease; E11.22 Type 2 diabetes mellitus with diabetic chronic kidney disease; N18.3 Chronic kidney disease, stage 3 (moderate); E78.5 Hyperlipidemia, unspecified; Z79.84 Long term (current) use of oral hypoglycemic drugs; D61.818 Other pancytopenia; Z79.82 Long term (current) use of aspirin
CPT/HCPCS: 36415; 71045; 76700; 80048; 80053; 82607; 82728; 82746; 82962; 83540; 83550; 83615; 83880; 84443; 84484; 85007; 85025; 85044; 85060; 85384; 85610; 85730; 86703; 86705; 86709; 86803; 87340; 93005; 96372; 99285; J1815; J2405; S5561

== ENCOUNTER 2019-08-28 23:42 | Inpatient (IN) | payer MEDICARE, MEDICAID ==
[~2019-08-28] VITALS: Ht 180.3 cm; Wt 98.0 kg
[~2019-08-28 23:42] MED LIST changes: +NOVOLOG100 UNIT/4 SQ
[2019-08-29] VITALS (7 sets, daily range): BP systolic 104–143; BP diastolic 63–83
[2019-08-29] MEDS ORDERED: SYNTHROID100 MCG ORAL (00:03)
[2019-08-29] MEDS ORDERED: FAMOTIDINE20 MG ORAL (00:03)
--- NOTE | 2019-08-29 00:03 | Emergency Room Report ---
History of Present Illness General Chief Complaint: Abdominal Pain Source: Patient Present Illness HPI Is a 64-year-old male with history of diabetes, CAD, alcohol abuse who presents with chief complaint abdominal pain. Onset for 1 day. Pain is to the epigastric and upper quadrant. Has nausea and vomiting but no diarrhea. Pain is sharp. 9 out of 10. Denies any fever chills but denies any diarrhea. No trauma. Nothing made it better. Nothing made it worse. Allergies: Coded Allergies: No Known Allergies (Verified , 01/21/19) COVID-19 Screening Contact w/high risk pt: No Recent Travel to affected area: No Experienced COVID-19 symptoms?: No COVID-19 Testing performed OPS ANALYST: No Patient History Past Medical History: see triage record, old chart reviewed, CAD Past Surgical History: CABG, other Pertinent Family History: none Social History: Denies: smoking Immunizations: other Reviewed Nursing Documentation: PMH: Agreed; PSxH: Agreed Nursing Documentation-PMH Hx Cardiac Problems: Yes - atherosclerotic heart disease, hypothyroidism Hx Hypertension: Yes Hx Pacemaker: No Hx Asthma: No Hx COPD: No Hx Diabetes: Yes Hx Cancer: No Hx Gastrointestinal Problems: Yes - hepatic liver disease, liver failure History Of Psychiatric Problem: Yes - major depressive disorder Hx Neurological Problems: No Hx Cerebrovascular Accident: No Hx Seizures: No Review of Systems Eye: Denies: eye pain, blurred vision ENT: Denies: ear pain, nose congestion, throat swelling Respiratory: Denies: cough, shortness of breath Cardiovascular: Denies: chest pain, palpitations Gastrointestinal: Reports: abdominal pain, nausea, vomiting; Denies: diarrhea Musculoskeletal: Denies: back pain, joint pain Skin: Denies: rash Neurological: Denies: headache, numbness Endocrine: Denies: increased thirst, increased urine Hematologic/Lymphatic: Denies: easy bruising All Other Systems: negative except mentioned in HPI Physical Exam Vital Signs Date Time Temp Pulse Resp B/P (MAP) Pulse Ox O2 Delivery O2 Flow Rate FiO2 08/28/19 23:44 98.2 94 22 115/63 (80) 94 Room Air Vitals normal Sp02 EP Interpretation: reviewed, normal General Appearance: well appearing, no apparent distress, alert Head: normocephalic, atraumatic Eyes: bilateral eye PERRL, bilateral eye EOMI ENT: hearing grossly normal, normal pharynx Neck: full range of motion, supple, no meningismus Respiratory: chest non-tender, lungs clear, normal breath sounds Cardiovascular #1: regular rate, rhythm, no murmur Gastrointestinal: no mass, no organomegaly, no bruit, non-distended, abnormal bowel sounds - hyperactive, tenderness - Epigastric Musculoskeletal: back normal, normal range of motion, gait/station normal Psychiatric: mood/affect normal Medical Decision Making Diagnostic Impression: Primary Impression: Renal mass, left Additional Impressions: UTI (urinary tract infection) Qualified Codes: N30.00 - Acute cystitis without hematuria ARF (acute renal failure) Qualified Codes: N17.9 - Acute kidney failure, unspecified Thrombocytopenia Anemia, unspecified Qualified Codes: D64.9 - Anemia, unspecified Hyperglycemia due to type 2 diabetes mellitus Qualified Codes: E11.65 - Type 2 diabetes mellitus with hyperglycemia Cirrhosis of liver Qualified Codes: K70.30 - Alcoholic cirrhosis of liver without ascites ER Course This correction patient presents with abdominal pain. CT scan showed a 10 cm left kidney mass with surrounding mild hemorrhage. Suspicious for neoplasm. He does have a urinary tract infection. Laboratory data show stable hemoglobin but acute on chronic kidney failure. He also show thrombocytopenia consistent with liver disease from alcohol. Will admit for pain control and IV antibiotics. I contacted Dr. Etienne for admission. Rhythm Strip Diag. Results Rhythm: NSR, no PVC's, no ectopy CT/MRI/US Diagnostic Results CT/MRI/US Diagnostic Results : Imaging Test Ordered: CT abdomen pelvis Impression Read by radiologist. Left kidney contains 10 cm masslike process with surrounding mild hemorrhage. Suspicion for neoplasm. Cirrhosis. Last Vital Signs Date Time Temp Pulse Resp B/P (MAP) Pulse Ox O2 Delivery O2 Flow Rate FiO2 08/28/19 23:44 98.2 94 22 115/63 (80) 94 Room Air Status: improved Disposition: ADMITTED INPATIENT Condition: Serious Referrals: NON PHYSICIAN (PCP) Jossue Singer MD Aug 29, 2019 00:03
[2019-08-29 00:25] LABS: HEMATOCRIT 32.1 % (42.0-52.0); HEMOGLOBIN 11.2 G/DL (14.2-18.0); MEAN CORPUSCULAR VOLUME 102 FL (80-99); PLATELET COUNT 56 K/UL (150-450); RED BLOOD COUNT 3.15 M/UL (4.70-6.10); RED CELL DISTRIBUTION WIDTH 14.1 % (11.6-14.8)
[2019-08-29 00:36] LABS: ANION GAP 10 mmol/L (5-15); BLOOD UREA NITROGEN 31 mg/dL (7-18); CALCIUM 8.8 MG/DL (8.5-10.1); CARBON DIOXIDE 25 MMOL/L (21-32); CHLORIDE 96 MMOL/L (98-107); CREATININE 3.3 MG/DL (0.55-1.30); POTASSIUM 4.9 MMOL/L (3.5-5.1); SODIUM 131 MMOL/L (136-145)
[2019-08-29 00:46] LABS: ALANINE AMINOTRANSFERASE 20 U/L (12-78); ALBUMIN/GLOBULIN RATIO 0.5 (1.0-2.7); ALKALINE PHOSPHATASE 118 U/L (46-116); ASPARTATE AMINO TRANSFERASE 39 U/L (15-37); BILIRUBIN,TOTAL 1.5 MG/DL (0.2-1.0)
[2019-08-29 00:48] LABS: BILIRUBIN,DIRECT 0.6 MG/DL (0.0-0.3)
--- NOTE | 2019-08-29 00:48 | Diagnostic Imaging Report ---
EXAM: CT Abdomen and Pelvis Without Intravenous Contrast CLINICAL HISTORY: ABD PAIN TECHNIQUE: Axial computed tomography images of the abdomen and pelvis without intravenous contrast. CTDI is 9 mGy and DLP is 547 mGy-cm. One or more of the following dose reduction techniques were used: automated exposure control, adjustment of the mA and/or kV according to patient size, use of iterative reconstruction technique. COMPARISON: 03/06/2019 FINDINGS: Lung bases: Cardiomegaly. ABDOMEN: Liver: Nodular and small. Gallbladder and bile ducts: Unremarkable. Pancreas: No ductal dilation. Spleen: Enlarged. Adrenals: Unremarkable. Kidneys and ureters: No obstructing stones. No hydronephrosis. 10 cm masslike thickening of the lower pole the left kidney with surrounding fat stranding. Stomach and bowel: No bowel obstruction. No bowel wall thickening. Mild hiatal hernia with thickened distal esophageal wall. PELVIS: Appendix: No evidence of appendicitis. Bladder: No stones. Reproductive: Unremarkable. ABDOMEN and PELVIS: Intraperitoneal space: There is some hemorrhage around the left kidney.. Bones/joints: No acute fractures. Mild spinal canal stenosis at L2-3 secondary to grade 1 retrolisthesis of L2 on L3 and posterior disc osteophyte complex. Right total hip arthroplasty hardware. Soft tissues: Unremarkable. Vasculature: No abdominal aortic aneurysm. Lymph nodes: No enlarged lymph nodes. IMPRESSION: The left kidney contains a 10 cm masslike process with surrounding mild hemorrhage. Suspicious for a hemorrhaging mass/neoplasm, incompletely characterized without contrast. Cirrhosis. Splenomegaly. Mild hiatal hernia with thickened distal esophageal wall, correlate with esophagitis versus underdistention. <MYCVCSECTION> Communications: 08/29/19 00:50 Call Doctor Regarding Above results, called Dr. Singer on 08/28 00:50 (-07:00)
[2019-08-29 01:03] LABS: APPEARANCE,URINE CLOUDY; BILIRUBIN, URINE NEGATIVE (NEGATIVE); GLUCOSE, URINE (UA) 4+ (NEGATIVE); KETONES,URINE 1+ (NEGATIVE); LEUKOCYTE ESTERASE ,URINE 3+ (NEGATIVE); NITRITE,URINE NEGATIVE (NEGATIVE); PH,URINE 5 (4.5-8.0); PROTEIN,URINE 3+ (NEGATIVE); UROBILINOGEN,URINE NORMAL MG/DL (0.0-1.0)
[2019-08-29 01:10] LABS: COLOR,URINE YELLOW
[2019-08-29] MEDS ORDERED: Morphine Sulfate 4mg/ml Inj (IV USE ONLY) IVP ONE ×2 (01:30)
[2019-08-29] MEDS ORDERED: cefTRIAXone 1 GM in NS 55 ML IVPB ONE (01:30)
[2019-08-29] MEDS ORDERED: Insulin Human Regular 100units/ml 3ml IV ONE (01:45)
[2019-08-29] MEDS ORDERED: Morphine Sulfate 4mg/ml Inj (IV USE ONLY) IVP PRN (02:15)
[2019-08-29] MEDS ORDERED: traMADol 50mg tab ORAL PRN (06:15)
[2019-08-29] MEDS ORDERED: Acetaminophen 500mg (ES) tab ORAL PRN (06:45)
[2019-08-29 08:43] LABS: HEMATOCRIT 30.4 % (42.0-52.0); HEMOGLOBIN 10.1 G/DL (14.2-18.0); MEAN CORPUSCULAR VOLUME 102 FL (80-99); PLATELET COUNT 46 K/UL (150-450); RED BLOOD COUNT 2.99 M/UL (4.70-6.10); RED CELL DISTRIBUTION WIDTH 14.1 % (11.6-14.8); WHITE BLOOD COUNT 17.1 K/UL (4.8-10.8)
[2019-08-29] MEDS ORDERED: Levemir Flexpen SUBQ SCH (09:00)
[2019-08-29 09:07] LABS: FERRITIN 223 NG/ML (8-388); GAMMA GLUTAMYL TRANSPEPTIDASE 154 U/L (5-85); PHOSPHORUS 2.4 MG/DL (2.5-4.9)
[2019-08-29 10:00] LABS: % IRON SATURATION 6 % (15-50); IRON 13 ug/dL (50-175); TOTAL IRON BINDING CAPACITY 224 ug/dL (250-450)
--- NOTE | 2019-08-29 10:04 | Consultation ---
Consult Note Consult Note I am asked to evaluate the patient at the request of Dr. Munoz for renal failure. Patient 64-year-old [place] born male. Patient has history of diabetes mellitus coronary artery disease alcohol abuse. Patient presents with abdominal pain for 1 day duration. Pain is in epigastric and upper quadrant area accompanied with nausea and vomiting. Allergies not known COVID-19 screening in emergency room negative Past history significant for coronary artery disease, coronary artery bypass graft surgery, hypertension, diabetes, history of hepatic liver disease, history of major depressive disorder. Patient interviewed and examined. Patient is very nauseous at this time. Abdomen is distended, mild generalized tenderness. Laboratory results reviewed. No medication list from home/alf available. CT of the abdomen: The left kidney contains a 10 cm masslike process with surrounding mild hemorrhage. Suspicious for a hemorrhaging mass/neoplasm, incompletely characterized without contrast. Cirrhosis. Splenomegaly. Mild hiatal hernia with thickened distal esophageal wall, correlate with esophagitis versus underdistention. Assessment/Plan Renal failure, most likely underlying chronic kidney disease due to diabetic nephropathy, superimposed acute renal failure due to vomiting and dehydration. Anemia, high MCV. Leukocytosis, evidence of UTI High lipase Cirrhosis, splenomegaly per CT scan Left kidney mass per CT scan Keep the patient n.p.o. except medication since he is vomiting Reglan every 6 hours for the next 24 hours D5 and a half normal saline IV fluid Keep the blood sugar in check Keep the blood pressure in check Monitor renal parameters Monitor lipase Antibiotics for UTI Anemia work-up Per consultants 2D echocardiogram Kidney ultrasound 1 dose of Rocephin, pending urine culture and ID evaluation Patient had at least 5 previous admissions at [facility] and it did in addition to over 5 emergency room visit at [facility]. I spent an additional 36 minutes on review of medical records including prior hospital records,consult notes, progress notes, procedures ,imaging labs, hemodynamics, and other clinical documentation. Over 35 min Keanu Wilhelm MD Aug 29, 2019 10:04
[2019-08-29] MEDS ORDERED: cefTRIAXone 1 GM in D5W 55 ML IVPB SCH (10:15)
[2019-08-29] MEDS: Metoclopramide 10mg/2ml Inj IVP SCH ×2 (10:16→17:09)
[2019-08-29] MEDS: Pantoprazole Inj IVP SCH ×2 (10:27→20:04)
[2019-08-29] MEDS ORDERED: Potassium Chloride 10 MEQ in D5 1/2NS 1,000 ML IV SCH ×2 (11:00→22:15)
--- NOTE | 2019-08-29 11:36 | Diagnostic Imaging Report ---
EXAM: ULTRASOUND US Renal Comp CLINICAL HISTORY: Abdominal pain. COMPARISON: CT abdomen pelvis 08/29/2019 TECHNIQUE: Ultrasound examination of the kidneys includes grayscale images, and color and spectral doppler analysis. FINDINGS: The right kidney measures 11.8 x 5.7 x 4.9 cm and the left kidney measures 12.2 x 6.7 x 5.37. Cortical thickness and echogenicity are within normal limits. There is a small cortical cyst lower pole right kidney. On the left side, there is also a simple cyst in the upper pole approximately 4.2 x 3.5 cm. The entire mid to lower pole of the left kidney appears somewhat bulbous and heterogeneous corresponding with the masslike heterogeneous density identified on CT. There is no hydronephrosis bilaterally. Urinary bladder appears unremarkable. IMPRESSION: The mid to lower pole of the left kidney appears bulbous and diffusely heterogeneous corresponding with the masslike heterogeneous density seen on CT. On CT there was also iso to slightly hyperdense perinephric fluid thought to represent hemorrhage. Overall appearance suspicious for underlying hemorrhaging mass/neoplasm.
--- NOTE | 2019-08-29 11:42 | Consultation ---
History of Present Illness General Chief Complaint: Abdominal Pain Present Illness Allergies: Coded Allergies: No Known Allergies (Verified , 01/21/19) Medication History Discontinued Medications Aspirin (Aspirin EC), 81 MG ORAL DAILY, (Reported) Discontinued Reason: Medication dose changed Atorvastatin (Lipitor), 80 MG ORAL BEDTIME, (Reported) Discontinued Reason: MD discontinued med Calcium Carbonate/Vitamin D3 (Calcium 500 + Vit D3 400 Tab), 1 EACH PO TWICE A DAY, (Reported) Discontinued Reason: MD discontinued med Carvedilol (Coreg), 3.125 MG ORAL EVERY 12 HOURS, (Reported) Discontinued Reason: Medication dose changed Docusate Sodium* (Docusate Sodium*), 100 MG ORAL TWICE A DAY, (Reported) Discontinued Reason: Medication dose changed Enalapril Maleate* (Enalapril Maleate*), 5 MG ORAL DAILY, (Reported) Discontinued Reason: MD discontinued med Famotidine* (Pepcid 20mg tablet*), 20 MG ORAL TWICE A DAY, (Reported) Discontinued Reason: MD discontinued med Ferrous Sulfate (Iron), 325 MG PO BID, (Reported) Discontinued Reason: MD discontinued med Folic Acid* (Folic Acid*), 1 MG ORAL DAILY, (Reported) Discontinued Reason: Medication dose changed Furosemide* (Lasix*), 40 MG ORAL DAILY, (Reported) Discontinued Reason: MD discontinued med Gabapentin* (Gabapentin*), 600 MG ORAL TWICE A DAY, (Reported) Discontinued Reason: MD discontinued med Glipizide (Glipizide), 5 MG PO DAILY, (Reported) Discontinued Reason: MD discontinued med Hydrocodone Bit/Acetaminophen 5-325* (Brohman 5-325*), 1 TAB ORAL Q6H PRN for For Pain, (Reported) Discontinued Reason: MD discontinued med Insulin Aspart (Novolog), 100 UNIT SQ, (Reported) Discontinued Reason: MD discontinued med Insulin Glargine (Lantus), 0 SUBQ BEDTIME, (Reported) Discontinued Reason: MD discontinued med Levothyroxine Sodium* (Synthroid*), 100 MCG ORAL DAILY, (Reported) Discontinued Reason: MD discontinued med Linagliptin/Metformin Hcl (Jentadueto 2.5 Mg-1000 Mg Tab), 1 EACH PO DAILY, ( Reported) Discontinued Reason: MD discontinued med Metformin Hcl* (Metformin Hcl*), 500 MG ORAL TWICE A DAY, (Reported) Discontinued Reason: MD discontinued med Nateglinide (Nateglinide), 60 MG PO THREE TIMES A DAY, (Reported) Discontinued Reason: MD discontinued med Pantoprazole Sodium (Protonix), 40 MG ORAL DAILY, (Reported) Discontinued Reason: MD discontinued med Sitagliptin (Januvia), 100 MG ORAL DAILY, (Reported) Discontinued Reason: MD discontinued med Spironolactone (Aldactone), 50 MG ORAL DAILY, (Reported) Discontinued Reason: MD discontinued med Tramadol Hcl* (Ultram*), 50 MG ORAL DAILY PRN for For Pain, (Reported) Discontinued Reason: MD discontinued med Zinc Sulfate (Zinc Sulfate*), 220 MG ORAL DAILY, (Reported) Discontinued Reason: MD discontinued med Patient History Healthcare decision maker Resuscitation status Advanced Directive on File Physical Exam Last 24 Hour Vital Signs Date Time Temp Pulse Resp B/P (MAP) Pulse Ox O2 Delivery O2 Flow Rate FiO2 08/29/19 08:00 98.5 95 20 143/64 (90) 96 08/29/19 04:00 98.2 79 20 133/83 (100) 98 08/29/19 03:28 Room Air 08/29/19 02:23 98.3 98 13 125/63 99 Room Air 08/29/19 01:53 98.3 08/29/19 01:34 98.3 98 13 125/63 99 Room Air 08/29/19 00:38 98.3 08/29/19 00:05 94 22 Room Air 08/29/19 00:05 98.2 94 22 115/63 94 Room Air 08/28/19 23:44 98.2 94 22 115/63 (80) 94 Room Air Intake and Output 08/28/19 08/29/19 19:00 07:00 Intake Total 360 ml Balance 360 ml Intake Oral 360 ml Laboratory Tests Test 08/29/19 00:05 08/29/19 00:50 08/29/19 08:25 White Blood Count 18.0 K/UL (4.8-10.8) H 17.1 K/UL (4.8-10.8) H Red Blood Count 3.15 M/UL (4.70-6.10) L 2.99 M/UL (4.70-6.10) L Hemoglobin 11.2 G/DL (14.2-18.0) L 10.1 G/DL (14.2-18.0) L Hematocrit 32.1 % (42.0-52.0) L 30.4 % (42.0-52.0) L Mean Corpuscular Volume 102 FL (80-99) H 102 FL (80-99) H Mean Corpuscular Hemoglobin 35.4 PG (27.0-31.0) H 33.6 PG (27.0-31.0) H Mean Corpuscular Hemoglobin Concent 34.8 G/DL (32.0-36.0) 33.1 G/DL (32.0-36.0) Red Cell Distribution Width 14.1 % (11.6-14.8) 14.1 % (11.6-14.8) Platelet Count 56 K/UL (150-450) L 46 K/UL (150-450) L Mean Platelet Volume 10.1 FL (6.5-10.1) 9.8 FL (6.5-10.1) Neutrophils (%) (Auto) % (45.0-75.0) % (45.0-75.0) Lymphocytes (%) (Auto) % (20.0-45.0) % (20.0-45.0) Monocytes (%) (Auto) % (1.0-10.0) % (1.0-10.0) Eosinophils (%) (Auto) % (0.0-3.0) % (0.0-3.0) Basophils (%) (Auto) % (0.0-2.0) % (0.0-2.0) Differential Total Cells Counted 100 100 Neutrophils % (Manual) 78 % (45-75) H 91 % (45-75) H Lymphocytes % (Manual) 7 % (20-45) L 2 % (20-45) L Monocytes % (Manual) 5 % (1-10) 5 % (1-10) Eosinophils % (Manual) 0 % (0-3) 0 % (0-3) Basophils % (Manual) 0 % (0-2) 0 % (0-2) Band Neutrophils 10 % (0-8) H 2 % (0-8) Platelet Estimate Adequate Decreased L Platelet Morphology Normal Normal Sodium Level 131 MMOL/L (136-145) L Potassium Level 4.9 MMOL/L (3.5-5.1) Chloride Level 96 MMOL/L (98-107) L Carbon Dioxide Level 25 MMOL/L (21-32) Anion Gap 10 mmol/L (5-15) Blood Urea Nitrogen 31 mg/dL (7-18) H Creatinine 3.3 MG/DL (0.55-1.30) H Estimat Glomerular Filtration Rate 18.9 mL/min (>60) Glucose Level 422 MG/DL (74-106) H Calcium Level 8.8 MG/DL (8.5-10.1) Total Bilirubin 1.5 MG/DL (0.2-1.0) H Direct Bilirubin 0.6 MG/DL (0.0-0.3) H Aspartate Amino Transf (AST/SGOT) 39 U/L (15-37) H Alanine Aminotransferase (ALT/SGPT) 20 U/L (12-78) Alkaline Phosphatase 118 U/L (46-116) H Total Protein 6.2 G/DL (6.4-8.2) L Albumin 2.0 G/DL (3.4-5.0) L Globulin 4.2 g/dL Albumin/Globulin Ratio 0.5 (1.0-2.7) L Lipase 424 U/L (73-393) H Urine Color Yellow Urine Appearance Cloudy Urine pH 5 (4.5-8.0) Urine Specific [place] 1.020 (1.005-1.035) Urine Protein 3+ (NEGATIVE) H Urine Glucose (UA) 4+ (NEGATIVE) H Urine Ketones 1+ (NEGATIVE) H Urine Blood 5+ (NEGATIVE) H Urine Nitrite Negative (NEGATIVE) Urine Bilirubin Negative (NEGATIVE) Urine Urobilinogen Normal MG/DL (0.0-1.0) Urine Leukocyte Esterase 3+ (NEGATIVE) H Urine RBC 40-60 /HPF (0 - 0) H Urine WBC Tntc /HPF (0 - 0) H Urine Squamous Epithelial Cells None /LPF (NONE/OCC) Urine Bacteria Moderate /HPF (NONE) H Anisocytosis 1+ Macrocytosis 1+ Uric Acid 6.7 MG/DL (2.6-7.2) Phosphorus Level 2.4 MG/DL (2.5-4.9) L Magnesium Level 1.9 MG/DL (1.8-2.4) Iron Level 13 ug/dL (50-175) L Total Iron Binding Capacity 224 ug/dL (250-450) L Percent Iron Saturation 6 % (15-50) L Unsaturated Iron Binding 211 ug/dL (112-346) Ferritin 223 NG/ML (8-388) Gamma Glutamyl Transpeptidase 154 U/L (5-85) H C-Reactive Protein, Quantitative 22.8 mg/dL (0.00-0.90) H Pro-B-Type Natriuretic Peptide 75114 pg/mL (0-125) H Vitamin B12 Level > 2000 PG/ML (193-986) H Folate 34.7 NG/ML (8.6-58.9) Thyroid Stimulating Hormone (TSH) 1.020 uiU/mL (0.358-3.740) Microbiology Date/Time Source Procedure Growth Status 08/29/19 02:00 Rectum Received Height (Feet): 5 Height (Inches): 11.00 Weight (Pounds): 213 Medications Current Medications Medications (Trade) Dose Ordered Sig/Alfredo Route PRN Reason Start Time Stop Time Status Last Admin Dose Admin Acetaminophen (Tylenol) 500 mg Q4H PRN ORAL Mild Pain (Pain Scale 1-3) 08/29/19 06:45 09/28/19 06:44 08/29/19 10:59 Dextrose (Dextrose 50%) 25 ml Q30M PRN IV Hypoglycemia 08/29/19 07:30 11/27/19 07:29 Dextrose (Dextrose 50%) 50 ml Q30M PRN IV Hypoglycemia 08/29/19 07:30 11/27/19 07:29 Insulin Aspart (NovoLOG) BEFORE MEALS AND HS SUBQ 08/29/19 11:30 11/27/19 11:29 Insulin Detemir (Levemir) 15 units DAILY SUBQ 08/29/19 09:00 11/27/19 08:59 08/29/19 09:48 Levothyroxine Sodium (Synthroid) 50 mcg DAILY IV 08/30/19 09:00 09/29/19 08:59 Metoclopramide HCl (Reglan) 10 mg Q6H IVP 08/29/19 10:00 09/28/19 09:59 08/29/19 10:16 Ondansetron HCl (Zofran) 4 mg Q6H PRN IVP Nausea & Vomiting 08/29/19 09:45 09/28/19 09:44 08/29/19 10:02 Pantoprazole (Protonix) 40 mg EVERY 12 HOURS IVP 08/29/19 10:15 09/28/19 10:14 08/29/19 10:27 Potassium Chloride 10 meq/ Dextrose/Sodium Chloride 1,005 ml @ 75 mls/hr [id number] IV 08/29/19 11:00 09/28/19 10:59 08/29/19 11:07 Assessment/Plan Assessment/Plan: Heme Consult Note REQ MD: Raiza Munoz [facility] Large renal mass DOS 08/29/2019 IDIs a 64-year-old male with history of diabetes, CAD, alcohol abuse who presents with chief complaint abdominal pain. Onset for 1 day. Pain is to the epigastric and upper quadrant. Has nausea and vomiting but no diarrhea. Pain is sharp. 9 out of 10. Denies any fever chills but denies any diarrhea. No trauma. Nothing made it better. Nothing made it worse. Notd to have a large renal mass that is noted in the abdomen, pending further eval with uro Allergies: No Known Allergies (Verified , 01/21/19) Contact w/high risk pt: No Recent Travel to affected area: No Experienced COVID-19 symptoms?: No COVID-19 Testing performed INTRUSION ANALYST: No Past Medical History: see triage record, old chart reviewed, CAD Past Surgical History: CABG, other Pertinent Family History: none Social History: Denies: smoking Immunizations: other Reviewed Nursing Documentation: PMH: Agreed; PSxH: Agreed Hx Cardiac Problems: Yes - atherosclerotic heart disease, hypothyroidism Hx Hypertension: Yes Hx Pacemaker: No Hx Asthma: No Hx COPD: No Hx Diabetes: Yes Hx Cancer: No Hx Gastrointestinal Problems: Yes - hepatic liver disease, liver failure History Of Psychiatric Problem: Yes - major depressive disorder Hx Neurological Problems: No Hx Cerebrovascular Accident: No Hx Seizures: No ROS (review of systems): Constitutional: No fever, no chills, no night sweats, no fatigue Skin: No rashes, lumps, itchiness, dryness HEENT: No HOWELL, ear ache, visual changes, double vision, nosebleeds Breasts: No lumps, pain, discharge Pulmonary: No cough, sputum, shortness of breath Cardiovascular: No chest pain, tightness, palpitations, syncope, PND GI: No nausea, vomiting, diarrhea, melena, hematochezia, change in appetite, : No dysuria, frequency, urgency, urinary incontinence, foamy urine Musculoskeletal: No joint swelling or muscle pain, trauma, back pain Neurologic: No dizziness, fainting, seizures, changes in smell or taste Psychiatric: No nervousness, stress, or depression, anxiety, hallucinations Endocrine: No weight change, heat or cold intolerance, tremor, insomnia Physical Exam: Vitals: reviewed General: NAD HEENT: nc, at Neck: supple Chest: clear breath sounds bilaterally Cardiovascular: RRR, no s3, s4 Abdomen: soft, nontender, nd Extremities: no cce, normal range of motion Neuro: alert and oriented Imaging Cirrhosis. Splenomegaly. Mild hiatal hernia with thickened distal esophageal wall, correlate with esophagitis versus underdistention. Labs noted Imaging reviewed Assessment and Recs # Left kidney contains a 10 cm masslike process with surrounding mild hemorrhage. Suspicious for a hemorrhaging mass/neoplasm, incompletely characterized without contrast. 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 --> cxr reviewed as well, does not appear to have mets --> uro recs # Pancytopenia -- multiple etiologies could be related to underlying liver disease, medication-induced, likely in this case is due to underlying liver cirrhosis, from etoh use --> peripheral smear has been ordered and does not show significant abnormalities-> none noted --> Medications have been reviewed --> Continue to monitor for improvement, trend cbc --> Hep panel and HIV have been ordered --> US abd ordered to r/o cirrhosis and hepatosplenomegaly --> reverse isolation if ANC is <2000 --> Give neupogen if ANC <1000 --> Transfuse if hgb <7, with 1 unit prbc --> consider bone marrow biopsy if no other causes are found --> plt trend 56-->46 # Transaminitis likely from liver disease --> etoh use cessation recommended, though inconsistehistory # Leukocytosis, evidence of UTI --> per id care # High lipase # Cirrhosis, splenomegaly per CT scan # Hyperbilirubinemia # Dvt ppx scds The timing of this note does not necessarily reflect the time of the patient was seen. Greatly appreciate consultation. Jake Briones MD Aug 29, 2019 11:42
[2019-08-29] MEDS: NovoLOG Insulin Flexpen SUBQ SCH ×3 (12:12→20:04)
--- NOTE | 2019-08-29 12:40 | General Progress Note ---
Assessment/Plan Problem List: (1) S/P CABG (coronary artery bypass graft) ICD Codes: Z95.1 - Presence of aortocoronary bypass graft SNOMED: 47375131, 814123797, 251487501 (2) Acute encephalopathy ICD Codes: G93.40 - Encephalopathy, unspecified SNOMED: 17248712, 672470988 (3) Diabetes mellitus ICD Codes: E11.9 - Type 2 diabetes mellitus without complications SNOMED: 55300128 (4) ATN (acute tubular necrosis) ICD Codes: N17.0 - Acute kidney failure with tubular necrosis SNOMED: 04490450 (5) Severe anemia ICD Codes: D64.9 - Anemia, unspecified SNOMED: 362148802 (6) Diabetes mellitus out of control ICD Codes: E11.65 - Type 2 diabetes mellitus with hyperglycemia SNOMED: 16430880, 603194875 (7) Hypothyroid ICD Codes: E03.9 - Hypothyroidism, unspecified SNOMED: 79850309 (8) Renal mass, left ICD Codes: N28.89 - Other specified disorders of kidney and ureter SNOMED: 331860560, 28253595 (9) Cirrhosis of liver ICD Codes: K74.60 - Unspecified cirrhosis of liver SNOMED: 48678272 Qualifiers: Qualified Codes: K70.30 - Alcoholic cirrhosis of liver without ascites (10) CHF (congestive heart failure) ICD Codes: I50.9 - Heart failure, unspecified SNOMED: 63706181 Assessment/Plan: ppi fu ammonia level stool ob fu nephrology agree with reglan iv iron EGD possibly on Thursday if stable Subjective ROS Limited/Unobtainable: No Allergies: Coded Allergies: No Known Allergies (Verified , 01/21/19) Objective Last 24 Hour Vital Signs Date Time Temp Pulse Resp B/P (MAP) Pulse Ox O2 Delivery O2 Flow Rate FiO2 08/29/19 12:00 99.5 115 20 128/73 (91) 94 08/29/19 11:29 99.5 08/29/19 09:00 Room Air 08/29/19 08:00 98.5 95 20 143/64 (90) 96 08/29/19 04:00 98.2 79 20 133/83 (100) 98 08/29/19 03:28 Room Air 08/29/19 02:23 98.3 98 13 125/63 99 Room Air 08/29/19 01:53 98.3 08/29/19 01:34 98.3 98 13 125/63 99 Room Air 08/29/19 00:38 98.3 08/29/19 00:05 94 22 Room Air 08/29/19 00:05 98.2 94 22 115/63 94 Room Air 08/28/19 23:44 98.2 94 22 115/63 (80) 94 Room Air Intake and Output 08/28/19 08/29/19 19:00 07:00 Intake Total 360 ml Balance 360 ml Intake Oral 360 ml Laboratory Tests 08/29/19 00:05: White Blood Count 18.0H, Red Blood Count 3.15L, Hemoglobin 11.2L, Hematocrit 32.1L, Mean Corpuscular Volume 102H, Mean Corpuscular Hemoglobin 35.4H, Mean Corpuscular Hemoglobin Concent 34.8, Red Cell Distribution Width 14.1, Platelet Count 56L, Mean Platelet Volume 10.1, Neutrophils (%) (Auto) , Lymphocytes (%) ( Auto) , Monocytes (%) (Auto) , Eosinophils (%) (Auto) , Basophils (%) (Auto) , Differential Total Cells Counted 100, Neutrophils % (Manual) 78H, Lymphocytes % (Manual) 7L, Monocytes % (Manual) 5, Eosinophils % (Manual) 0, Basophils % ( Manual) 0, Band Neutrophils 10H, Platelet Estimate Adequate, Platelet Morphology Normal, Sodium Level 131L, Potassium Level 4.9, Chloride Level 96L, Carbon Dioxide Level 25, Anion Gap 10, Blood Urea Nitrogen 31H, Creatinine 3.3H , Estimat Glomerular Filtration Rate 18.9, Glucose Level 422H, Calcium Level 8.8 , Total Bilirubin 1.5H, Direct Bilirubin 0.6H, Aspartate Amino Transf (AST/SGOT ) 39H, Alanine Aminotransferase (ALT/SGPT) 20, Alkaline Phosphatase 118H, Total Protein 6.2L, Albumin 2.0L, Globulin 4.2, Albumin/Globulin Ratio 0.5L, Lipase 424H 08/29/19 00:50: Urine Color Yellow, Urine Appearance Cloudy, Urine pH 5, Urine Specific [place] 1.020, Urine Protein 3+H, Urine Glucose (UA) 4+H, Urine Ketones 1+H, Urine Blood 5+H, Urine Nitrite Negative, Urine Bilirubin Negative, Urine Urobilinogen Normal, Urine Leukocyte Esterase 3+H, Urine RBC 40-60H, Urine WBC TntcH, Urine Squamous Epithelial Cells None, Urine Bacteria ModerateH 08/29/19 08:25: White Blood Count 17.1H, Red Blood Count 2.99L, Hemoglobin 10.1L, Hematocrit 30.4L, Mean Corpuscular Volume 102H, Mean Corpuscular Hemoglobin 33.6H, Mean Corpuscular Hemoglobin Concent 33.1, Red Cell Distribution Width 14.1, Platelet Count 46L, Mean Platelet Volume 9.8, Neutrophils (%) (Auto) , Lymphocytes (%) ( Auto) , Monocytes (%) (Auto) , Eosinophils (%) (Auto) , Basophils (%) (Auto) , Differential Total Cells Counted 100, Neutrophils % (Manual) 91H, Lymphocytes % (Manual) 2L, Monocytes % (Manual) 5, Eosinophils % (Manual) 0, Basophils % ( Manual) 0, Band Neutrophils 2, Platelet Estimate DecreasedL, Platelet Morphology Normal, Anisocytosis 1+, Macrocytosis 1+, Uric Acid 6.7, Phosphorus Level 2.4L, Magnesium Level 1.9, Iron Level 13L, Total Iron Binding Capacity 224L, Percent Iron Saturation 6L, Unsaturated Iron Binding 211, Ferritin 223, Gamma Glutamyl Transpeptidase 154H, C-Reactive Protein, Quantitative 22.8H, Pro- B-Type Natriuretic Peptide 29077H, Vitamin B12 Level > 2000H, Folate 34.7, Thyroid Stimulating Hormone (TSH) 1.020 Height (Feet): 5 Height (Inches): 11.00 Weight (Pounds): 213 General Appearance: lethargic EENT: normal ENT inspection Neck: supple Cardiovascular: normal rate Respiratory/Chest: decreased breath sounds Abdomen: normal bowel sounds, non tender, soft Extremities: non-tender Jim Vargas MD Aug 29, 2019 12:40
--- NOTE | 2019-08-29 16:00 | Consultation ---
DATE OF CONSULTATION: 08/29/2019 UROLOGY CONSULTATION CONSULTING PHYSICIAN: Milo Negrete MD ATTENDING/REFERRING PHYSICIAN: Raiza Rodgers MD CHIEF COMPLAINT/HISTORY OF PRESENT ILLNESS: I was asked by Dr. Rodgers to evaluate this 64-year-old gentleman regarding history of a renal mass noted incidentally on CT scan. Briefly, the patient has a history of multiple medical issues including alcohol abuse, diabetes, and coronary artery disease. He presented to the hospital with epigastric abdominal pain. This was associated with nausea and vomiting. A workup on a CT scan revealed evidence of a renal mass versus hemorrhagic cyst. Given the same, I was asked to evaluate the patient. PAST MEDICAL HISTORY: 1. Diabetes. 2. Coronary artery disease. 3. Alcohol abuse. 4. Hypothyroidism. 5. Hepatic disease secondary to alcohol abuse. 6. Depression. MEDICATIONS: Please see the chart for current medications administration details. ALLERGIES: No known drug allergies. SOCIAL HISTORY: Notable for alcohol abuse. FAMILY HISTORY: Noncontributory. REVIEW OF SYSTEMS: A 14-system review of systems unremarkable outside what is described above. PHYSICAL EXAMINATION: GENERAL: The patient is an older [place] gentleman, resting comfortably, in no obvious distress. HEENT: NC/AT. EOMI. Oropharynx clear. NECK: Supple. CHEST: Within normal limits. ABDOMEN: Soft, nontender, nondistended. EXTREMITIES: Warm, well perfused. No cyanosis, clubbing, or edema. BACK: No CVA tenderness to percussion. NEUROLOGIC: Nonfocal. LABORATORY DATA: White blood cell count 17.1, hematocrit 30.4, platelets 46. Sodium 131, potassium 4.9, chloride 96, bicarb 25, BUN 31, creatinine 3.3, glucose 422. Calcium 8.8. LFTs notable for GGT of 154. Urinalysis, specific gravity 1.020, pH 5.0. Dip test notable for 3+ protein, 4+ glucose, 1+ ketones, 5+ occult blood. Microanalysis with 40 to 60 red and too numerous to count white blood cells per high-power field and moderate bacteria seen. DIAGNOSTIC IMAGING: CT scan of the abdomen and pelvis reveals a 10 cm masslike process in the left kidney with surrounding mild hemorrhage suspicious for a hemorrhagic mass/neoplasm, but I think incompletely characterized without contrast. There is evidence of cirrhosis and hepatomegaly and splenomegaly. Renal ultrasound, 10 cm mass like thickening of lower pole of left kidney with surrounding fat stranding. ASSESSMENT AND PLAN: In summary, patient is a 64-year-old diabetic gentleman with a history of alcohol abuse and cirrhosis secondary to same. He presents to the hospital with abdominal pain. Workup for the same revealed evidence of urinary tract infection. The patient has been placed on ceftriaxone for the same. It also reveals a 10 cm mass in the left kidney incompletely characterized with either hemorrhagic cyst or mass due to the lack of contrast. Patient's creatinine is 3.3, and he cannot receive contrast. I will order an MRI without contrast to better evaluate this mass. If it is a hemorrhagic cyst, it can be watched. If it is a solid renal mass, consideration could be taken for eventual radical nephrectomy for the same. Given the patient's comorbidities and overall poor health, this could be done as an outpatient to be set up at a tertiary setting. Additionally, the patient's creatinine is already 3.3 and consideration should be given to the fact that the patient would likely need dialysis after removal his kidney. Thank you for allowing me to participate in the care of this unfortunate gentleman. Please do not hesitate to contact me for any questions that you may further have regarding his care. I will see him with you as needed. Milo Negrete M.D. DR: FERMIN JOB#: [id number] CC:
--- NOTE | 2019-08-29 17:15 | Diagnostic Imaging Report ---
EXAM: MRI MRI Abdomen no Contrast TECHNIQUE: MR examination of the abdomen includes coronal T1 and fat-suppressed T2, axial T1 in and out of phase spoiled gradient sequences, and T2 sequences with and without fat suppression. Coronal 3-D MRCP sequence also obtained. CLINICAL HISTORY: Abdominal pain. Apparent left renal mass on CT and ultrasound. COMPARISON: CT and ultrasound abdomen 08/29/2019 FINDINGS: There is apparent cirrhotic changes of the liver with nodularity of the hepatic contour. No distinct space-occupying mass identified in the liver noted on this nonenhanced scan. There is mild splenomegaly. Varices noted at the splenic hilum and near the gastric fundus. Gallbladder is without sludge or stone. There is no signs of ductal dilatation. The pancreas is unremarkable. Adrenals are normal. Right kidneys unremarkable except for a few small cyst in the lower pole. Left kidney is grossly abnormal as noted on prior ultrasound and CT. There are 2 cysts noted in the left kidney which appear fairly simple. It includes an upper pole cyst which is approximately 5.4 x 3.9 cm. There is another cyst arising exophytically in the posterior lateral aspect at the midpole approximately 4.4 cm. However the lower pole of the left kidney is grossly unremarkable. It is enlarged and bulbous and very heterogeneous in intensity on all sequences. There is adjacent perinephric inflammation. Further characterization is not possible without contrast. There is no signs of bowel distention. No ascites demonstrated. There is no adenopathy noted. Visualized portions of the lumbar spine appear unremarkable. IMPRESSION: FINDINGS BY MRI IS SIMILAR TO THAT NOTED ON PRIOR CT AND ULTRASOUND. THE MID TO LOWER POLE OF THE LEFT KIDNEY IS ABNORMAL. IT APPEARS ENLARGED, BULBOUS AND DIFFUSELY HETEROGENEOUS RESEMBLING A FOCAL MASS. THERE IS SURROUNDING INDURATION NOTED WHICH WAS ALSO SEEN ON CT. FURTHER CHARACTERIZATION IS NOT POSSIBLE WITHOUT CONTRAST. DIFFERENTIAL CONSIDERATIONS ARE CENTRALLY BETWEEN AN AREA OF PYELONEPHRITIS/LOBAR NEPHRONIA OR A FOCAL MASS. SEPARATE SIMPLE CYSTS OF THE LEFT KIDNEY NOTED. RIGHT KIDNEY ALSO CONTAINS SMALL CYSTS. CIRRHOSIS WITH SPLENOMEGALY, SPLENIC VARICES.
--- NOTE | 2019-08-29 17:24 | Diagnostic Imaging Report ---
EXAM: X-RAY XRAY Leg Lower Tib Fib 2v R CLINICAL HISTORY: Leg pain. COMPARISON: None FINDINGS: Total of 2 views of the right tibia and fibula were obtained. Alignment is anatomic. There is no fracture, bony lesions or erosions. Joint spaces are unremarkable. Numerous small vascular clips identified IMPRESSION: NO ACUTE BONY ABNORMALITY.
--- NOTE | 2019-08-29 17:25 | Diagnostic Imaging Report ---
Procedure: XRAY Chest 1v Reason for study: Shortness of breath. Comparison films: 03/29/2019. FINDINGS: A single one view chest is obtained. There is vascular congestion. Hazy densities in the lung bases may be infiltrates or early edema. Cardiomegaly unchanged . There may be small effusions. The bony thorax appear unremarkable. IMPRESSION: Vascular congestion with basilar infiltrate versus early edema. Bilateral small effusions.
[2019-08-29] MEDS ORDERED: Morphine Sulfate 2mg/ml Inj(IV/IM USE ONLY) IVP PRN (17:30)
--- NOTE | 2019-08-29 17:31 | Consultation ---
History of Present Illness General Date patient seen: Aug 29, 2019 Chief Complaint: Abdominal Pain Present Illness Allergies: Coded Allergies: No Known Allergies (Verified , 01/21/19) Medication History Discontinued Medications Aspirin (Aspirin EC), 81 MG ORAL DAILY, (Reported) Discontinued Reason: Medication dose changed Atorvastatin (Lipitor), 80 MG ORAL BEDTIME, (Reported) Discontinued Reason: MD discontinued med Calcium Carbonate/Vitamin D3 (Calcium 500 + Vit D3 400 Tab), 1 EACH PO TWICE A DAY, (Reported) Discontinued Reason: MD discontinued med Carvedilol (Coreg), 3.125 MG ORAL EVERY 12 HOURS, (Reported) Discontinued Reason: Medication dose changed Docusate Sodium* (Docusate Sodium*), 100 MG ORAL TWICE A DAY, (Reported) Discontinued Reason: Medication dose changed Enalapril Maleate* (Enalapril Maleate*), 5 MG ORAL DAILY, (Reported) Discontinued Reason: MD discontinued med Famotidine* (Pepcid 20mg tablet*), 20 MG ORAL TWICE A DAY, (Reported) Discontinued Reason: MD discontinued med Ferrous Sulfate (Iron), 325 MG PO BID, (Reported) Discontinued Reason: MD discontinued med Folic Acid* (Folic Acid*), 1 MG ORAL DAILY, (Reported) Discontinued Reason: Medication dose changed Furosemide* (Lasix*), 40 MG ORAL DAILY, (Reported) Discontinued Reason: MD discontinued med Gabapentin* (Gabapentin*), 600 MG ORAL TWICE A DAY, (Reported) Discontinued Reason: MD discontinued med Glipizide (Glipizide), 5 MG PO DAILY, (Reported) Discontinued Reason: MD discontinued med Hydrocodone Bit/Acetaminophen 5-325* ([place] 5-325*), 1 TAB ORAL Q6H PRN for For Pain, (Reported) Discontinued Reason: MD discontinued med Insulin Aspart (Novolog), 100 UNIT SQ, (Reported) Discontinued Reason: MD discontinued med Insulin Glargine (Lantus), 0 SUBQ BEDTIME, (Reported) Discontinued Reason: MD discontinued med Levothyroxine Sodium* (Synthroid*), 100 MCG ORAL DAILY, (Reported) Discontinued Reason: MD discontinued med Linagliptin/Metformin Hcl (Jentadueto 2.5 Mg-1000 Mg Tab), 1 EACH PO DAILY, ( Reported) Discontinued Reason: MD discontinued med Metformin Hcl* (Metformin Hcl*), 500 MG ORAL TWICE A DAY, (Reported) Discontinued Reason: discontinued med Nateglinide (Nateglinide), 60 MG PO THREE TIMES A DAY, (Reported) Discontinued Reason: MD discontinued med Pantoprazole Sodium (Protonix), 40 MG ORAL DAILY, (Reported) Discontinued Reason: MD discontinued med Sitagliptin (Januvia), 100 MG ORAL DAILY, (Reported) Discontinued Reason: MD discontinued med Spironolactone (Aldactone), 50 MG ORAL DAILY, (Reported) Discontinued Reason: MD discontinued med Tramadol Hcl* (Ultram*), 50 MG ORAL DAILY PRN for For Pain, (Reported) Discontinued Reason: MD discontinued med Zinc Sulfate (Zinc Sulfate*), 220 MG ORAL DAILY, (Reported) Discontinued Reason: MD discontinued med Patient History Healthcare decision maker Resuscitation status Advanced Directive on File Physical Exam Last 24 Hour Vital Signs Date Time Temp Pulse Resp B/P (MAP) Pulse Ox O2 Delivery O2 Flow Rate FiO2 08/29/19 12:00 99.5 115 20 128/73 (91) 94 08/29/19 11:29 99.5 08/29/19 09:00 Room Air 08/29/19 08:00 98.5 95 20 143/64 (90) 96 08/29/19 04:00 98.2 79 20 133/83 (100) 98 08/29/19 03:28 Room Air 08/29/19 02:23 98.3 98 13 125/63 99 Room Air 08/29/19 01:53 98.3 08/29/19 01:34 98.3 98 13 125/63 99 Room Air 08/29/19 00:38 98.3 08/29/19 00:05 94 22 Room Air 08/29/19 00:05 98.2 94 22 115/63 94 Room Air 08/28/19 23:44 98.2 94 22 115/63 (80) 94 Room Air Intake and Output 08/28/19 08/29/19 19:00 07:00 Intake Total 360 ml Balance 360 ml Intake Oral 360 ml Laboratory Tests Test 08/29/19 00:05 08/29/19 00:50 08/29/19 08:25 White Blood Count 18.0 K/UL (4.8-10.8) H 17.1 K/UL (4.8-10.8) H Red Blood Count 3.15 M/UL (4.70-6.10) L 2.99 M/UL (4.70-6.10) L Hemoglobin 11.2 G/DL (14.2-18.0) L 10.1 G/DL (14.2-18.0) L Hematocrit 32.1 % (42.0-52.0) L 30.4 % (42.0-52.0) L Mean Corpuscular Volume 102 FL (80-99) H 102 FL (80-99) H Mean Corpuscular Hemoglobin 35.4 PG (27.0-31.0) H 33.6 PG (27.0-31.0) H Mean Corpuscular Hemoglobin Concent 34.8 G/DL (32.0-36.0) 33.1 G/DL (32.0-36.0) Red Cell Distribution Width 14.1 % (11.6-14.8) 14.1 % (11.6-14.8) Platelet Count 56 K/UL (150-450) L 46 K/UL (150-450) L Mean Platelet Volume 10.1 FL (6.5-10.1) 9.8 FL (6.5-10.1) Neutrophils (%) (Auto) % (45.0-75.0) % (45.0-75.0) Lymphocytes (%) (Auto) % (20.0-45.0) % (20.0-45.0) Monocytes (%) (Auto) % (1.0-10.0) % (1.0-10.0) Eosinophils (%) (Auto) % (0.0-3.0) % (0.0-3.0) Basophils (%) (Auto) % (0.0-2.0) % (0.0-2.0) Differential Total Cells Counted 100 100 Neutrophils % (Manual) 78 % (45-75) H 91 % (45-75) H Lymphocytes % (Manual) 7 % (20-45) L 2 % (20-45) L Monocytes % (Manual) 5 % (1-10) 5 % (1-10) Eosinophils % (Manual) 0 % (0-3) 0 % (0-3) Basophils % (Manual) 0 % (0-2) 0 % (0-2) Band Neutrophils 10 % (0-8) H 2 % (0-8) Platelet Estimate Adequate Decreased L Platelet Morphology Normal Normal Sodium Level 131 MMOL/L (136-145) L Potassium Level 4.9 MMOL/L (3.5-5.1) Chloride Level 96 MMOL/L (98-107) L Carbon Dioxide Level 25 MMOL/L (21-32) Anion Gap 10 mmol/L (5-15) Blood Urea Nitrogen 31 mg/dL (7-18) H Creatinine 3.3 MG/DL (0.55-1.30) H Estimat Glomerular Filtration Rate 18.9 mL/min (>60) Glucose Level 422 MG/DL (74-106) H Calcium Level 8.8 MG/DL (8.5-10.1) Total Bilirubin 1.5 MG/DL (0.2-1.0) H Direct Bilirubin 0.6 MG/DL (0.0-0.3) H Aspartate Amino Transf (AST/SGOT) 39 U/L (15-37) H Alanine Aminotransferase (ALT/SGPT) 20 U/L (12-78) Alkaline Phosphatase 118 U/L (46-116) H Total Protein 6.2 G/DL (6.4-8.2) L Albumin 2.0 G/DL (3.4-5.0) L Globulin 4.2 g/dL Albumin/Globulin Ratio 0.5 (1.0-2.7) L Lipase 424 U/L (73-393) H Urine Color Yellow Urine Appearance Cloudy Urine pH 5 (4.5-8.0) Urine Specific [place] 1.020 (1.005-1.035) Urine Protein 3+ (NEGATIVE) H Urine Glucose (UA) 4+ (NEGATIVE) H Urine Ketones 1+ (NEGATIVE) H Urine Blood 5+ (NEGATIVE) H Urine Nitrite Negative (NEGATIVE) Urine Bilirubin Negative (NEGATIVE) Urine Urobilinogen Normal MG/DL (0.0-1.0) Urine Leukocyte Esterase 3+ (NEGATIVE) H Urine RBC 40-60 /HPF (0 - 0) H Urine WBC Tntc /HPF (0 - 0) H Urine Squamous Epithelial Cells None /LPF (NONE/OCC) Urine Bacteria Moderate /HPF (NONE) H Anisocytosis 1+ Macrocytosis 1+ Uric Acid 6.7 MG/DL (2.6-7.2) Phosphorus Level 2.4 MG/DL (2.5-4.9) L Magnesium Level 1.9 MG/DL (1.8-2.4) Iron Level 13 ug/dL (50-175) L Total Iron Binding Capacity 224 ug/dL (250-450) L Percent Iron Saturation 6 % (15-50) L Unsaturated Iron Binding 211 ug/dL (112-346) Ferritin 223 NG/ML (8-388) Gamma Glutamyl Transpeptidase 154 U/L (5-85) H C-Reactive Protein, Quantitative 22.8 mg/dL (0.00-0.90) H Pro-B-Type Natriuretic Peptide 73987 pg/mL (0-125) H Vitamin B12 Level > 2000 PG/ML (193-986) H Folate 34.7 NG/ML (8.6-58.9) Thyroid Stimulating Hormone (TSH) 1.020 uiU/mL (0.358-3.740) Microbiology Date/Time Source Procedure Growth Status 08/29/19 02:00 Rectum Received Height (Feet): 5 Height (Inches): 11.00 Weight (Pounds): 213 Medications Current Medications Medications (Trade) Dose Ordered Sig/Alfredo Route PRN Reason Start Time Stop Time Status Last Admin Dose Admin Acetaminophen (Tylenol) 500 mg Q4H PRN ORAL Mild Pain (Pain Scale 1-3) 08/29/19 06:45 09/28/19 06:44 08/29/19 10:59 Ceftriaxone Sodium 1 gm/ Dextrose 55 ml @ 110 mls/hr Q24H IVPB 08/30/19 10:00 09/06/19 09:59 Dextrose (Dextrose 50%) 25 ml Q30M PRN IV Hypoglycemia 08/29/19 07:30 11/27/19 07:29 Dextrose (Dextrose 50%) 50 ml Q30M PRN IV Hypoglycemia 08/29/19 07:30 11/27/19 07:29 Insulin Aspart (NovoLOG) BEFORE MEALS AND HS SUBQ 08/29/19 11:30 11/27/19 11:29 08/29/19 17:10 Insulin Detemir (Levemir) 15 units DAILY SUBQ 08/29/19 09:00 11/27/19 08:59 08/29/19 09:48 Levothyroxine Sodium (Synthroid) 50 mcg DAILY IV 08/30/19 09:00 09/29/19 08:59 Metoclopramide HCl (Reglan) 10 mg Q6H IVP 08/29/19 10:00 09/28/19 09:59 08/29/19 17:09 Morphine Sulfate (Morphine Sulfate) 2 mg Q4H PRN IVP Severe Pain (Pain Scale 7-10) 08/29/19 17:30 09/05/19 17:29 UNV Ondansetron HCl (Zofran) 4 mg Q6H PRN IVP Nausea & Vomiting 08/29/19 09:45 09/28/19 09:44 08/29/19 10:02 Pantoprazole (Protonix) 40 mg EVERY 12 HOURS IVP 08/29/19 10:15 09/28/19 10:14 08/29/19 10:27 Potassium Chloride 10 meq/ Dextrose/Sodium Chloride 1,005 ml @ 75 mls/hr [id number] IV 08/29/19 11:00 09/28/19 10:59 08/29/19 11:07 Assessment/Plan Assessment/Plan: (1) Abdominal pain (2) Liver cirrhosis (3) Left kidney mass Seen dictated Irvin Ramos Aug 29, 2019 17:31
--- NOTE | 2019-08-29 18:44 | Consultation ---
DATE OF CONSULTATION: 08/29/2019 ENDOCRINOLOGY CONSULTATION CONSULTING PHYSICIAN: Sascha Oleary MD. REFERRING PHYSICIAN: Raiza Rodgers MD. REASON FOR CONSULTATION: Diabetes management. HISTORY OF PRESENT ILLNESS: The patient is a 64-year-old male with history of alcoholism, liver cirrhosis due to alcohol, chronic kidney disease, hypercalcemia, renal cyst, and diabetes as well as hypothyroidism, who presented to the hospital with abdominal pain. The patient's glucose was elevated and was admitted to the floor for observation and treatment. Therefore, Endocrinology was consulted. MEDICATIONS: Reviewed and reconciled. PAST MEDICAL HISTORY: Hypothyroidism, abdominal pain, alcoholism, and coronary artery disease. SOCIAL HISTORY: Alcoholism. He is from jail facility. FAMILY HISTORY: Noncontributory. REVIEW OF SYSTEMS: As per HPI. LABORATORY VALUES: WBC 18, hemoglobin 11, hematocrit 32, and platelets of 56,000. Sodium 131, potassium 4.9, chloride 196, bicarb 25, BUN 30, creatinine 3.3, glucose of 422. Lipase of 424. CT scan revealed a 10-cm mass suggestive of hemorrhagic versus neoplasm, which was not completely characterized without contrast. Also, there is evidence of cirrhosis and splenomegaly. PHYSICAL EXAMINATION: VITAL SIGNS: BP 133/82, heart rate 75, and temperature 98.3. HEENT: Pupils are equal and reactive to light. Sclerae are anicteric. NECK: No JVD. HEART: Regular. LUNGS: Clear. ABDOMEN: Positive bowel sounds. EXTREMITIES: Positive for edema. DIAGNOSES: 1. Diabetes, out of control. 2. Hypothyroidism. 3. Pancreatitis. 4. Cirrhosis. DISCUSSION: 1. Resume levothyroxine 100 mcg daily. Recent TSH 3 days ago was normal. 2. Start basal bolus insulin, Levemir, and NovoLog for diabetic management. 3. Hold oral diabetic agents. 4. I will follow the patient closely during hospital stay. Thank you, Dr. Rodgers, for the courtesy of this consultation. Sascha Oleary M.D. DR: KATHY JOB#: [id number] CC:
--- NOTE | 2019-08-29 19:45 | Consultation ---
DATE OF CONSULTATION: 08/29/2019 INFECTIOUS DISEASE CONSULT ATTENDING PHYSICIAN: Raiza Rodgers M.D. REASON FOR CONSULT: UTI. HISTORY OF PRESENT ILLNESS: This is a 64-year-old male admitted today from a [facility] because of abdominal pain in the epigastric area that was 9/10, sharp, nausea, vomiting. Currently, the patient is vomiting fresh blood, who was found to have renal failure, hematuria, pyuria. PAST MEDICAL HISTORY: Had history of hypertension, diabetes mellitus, alcohol abuse, major depression, anemia, thrombocytopenia, cirrhosis, coronary artery disease, status post bypass. ALLERGIES: No known drug allergies. MEDICATIONS: Levothyroxine, insulin, potassium chloride, got a dose of ceftriaxone, Protonix, Reglan, Zofran, Tylenol, Levemir insulin. SOCIAL HISTORY: , [facility] resident, originally from [place]. Denies current smoking, alcohol, or drug abuse. REVIEW OF SYSTEMS: Limited. No fever. No chills. Vomiting blood. Thinks that urine has become red in the recent days. Was ambulating before and had a fall and had a bruise in the right leg. PHYSICAL EXAMINATION: VITAL SIGNS: Temperature 98.5, pulse 95, blood pressure 143/64. GENERAL APPEARANCE: Seems to have normal weight. HEAD AND NECK: [place] conjunctivae. HEART: Normal rate. LUNGS: Had some rhonchi bilaterally. BREASTS: Have some gynecomastia. ABDOMEN: Distended, soft. EXTREMITIES: Edema in the right leg. Has bruise in the right leg. LABORATORY AND DIAGNOSTIC DATA: WBC today is 17.1, coming from 18, hemoglobin 10.1, hematocrit 30.4, platelets 46,000. Bilirubin is 1.5. Sodium 131, potassium 4.9, chloride 96, bicarbonate 25, BUN 31, creatinine 3.3, glucose 422, AST 39, ALT 28, alkaline phosphatase is 118, albumin 2, lipase more than 2000. CT scan of the abdomen and pelvis showed left kidney shows 10 cm mass-like process , suspicious of hemorrhagic mass or neoplasm, cirrhosis, splenomegaly, mild hiatal hernia,esophageal thickening likely esophagitis. UA showed leukocyte esterase 2+, rbc's 40-60, wbc's too numerous to count. IMPRESSION: Pyuria, hematuria, renal mass, may also have an additional UTI, acute renal failure, on chronic kidney disease, diabetes mellitus with hyperglycemia, cirrhosis, splenomegaly, hypertension, anemia, thrombocytopenia, hypothyroidism, history of major depression. RECOMMENDATION: Continue ceftriaxone. We will follow up the culture. At the end of my exam, I thank Dr. Rodgers for involving me in the care of this patient. Andry Noble M.D. DR: CIARAN JOB#: [id number] CC: HAI
--- NOTE | 2019-08-29 19:57 | Cardiology Progress Note ---
Assessment/Plan Assessment/Plan The patient is seen and examined, full consult note will be provided shortly. Objective Last 24 Hour Vital Signs Date Time Temp Pulse Resp B/P (MAP) Pulse Ox O2 Delivery O2 Flow Rate FiO2 08/29/19 19:43 Room Air 08/29/19 16:00 96.1 92 16 104/65 (78) 96 08/29/19 12:00 99.5 115 20 128/73 (91) 94 08/29/19 11:29 99.5 08/29/19 09:00 Room Air 08/29/19 08:00 98.5 95 20 143/64 (90) 96 08/29/19 04:00 98.2 79 20 133/83 (100) 98 08/29/19 03:28 Room Air 08/29/19 02:23 98.3 98 13 125/63 99 Room Air 08/29/19 01:53 98.3 08/29/19 01:34 98.3 98 13 125/63 99 Room Air 08/29/19 00:38 98.3 08/29/19 00:05 94 22 Room Air 08/29/19 00:05 98.2 94 22 115/63 94 Room Air 08/28/19 23:44 98.2 94 22 115/63 (80) 94 Room Air Intake and Output 08/28/19 08/29/19 19:00 07:00 Intake Total 360 ml Balance 360 ml Intake Oral 360 ml Laboratory Tests Test 08/29/19 00:05 08/29/19 00:50 08/29/19 08:25 08/29/19 18:10 White Blood Count 18.0 K/UL (4.8-10.8) H 17.1 K/UL (4.8-10.8) H Red Blood Count 3.15 M/UL (4.70-6.10) L 2.99 M/UL (4.70-6.10) L Hemoglobin 11.2 G/DL (14.2-18.0) L 10.1 G/DL (14.2-18.0) L Hematocrit 32.1 % (42.0-52.0) L 30.4 % (42.0-52.0) L Mean Corpuscular Volume 102 FL (80-99) H 102 FL (80-99) H Mean Corpuscular Hemoglobin 35.4 PG (27.0-31.0) H 33.6 PG (27.0-31.0) H Mean Corpuscular Hemoglobin Concent 34.8 G/DL (32.0-36.0) 33.1 G/DL (32.0-36.0) Red Cell Distribution Width 14.1 % (11.6-14.8) 14.1 % (11.6-14.8) Platelet Count 56 K/UL (150-450) L 46 K/UL (150-450) L Mean Platelet Volume 10.1 FL (6.5-10.1) 9.8 FL (6.5-10.1) Neutrophils (%) (Auto) % (45.0-75.0) % (45.0-75.0) Lymphocytes (%) (Auto) % (20.0-45.0) % (20.0-45.0) Monocytes (%) (Auto) % (1.0-10.0) % (1.0-10.0) Eosinophils (%) (Auto) % (0.0-3.0) % (0.0-3.0) Basophils (%) (Auto) % (0.0-2.0) % (0.0-2.0) Differential Total Cells Counted 100 100 Neutrophils % (Manual) 78 % (45-75) H 91 % (45-75) H Lymphocytes % (Manual) 7 % (20-45) L 2 % (20-45) L Monocytes % (Manual) 5 % (1-10) 5 % (1-10) Eosinophils % (Manual) 0 % (0-3) 0 % (0-3) Basophils % (Manual) 0 % (0-2) 0 % (0-2) Band Neutrophils 10 % (0-8) H 2 % (0-8) Platelet Estimate Adequate Decreased L Platelet Morphology Normal Normal Sodium Level 131 MMOL/L (136-145) L Potassium Level 4.9 MMOL/L (3.5-5.1) Chloride Level 96 MMOL/L (98-107) L Carbon Dioxide Level 25 MMOL/L (21-32) Anion Gap 10 mmol/L (5-15) Blood Urea Nitrogen 31 mg/dL (7-18) H Creatinine 3.3 MG/DL (0.55-1.30) H Estimat Glomerular Filtration Rate 18.9 mL/min (>60) Glucose Level 422 MG/DL (74-106) H Calcium Level 8.8 MG/DL (8.5-10.1) Total Bilirubin 1.5 MG/DL (0.2-1.0) H Direct Bilirubin 0.6 MG/DL (0.0-0.3) H Aspartate Amino Transf (AST/SGOT) 39 U/L (15-37) H Alanine Aminotransferase (ALT/SGPT) 20 U/L (12-78) Alkaline Phosphatase 118 U/L (46-116) H Total Protein 6.2 G/DL (6.4-8.2) L Albumin 2.0 G/DL (3.4-5.0) L Globulin 4.2 g/dL Albumin/Globulin Ratio 0.5 (1.0-2.7) L Lipase 424 U/L (73-393) H Urine Color Yellow Urine Appearance Cloudy Urine pH 5 (4.5-8.0) Urine Specific [place] 1.020 (1.005-1.035) Urine Protein 3+ (NEGATIVE) H Urine Glucose (UA) 4+ (NEGATIVE) H Urine Ketones 1+ (NEGATIVE) H Urine Blood 5+ (NEGATIVE) H Urine Nitrite Negative (NEGATIVE) Urine Bilirubin Negative (NEGATIVE) Urine Urobilinogen Normal MG/DL (0.0-1.0) Urine Leukocyte Esterase 3+ (NEGATIVE) H Urine RBC 40-60 /HPF (0 - 0) H Urine WBC Tntc /HPF (0 - 0) H Urine Squamous Epithelial Cells None /LPF (NONE/OCC) Urine Bacteria Moderate /HPF (NONE) H Anisocytosis 1+ Macrocytosis 1+ Uric Acid 6.7 MG/DL (2.6-7.2) Phosphorus Level 2.4 MG/DL (2.5-4.9) L Magnesium Level 1.9 MG/DL (1.8-2.4) Iron Level 13 ug/dL (50-175) L Total Iron Binding Capacity 224 ug/dL (250-450) L Percent Iron Saturation 6 % (15-50) L Unsaturated Iron Binding 211 ug/dL (112-346) Ferritin 223 NG/ML (8-388) Gamma Glutamyl Transpeptidase 154 U/L (5-85) H C-Reactive Protein, Quantitative 22.8 mg/dL (0.00-0.90) H Pro-B-Type Natriuretic Peptide 71885 pg/mL (0-125) H Vitamin B12 Level > 2000 PG/ML (193-986) H Folate 34.7 NG/ML (8.6-58.9) Thyroid Stimulating Hormone (TSH) 1.020 uiU/mL (0.358-3.740) Troponin I 0.001 ng/mL (0.000-0.056) Microbiology Date/Time Source Procedure Growth Status 08/29/19 02:00 Rectum Received Gabino Castillo MD Aug 29, 2019 19:57
--- NOTE | 2019-08-29 22:25 | Initial Psychiatric Evaluation ---
Psychiatry Consultation Psychiatry Consultation Chief Complaint: Abdominal Pain Allergies: Coded Allergies: No Known Allergies (Verified , 01/21/19) Medication History Discontinued Medications Aspirin (Aspirin EC), 81 MG ORAL DAILY, (Reported) Discontinued Reason: Medication dose changed Atorvastatin (Lipitor), 80 MG ORAL BEDTIME, (Reported) Discontinued Reason: MD discontinued med Calcium Carbonate/Vitamin D3 (Calcium 500 + Vit D3 400 Tab), 1 EACH PO TWICE A DAY, (Reported) Discontinued Reason: MD discontinued med Carvedilol (Coreg), 3.125 MG ORAL EVERY 12 HOURS, (Reported) Discontinued Reason: Medication dose changed Docusate Sodium* (Docusate Sodium*), 100 MG ORAL TWICE A DAY, (Reported) Discontinued Reason: Medication dose changed Enalapril Maleate* (Enalapril Maleate*), 5 MG ORAL DAILY, (Reported) Discontinued Reason: MD discontinued med Famotidine* (Pepcid 20mg tablet*), 20 MG ORAL TWICE A DAY, (Reported) Discontinued Reason: MD discontinued med Ferrous Sulfate (Iron), 325 MG PO BID, (Reported) Discontinued Reason: MD discontinued med Folic Acid* (Folic Acid*), 1 MG ORAL DAILY, (Reported) Discontinued Reason: Medication dose changed Furosemide* (Lasix*), 40 MG ORAL DAILY, (Reported) Discontinued Reason: MD discontinued med Gabapentin* (Gabapentin*), 600 MG ORAL TWICE A DAY, (Reported) Discontinued Reason: MD discontinued med Glipizide (Glipizide), 5 MG PO DAILY, (Reported) Discontinued Reason: MD discontinued med Hydrocodone Bit/Acetaminophen 5-325* ([place] 5-325*), 1 TAB ORAL Q6H PRN for For Pain, (Reported) Discontinued Reason: MD discontinued med Insulin Aspart (Novolog), 100 UNIT SQ, (Reported) Discontinued Reason: MD discontinued med Insulin Glargine (Lantus), 0 SUBQ BEDTIME, (Reported) Discontinued Reason: MD discontinued med Levothyroxine Sodium* (Synthroid*), 100 MCG ORAL DAILY, (Reported) Discontinued Reason: MD discontinued med Linagliptin/Metformin Hcl (Jentadueto 2.5 Mg-1000 Mg Tab), 1 EACH PO DAILY, ( Reported) Discontinued Reason: MD discontinued med Metformin Hcl* (Metformin Hcl*), 500 MG ORAL TWICE A DAY, (Reported) Discontinued Reason: MD discontinued med Nateglinide (Nateglinide), 60 MG PO THREE TIMES A DAY, (Reported) Discontinued Reason: discontinued med Pantoprazole Sodium (Protonix), 40 MG ORAL DAILY, (Reported) Discontinued Reason: discontinued med Sitagliptin (Januvia), 100 MG ORAL DAILY, (Reported) Discontinued Reason: discontinued med Spironolactone (Aldactone), 50 MG ORAL DAILY, (Reported) Discontinued Reason: discontinued med Tramadol Hcl* (Ultram*), 50 MG ORAL DAILY PRN for For Pain, (Reported) Discontinued Reason: discontinued med Zinc Sulfate (Zinc Sulfate*), 220 MG ORAL DAILY, (Reported) Discontinued Reason: MD discontinued med Objective Data Height (Feet): 5 Height (Inches): 11.00 Weight (Pounds): 213 Whitley Castro MD Aug 29, 2019 22:25
[2019-08-29] MEDS ORDERED: LORazepam 0.5mg tab ORAL PRN (22:30)
--- NOTE | 2019-08-29 23:45 | History and Physical Report ---
DATE OF ADMISSION: 08/29/2019 HISTORY OF PRESENT ILLNESS: The patient has multiple medical problems, is lethargic, altered mental status. The patient also has renal mass. Apparently had also been admitted for UTI and acute renal failure. The patient also has a history of CABG, has history of alcohol abuse. Apparently, comes from a facility. Also, has a low platelet and acute renal failure, elevated sugar of greater than 400, elevated lipase, also has pancreatitis. Apparently has a 10 cm left renal mass on the CT and is edematous and also has ecchymoses in the left arm and the right capps and is more confused than baseline, very ill patient. We will monitor the patient very closely. The patient also is very weak and complains of generalized weakness. Denies chest pain. Denies shortness of breath. Denies cough. Denies fever or chills. However, he is a poor historian, cannot rely upon his history. PAST MEDICAL HISTORY: Apparently, the patient has a history of cirrhosis of the liver, CHF, chronic back syndrome, thrombocytopenia, NIDDM, chronic renal insufficiency, anemia, hypothyroidism, anemia, CAD as well chronic back pain. PAST SURGICAL HISTORY: Hip surgery, back surgery, CABG. ALLERGIES: No known allergies. FAMILY HISTORY: Noncontributory. MEDICATIONS: Cannot tell me the names of medications, but apparently the patient takes Levemir as well as Protonix as well as Levoxyl, but does not know the dosages, very confused. The patient is confused. REVIEW OF SYSTEMS: Unable to obtain due to the patient's confusion. SOCIAL HISTORY: Denies history of smoking. Denies history of drug abuse. No history of alcohol abuse. PHYSICAL EXAMINATION: VITAL SIGNS: Temperature is 98.2, pulse is 79, blood pressure is 132/83. HEENT: PERRLA. NECK: Supple. No lymphadenopathy. CHEST: Clear to auscultation. CARDIOVASCULAR: Does have murmur, which is chronic. ABDOMEN: Positive bowel sounds. No organomegaly. Abdomen is soft. EXTREMITIES: The patient has ecchymosis in the left arm as well as right capps, but has edema throughout. The patient has anasarca. NEUROLOGIC: Very confused. Reflexes are on both sides. Dorsalis pedis pulses are present. LABORATORY DATA: WBC of 18, hemoglobin of 11.2, and platelets of 56. Sodium 131, potassium of 4.9, BUN of 31, creatinine of 3.3, glucose of 422. AST of 39, ALT of 20, alkaline phosphatase of 118. Total bilirubin of 1.5. Lipase of 424. ASSESSMENT AND PLAN: Pancreatitis, altered mental status, acute renal failure, dehydration, UTI, and CAD. We will check for troponin and I have also consulted Dr. Castillo, Dr. Jake Briones, Dr. Mcdonald, Dr. Vargas, Dr. Negrete, Dr. Andry Noble, Dr. Wilhelm, Dr. Castro, and Dr. Oleary for the above-mentioned abnormalities and symptoms and abnormal findings as well as abnormal laboratory and abnormal imaging, and abnormal symptoms. The patient is very ill. We would order troponin as well and consulted Dr. Castillo, and I have also consulted Dr. Jake Briones, Dr. Milo Negrete for the renal mass workup and Dr. Vargas has been consulted for basically cirrhosis and elevated LFT workup and failure to thrive and also Dr. Briones has also been consulted for the low platelets and Dr. Andry Noble for the urinary tract infection, and Dr. Wilhelm has been consulted for IV fluids for his severe dehydration. Dr. Castro for his agitation has been consulted. The patient is very agitated at times and Dr. Oleary has been consulted because of his labile diabetes. We will monitor this patient very closely. Raiza Rodgers M.D. DR: DAVID JOB#: [id number] CC:
[2019-08-30] VITALS: BP 104/53
[2019-08-30] MEDS: Acetaminophen 500mg (ES) tab ORAL PRN ×2 (01:06→11:12)
[2019-08-30] MEDS ORDERED: Morphine Sulfate 2mg/ml Inj(IV/IM USE ONLY) IVP PRN (01:30)
[2019-08-30 04:00] VITALS: BP 98/53
[2019-08-30] MEDS: Metoclopramide 10mg/2ml Inj IVP SCH ×5 (04:20→22:04)
[2019-08-30] MEDS: NovoLOG Insulin Flexpen SUBQ SCH ×5 (06:43→21:00)
--- NOTE | 2019-08-30 06:45 | General Progress Note ---
Assessment/Plan Problem List: (1) Chronic back pain ICD Codes: M54.9 - Dorsalgia, unspecified; G89.29 - Other chronic pain SNOMED: 622567173 (2) Cirrhosis of liver ICD Codes: K74.60 - Unspecified cirrhosis of liver SNOMED: 84797027 Qualifiers: Qualified Codes: K70.30 - Alcoholic cirrhosis of liver without ascites (3) Thrombocytopenia ICD Codes: D69.6 - Thrombocytopenia, unspecified SNOMED: 550106707, 94999282 (4) Hyperglycemia due to type 2 diabetes mellitus ICD Codes: E11.65 - Type 2 diabetes mellitus with hyperglycemia SNOMED: 751665624337789, 52030665 Qualifiers: Qualified Codes: E11.65 - Type 2 diabetes mellitus with hyperglycemia (5) Renal mass, left ICD Codes: N28.89 - Other specified disorders of kidney and ureter SNOMED: 490768860, 45037821 (6) Hypothyroid ICD Codes: E03.9 - Hypothyroidism, unspecified SNOMED: 84904900 Assessment/Plan: change Levemir to 12 units bid continue Novolog sliding scale ac / hs hypoglycemia protocol in order continue Levothyroxine 50 mcg IV daily Subjective ROS Limited/Unobtainable: Yes Allergies: Coded Allergies: No Known Allergies (Verified , 01/21/19) Subjective events noted glucose values improved but still on higher side he is NPO Item Value Date Time Bedside Blood Glucose 221 mg/dl H 08/29/19 2018 Bedside Blood Glucose 246 mg/dl H 08/29/19 1710 Bedside Blood Glucose 338 mg/dl H 08/29/19 1212 Bedside Blood Glucose 305 mg/dl H 08/29/19 0948 Bedside Blood Glucose 433 mg/dl H 08/29/19 0147 Objective Last 24 Hour Vital Signs Date Time Temp Pulse Resp B/P (MAP) Pulse Ox O2 Delivery O2 Flow Rate FiO2 08/30/19 04:00 96 08/30/19 01:36 97.2 08/30/19 00:00 101.8 111 21 104/53 (70) 95 08/30/19 00:00 121 08/29/19 22:20 Room Air 08/29/19 21:40 105 08/29/19 20:00 97.0 88 17 104/65 (78) 97 08/29/19 19:43 Room Air 08/29/19 16:00 96.1 92 16 104/65 (78) 96 08/29/19 12:00 99.5 115 20 128/73 (91) 94 08/29/19 11:29 99.5 08/29/19 09:00 Room Air 08/29/19 08:00 98.5 95 20 143/64 (90) 96 Intake and Output 08/29/19 08/30/19 19:00 07:00 Intake Total 400 ml Balance 400 ml Intake Oral 120 ml IV Total 280 ml # Voids 4 Laboratory Tests 08/29/19 08:25: White Blood Count 17.1H, Red Blood Count 2.99L, Hemoglobin 10.1L, Hematocrit 30.4L, Mean Corpuscular Volume 102H, Mean Corpuscular Hemoglobin 33.6H, Mean Corpuscular Hemoglobin Concent 33.1, Red Cell Distribution Width 14.1, Platelet Count 46L, Mean Platelet Volume 9.8, Neutrophils (%) (Auto) , Lymphocytes (%) ( Auto) , Monocytes (%) (Auto) , Eosinophils (%) (Auto) , Basophils (%) (Auto) , Differential Total Cells Counted 100, Neutrophils % (Manual) 91H, Lymphocytes % (Manual) 2L, Monocytes % (Manual) 5, Eosinophils % (Manual) 0, Basophils % ( Manual) 0, Band Neutrophils 2, Platelet Estimate DecreasedL, Platelet Morphology Normal, Anisocytosis 1+, Macrocytosis 1+, Uric Acid 6.7, Phosphorus Level 2.4L, Magnesium Level 1.9, Iron Level 13L, Total Iron Binding Capacity 224L, Percent Iron Saturation 6L, Unsaturated Iron Binding 211, Ferritin 223, Gamma Glutamyl Transpeptidase 154H, C-Reactive Protein, Quantitative 22.8H, Pro- B-Type Natriuretic Peptide 33634D, Vitamin B12 Level > 2000H, Folate 34.7, Thyroid Stimulating Hormone (TSH) 1.020 08/29/19 18:10: Troponin I 0.001 Height (Feet): 5 Height (Inches): 11.00 Weight (Pounds): 213 General Appearance: lethargic Neck: normal alignment Cardiovascular: regular rhythm Respiratory/Chest: lungs clear Abdomen: distended Objective Current Medications Medications (Trade) Dose Ordered Sig/Alfredo Route PRN Reason Start Time Stop Time Status Last Admin Dose Admin Acetaminophen (Tylenol) 500 mg Q4H PRN ORAL Mild Pain (Pain Scale 1-3) 08/29/19 22:45 09/28/19 06:44 08/30/19 01:06 Ceftriaxone Sodium 1 gm/ Dextrose 55 ml @ 110 mls/hr Q24H IVPB 08/30/19 10:00 09/06/19 09:59 Dextrose (Dextrose 50%) 25 ml Q30M PRN IV Hypoglycemia 08/29/19 22:30 11/27/19 07:29 Dextrose (Dextrose 50%) 50 ml Q30M PRN IV Hypoglycemia 08/29/19 22:30 11/27/19 07:29 Insulin Aspart (NovoLOG) BEFORE MEALS AND HS SUBQ 08/30/19 06:30 11/27/19 11:29 Insulin Detemir (Levemir) 15 units DAILY SUBQ 08/30/19 09:00 11/27/19 08:59 Levothyroxine Sodium (Synthroid) 50 mcg DAILY IV 08/30/19 09:00 09/29/19 08:59 Lorazepam (Ativan) 2 mg Q6H PRN ORAL For Anxiety 08/29/19 22:30 09/05/19 22:29 Metoclopramide HCl (Reglan) 5 mg Q6H IVP 08/30/19 04:00 09/28/19 09:59 08/30/19 04:20 Morphine Sulfate (Morphine Sulfate) 2 mg Q4H PRN IVP Severe Pain (Pain Scale 7-10) 08/30/19 01:30 09/05/19 17:29 Ondansetron HCl (Zofran) 4 mg Q6H PRN IVP Nausea & Vomiting 08/30/19 03:45 09/28/19 09:44 Pantoprazole (Protonix) 40 mg EVERY 12 HOURS IVP 08/30/19 09:00 09/28/19 10:14 Potassium Chloride 10 meq/ Dextrose/Sodium Chloride 1,005 ml @ 75 mls/hr [id number] IV 08/29/19 22:15 09/28/19 10:59 08/29/19 22:15 Sascha Oleary MD Aug 30, 2019 06:45
--- NOTE | 2019-08-30 06:59 | Hematology/Onc Progress Note ---
Assessment/Plan Assessment/Plan Assessment and Recs # Left kidney contains a 10 cm masslike process with surrounding mild hemorrhage. Suspicious for a hemorrhaging mass/neoplasm, incompletely characterized without contrast. --> likely as per uro will need a nephrectomy --> after that may need immunotherapy based on staging for senior care survival improvement --> cxr reviewed as well, does not appear to have mets --> uro recs # Pancytopenia -- multiple etiologies could be related to underlying liver disease, medication-induced, likely in this case is due to underlying liver cirrhosis, from etoh use --> peripheral smear has been ordered and does not show significant abnormalities-> none noted --> Medications have been reviewed --> Continue to monitor for improvement, trend cbc --> Hep panel and HIV have been ordered --> US abd ordered to r/o cirrhosis and hepatosplenomegaly --> reverse isolation if ANC is <2000 --> Give neupogen if ANC <1000 --> Transfuse if hgb <7, with 1 unit prbc --> consider bone marrow biopsy if no other causes are found --> plt trend 56-->46 # Transaminitis likely from liver disease --> etoh use cessation recommended, though inconsistehistory # Leukocytosis, evidence of UTI --> per id care # High lipase # Cirrhosis, splenomegaly per CT scan # Hyperbilirubinemia # Dvt ppx scds The timing of this note does not necessarily reflect the time of the patient was seen. Greatly appreciate consultation. Subjective HEENT: Denies: no symptoms, eye pain, blurred vision, tearing, double vision, ear pain, ear discharge, nose pain, nose congestion, throat pain, throat swelling, mouth pain, mouth swelling, other Cardiovascular: Denies: no symptoms, chest pain, edema, irregular heart rate, lightheadedness, palpitations, syncope, other Respiratory: Denies: no symptoms, cough, shortness of breath, SOB with excertion, SOB at rest, sputum, wheezing, other Gastrointestinal/Abdominal: Denies: no symptoms, abdomen distended, abdominal pain, black stools, tarry stools, blood in stool, constipated, diarrhea, difficulty swallowing, nausea, poor appetite, poor fluid intake, rectal bleeding , vomiting, other Genitourinary: Denies: no symptoms, burning, discharge, frequency, flank pain, hematuria, incontinence, pain, urgency, other Neurologic/Psychiatric: Denies: no symptoms, anxiety, depressed, emotional problems, headache, numbness, paresthesia, pre-existing deficit, seizure, tingling, tremors, weakness, other Endocrine: Denies: no symptoms, excessive sweating, flushing, intolerance to cold, intolerance to heat, increased hunger, increased thirst, increased urine, unexplained weight gain, unexplained weight loss, other Hematologic/Lymphatic: Denies: no symptoms, anemia, easy bleeding, easy bruising, adenopathy, other Allergies: Coded Allergies: No Known Allergies (Verified , 01/21/19) Subjective 08/29 no events noted, labs pending, fevers overnight tylenol given, will need uro eval Objective Objective Current Medications Medications (Trade) Dose Ordered Sig/Alfredo Route PRN Reason Start Time Stop Time Status Last Admin Dose Admin Acetaminophen (Tylenol) 500 mg Q4H PRN ORAL Mild Pain (Pain Scale 1-3) 08/29/19 22:45 09/28/19 06:44 08/30/19 01:06 Ceftriaxone Sodium 1 gm/ Dextrose 55 ml @ 110 mls/hr Q24H IVPB 08/30/19 10:00 09/06/19 09:59 Dextrose (Dextrose 50%) 25 ml Q30M PRN IV Hypoglycemia 08/29/19 22:30 11/27/19 07:29 Dextrose (Dextrose 50%) 50 ml Q30M PRN IV Hypoglycemia 08/29/19 22:30 11/27/19 07:29 Insulin Aspart (NovoLOG) BEFORE MEALS AND HS SUBQ 08/30/19 06:30 11/27/19 11:29 08/30/19 06:48 Insulin Detemir (Levemir) 12 units BID SUBQ 08/30/19 09:00 11/27/19 08:59 UNV Levothyroxine Sodium (Synthroid) 50 mcg DAILY IV 08/30/19 09:00 09/29/19 08:59 Lorazepam (Ativan) 2 mg Q6H PRN ORAL For Anxiety 08/29/19 22:30 09/05/19 22:29 Metoclopramide HCl (Reglan) 5 mg Q6H IVP 08/30/19 04:00 09/28/19 09:59 08/30/19 04:20 Morphine Sulfate (Morphine Sulfate) 2 mg Q4H PRN IVP Severe Pain (Pain Scale 7-10) 08/30/19 01:30 09/05/19 17:29 Ondansetron HCl (Zofran) 4 mg Q6H PRN IVP Nausea & Vomiting 08/30/19 03:45 09/28/19 09:44 Pantoprazole (Protonix) 40 mg EVERY 12 HOURS IVP 08/30/19 09:00 09/28/19 10:14 Potassium Chloride 10 meq/ Dextrose/Sodium Chloride 1,005 ml @ 75 mls/hr [id number] IV 08/29/19 22:15 09/28/19 10:59 08/29/19 22:15 Last 24 Hour Vital Signs Date Time Temp Pulse Resp B/P (MAP) Pulse Ox O2 Delivery O2 Flow Rate FiO2 08/30/19 04:00 99.8 92 21 98/53 (68) 93 08/30/19 04:00 96 08/30/19 01:36 97.2 08/30/19 00:00 101.8 111 21 104/53 (70) 95 08/30/19 00:00 121 08/29/19 22:20 Room Air 08/29/19 21:40 105 08/29/19 20:00 97.0 88 17 104/65 (78) 97 08/29/19 19:43 Room Air 08/29/19 16:00 96.1 92 16 104/65 (78) 96 08/29/19 12:00 99.5 115 20 128/73 (91) 94 08/29/19 11:29 99.5 08/29/19 09:00 Room Air 08/29/19 08:00 98.5 95 20 143/64 (90) 96 08/29/19 04:00 98.2 79 20 133/83 (100) 98 08/29/19 03:28 Room Air 08/29/19 02:23 98.3 98 13 125/63 99 Room Air 08/29/19 01:53 98.3 08/29/19 01:34 98.3 98 13 125/63 99 Room Air 08/29/19 00:38 98.3 08/29/19 00:05 94 22 Room Air 08/29/19 00:05 98.2 94 22 115/63 94 Room Air 08/28/19 23:44 98.2 94 22 115/63 (80) 94 Room Air Intake and Output 08/29/19 08/30/19 19:00 07:00 Intake Total 400 ml Output Total 0 ml Balance 400 ml 0 ml Intake Oral 120 ml IV Total 280 ml Output Urine Total 0 ml # Voids 4 Labs Test 08/29/19 00:05 08/29/19 00:50 08/29/19 08:25 08/29/19 18:10 White Blood Count 18.0 K/UL (4.8-10.8) 17.1 K/UL (4.8-10.8) Red Blood Count 3.15 M/UL (4.70-6.10) 2.99 M/UL (4.70-6.10) Hemoglobin 11.2 G/DL (14.2-18.0) 10.1 G/DL (14.2-18.0) Hematocrit 32.1 % (42.0-52.0) 30.4 % (42.0-52.0) Mean Corpuscular Volume 102 FL (80-99) 102 FL (80-99) Mean Corpuscular Hemoglobin 35.4 PG (27.0-31.0) 33.6 PG (27.0-31.0) Mean Corpuscular Hemoglobin Concent 34.8 G/DL (32.0-36.0) 33.1 G/DL (32.0-36.0) Red Cell Distribution Width 14.1 % (11.6-14.8) 14.1 % (11.6-14.8) Platelet Count 56 K/UL (150-450) 46 K/UL (150-450) Mean Platelet Volume 10.1 FL (6.5-10.1) 9.8 FL (6.5-10.1) Neutrophils (%) (Auto) % (45.0-75.0) % (45.0-75.0) Lymphocytes (%) (Auto) % (20.0-45.0) % (20.0-45.0) Monocytes (%) (Auto) % (1.0-10.0) % (1.0-10.0) Eosinophils (%) (Auto) % (0.0-3.0) % (0.0-3.0) Basophils (%) (Auto) % (0.0-2.0) % (0.0-2.0) Differential Total Cells Counted 100 100 Neutrophils % (Manual) 78 % (45-75) 91 % (45-75) Lymphocytes % (Manual) 7 % (20-45) 2 % (20-45) Monocytes % (Manual) 5 % (1-10) 5 % (1-10) Eosinophils % (Manual) 0 % (0-3) 0 % (0-3) Basophils % (Manual) 0 % (0-2) 0 % (0-2) Band Neutrophils 10 % (0-8) 2 % (0-8) Platelet Estimate Adequate Decreased Platelet Morphology Normal Normal Sodium Level 131 MMOL/L (136-145) Potassium Level 4.9 MMOL/L (3.5-5.1) Chloride Level 96 MMOL/L (98-107) Carbon Dioxide Level 25 MMOL/L (21-32) Anion Gap 10 mmol/L (5-15) Blood Urea Nitrogen 31 mg/dL (7-18) Creatinine 3.3 MG/DL (0.55-1.30) Estimat Glomerular Filtration Rate 18.9 mL/min (>60) Glucose Level 422 MG/DL (74-106) Calcium Level 8.8 MG/DL (8.5-10.1) Total Bilirubin 1.5 MG/DL (0.2-1.0) Direct Bilirubin 0.6 MG/DL (0.0-0.3) Aspartate Amino Transf (AST/SGOT) 39 U/L (15-37) Alanine Aminotransferase (ALT/SGPT) 20 U/L (12-78) Alkaline Phosphatase 118 U/L (46-116) Total Protein 6.2 G/DL (6.4-8.2) Albumin 2.0 G/DL (3.4-5.0) Globulin 4.2 g/dL Albumin/Globulin Ratio 0.5 (1.0-2.7) Lipase 424 U/L (73-393) Urine Color Yellow Urine Appearance Cloudy Urine pH 5 (4.5-8.0) Urine Specific [place] 1.020 (1.005-1.035) Urine Protein 3+ (NEGATIVE) Urine Glucose (UA) 4+ (NEGATIVE) Urine Ketones 1+ (NEGATIVE) Urine Blood 5+ (NEGATIVE) Urine Nitrite Negative (NEGATIVE) Urine Bilirubin Negative (NEGATIVE) Urine Urobilinogen Normal MG/DL (0.0-1.0) Urine Leukocyte Esterase 3+ (NEGATIVE) Urine RBC 40-60 /HPF (0 - 0) Urine WBC Tntc /HPF (0 - 0) Urine Squamous Epithelial Cells None /LPF (NONE/OCC) Urine Bacteria Moderate /HPF (NONE) Anisocytosis 1+ Macrocytosis 1+ Uric Acid 6.7 MG/DL (2.6-7.2) Phosphorus Level 2.4 MG/DL (2.5-4.9) Magnesium Level 1.9 MG/DL (1.8-2.4) Iron Level 13 ug/dL (50-175) Total Iron Binding Capacity 224 ug/dL (250-450) Percent Iron Saturation 6 % (15-50) Unsaturated Iron Binding 211 ug/dL (112-346) Ferritin 223 NG/ML (8-388) Gamma Glutamyl Transpeptidase 154 U/L (5-85) C-Reactive Protein, Quantitative 22.8 mg/dL (0.00-0.90) Pro-B-Type Natriuretic Peptide 64578 pg/mL (0-125) Vitamin B12 Level > 2000 PG/ML (193-986) Folate 34.7 NG/ML (8.6-58.9) Thyroid Stimulating Hormone (TSH) 1.020 uiU/mL (0.358-3.740) Troponin I 0.001 ng/mL (0.000-0.056) Test 08/30/19 06:11 Height (Feet): 5 Height (Inches): 11.00 Weight (Pounds): 213 Objective Vitals: reviewed General: NAD HEENT: nc, at Neck: supple Chest: clear breath sounds bilaterally Cardiovascular: RRR, no s3, s4 Abdomen: soft, nontender, nd Extremities: no cce, normal range of motion Neuro: alert and oriented Jake Briones MD Aug 30, 2019 06:59
[2019-08-30 07:09] LABS: INR 1.3 (0.9-1.1)
[2019-08-30 07:27] LABS: HEMATOCRIT 24.6 % (42.0-52.0); HEMOGLOBIN 8.1 G/DL (14.2-18.0); MEAN CORPUSCULAR VOLUME 102 FL (80-99); PLATELET COUNT 28 K/UL (150-450); RED BLOOD COUNT 2.41 M/UL (4.70-6.10); RED CELL DISTRIBUTION WIDTH 13.9 % (11.6-14.8); WHITE BLOOD COUNT 11.9 K/UL (4.8-10.8)
[2019-08-30 07:41] LABS: AMMONIA 34 umol/L (11-32)
[2019-08-30 07:52] LABS: ALANINE AMINOTRANSFERASE 14 U/L (12-78); ALBUMIN 1.4 G/DL (3.4-5.0); ALBUMIN/GLOBULIN RATIO 0.4 (1.0-2.7); ALKALINE PHOSPHATASE 78 U/L (46-116); ANION GAP 3 mmol/L (5-15); ASPARTATE AMINO TRANSFERASE 32 U/L (15-37); BLOOD UREA NITROGEN 42 mg/dL (7-18); CALCIUM 7.8 MG/DL (8.5-10.1); CARBON DIOXIDE 28 MMOL/L (21-32); CHLORIDE 100 MMOL/L (98-107); CREATININE 3.7 MG/DL (0.55-1.30); POTASSIUM 5.3 MMOL/L (3.5-5.1); SODIUM 131 MMOL/L (136-145)
[2019-08-30 08:00] VITALS: BP 90/49
[2019-08-30] MEDS ORDERED: Levemir Flexpen SUBQ SCH (09:00)
[2019-08-30 09:08] LABS: ALANINE AMINOTRANSFERASE 10 U/L (12-78); ALBUMIN 1.4 G/DL (3.4-5.0); ALKALINE PHOSPHATASE 86 U/L (46-116); ASPARTATE AMINO TRANSFERASE 33 U/L (15-37); BILIRUBIN,DIRECT 0.4 MG/DL (0.0-0.3); PHOSPHORUS 2.6 MG/DL (2.5-4.9)
[2019-08-30] MEDS ORDERED: cefTRIAXone 1 GM in D5W 55 ML IVPB SCH ×4 (10:00)
--- NOTE | 2019-08-30 10:03 | Nephrology Progress Note ---
Assessment/Plan Problem List: (1) ARF (acute renal failure) Assessment: Serum creatinine is rising (2) Renal mass, left (3) Cirrhosis of liver (4) UTI (urinary tract infection) (5) Anemia, unspecified Assessment Renal failure, most likely underlying chronic kidney disease due to diabetic nephropathy, superimposed acute renal failure due to vomiting and dehydration. Anemia, high MCV. Leukocytosis, evidence of UTI High lipase Cirrhosis, splenomegaly per CT scan Left kidney mass per CT scan Plan Kayexalate for high potassium Keep the patient n.p.o. except medication until vomiting is resolved Reglan every 6 hours for gastroparesis D5 and a half normal saline IV fluid Keep the blood sugar in check Keep the blood pressure in check Monitor renal parameters Monitor lipase Antibiotics for UTI Anemia work-up Per consultants, urological evaluation is called 2D echocardiogram Kidney ultrasound, results noted 1 dose of Rocephin, pending urine culture and ID evaluation Objective Objective Last 24 Hour Vital Signs Date Time Temp Pulse Resp B/P (MAP) Pulse Ox O2 Delivery O2 Flow Rate FiO2 08/30/19 04:00 99.8 92 21 98/53 (68) 93 08/30/19 04:00 96 08/30/19 01:36 97.2 08/30/19 00:00 101.8 111 21 104/53 (70) 95 08/30/19 00:00 121 08/29/19 22:20 Room Air 08/29/19 21:40 105 08/29/19 20:00 97.0 88 17 104/65 (78) 97 08/29/19 19:43 Room Air 08/29/19 16:00 96.1 92 16 104/65 (78) 96 08/29/19 12:00 99.5 115 20 128/73 (91) 94 08/29/19 11:29 99.5 Intake and Output 08/29/19 08/30/19 19:00 07:00 Intake Total 400 ml Output Total 0 ml Balance 400 ml 0 ml Intake Oral 120 ml IV Total 280 ml Output Urine Total 0 ml # Voids 4 Laboratory Tests 08/29/19 18:10: Troponin I 0.001 08/30/19 06:11: Troponin I 0.000, White Blood Count 11.9H, Red Blood Count 2.41L, Hemoglobin 8.1L, Hematocrit 24.6L, Mean Corpuscular Volume 102H, Mean Corpuscular Hemoglobin 33.5H, Mean Corpuscular Hemoglobin Concent 32.8, Red Cell Distribution Width 13.9, Platelet Count 28L, Mean Platelet Volume 9.2, Neutrophils (%) (Auto) , Lymphocytes (%) (Auto) , Monocytes (%) (Auto) , Eosinophils (%) (Auto) , Basophils (%) (Auto) , Differential Total Cells Counted 100, Neutrophils % (Manual) 93H, Lymphocytes % (Manual) 4L, Monocytes % (Manual) 3, Eosinophils % (Manual) 0, Basophils % (Manual) 0, Band Neutrophils 0 , Platelet Estimate DecreasedL, Platelet Morphology Normal, Prothrombin Time 13.7H, Prothromb Time International Ratio 1.3H, Activated Partial Thromboplast Time 29, Sodium Level 131L, Potassium Level 5.3H, Chloride Level 100, Carbon Dioxide Level 28, Anion Gap 3L, Blood Urea Nitrogen 42H, Creatinine 3.7H, Estimat Glomerular Filtration Rate 16.6, Glucose Level 196#H, Uric Acid 7.1, Calcium Level 7.8L, Phosphorus Level 2.6, Magnesium Level 2.0, Total Bilirubin 1.0, Direct Bilirubin 0.4H, Aspartate Amino Transf (AST/SGOT) 33, Alanine Aminotransferase (ALT/SGPT) 10L, Alkaline Phosphatase 86, Ammonia 34H, Lactate Dehydrogenase 324H, C-Reactive Protein, Quantitative 32.5H, Pro-B-Type Natriuretic Peptide 16669S, Total Protein 5.6L, Albumin 1.4L, Globulin 3.7, Albumin/Globulin Ratio 0.4L, Hepatitis A IgM Antibody [Pending], Hepatitis B Surface Antigen [Pending], Hepatitis B Core IgM Antibody [Pending], Hepatitis C Antibody [Pending] Height (Feet): 5 Height (Inches): 11.00 Weight (Pounds): 213 Keanu Wilhelm MD Aug 30, 2019 10:03
[2019-08-30] MEDS ORDERED: Sodium Polystyrene Sulfonate 15gm Powder ORAL SCH (10:15)
--- NOTE | 2019-08-30 10:40 | Infectious Diseases Prog Note ---
Assessment/Plan Assessment/Plan IMPRESSION: Pyelonephritis/ UTI Renal mass, Acute renal failure, Chronic kidney disease, Diabetes mellitus with hyperglycemia, cirrhosis, splenomegaly, hypertension, Anemia, thrombocytopenia, Hypothyroidism, History of major depression. RECOMMENDATION: Continue ceftriaxone. We will follow up the cultures & COVID19 test Subjective ROS Limited/Unobtainable: Yes Constitutional: Reports: fever, other - Ro=960.8 last night Allergies: Coded Allergies: No Known Allergies (Verified , 01/21/19) Objective Vital Signs Last 24 Hour Vital Signs Date Time Temp Pulse Resp B/P (MAP) Pulse Ox O2 Delivery O2 Flow Rate FiO2 08/30/19 04:00 99.8 92 21 98/53 (68) 93 08/30/19 04:00 96 08/30/19 01:36 97.2 08/30/19 00:00 101.8 111 21 104/53 (70) 95 08/30/19 00:00 121 08/29/19 22:20 Room Air 08/29/19 21:40 105 08/29/19 20:00 97.0 88 17 104/65 (78) 97 08/29/19 19:43 Room Air 08/29/19 16:00 96.1 92 16 104/65 (78) 96 08/29/19 12:00 99.5 115 20 128/73 (91) 94 08/29/19 11:29 99.5 Height (Feet): 5 Height (Inches): 11.00 Weight (Pounds): 213 General Appearance: no acute distress HEENT: mucous membranes moist Respiratory/Chest: lungs clear Cardiovascular: normal rate Abdomen: soft, non tender Neurologic/Psychiatric: other - sleeping Microbiology Date/Time Source Procedure Growth Status 08/29/19 00:50 Urine,Clean Catch Urine Culture - Preliminary Gram Negative Bacillus 1 Resulted 08/29/19 02:00 Rectum Received Laboratory Tests Test 08/29/19 18:10 08/30/19 06:11 Troponin I 0.001 ng/mL (0.000-0.056) 0.000 ng/mL (0.000-0.056) White Blood Count 11.9 K/UL (4.8-10.8) H Red Blood Count 2.41 M/UL (4.70-6.10) L Hemoglobin 8.1 G/DL (14.2-18.0) L Hematocrit 24.6 % (42.0-52.0) L Mean Corpuscular Volume 102 FL (80-99) H Mean Corpuscular Hemoglobin 33.5 PG (27.0-31.0) H Mean Corpuscular Hemoglobin Concent 32.8 G/DL (32.0-36.0) Red Cell Distribution Width 13.9 % (11.6-14.8) Platelet Count 28 K/UL (150-450) L Mean Platelet Volume 9.2 FL (6.5-10.1) Neutrophils (%) (Auto) % (45.0-75.0) Lymphocytes (%) (Auto) % (20.0-45.0) Monocytes (%) (Auto) % (1.0-10.0) Eosinophils (%) (Auto) % (0.0-3.0) Basophils (%) (Auto) % (0.0-2.0) Differential Total Cells Counted 100 Neutrophils % (Manual) 93 % (45-75) H Lymphocytes % (Manual) 4 % (20-45) L Monocytes % (Manual) 3 % (1-10) Eosinophils % (Manual) 0 % (0-3) Basophils % (Manual) 0 % (0-2) Band Neutrophils 0 % (0-8) Platelet Estimate Decreased L Platelet Morphology Normal Prothrombin Time 13.7 SEC (9.30-11.50) H Prothromb Time International Ratio 1.3 (0.9-1.1) H Activated Partial Thromboplast Time 29 SEC (23-33) Sodium Level 131 MMOL/L (136-145) L Potassium Level 5.3 MMOL/L (3.5-5.1) H Chloride Level 100 MMOL/L (98-107) Carbon Dioxide Level 28 MMOL/L (21-32) Anion Gap 3 mmol/L (5-15) L Blood Urea Nitrogen 42 mg/dL (7-18) H Creatinine 3.7 MG/DL (0.55-1.30) H Estimat Glomerular Filtration Rate 16.6 mL/min (>60) Glucose Level 196 MG/DL (74-106) #H Uric Acid 7.1 MG/DL (2.6-7.2) Calcium Level 7.8 MG/DL (8.5-10.1) L Phosphorus Level 2.6 MG/DL (2.5-4.9) Magnesium Level 2.0 MG/DL (1.8-2.4) Total Bilirubin 1.0 MG/DL (0.2-1.0) Direct Bilirubin 0.4 MG/DL (0.0-0.3) H Aspartate Amino Transf (AST/SGOT) 33 U/L (15-37) Alanine Aminotransferase (ALT/SGPT) 10 U/L (12-78) L Alkaline Phosphatase 86 U/L (46-116) Ammonia 34 umol/L (11-32) H Lactate Dehydrogenase 324 U/L (81-234) H C-Reactive Protein, Quantitative 32.5 mg/dL (0.00-0.90) H Pro-B-Type Natriuretic Peptide 40334 pg/mL (0-125) H Total Protein 5.6 G/DL (6.4-8.2) L Albumin 1.4 G/DL (3.4-5.0) L Globulin 3.7 g/dL Albumin/Globulin Ratio 0.4 (1.0-2.7) L Hepatitis A IgM Antibody Pending Hepatitis B Surface Antigen Pending Hepatitis B Core IgM Antibody Pending Hepatitis C Antibody Pending Current Medications Medications (Trade) Dose Ordered Sig/Alfredo Route PRN Reason Start Time Stop Time Status Last Admin Dose Admin Acetaminophen (Tylenol) 500 mg Q4H PRN ORAL Mild Pain (Pain Scale 1-3) 08/29/19 22:45 09/28/19 06:44 08/30/19 01:06 Ceftriaxone Sodium 1 gm/ Sodium Chloride 55 ml @ 110 mls/hr DAILY IVPB 08/30/19 10:00 09/06/19 09:59 Dextrose (Dextrose 50%) 25 ml Q30M PRN IV Hypoglycemia 08/29/19 22:30 11/27/19 07:29 Dextrose (Dextrose 50%) 50 ml Q30M PRN IV Hypoglycemia 08/29/19 22:30 11/27/19 07:29 Insulin Aspart (NovoLOG) BEFORE MEALS AND HS SUBQ 08/30/19 06:30 11/27/19 11:29 08/30/19 06:48 Insulin Detemir (Levemir) 12 units BID SUBQ 08/30/19 09:00 11/27/19 08:59 Iron Sucrose 100 mg/Sodium Chloride 60 ml @ 240 mls/hr BEDTIME IV 08/30/19 21:00 09/29/19 20:59 Levothyroxine Sodium (Synthroid) 50 mcg DAILY IV 08/30/19 09:00 09/29/19 08:59 Lorazepam (Ativan) 2 mg Q6H PRN ORAL For Anxiety 08/29/19 22:30 09/05/19 22:29 Metoclopramide HCl (Reglan) 5 mg Q6H IVP 08/30/19 04:00 09/28/19 09:59 08/30/19 04:20 Morphine Sulfate (Morphine Sulfate) 2 mg Q4H PRN IVP Severe Pain (Pain Scale 7-10) 08/30/19 01:30 09/05/19 17:29 Ondansetron HCl (Zofran) 4 mg Q6H PRN IVP Nausea & Vomiting 08/30/19 03:45 09/28/19 09:44 Pantoprazole (Protonix) 40 mg EVERY 12 HOURS IVP 08/30/19 09:00 09/28/19 10:14 Sodium Polystyrene Sulfonate (Kayexalate) 30 gm ONCE ORAL 08/30/19 10:15 08/30/19 11:30 Andry Noble MD Aug 30, 2019 10:40
[2019-08-30] MEDS: cefTRIAXone 1 GM in NS 55 ML IVPB SCH (10:42)
[2019-08-30] MEDS: Pantoprazole Inj IVP SCH ×2 (10:47→21:00)
[2019-08-30] MEDS: Levemir Flexpen SUBQ SCH ×3 (10:49→18:00)
--- NOTE | 2019-08-30 11:25 | General Progress Note ---
Assessment/Plan Problem List: (1) S/P CABG (coronary artery bypass graft) ICD Codes: Z95.1 - Presence of aortocoronary bypass graft SNOMED: 70378673, 186424359, 698738510 (2) Acute encephalopathy ICD Codes: G93.40 - Encephalopathy, unspecified SNOMED: 37388459, 326037162 (3) Diabetes mellitus ICD Codes: E11.9 - Type 2 diabetes mellitus without complications SNOMED: 88473203 (4) ATN (acute tubular necrosis) ICD Codes: N17.0 - Acute kidney failure with tubular necrosis SNOMED: 03014442 (5) Severe anemia ICD Codes: D64.9 - Anemia, unspecified SNOMED: 438998057 (6) Diabetes mellitus out of control ICD Codes: E11.65 - Type 2 diabetes mellitus with hyperglycemia SNOMED: 92197995, 139257543 (7) Hypothyroid ICD Codes: E03.9 - Hypothyroidism, unspecified SNOMED: 29029053 (8) Renal mass, left ICD Codes: N28.89 - Other specified disorders of kidney and ureter SNOMED: 848825299, 92137665 (9) Cirrhosis of liver ICD Codes: K74.60 - Unspecified cirrhosis of liver SNOMED: 98217521 Qualifiers: Qualified Codes: K70.30 - Alcoholic cirrhosis of liver without ascites (10) CHF (congestive heart failure) ICD Codes: I50.9 - Heart failure, unspecified SNOMED: 84532396 Assessment/Plan: ppi fu ammonia level>>WNL stool ob>>pending fu nephrology agree with reglan iv iron patient refusing blood and plt transfusion refusing EGD fu psych? competency Subjective Allergies: Coded Allergies: No Known Allergies (Verified , 01/21/19) Objective Last 24 Hour Vital Signs Date Time Temp Pulse Resp B/P (MAP) Pulse Ox O2 Delivery O2 Flow Rate FiO2 08/30/19 04:00 99.8 92 21 98/53 (68) 93 08/30/19 04:00 96 08/30/19 01:36 97.2 08/30/19 00:00 101.8 111 21 104/53 (70) 95 08/30/19 00:00 121 08/29/19 22:20 Room Air 08/29/19 21:40 105 08/29/19 20:00 97.0 88 17 104/65 (78) 97 08/29/19 19:43 Room Air 08/29/19 16:00 96.1 92 16 104/65 (78) 96 08/29/19 12:00 99.5 115 20 128/73 (91) 94 08/29/19 11:29 99.5 Intake and Output 08/29/19 08/30/19 19:00 07:00 Intake Total 400 ml Output Total 0 ml Balance 400 ml 0 ml Intake Oral 120 ml IV Total 280 ml Output Urine Total 0 ml # Voids 4 Laboratory Tests 08/29/19 18:10: Troponin I 0.001 08/30/19 06:11: Troponin I 0.000, White Blood Count 11.9H, Red Blood Count 2.41L, Hemoglobin 8.1L, Hematocrit 24.6L, Mean Corpuscular Volume 102H, Mean Corpuscular Hemoglobin 33.5H, Mean Corpuscular Hemoglobin Concent 32.8, Red Cell Distribution Width 13.9, Platelet Count 28L, Mean Platelet Volume 9.2, Neutrophils (%) (Auto) , Lymphocytes (%) (Auto) , Monocytes (%) (Auto) , Eosinophils (%) (Auto) , Basophils (%) (Auto) , Differential Total Cells Counted 100, Neutrophils % (Manual) 93H, Lymphocytes % (Manual) 4L, Monocytes % (Manual) 3, Eosinophils % (Manual) 0, Basophils % (Manual) 0, Band Neutrophils 0 , Platelet Estimate DecreasedL, Platelet Morphology Normal, Prothrombin Time 13.7H, Prothromb Time International Ratio 1.3H, Activated Partial Thromboplast Time 29, Sodium Level 131L, Potassium Level 5.3H, Chloride Level 100, Carbon Dioxide Level 28, Anion Gap 3L, Blood Urea Nitrogen 42H, Creatinine 3.7H, Estimat Glomerular Filtration Rate 16.6, Glucose Level 196#H, Uric Acid 7.1, Calcium Level 7.8L, Phosphorus Level 2.6, Magnesium Level 2.0, Total Bilirubin 1.0, Direct Bilirubin 0.4H, Aspartate Amino Transf (AST/SGOT) 33, Alanine Aminotransferase (ALT/SGPT) 10L, Alkaline Phosphatase 86, Ammonia 34H, Lactate Dehydrogenase 324H, C-Reactive Protein, Quantitative 32.5H, Pro-B-Type Natriuretic Peptide 59774A, Total Protein 5.6L, Albumin 1.4L, Globulin 3.7, Albumin/Globulin Ratio 0.4L, Hepatitis A IgM Antibody [Pending], Hepatitis B Surface Antigen [Pending], Hepatitis B Core IgM Antibody [Pending], Hepatitis C Antibody [Pending] Height (Feet): 5 Height (Inches): 11.00 Weight (Pounds): 213 General Appearance: lethargic EENT: normal ENT inspection Neck: supple Cardiovascular: normal rate Respiratory/Chest: decreased breath sounds Abdomen: non tender, soft Edema: 3+ Leg (L), 3+ Leg (R) Jim Vargas MD Aug 30, 2019 11:25
[2019-08-30 12:00] VITALS: BP 138/58
--- NOTE | 2019-08-30 13:01 | General Progress Note ---
Assessment/Plan Assessment/Plan: (1) Abdominal pain (2) Liver cirrhosis (3) Left kidney mass Patient to be continued on Morphine as needed. D/w Dr. Mcdnoald and he concurred. Subjective Date patient seen: Aug 30, 2019 Time patient seen: 12:15 - pm Constitutional: Reports: no symptoms HEENT: Reports: no symptoms Cardiovascular: Reports: no symptoms Respiratory: Reports: no symptoms Gastrointestinal/Abdominal: Reports: abdominal pain Genitourinary: Reports: no symptoms Neurologic/Psychiatric: Reports: no symptoms Endocrine: Reports: no symptoms Hematologic/Lymphatic: Reports: no symptoms Allergies: Coded Allergies: No Known Allergies (Verified , 01/21/19) Subjective Patient is in bed showing no signs of pain or distress. No Morphine has been given to patient since ordered. Being r/o for covid-19, No new complaints at this time. Objective Last 24 Hour Vital Signs Date Time Temp Pulse Resp B/P (MAP) Pulse Ox O2 Delivery O2 Flow Rate FiO2 08/30/19 04:00 99.8 92 21 98/53 (68) 93 08/30/19 04:00 96 08/30/19 01:36 97.2 08/30/19 00:00 101.8 111 21 104/53 (70) 95 08/30/19 00:00 121 08/29/19 22:20 Room Air 08/29/19 21:40 105 08/29/19 20:00 97.0 88 17 104/65 (78) 97 08/29/19 19:43 Room Air 08/29/19 16:00 96.1 92 16 104/65 (78) 96 Intake and Output 08/29/19 08/30/19 19:00 07:00 Intake Total 400 ml Output Total 0 ml Balance 400 ml 0 ml Intake Oral 120 ml IV Total 280 ml Output Urine Total 0 ml # Voids 4 Laboratory Tests 08/29/19 18:10: Troponin I 0.001 08/30/19 06:11: Troponin I 0.000, White Blood Count 11.9H, Red Blood Count 2.41L, Hemoglobin 8.1L, Hematocrit 24.6L, Mean Corpuscular Volume 102H, Mean Corpuscular Hemoglobin 33.5H, Mean Corpuscular Hemoglobin Concent 32.8, Red Cell Distribution Width 13.9, Platelet Count 28L, Mean Platelet Volume 9.2, Neutrophils (%) (Auto) , Lymphocytes (%) (Auto) , Monocytes (%) (Auto) , Eosinophils (%) (Auto) , Basophils (%) (Auto) , Differential Total Cells Counted 100, Neutrophils % (Manual) 93H, Lymphocytes % (Manual) 4L, Monocytes % (Manual) 3, Eosinophils % (Manual) 0, Basophils % (Manual) 0, Band Neutrophils 0 , Platelet Estimate DecreasedL, Platelet Morphology Normal, Prothrombin Time 13.7H, Prothromb Time International Ratio 1.3H, Activated Partial Thromboplast Time 29, Sodium Level 131L, Potassium Level 5.3H, Chloride Level 100, Carbon Dioxide Level 28, Anion Gap 3L, Blood Urea Nitrogen 42H, Creatinine 3.7H, Estimat Glomerular Filtration Rate 16.6, Glucose Level 196#H, Uric Acid 7.1, Calcium Level 7.8L, Phosphorus Level 2.6, Magnesium Level 2.0, Total Bilirubin 1.0, Direct Bilirubin 0.4H, Aspartate Amino Transf (AST/SGOT) 33, Alanine Aminotransferase (ALT/SGPT) 10L, Alkaline Phosphatase 86, Ammonia 34H, Lactate Dehydrogenase 324H, C-Reactive Protein, Quantitative 32.5H, Pro-B-Type Natriuretic Peptide 14668R, Total Protein 5.6L, Albumin 1.4L, Globulin 3.7, Albumin/Globulin Ratio 0.4L, Hepatitis A IgM Antibody [Pending], Hepatitis B Surface Antigen [Pending], Hepatitis B Core IgM Antibody [Pending], Hepatitis C Antibody [Pending] Height (Feet): 5 Height (Inches): 11.00 Weight (Pounds): 213 General Appearance: no apparent distress, alert EENT: PERRL/EOMI, normal ENT inspection Neck: normal alignment, supple Cardiovascular: normal rate, regular rhythm Respiratory/Chest: decreased breath sounds Abdomen: tender Extremities: non-tender Edema: trace edema Neurologic: alert, oriented x 3 Skin: warm/dry Irvin Ramos Aug 30, 2019 13:01
[2019-08-30 16:00] VITALS: BP 98/56
[2019-08-30] MEDS ORDERED: Haloperidol 5mg/ml Inj IM SCH (17:26)
[2019-08-30] MEDS ORDERED: DiphenhydrAMINE 50mg/ml Inj IM SCH (17:26)
--- NOTE | 2019-08-30 18:32 | General Progress Note ---
Progress Note Progress Note No events. AFVSS PE- abd soft, ND - no changes Ext WWP MRI A/P- L lower kidney with bulbous, mass-like appearance. Cannot fully characterize w/o contrast but c/w CT and US findings and still possible malignancy A/P- Large L renal mass Poor surgical candidate and Cr 3.3 Consider surgical extirpation at a tertiary center if overall health improves; not currently in good condition for same and high risk for complications or mortality from same. Milo Negrete M.D. Aug 30, 2019 18:32
[2019-08-30] MEDS: Iron Sucrose 100 MG in NS 55 ML IV SCH (21:00)
--- NOTE | 2019-08-30 21:19 | General Progress Note ---
Assessment/Plan Problem List: (1) CHF (congestive heart failure) ICD Codes: I50.9 - Heart failure, unspecified SNOMED: 14409627 (2) Generalized weakness ICD Codes: R53.1 - Weakness SNOMED: 79422999 (3) Cirrhosis of liver ICD Codes: K74.60 - Unspecified cirrhosis of liver SNOMED: 42796637 Qualifiers: Qualified Codes: K70.30 - Alcoholic cirrhosis of liver without ascites (4) Pancreatitis ICD Codes: K85.90 - Acute pancreatitis without necrosis or infection, unspecified SNOMED: 37853546 (5) ARF (acute renal failure) ICD Codes: N17.9 - Acute kidney failure, unspecified SNOMED: 23330383 (6) CHF (congestive heart failure) ICD Codes: I50.9 - Heart failure, unspecified SNOMED: 52797843 (7) Renal mass, left ICD Codes: N28.89 - Other specified disorders of kidney and ureter SNOMED: 980744769, 84987440 (8) Tachycardia ICD Codes: R00.0 - Tachycardia, unspecified SNOMED: 7008264 (9) Thrombocytopenia ICD Codes: D69.6 - Thrombocytopenia, unspecified SNOMED: 446267392, 18248226 (10) Chronic back pain ICD Codes: M54.9 - Dorsalgia, unspecified; G89.29 - Other chronic pain SNOMED: 630323583 (11) Hyperglycemia due to type 2 diabetes mellitus ICD Codes: E11.65 - Type 2 diabetes mellitus with hyperglycemia SNOMED: 337522007030168, 72573124 Qualifiers: Qualified Codes: E11.65 - Type 2 diabetes mellitus with hyperglycemia (12) UTI (urinary tract infection) ICD Codes: N39.0 - Urinary tract infection, site not specified SNOMED: 06016919, 40589573 Qualifiers: Qualified Codes: N30.00 - Acute cystitis without hematuria (13) ARF (acute renal failure) ICD Codes: N17.9 - Acute kidney failure, unspecified SNOMED: 55253934 Qualifiers: Qualified Codes: N17.9 - Acute kidney failure, unspecified (14) Anemia, unspecified ICD Codes: D64.9 - Anemia, unspecified SNOMED: 461603516 Qualifiers: Qualified Codes: D64.9 - Anemia, unspecified (15) Lactic acidosis ICD Codes: E87.2 - Acidosis SNOMED: 80669083 (16) Hypothyroid ICD Codes: E03.9 - Hypothyroidism, unspecified SNOMED: 97359560 Assessment/Plan: check ammonia r/o hepatic encephalopathy ams cirrhosis wrote transfer to [facility] per pt request anasarca arf renal mass check lytes and h/h Subjective ROS Limited/Unobtainable: Yes Allergies: Coded Allergies: No Known Allergies (Verified , 01/21/19) Objective Last 24 Hour Vital Signs Date Time Temp Pulse Resp B/P (MAP) Pulse Ox O2 Delivery O2 Flow Rate FiO2 08/30/19 16:45 98.8 08/30/19 16:00 100.0 93 18 98/56 (70) 97 08/30/19 12:00 102.7 116 20 138/58 (84) 93 08/30/19 11:42 102.0 08/30/19 09:00 Room Air 08/30/19 08:00 97.5 89 18 90/49 (63) 97 08/30/19 04:00 99.8 92 21 98/53 (68) 93 08/30/19 04:00 96 08/30/19 00:00 101.8 111 21 104/53 (70) 95 08/30/19 00:00 121 08/29/19 22:20 Room Air 08/29/19 21:40 105 Intake and Output 08/29/19 08/30/19 19:00 07:00 Intake Total 400 ml Output Total 0 ml Balance 400 ml 0 ml Intake Oral 120 ml IV Total 280 ml Output Urine Total 0 ml # Voids 4 Laboratory Tests 08/30/19 06:11: White Blood Count 11.9H, Red Blood Count 2.41L, Hemoglobin 8.1L, Hematocrit 24.6L, Mean Corpuscular Volume 102H, Mean Corpuscular Hemoglobin 33.5H, Mean Corpuscular Hemoglobin Concent 32.8, Red Cell Distribution Width 13.9, Platelet Count 28L, Mean Platelet Volume 9.2, Neutrophils (%) (Auto) , Lymphocytes (%) ( Auto) , Monocytes (%) (Auto) , Eosinophils (%) (Auto) , Basophils (%) (Auto) , Differential Total Cells Counted 100, Neutrophils % (Manual) 93H, Lymphocytes % (Manual) 4L, Monocytes % (Manual) 3, Eosinophils % (Manual) 0, Basophils % ( Manual) 0, Band Neutrophils 0, Platelet Estimate DecreasedL, Platelet Morphology Normal, Prothrombin Time 13.7H, Prothromb Time International Ratio 1.3H, Activated Partial Thromboplast Time 29, Sodium Level 131L, Potassium Level 5.3H, Chloride Level 100, Carbon Dioxide Level 28, Anion Gap 3L, Blood Urea Nitrogen 42H, Creatinine 3.7H, Estimat Glomerular Filtration Rate 16.6, Glucose Level 196#H, Uric Acid 7.1, Calcium Level 7.8L, Phosphorus Level 2.6, Magnesium Level 2.0, Total Bilirubin 1.0, Direct Bilirubin 0.4H, Aspartate Amino Transf (AST/SGOT) 33, Alanine Aminotransferase (ALT/SGPT) 10L, Alkaline Phosphatase 86, Ammonia 34H, Lactate Dehydrogenase 324H, Troponin I 0.000, C- Reactive Protein, Quantitative 32.5H, Pro-B-Type Natriuretic Peptide 12018D, Total Protein 5.6L, Albumin 1.4L, Globulin 3.7, Albumin/Globulin Ratio 0.4L, Hepatitis A IgM Antibody [Pending], Hepatitis B Surface Antigen [Pending], Hepatitis B Core IgM Antibody [Pending], Hepatitis C Antibody [Pending] Height (Feet): 5 Height (Inches): 11.00 Weight (Pounds): 213 General Appearance: confused Respiratory/Chest: lungs clear Abdomen: soft Raiza Rodgers MD Aug 30, 2019 21:19
[2019-08-31] VITALS: BP 95/61
--- NOTE | 2019-08-31 03:45 | Consultation ---
DATE OF CONSULTATION: 08/30/2019 CONSULTING PHYSICIAN: Whitley Castro MD HISTORY OF PRESENT ILLNESS: The patient was agitated today. . Patient is not able to answer the questions. He is alert and oriented times self, place, situation, and date. medical care and wanted to be transferred to [facility]. The patient get transferred to [facility] himself. MENTAL STATUS EXAMINATION: Alert and oriented times self, place, situation, and date. Mood is anxious. Affect is constricted, congruent with mood. Thought process is concrete. Thought content, no suicidal or homicidal ideation. Cognition intact. Insight and judgment are fair. ASSESSMENT: Anxiety disorder. PLAN: 1. Continue the Ativan p.r.n. 2. He received the Haldol 5. 3. Discussed with Dr. Rodgers and nurse. Whitley Castro M.D. DR: CLIFFORD JOB#: [id number] CC:
[2019-08-31] MEDS: Metoclopramide 10mg/2ml Inj IVP SCH ×3 (04:00→12:29)
[2019-08-31] MEDS: NovoLOG Insulin Flexpen SUBQ SCH ×3 (06:30→16:30)
--- NOTE | 2019-08-31 06:45 | Consultation ---
DATE OF CONSULTATION: 08/29/2019 PAIN MANAGEMENT CONSULTATION CONSULTING PHYSICIAN: Eric Mcdonald M.D. REFERRING PHYSICIAN: Raiza Rodgers M.D. PHYSICIAN PRINTED CIRCUIT BOARD DESIGNER: Jim Remy CHIEF COMPLAINT: Abdominal pain. HISTORY OF PRESENT ILLNESS: This is a 64-year-old male who is being seen on the Med/Surg floor of [facility] for initial pain management consultation. Patient was admitted under the care of Dr. Rodgers with complaints of abdominal pain, found to have liver cirrhosis as well as left kidney mass, and was admitted due to the pain, being seen by a physician office nurse as well as a urologist, vehicle care specialist, and svp of digital/oncologist. At this time, he was started on tramadol 50 mg tablet every 8 hours as needed and this was discontinued. He was given 2 doses of morphine 4 mg IV as needed, and at this time, we were consulted so that the patient would have adequate pain control while here in the hospital. PAST MEDICAL HISTORY: heart disease, hypothyroidism, hypertension, diabetes, liver disease, liver failure, and major depression. SOCIAL HISTORY: History of drinking alcohol. Denies smoking tobacco or IV drug use. ALLERGIES: No known drug allergies. MEDICATIONS: Aspirin, atorvastatin, calcium, carvedilol, docusate, enalapril, famotidine, ferrous sulfate, folic acid, gabapentin, glipizide, [place], insulin, levothyroxine, linagliptin, metformin, Protonix, Januvia, Aldactone, and zinc sulfate. REVIEW OF SYSTEMS: Denies rash, fever, chills, sweating, dizziness, drowsiness, blurred vision, sore throat, change in hearing or weight. No shortness of breath, chest pain, palpitations, or cough. No nausea, vomiting, diarrhea, or blood in the stool or urine. No dysuria. PHYSICAL EXAMINATION: GENERAL: Alert, awake, and oriented. VITAL SIGNS: Blood pressure 128/73, heart rate 68, oxygen saturation 94%, respiratory rate 20, temperature 99.5 degrees Fahrenheit. HEENT: PERRLA. NECK: Range of motion of decreased due to patient's condition. No tenderness to paracervical muscles. No adenopathy. LUNGS: Decreased breath sounds bilaterally. HEART: S1 and S2 regular. ABDOMEN: Obese. BACK: Range of motion is decreased on flexion and extension. EXTREMITIES: Upper and lower extremity range of motion is decreased due to patient's condition. No cyanosis. No clubbing. Sensory is reduced. Reflexes are not obtainable. No adenopathy. ASSESSMENT AND PLAN: This is a 64-year-old male with abdominal pain, liver cirrhosis, left kidney mass. Patient will be started on morphine 2 mg IV every 4 hours as needed for severe pain. Parameters to be set to hold opioids for over-sedation, lethargy, systolic blood pressure less than 90, diastolic blood pressure less than 60, respiratory rate below 12, oxygen saturation below 92%. Patient was discussed with Dr. Mcdonald and Dr. Mcdonald concurred. We will follow the patient. Thank you very much for the courtesy of this consultation. Eric Mcdonald M.D. OLY Remy DR: MADDY JOB#: [id number] CC: HAI
--- NOTE | 2019-08-31 06:45 | Consultation ---
DATE OF CONSULTATION: 08/29/2019 CARDIOLOGY CONSULTATION CONSULTING PHYSICIAN: Gabino Castillo M.D. REFERRING PHYSICIAN: Raiza Rodgers M.D. REASON FOR CONSULTATION: Management of tachycardia. HISTORY OF PRESENT ILLNESS: This is a very unfortunate 64-year-old gentleman with history of coronary artery disease, history of diabetes mellitus, alcohol abuse, and cardiomyopathy who presents to the hospital with complaints of abdominal pain that has been going on for about . The patient had associated nausea and vomiting, but no diarrhea. At the time of arrival to the hospital, the patient had blood pressure of 115/63 mmHg and a heart rate of 94. An initial evaluation in the emergency department including laboratory findings revealed leukocytosis with WBC count of 18.0 and thrombocytopenia with platelet count of 56,000, bandemia of 10%. The patient also had an elevated BUN and creatinine at 31 and 3.3 respectively and proBNP which was 17,917. The patient's cardiovascular history is also significant for coronary artery disease, status post coronary artery bypass graft surgery, and cardiomyopathy. PAST MEDICAL HISTORY: 1. Diabetes mellitus. 2. Coronary artery disease, status post coronary bypass graft surgery. 3. Alcoholism. 4. Cardiomyopathy. 5. Hypertension. 6. Hypothyroidism. 7. Alcoholic hepatitis. 8. Liver cirrhosis. 9. Major depressive disorder. PAST SURGICAL HISTORY: Coronary artery bypass graft surgery. MEDICATIONS: List of medications includes aspirin 81 mg p.o. daily, atorvastatin 80 mg at bedtime, calcium carbonate and vitamin D 500/400 twice daily, carvedilol 3.125 twice daily, Colace 100 mg twice daily, enalapril 5 mg daily, famotidine 20 mg twice daily, ferrous sulfate 325 mg twice daily, folic acid 1 mg daily, Lasix 40 mg daily, gabapentin 600 mg twice daily, glipizide 5 mg p.o. daily, [place] 5/325 one tablet q.6h. p.r.n. pain, insulin aspart, insulin Lantus 100 mcg p.o. daily, Jentadueto 2.07/999 one tablet daily, metformin 500 mg twice daily, nateglinide 60 mg 3 times a day, Protonix 40 mg p.o. daily, Januvia 100 mg p.o. daily, 50 mg p.o. daily, Ultram 50 mg p.o. daily, and zinc sulfate 220 daily. ALLERGIES: No known drug allergies. FAMILY HISTORY: No premature coronary artery disease in the first-degree relatives. REVIEW OF SYSTEMS: A 12-system review negative except what was mentioned in the history of present illness. From cardiovascular system, the patient had shortness of breath with less than ordinary activities, but no chest pain, also evidence of bilateral lower extremity edema, right greater than left, but no palpitations, PND, or orthopnea. PHYSICAL EXAMINATION: VITAL SIGNS: Blood pressure was 100/ , pulse of 94, respirations 22, temperature 98.2 degrees Fahrenheit, and O2 saturation 94% on room air. GENERAL: The patient is a very unfortunate 64-year-old gentleman, in no apparent respiratory distress. Somewhat drowsy, communicating well with me. HEENT: Atraumatic and normocephalic. Anicteric. Pupils are equal, round, and reactive to light and accommodation. Extraocular muscles intact. NECK: JVP elevated at 10 cm. No carotid bruit. Carotid upstroke is 2+ bilaterally. CARDIOVASCULAR: Normal S1, S2. Regular rate and rhythm. Tachycardic. 2/6 mid systolic murmur at the left sternal border. PMI is at fourth intercostal space in the midclavicular line. LUNGS: Diminished breath sounds in both lungs with presence of the crackles. ABDOMEN: Distended. No hepatosplenomegaly. Positive bowel sounds. EXTREMITIES: 4+ pitting edema in the right leg and 2+ in the left leg. LABORATORY FINDINGS: Sodium was 131, potassium 4.9, chloride , bicarbonate 25, BUN 31, creatinine 3.3, and glucose 422. Calcium is 8.8. Total bilirubin 1.5. AST 39. ProBNP was 17,917. Albumin was 2.0. INR was 1.3. WBC was 18.0, hemoglobin 11.2, hematocrit of 33.1, and platelet count is 66 with 10% bandemia and left shift with neutrophils of 78%. Chest x-ray showed vascular congestion with cardiomegaly, basilar infiltrates versus pulmonary edema, and bilateral small effusions. ASSESSMENT AND PLAN: The patient is an unfortunate 64-year-old gentleman who is seen in cardiology consultation. 1. Sinus tachycardia, most likely secondary to congestive heart failure, the patient most likely has acute on chronic congestive heart failure. A 2D echocardiography has revealed anteroseptal wall hypokinesia with left ventricular ejection fraction of 45% with the possibility of ischemic cardiomyopathy. We would like to optimize heart failure regimen including carvedilol, hydralazine, and Isordil since the patient has renal failure. 2. History of coronary artery disease, status post coronary artery bypass graft surgery. A 12-lead electrocardiogram does not show any evidence of ischemic changes. 3. Renal failure. 4. History of chronic liver disease due to alcoholism. 5. Thrombocytopenia. 6. Sepsis in view of leukocytosis and bandemia. 7. History of hypertension. We will continue with heart failure regimen including carvedilol, hydralazine, and Isordil. I would like to thank, Dr. Rodgers, for the courtesy of this consultation. Gabino Castillo M.D. DR: JERMAINE JOB#: [id number] CC:
--- NOTE | 2019-08-31 06:59 | General Progress Note ---
Assessment/Plan Problem List: (1) Chronic back pain ICD Codes: M54.9 - Dorsalgia, unspecified; G89.29 - Other chronic pain SNOMED: 865052326 (2) Cirrhosis of liver ICD Codes: K74.60 - Unspecified cirrhosis of liver SNOMED: 68414111 Qualifiers: Qualified Codes: K70.30 - Alcoholic cirrhosis of liver without ascites (3) Thrombocytopenia ICD Codes: D69.6 - Thrombocytopenia, unspecified SNOMED: 121819068, 53907691 (4) Hyperglycemia due to type 2 diabetes mellitus ICD Codes: E11.65 - Type 2 diabetes mellitus with hyperglycemia SNOMED: 282206222863143, 29757822 Qualifiers: Qualified Codes: E11.65 - Type 2 diabetes mellitus with hyperglycemia (5) Renal mass, left ICD Codes: N28.89 - Other specified disorders of kidney and ureter SNOMED: 735660804, 43923489 (6) Hypothyroid ICD Codes: E03.9 - Hypothyroidism, unspecified SNOMED: 13511861 Assessment/Plan: continue Levemir 12 units bid continue Novolog sliding scale ac / hs hypoglycemia protocol in order continue Levothyroxine 50 mcg IV daily Subjective Allergies: Coded Allergies: No Known Allergies (Verified , 01/21/19) Subjective events noted glucose values are stable he is resting Item Value Date Time Bedside Blood Glucose 176 mg/dl H 08/30/19 2100 Bedside Blood Glucose 159 mg/dl H 08/30/19 1800 Bedside Blood Glucose 169 mg/dl H 08/30/19 1130 Bedside Blood Glucose 186 mg/dl H 08/30/19 1055 Bedside Blood Glucose 186 mg/dl H 08/30/19 0648 Objective Last 24 Hour Vital Signs Date Time Temp Pulse Resp B/P (MAP) Pulse Ox O2 Delivery O2 Flow Rate FiO2 08/31/19 00:00 99.4 88 17 95/61 (72) 97 08/30/19 21:00 Room Air 08/30/19 16:45 98.8 08/30/19 16:00 100.0 93 18 98/56 (70) 97 08/30/19 12:00 116 08/30/19 12:00 102.7 116 20 138/58 (84) 93 08/30/19 11:42 102.0 08/30/19 09:00 Room Air 08/30/19 08:00 85 08/30/19 08:00 97.5 89 18 90/49 (63) 97 Intake and Output 08/30/19 08/31/19 19:00 07:00 Intake Total 360 ml Output Total 400 ml Balance -400 ml 360 ml Intake Oral 360 ml Output Urine Total 400 ml # Voids 2 Height (Feet): 5 Height (Inches): 11.00 Weight (Pounds): 216 General Appearance: no apparent distress Neck: normal alignment Cardiovascular: normal rate Respiratory/Chest: decreased breath sounds Objective Current Medications Medications (Trade) Dose Ordered Sig/Alfredo Route PRN Reason Start Time Stop Time Status Last Admin Dose Admin Acetaminophen (Tylenol) 500 mg Q4H PRN ORAL Mild Pain (Pain Scale 1-3) 08/29/19 22:45 09/28/19 06:44 08/30/19 11:12 Ceftriaxone Sodium 1 gm/ Sodium Chloride 55 ml @ 110 mls/hr DAILY IVPB 08/30/19 10:00 09/06/19 09:59 08/30/19 10:42 Dextrose (Dextrose 50%) 25 ml Q30M PRN IV Hypoglycemia 08/29/19 22:30 11/27/19 07:29 Dextrose (Dextrose 50%) 50 ml Q30M PRN IV Hypoglycemia 08/29/19 22:30 11/27/19 07:29 Insulin Aspart (NovoLOG) BEFORE MEALS AND HS SUBQ 08/30/19 06:30 11/27/19 11:29 08/30/19 21:00 Insulin Detemir (Levemir) 12 units BID SUBQ 08/30/19 09:00 11/27/19 08:59 08/30/19 10:55 Iron Sucrose 100 mg/Sodium Chloride 60 ml @ 240 mls/hr BEDTIME IV 08/30/19 21:00 09/29/19 20:59 Levothyroxine Sodium (Synthroid) 50 mcg DAILY IV 08/30/19 09:00 09/29/19 08:59 08/30/19 10:46 Lorazepam (Ativan) 2 mg Q6H PRN ORAL For Anxiety 08/29/19 22:30 09/05/19 22:29 Metoclopramide HCl (Reglan) 5 mg Q6H IVP 08/30/19 04:00 09/28/19 09:59 08/30/19 16:00 Morphine Sulfate (Morphine Sulfate) 2 mg Q4H PRN IVP Severe Pain (Pain Scale 7-10) 08/30/19 01:30 09/05/19 17:29 08/30/19 13:42 Ondansetron HCl (Zofran) 4 mg Q6H PRN IVP Nausea & Vomiting 08/30/19 03:45 09/28/19 09:44 Pantoprazole (Protonix) 40 mg EVERY 12 HOURS IVP 08/30/19 09:00 09/28/19 10:14 08/30/19 10:47 Sascha Oleary MD Aug 31, 2019 06:59
[2019-08-31 08:00] VITALS: BP 98/55
[2019-08-31 08:32] LABS: HEMATOCRIT 26.5 % (42.0-52.0); HEMOGLOBIN 8.8 G/DL (14.2-18.0); MEAN CORPUSCULAR VOLUME 102 FL (80-99); PLATELET COUNT 38 K/UL (150-450); RED BLOOD COUNT 2.61 M/UL (4.70-6.10); RED CELL DISTRIBUTION WIDTH 14.1 % (11.6-14.8); WHITE BLOOD COUNT 8.4 K/UL (4.8-10.8)
--- NOTE | 2019-08-31 08:33 | General Progress Note ---
Assessment/Plan Assessment/Plan: (1) Abdominal pain (2) Liver cirrhosis (3) Left kidney mass Patient to be discontinued off Morphine We will start Tramadol 50mg PO 1 tab Q4H PRN severe pain D/w Dr. Mcdonald and he concurred. Subjective Date patient seen: Aug 31, 2019 Time patient seen: 08:00 - am Constitutional: Reports: weakness HEENT: Reports: no symptoms Cardiovascular: Reports: no symptoms Respiratory: Reports: no symptoms Gastrointestinal/Abdominal: Reports: abdominal pain Genitourinary: Reports: no symptoms Neurologic/Psychiatric: Reports: weakness Endocrine: Reports: no symptoms Hematologic/Lymphatic: Reports: no symptoms Allergies: Coded Allergies: No Known Allergies (Verified , 01/21/19) Subjective Patient is in bed no signs of pain or distress, has not requested the Morphine. Waiting for transfer to [facility]. Objective Last 24 Hour Vital Signs Date Time Temp Pulse Resp B/P (MAP) Pulse Ox O2 Delivery O2 Flow Rate FiO2 08/31/19 00:00 99.4 88 17 95/61 (72) 97 08/30/19 21:00 Room Air 08/30/19 16:45 98.8 08/30/19 16:00 100.0 93 18 98/56 (70) 97 08/30/19 12:00 116 08/30/19 12:00 102.7 116 20 138/58 (84) 93 08/30/19 11:42 102.0 08/30/19 09:00 Room Air Intake and Output 08/30/19 08/31/19 19:00 07:00 Intake Total 360 ml Output Total 400 ml Balance -400 ml 360 ml Intake Oral 360 ml Output Urine Total 400 ml # Voids 2 Laboratory Tests 08/31/19 08:15: White Blood Count [Pending], Red Blood Count [Pending], Hemoglobin [Pending], Hematocrit [Pending], Mean Corpuscular Volume [Pending], Mean Corpuscular Hemoglobin [Pending], Mean Corpuscular Hemoglobin Concent [Pending], Red Cell Distribution Width [Pending], Platelet Count [Pending], Mean Platelet Volume [ Pending], Neutrophils (%) (Auto) [Pending], Lymphocytes (%) (Auto) [Pending], Monocytes (%) (Auto) [Pending], Eosinophils (%) (Auto) [Pending], Basophils (%) (Auto) [Pending], Sodium Level [Pending], Potassium Level [Pending], Chloride Level [Pending], Carbon Dioxide Level [Pending], Blood Urea Nitrogen [Pending], Creatinine [Pending], Estimat Glomerular Filtration Rate [Pending], Glucose Level [Pending], Uric Acid [Pending], Calcium Level [Pending], Phosphorus Level [Pending], Magnesium Level [Pending], Total Bilirubin [Pending], Aspartate Amino Transf (AST/SGOT) [Pending], Alanine Aminotransferase (ALT/SGPT) [Pending] , Alkaline Phosphatase [Pending], C-Reactive Protein, Quantitative [Pending], Pro-B-Type Natriuretic Peptide [Pending], Total Protein [Pending], Albumin [ Pending], Globulin [Pending], Lipase [Pending] Height (Feet): 5 Height (Inches): 11.00 Weight (Pounds): 216 General Appearance: no apparent distress, alert EENT: PERRL/EOMI, normal ENT inspection Neck: non-tender, normal alignment Cardiovascular: normal rate, regular rhythm Respiratory/Chest: decreased breath sounds Abdomen: tender Extremities: non-tender Edema: trace edema Neurologic: alert, responsive Skin: normal pigmentation Irvin Ramos Aug 31, 2019 08:33
[2019-08-31] MEDS ORDERED: traMADol 50mg tab ORAL PRN (08:45)
--- NOTE | 2019-08-31 08:46 | Hematology/Onc Progress Note ---
Assessment/Plan Assessment/Plan Assessment and Recs # Left kidney contains a 10 cm masslike process with surrounding mild hemorrhage. Suspicious for a hemorrhaging mass/neoplasm, incompletely characterized without contrast. 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 --> cxr reviewed as well, does not appear to have mets --> uro recs --> increased morbidity explained if does not seek care and potential surgical resection # Pancytopenia -- multiple etiologies could be related to underlying liver disease, medication-induced, likely in this case is due to underlying liver cirrhosis, from etoh use --> peripheral smear has been ordered and does not show significant abnormalities-> none noted --> Medications have been reviewed --> Continue to monitor for improvement, trend cbc --> Hep panel and HIV have been ordered --> US abd ordered to r/o cirrhosis and hepatosplenomegaly --> reverse isolation if ANC is <2000 --> Give neupogen if ANC <1000 --> Transfuse if hgb <7, with 1 unit prbc --> consider bone marrow biopsy if no other causes are found --> plt trend 56-->46-->38 # Transaminitis likely from liver disease --> etoh use cessation recommended, though inconsistehistory # Leukocytosis, evidence of UTI --> per id care # High lipase # Cirrhosis, splenomegaly per CT scan # Hyperbilirubinemia # Dvt ppx scds The timing of this note does not necessarily reflect the time of the patient was seen. Greatly appreciate consultation. Subjective Constitutional: Denies: no symptoms, chills, fever, malaise, weakness, other HEENT: Denies: no symptoms, eye pain, blurred vision, tearing, double vision, ear pain, ear discharge, nose pain, nose congestion, throat pain, throat swelling, mouth pain, mouth swelling, other Cardiovascular: Denies: no symptoms, chest pain, edema, irregular heart rate, lightheadedness, palpitations, syncope, other Respiratory: Denies: no symptoms, cough, shortness of breath, SOB with excertion, SOB at rest, sputum, wheezing, other Gastrointestinal/Abdominal: Denies: no symptoms, abdomen distended, abdominal pain, black stools, tarry stools, blood in stool, constipated, diarrhea, difficulty swallowing, nausea, poor appetite, poor fluid intake, rectal bleeding , vomiting, other Genitourinary: Denies: no symptoms, burning, discharge, frequency, flank pain, hematuria, incontinence, pain, urgency, other Neurologic/Psychiatric: Denies: no symptoms, anxiety, depressed, emotional problems, headache, numbness, paresthesia, pre-existing deficit, seizure, tingling, tremors, weakness, other Endocrine: Denies: no symptoms, excessive sweating, flushing, intolerance to cold, intolerance to heat, increased hunger, increased thirst, increased urine, unexplained weight gain, unexplained weight loss, other Allergies: Coded Allergies: No Known Allergies (Verified , 01/21/19) Subjective 08/29 no events noted, labs pending, fevers overnight tylenol given, will need uro eval 08/30 refusing vitals, overnight wanted to leave ama, bmp pending still plt 38k Objective Objective Current Medications Medications (Trade) Dose Ordered Sig/Alfredo Route PRN Reason Start Time Stop Time Status Last Admin Dose Admin Acetaminophen (Tylenol) 500 mg Q4H PRN ORAL Mild Pain (Pain Scale 1-3) 08/29/19 22:45 09/28/19 06:44 08/30/19 11:12 Ceftriaxone Sodium 1 gm/ Sodium Chloride 55 ml @ 110 mls/hr DAILY IVPB 08/30/19 10:00 09/06/19 09:59 08/30/19 10:42 Dextrose (Dextrose 50%) 25 ml Q30M PRN IV Hypoglycemia 08/29/19 22:30 11/27/19 07:29 Dextrose (Dextrose 50%) 50 ml Q30M PRN IV Hypoglycemia 08/29/19 22:30 11/27/19 07:29 Insulin Aspart (NovoLOG) BEFORE MEALS AND HS SUBQ 08/30/19 06:30 11/27/19 11:29 08/30/19 21:00 Insulin Detemir (Levemir) 12 units BID SUBQ 08/30/19 09:00 11/27/19 08:59 08/30/19 10:55 Iron Sucrose 100 mg/Sodium Chloride 60 ml @ 240 mls/hr BEDTIME IV 08/30/19 21:00 09/29/19 20:59 Levothyroxine Sodium (Synthroid) 50 mcg DAILY IV 08/30/19 09:00 09/29/19 08:59 08/30/19 10:46 Lorazepam (Ativan) 2 mg Q6H PRN ORAL For Anxiety 08/29/19 22:30 09/05/19 22:29 Metoclopramide HCl (Reglan) 5 mg Q6H IVP 08/30/19 04:00 09/28/19 09:59 08/30/19 16:00 Ondansetron HCl (Zofran) 4 mg Q6H PRN IVP Nausea & Vomiting 08/30/19 03:45 09/28/19 09:44 Pantoprazole (Protonix) 40 mg EVERY 12 HOURS IVP 08/30/19 09:00 09/28/19 10:14 08/30/19 10:47 Tramadol HCl (Ultram) 50 mg Q4H PRN ORAL Severe Pain (Pain Scale 7-10) 08/31/19 08:45 09/07/19 08:44 Last 24 Hour Vital Signs Date Time Temp Pulse Resp B/P (MAP) Pulse Ox O2 Delivery O2 Flow Rate FiO2 08/31/19 08:37 Room Air 08/31/19 00:00 99.4 88 17 95/61 (72) 97 08/30/19 21:00 Room Air 08/30/19 16:45 98.8 08/30/19 16:00 100.0 93 18 98/56 (70) 97 08/30/19 12:00 116 08/30/19 12:00 102.7 116 20 138/58 (84) 93 08/30/19 11:42 102.0 08/30/19 09:00 Room Air 08/30/19 08:00 85 08/30/19 08:00 97.5 89 18 90/49 (63) 97 08/30/19 04:00 99.8 92 21 98/53 (68) 93 08/30/19 04:00 96 08/30/19 00:00 101.8 111 21 104/53 (70) 95 08/30/19 00:00 121 08/29/19 22:20 Room Air 08/29/19 21:40 105 08/29/19 20:00 97.0 88 17 104/65 (78) 97 08/29/19 19:43 Room Air 08/29/19 16:00 96.1 92 16 104/65 (78) 96 08/29/19 12:00 99.5 115 20 128/73 (91) 94 08/29/19 11:29 99.5 08/29/19 09:00 Room Air Intake and Output 08/30/19 08/31/19 19:00 07:00 Intake Total 360 ml Output Total 400 ml Balance -400 ml 360 ml Intake Oral 360 ml Output Urine Total 400 ml # Voids 2 Labs Test 08/29/19 00:05 08/29/19 00:50 08/29/19 08:25 08/29/19 18:10 White Blood Count 18.0 K/UL (4.8-10.8) 17.1 K/UL (4.8-10.8) Red Blood Count 3.15 M/UL (4.70-6.10) 2.99 M/UL (4.70-6.10) Hemoglobin 11.2 G/DL (14.2-18.0) 10.1 G/DL (14.2-18.0) Hematocrit 32.1 % (42.0-52.0) 30.4 % (42.0-52.0) Mean Corpuscular Volume 102 FL (80-99) 102 FL (80-99) Mean Corpuscular Hemoglobin 35.4 PG (27.0-31.0) 33.6 PG (27.0-31.0) Mean Corpuscular Hemoglobin Concent 34.8 G/DL (32.0-36.0) 33.1 G/DL (32.0-36.0) Red Cell Distribution Width 14.1 % (11.6-14.8) 14.1 % (11.6-14.8) Platelet Count 56 K/UL (150-450) 46 K/UL (150-450) Mean Platelet Volume 10.1 FL (6.5-10.1) 9.8 FL (6.5-10.1) Neutrophils (%) (Auto) % (45.0-75.0) % (45.0-75.0) Lymphocytes (%) (Auto) % (20.0-45.0) % (20.0-45.0) Monocytes (%) (Auto) % (1.0-10.0) % (1.0-10.0) Eosinophils (%) (Auto) % (0.0-3.0) % (0.0-3.0) Basophils (%) (Auto) % (0.0-2.0) % (0.0-2.0) Differential Total Cells Counted 100 100 Neutrophils % (Manual) 78 % (45-75) 91 % (45-75) Lymphocytes % (Manual) 7 % (20-45) 2 % (20-45) Monocytes % (Manual) 5 % (1-10) 5 % (1-10) Eosinophils % (Manual) 0 % (0-3) 0 % (0-3) Basophils % (Manual) 0 % (0-2) 0 % (0-2) Band Neutrophils 10 % (0-8) 2 % (0-8) Platelet Estimate Adequate Decreased Platelet Morphology Normal Normal Sodium Level 131 MMOL/L (136-145) Potassium Level 4.9 MMOL/L (3.5-5.1) Chloride Level 96 MMOL/L (98-107) Carbon Dioxide Level 25 MMOL/L (21-32) Anion Gap 10 mmol/L (5-15) Blood Urea Nitrogen 31 mg/dL (7-18) Creatinine 3.3 MG/DL (0.55-1.30) Estimat Glomerular Filtration Rate 18.9 mL/min (>60) Glucose Level 422 MG/DL (74-106) Calcium Level 8.8 MG/DL (8.5-10.1) Total Bilirubin 1.5 MG/DL (0.2-1.0) Direct Bilirubin 0.6 MG/DL (0.0-0.3) Aspartate Amino Transf (AST/SGOT) 39 U/L (15-37) Alanine Aminotransferase (ALT/SGPT) 20 U/L (12-78) Alkaline Phosphatase 118 U/L (46-116) Total Protein 6.2 G/DL (6.4-8.2) Albumin 2.0 G/DL (3.4-5.0) Globulin 4.2 g/dL Albumin/Globulin Ratio 0.5 (1.0-2.7) Lipase 424 U/L (73-393) Urine Color Yellow Urine Appearance Cloudy Urine pH 5 (4.5-8.0) Urine Specific [place] 1.020 (1.005-1.035) Urine Protein 3+ (NEGATIVE) Urine Glucose (UA) 4+ (NEGATIVE) Urine Ketones 1+ (NEGATIVE) Urine Blood 5+ (NEGATIVE) Urine Nitrite Negative (NEGATIVE) Urine Bilirubin Negative (NEGATIVE) Urine Urobilinogen Normal MG/DL (0.0-1.0) Urine Leukocyte Esterase 3+ (NEGATIVE) Urine RBC 40-60 /HPF (0 - 0) Urine WBC Tntc /HPF (0 - 0) Urine Squamous Epithelial Cells None /LPF (NONE/OCC) Urine Bacteria Moderate /HPF (NONE) Anisocytosis 1+ Macrocytosis 1+ Uric Acid 6.7 MG/DL (2.6-7.2) Phosphorus Level 2.4 MG/DL (2.5-4.9) Magnesium Level 1.9 MG/DL (1.8-2.4) Iron Level 13 ug/dL (50-175) Total Iron Binding Capacity 224 ug/dL (250-450) Percent Iron Saturation 6 % (15-50) Unsaturated Iron Binding 211 ug/dL (112-346) Ferritin 223 NG/ML (8-388) Gamma Glutamyl Transpeptidase 154 U/L (5-85) C-Reactive Protein, Quantitative 22.8 mg/dL (0.00-0.90) Pro-B-Type Natriuretic Peptide 04610 pg/mL (0-125) Vitamin B12 Level > 2000 PG/ML (193-986) Folate 34.7 NG/ML (8.6-58.9) Thyroid Stimulating Hormone (TSH) 1.020 uiU/mL (0.358-3.740) Troponin I 0.001 ng/mL (0.000-0.056) Test 08/30/19 06:11 08/31/19 08:15 White Blood Count 11.9 K/UL (4.8-10.8) 8.4 K/UL (4.8-10.8) Red Blood Count 2.41 M/UL (4.70-6.10) 2.61 M/UL (4.70-6.10) Hemoglobin 8.1 G/DL (14.2-18.0) 8.8 G/DL (14.2-18.0) Hematocrit 24.6 % (42.0-52.0) 26.5 % (42.0-52.0) Mean Corpuscular Volume 102 FL (80-99) 102 FL (80-99) Mean Corpuscular Hemoglobin 33.5 PG (27.0-31.0) 33.7 PG (27.0-31.0) Mean Corpuscular Hemoglobin Concent 32.8 G/DL (32.0-36.0) 33.2 G/DL (32.0-36.0) Red Cell Distribution Width 13.9 % (11.6-14.8) 14.1 % (11.6-14.8) Platelet Count 28 K/UL (150-450) 38 K/UL (150-450) Mean Platelet Volume 9.2 FL (6.5-10.1) 10.5 FL (6.5-10.1) Neutrophils (%) (Auto) % (45.0-75.0) % (45.0-75.0) Lymphocytes (%) (Auto) % (20.0-45.0) % (20.0-45.0) Monocytes (%) (Auto) % (1.0-10.0) % (1.0-10.0) Eosinophils (%) (Auto) % (0.0-3.0) % (0.0-3.0) Basophils (%) (Auto) % (0.0-2.0) % (0.0-2.0) Differential Total Cells Counted 100 Neutrophils % (Manual) 93 % (45-75) Lymphocytes % (Manual) 4 % (20-45) Monocytes % (Manual) 3 % (1-10) Eosinophils % (Manual) 0 % (0-3) Basophils % (Manual) 0 % (0-2) Band Neutrophils 0 % (0-8) Platelet Estimate Decreased Platelet Morphology Normal Prothrombin Time 13.7 SEC (9.30-11.50) Prothromb Time International Ratio 1.3 (0.9-1.1) Activated Partial Thromboplast Time 29 SEC (23-33) Sodium Level 131 MMOL/L (136-145) Potassium Level 5.3 MMOL/L (3.5-5.1) Chloride Level 100 MMOL/L (98-107) Carbon Dioxide Level 28 MMOL/L (21-32) Anion Gap 3 mmol/L (5-15) Blood Urea Nitrogen 42 mg/dL (7-18) Creatinine 3.7 MG/DL (0.55-1.30) Estimat Glomerular Filtration Rate 16.6 mL/min (>60) Glucose Level 196 MG/DL (74-106) Uric Acid 7.1 MG/DL (2.6-7.2) Calcium Level 7.8 MG/DL (8.5-10.1) Phosphorus Level 2.6 MG/DL (2.5-4.9) Magnesium Level 2.0 MG/DL (1.8-2.4) Total Bilirubin 1.0 MG/DL (0.2-1.0) Direct Bilirubin 0.4 MG/DL (0.0-0.3) Aspartate Amino Transf (AST/SGOT) 33 U/L (15-37) Alanine Aminotransferase (ALT/SGPT) 10 U/L (12-78) Alkaline Phosphatase 86 U/L (46-116) Ammonia 34 umol/L (11-32) Lactate Dehydrogenase 324 U/L (81-234) Troponin I 0.000 ng/mL (0.000-0.056) C-Reactive Protein, Quantitative 32.5 mg/dL (0.00-0.90) Pro-B-Type Natriuretic Peptide 61945 pg/mL (0-125) Total Protein 5.6 G/DL (6.4-8.2) Albumin 1.4 G/DL (3.4-5.0) Globulin 3.7 g/dL Albumin/Globulin Ratio 0.4 (1.0-2.7) Hepatitis A IgM Antibody Negative (Negative) Hepatitis B Surface Antigen Negative (Negative) Hepatitis B Core IgM Antibody Negative (Negative) Hepatitis C Antibody <0.1 s/co ratio Height (Feet): 5 Height (Inches): 11.00 Weight (Pounds): 216 Objective Vitals: reviewed General: NAD HEENT: nc, at Neck: supple Chest: clear breath sounds bilaterally Cardiovascular: RRR, no s3, s4 Abdomen: soft, nontender, nd Extremities: no cce, normal range of motion Neuro: alert and oriented Jake Briones MD Aug 31, 2019 08:46
[2019-08-31] MEDS: Levemir Flexpen SUBQ SCH (09:00)
[2019-08-31] MEDS: cefTRIAXone 1 GM in NS 55 ML IVPB SCH (09:00)
[2019-08-31] MEDS: Pantoprazole Inj IVP SCH (09:00)
[2019-08-31 09:15] LABS: ALANINE AMINOTRANSFERASE 19 U/L (12-78); ALBUMIN 1.4 G/DL (3.4-5.0); ALBUMIN/GLOBULIN RATIO 0.3 (1.0-2.7); ALKALINE PHOSPHATASE 107 U/L (46-116); ANION GAP 11 mmol/L (5-15); ASPARTATE AMINO TRANSFERASE 43 U/L (15-37); BILIRUBIN,TOTAL 1.5 MG/DL (0.2-1.0); BLOOD UREA NITROGEN 53 mg/dL (7-18); CALCIUM 7.6 MG/DL (8.5-10.1); CARBON DIOXIDE 23 MMOL/L (21-32); CHLORIDE 100 MMOL/L (98-107); CREATININE 4.1 MG/DL (0.55-1.30); PHOSPHORUS 2.1 MG/DL (2.5-4.9); POTASSIUM 4.7 MMOL/L (3.5-5.1); SODIUM 134 MMOL/L (136-145)
[2019-08-31] MEDS: Acetaminophen 500mg (ES) tab ORAL PRN (09:26)
--- NOTE | 2019-08-31 10:11 | General Progress Note ---
Assessment/Plan Problem List: (1) S/P CABG (coronary artery bypass graft) ICD Codes: Z95.1 - Presence of aortocoronary bypass graft SNOMED: 22916985, 251450346, 424677183 (2) Acute encephalopathy ICD Codes: G93.40 - Encephalopathy, unspecified SNOMED: 95508836, 169047115 (3) Diabetes mellitus ICD Codes: E11.9 - Type 2 diabetes mellitus without complications SNOMED: 90707220 (4) ATN (acute tubular necrosis) ICD Codes: N17.0 - Acute kidney failure with tubular necrosis SNOMED: 34163224 (5) Severe anemia ICD Codes: D64.9 - Anemia, unspecified SNOMED: 636834267 (6) Diabetes mellitus out of control ICD Codes: E11.65 - Type 2 diabetes mellitus with hyperglycemia SNOMED: 36270353, 893660925 (7) Hypothyroid ICD Codes: E03.9 - Hypothyroidism, unspecified SNOMED: 34014274 (8) Renal mass, left ICD Codes: N28.89 - Other specified disorders of kidney and ureter SNOMED: 060549683, 36050857 (9) Cirrhosis of liver ICD Codes: K74.60 - Unspecified cirrhosis of liver SNOMED: 93196516 Qualifiers: Qualified Codes: K70.30 - Alcoholic cirrhosis of liver without ascites (10) CHF (congestive heart failure) ICD Codes: I50.9 - Heart failure, unspecified SNOMED: 31485333 Assessment/Plan: ppi fu ammonia level>>WNL stool ob>>pending fu nephrology agree with reglan iv iron patient refusing blood and plt transfusion refusing EGD fu psych? competency Subjective ROS Limited/Unobtainable: No Allergies: Coded Allergies: No Known Allergies (Verified , 01/21/19) Objective Last 24 Hour Vital Signs Date Time Temp Pulse Resp B/P (MAP) Pulse Ox O2 Delivery O2 Flow Rate FiO2 08/31/19 08:37 Room Air 08/31/19 08:00 102.7 93 20 98/55 (69) 93 08/31/19 00:00 99.4 88 17 95/61 (72) 97 08/30/19 21:00 Room Air 08/30/19 16:45 98.8 08/30/19 16:00 100.0 93 18 98/56 (70) 97 08/30/19 12:00 116 08/30/19 12:00 102.7 116 20 138/58 (84) 93 08/30/19 11:42 102.0 Intake and Output 08/30/19 08/31/19 19:00 07:00 Intake Total 360 ml Output Total 400 ml Balance -400 ml 360 ml Intake Oral 360 ml Output Urine Total 400 ml # Voids 2 Laboratory Tests 08/31/19 08:15: White Blood Count 8.4, Red Blood Count 2.61L, Hemoglobin 8.8L, Hematocrit 26.5L , Mean Corpuscular Volume 102H, Mean Corpuscular Hemoglobin 33.7H, Mean Corpuscular Hemoglobin Concent 33.2, Red Cell Distribution Width 14.1, Platelet Count 38L, Mean Platelet Volume 10.5H, Neutrophils (%) (Auto) , Lymphocytes (%) (Auto) , Monocytes (%) (Auto) , Eosinophils (%) (Auto) , Basophils (%) (Auto) , Differential Total Cells Counted 100, Neutrophils % (Manual) 93H, Lymphocytes % (Manual) 3L, Monocytes % (Manual) 2, Eosinophils % (Manual) 1, Basophils % ( Manual) 1, Band Neutrophils 0, Platelet Estimate DecreasedL, Platelet Morphology Normal, Hypochromasia 2+, Anisocytosis 1+, Macrocytosis 1+, Spherocytes 1+, Sodium Level 134L, Potassium Level 4.7, Chloride Level 100, Carbon Dioxide Level 23, Anion Gap 11, Blood Urea Nitrogen 53H, Creatinine 4.1H , Estimat Glomerular Filtration Rate 14.7, Glucose Level 119H, Uric Acid 8.1H, Calcium Level 7.6L, Phosphorus Level 2.1L, Magnesium Level 1.8, Total Bilirubin 1.5H, Direct Bilirubin 1.0H, Aspartate Amino Transf (AST/SGOT) 43H, Alanine Aminotransferase (ALT/SGPT) 19, Alkaline Phosphatase 107, C-Reactive Protein, Quantitative 39.7H, Pro-B-Type Natriuretic Peptide 44076C, Total Protein 5.5L, Albumin 1.4L, Globulin 4.1, Albumin/Globulin Ratio 0.3L, Lipase 154 Height (Feet): 5 Height (Inches): 11.00 Weight (Pounds): 216 General Appearance: no apparent distress EENT: normal ENT inspection Neck: supple Cardiovascular: normal rate Respiratory/Chest: decreased breath sounds Abdomen: normal bowel sounds, non tender, soft Extremities: non-tender Jim Vargas MD Aug 31, 2019 10:11
--- NOTE | 2019-08-31 10:45 | Nephrology Progress Note ---
Assessment/Plan Problem List: (1) ARF (acute renal failure) Assessment: Serum creatinine is rising (2) Renal mass, left (3) Cirrhosis of liver (4) UTI (urinary tract infection) (5) Anemia, unspecified Assessment Renal failure, most likely underlying chronic kidney disease due to diabetic nephropathy, superimposed acute renal failure due to vomiting and dehydration. Anemia, high MCV. Leukocytosis, evidence of UTI High lipase Cirrhosis, splenomegaly per CT scan Left kidney mass per CT scan Plan August 30: Discussed with RN. Events of last 18 hours reviewed. Patient is anxious and wants to leave to go home and go to [facility]. His serum creatinine mack. He is encephalopathic partly due to renal failure metabolic issues. His urological issue persists. From nephrological standpoint of view , due to low GFR and severely decreased renal function, initiation of dialysis should be considered. Will discuss with PMD. Consent for dialysis should be obtained from the patient. Competency??? When able to tolerate p.o., should change medications from IV to p.o. Kayexalate for high potassium Keep the patient n.p.o. except medication until vomiting is resolved Reglan every 6 hours for gastroparesis D5 and a half normal saline IV fluid Keep the blood sugar in check Keep the blood pressure in check Monitor renal parameters Monitor lipase Antibiotics for UTI Anemia work-up Per consultants, urological evaluation is called 2D echocardiogram Kidney ultrasound, results noted 1 dose of Rocephin, pending urine culture and ID evaluation Subjective ROS Limited/Unobtainable: No Constitutional: Reports: malaise Objective Objective Last 24 Hour Vital Signs Date Time Temp Pulse Resp B/P (MAP) Pulse Ox O2 Delivery O2 Flow Rate FiO2 08/31/19 08:37 Room Air 08/31/19 08:00 102.7 93 20 98/55 (69) 93 08/31/19 00:00 99.4 88 17 95/61 (72) 97 08/30/19 21:00 Room Air 08/30/19 16:45 98.8 08/30/19 16:00 100.0 93 18 98/56 (70) 97 08/30/19 12:00 116 08/30/19 12:00 102.7 116 20 138/58 (84) 93 08/30/19 11:42 102.0 Intake and Output 08/30/19 08/31/19 19:00 07:00 Intake Total 360 ml Output Total 400 ml Balance -400 ml 360 ml Intake Oral 360 ml Output Urine Total 400 ml # Voids 2 Current Medications Medications (Trade) Dose Ordered Sig/Alfredo Route PRN Reason Start Time Stop Time Status Last Admin Dose Admin Acetaminophen (Tylenol) 500 mg Q4H PRN ORAL Mild Pain (Pain Scale 1-3) 08/29/19 22:45 09/28/19 06:44 08/31/19 09:26 Ceftriaxone Sodium 1 gm/ Sodium Chloride 55 ml @ 110 mls/hr DAILY IVPB 08/30/19 10:00 09/06/19 09:59 08/30/19 10:42 Dextrose (Dextrose 50%) 25 ml Q30M PRN IV Hypoglycemia 08/29/19 22:30 11/27/19 07:29 Dextrose (Dextrose 50%) 50 ml Q30M PRN IV Hypoglycemia 08/29/19 22:30 11/27/19 07:29 Insulin Aspart (NovoLOG) BEFORE MEALS AND HS SUBQ 08/30/19 06:30 11/27/19 11:29 08/30/19 21:00 Insulin Detemir (Levemir) 12 units BID SUBQ 08/30/19 09:00 11/27/19 08:59 08/30/19 10:55 Iron Sucrose 100 mg/Sodium Chloride 60 ml @ 240 mls/hr BEDTIME IV 08/30/19 21:00 09/29/19 20:59 Levothyroxine Sodium (Synthroid) 50 mcg DAILY IV 08/30/19 09:00 09/29/19 08:59 08/30/19 10:46 Lorazepam (Ativan) 2 mg Q6H PRN ORAL For Anxiety 08/29/19 22:30 09/05/19 22:29 Metoclopramide HCl (Reglan) 5 mg Q6H IVP 08/30/19 04:00 09/28/19 09:59 08/30/19 16:00 Ondansetron HCl (Zofran) 4 mg Q6H PRN IVP Nausea & Vomiting 08/30/19 03:45 09/28/19 09:44 Pantoprazole (Protonix) 40 mg EVERY 12 HOURS IVP 08/30/19 09:00 09/28/19 10:14 08/30/19 10:47 Tramadol HCl (Ultram) 50 mg Q4H PRN ORAL Severe Pain (Pain Scale 7-10) 08/31/19 08:45 09/07/19 08:44 Laboratory Tests 08/31/19 08:15: White Blood Count 8.4, Red Blood Count 2.61L, Hemoglobin 8.8L, Hematocrit 26.5L , Mean Corpuscular Volume 102H, Mean Corpuscular Hemoglobin 33.7H, Mean Corpuscular Hemoglobin Concent 33.2, Red Cell Distribution Width 14.1, Platelet Count 38L, Mean Platelet Volume 10.5H, Neutrophils (%) (Auto) , Lymphocytes (%) (Auto) , Monocytes (%) (Auto) , Eosinophils (%) (Auto) , Basophils (%) (Auto) , Differential Total Cells Counted 100, Neutrophils % (Manual) 93H, Lymphocytes % (Manual) 3L, Monocytes % (Manual) 2, Eosinophils % (Manual) 1, Basophils % ( Manual) 1, Band Neutrophils 0, Platelet Estimate DecreasedL, Platelet Morphology Normal, Hypochromasia 2+, Anisocytosis 1+, Macrocytosis 1+, Spherocytes 1+, Sodium Level 134L, Potassium Level 4.7, Chloride Level 100, Carbon Dioxide Level 23, Anion Gap 11, Blood Urea Nitrogen 53H, Creatinine 4.1H , Estimat Glomerular Filtration Rate 14.7, Glucose Level 119H, Uric Acid 8.1H, Calcium Level 7.6L, Phosphorus Level 2.1L, Magnesium Level 1.8, Total Bilirubin 1.5H, Direct Bilirubin 1.0H, Aspartate Amino Transf (AST/SGOT) 43H, Alanine Aminotransferase (ALT/SGPT) 19, Alkaline Phosphatase 107, C-Reactive Protein, Quantitative 39.7H, Pro-B-Type Natriuretic Peptide 19974Y, Total Protein 5.5L, Albumin 1.4L, Globulin 4.1, Albumin/Globulin Ratio 0.3L, Lipase 154 Height (Feet): 5 Height (Inches): 11.00 Weight (Pounds): 216 General Appearance: no apparent distress, lethargic Cardiovascular: tachycardia Respiratory/Chest: decreased breath sounds Abdomen: distended Keanu Wilhelm MD Aug 31, 2019 10:45
[2019-08-31 12:00] VITALS: BP 81/42
--- NOTE | 2019-08-31 13:33 | Infectious Diseases Prog Note ---
Assessment/Plan Assessment/Plan IMPRESSION: Pyelonephritis/ UTI with E. coli Renal mass, Acute renal failure, Chronic kidney disease, Diabetes mellitus with hyperglycemia, cirrhosis, splenomegaly, hypertension, Anemia, thrombocytopenia, Hypothyroidism, History of major depression. RECOMMENDATION: Change Rocephin to Meropenem We will follow up the cultures & COVID19 test Subjective ROS Limited/Unobtainable: No Constitutional: Reports: fever, other - Lo=923.7 Respiratory: Reports: no symptoms Cardiovascular: Reports: no symptoms Gastrointestinal/Abdominal: Reports: no symptoms Genitourinary: Reports: no symptoms Allergies: Coded Allergies: No Known Allergies (Verified , 01/21/19) Objective Vital Signs Last 24 Hour Vital Signs Date Time Temp Pulse Resp B/P (MAP) Pulse Ox O2 Delivery O2 Flow Rate FiO2 08/31/19 09:56 98.6 08/31/19 08:37 Room Air 08/31/19 08:00 102.7 93 20 98/55 (69) 93 08/31/19 07:42 127 08/31/19 00:00 99.4 88 17 95/61 (72) 97 08/30/19 21:00 Room Air 08/30/19 16:45 98.8 08/30/19 16:00 100.0 93 18 98/56 (70) 97 Height (Feet): 5 Height (Inches): 11.00 Weight (Pounds): 216 General Appearance: no acute distress HEENT: mucous membranes moist Respiratory/Chest: lungs clear Cardiovascular: normal rate Abdomen: soft, non tender Genitourinary: other - catheter Extremities: other - edema of legs Skin: other - bruise in R leg Neurologic/Psychiatric: alert, responsive Microbiology Date/Time Source Procedure Growth Status 08/29/19 02:00 Nasal Nares MRSA Culture - Final NO METHICILLIN RESISTANT STAPH AUREUS... Complete 08/29/19 00:50 Urine,Clean Catch Urine Culture - Final Escherichia Coli - Esbl Complete 08/29/19 02:00 Rectum - Final NO CARBAPENEM-RESISTANT ENTEROBACTERI... Complete 08/29/19 02:00 Rectum VRE Culture - Final Enterococcus Faecalis - Vre Complete Laboratory Tests Test 08/31/19 08:15 White Blood Count 8.4 K/UL (4.8-10.8) Red Blood Count 2.61 M/UL (4.70-6.10) L Hemoglobin 8.8 G/DL (14.2-18.0) L Hematocrit 26.5 % (42.0-52.0) L Mean Corpuscular Volume 102 FL (80-99) H Mean Corpuscular Hemoglobin 33.7 PG (27.0-31.0) H Mean Corpuscular Hemoglobin Concent 33.2 G/DL (32.0-36.0) Red Cell Distribution Width 14.1 % (11.6-14.8) Platelet Count 38 K/UL (150-450) L Mean Platelet Volume 10.5 FL (6.5-10.1) H Neutrophils (%) (Auto) % (45.0-75.0) Lymphocytes (%) (Auto) % (20.0-45.0) Monocytes (%) (Auto) % (1.0-10.0) Eosinophils (%) (Auto) % (0.0-3.0) Basophils (%) (Auto) % (0.0-2.0) Differential Total Cells Counted 100 Neutrophils % (Manual) 93 % (45-75) H Lymphocytes % (Manual) 3 % (20-45) L Monocytes % (Manual) 2 % (1-10) Eosinophils % (Manual) 1 % (0-3) Basophils % (Manual) 1 % (0-2) Band Neutrophils 0 % (0-8) Platelet Estimate Decreased L Platelet Morphology Normal Hypochromasia 2+ Anisocytosis 1+ Macrocytosis 1+ Spherocytes 1+ Sodium Level 134 MMOL/L (136-145) L Potassium Level 4.7 MMOL/L (3.5-5.1) Chloride Level 100 MMOL/L (98-107) Carbon Dioxide Level 23 MMOL/L (21-32) Anion Gap 11 mmol/L (5-15) Blood Urea Nitrogen 53 mg/dL (7-18) H Creatinine 4.1 MG/DL (0.55-1.30) H Estimat Glomerular Filtration Rate 14.7 mL/min (>60) Glucose Level 119 MG/DL (74-106) H Uric Acid 8.1 MG/DL (2.6-7.2) H Calcium Level 7.6 MG/DL (8.5-10.1) L Phosphorus Level 2.1 MG/DL (2.5-4.9) L Magnesium Level 1.8 MG/DL (1.8-2.4) Total Bilirubin 1.5 MG/DL (0.2-1.0) H Direct Bilirubin 1.0 MG/DL (0.0-0.3) H Aspartate Amino Transf (AST/SGOT) 43 U/L (15-37) H Alanine Aminotransferase (ALT/SGPT) 19 U/L (12-78) Alkaline Phosphatase 107 U/L (46-116) C-Reactive Protein, Quantitative 39.7 mg/dL (0.00-0.90) H Pro-B-Type Natriuretic Peptide 52169 pg/mL (0-125) H Total Protein 5.5 G/DL (6.4-8.2) L Albumin 1.4 G/DL (3.4-5.0) L Globulin 4.1 g/dL Albumin/Globulin Ratio 0.3 (1.0-2.7) L Lipase 154 U/L (73-393) Current Medications Medications (Trade) Dose Ordered Sig/Alfredo Route PRN Reason Start Time Stop Time Status Last Admin Dose Admin Acetaminophen (Tylenol) 500 mg Q4H PRN ORAL Mild Pain (Pain Scale 1-3) 08/29/19 22:45 09/28/19 06:44 08/31/19 09:26 Ceftriaxone Sodium 1 gm/ Sodium Chloride 55 ml @ 110 mls/hr DAILY IVPB 08/30/19 10:00 09/06/19 09:59 08/30/19 10:42 Dextrose (Dextrose 50%) 25 ml Q30M PRN IV Hypoglycemia 08/29/19 22:30 11/27/19 07:29 Dextrose (Dextrose 50%) 50 ml Q30M PRN IV Hypoglycemia 08/29/19 22:30 11/27/19 07:29 Insulin Aspart (NovoLOG) BEFORE MEALS AND HS SUBQ 08/30/19 06:30 11/27/19 11:29 08/30/19 21:00 Insulin Detemir (Levemir) 12 units BID SUBQ 08/30/19 09:00 11/27/19 08:59 08/30/19 10:55 Iron Sucrose 100 mg/Sodium Chloride 60 ml @ 240 mls/hr BEDTIME IV 08/30/19 21:00 09/29/19 20:59 Levothyroxine Sodium (Synthroid) 50 mcg DAILY IV 08/30/19 09:00 09/29/19 08:59 08/30/19 10:46 Lorazepam (Ativan) 2 mg Q6H PRN ORAL For Anxiety 08/29/19 22:30 09/05/19 22:29 Metoclopramide HCl (Reglan) 5 mg Q6H IVP 08/30/19 04:00 09/28/19 09:59 08/30/19 16:00 Ondansetron HCl (Zofran) 4 mg Q6H PRN IVP Nausea & Vomiting 08/30/19 03:45 09/28/19 09:44 Pantoprazole (Protonix) 40 mg EVERY 12 HOURS IVP 08/30/19 09:00 09/28/19 10:14 08/30/19 10:47 Tramadol HCl (Ultram) 50 mg Q4H PRN ORAL Severe Pain (Pain Scale 7-10) 08/31/19 08:45 09/07/19 08:44 Andry Noble MD Aug 31, 2019 13:33
[2019-08-31] MEDS ORDERED: Meropenem 500 MG in NS 55 ML IVPB SCH (15:00)
[2019-08-31 16:00] VITALS: BP 92/58
[2019-08-31 16:30] VITALS: BP 100/54
--- NOTE | 2019-08-31 19:06 | Psych Consult Progress Note ---
Psychiatry Progress Note Psychiatry Progress Note Subjective spoke to pt several times. he wants to leave the pt is anxious and asked his family to pick him up and take him to [place]. the pt understands risks vs benefits. spoke with family who are downstair and taking him to [place]. Allergies: Coded Allergies: No Known Allergies (Verified , 01/21/19) Objective Data Height (Feet): 5 Height (Inches): 11.00 Weight (Pounds): 216 General Appearance: WD/WN, no apparent distress, alert, alert oriented x3 Behavior Mannerisms: good eye contact Mental Status Exam - Affect: constricted Mental Status Exam - Mood: anxious Speech: clear Mental Status Exam - Thought P: logical, goal-directed Mental Status Exam - Suicidal: not present Assessment/Plan [place] I: anxiety do the pt has capacity to leave AMA. the pt is not holdable. Whitley Navarro MD Aug 31, 2019 19:06
--- NOTE | 2019-08-31 21:12 | Cardiology Progress Note ---
Assessment/Plan Assessment/Plan 1. Sinus tachycardia, most likely secondary to sepsis, or hypotension due to distributive shock in view of hypoalbuminemia. the patient most likely has acute on chronic congestive heart failure. 2. Ischemic cardiomyoapthy with anteroseptal wall hypokinesia, LVEF at ~45%, continue carvedilol, hydralazine, and Isordil. 3. History of coronary artery disease, status post coronary artery bypass graft surgery. A 12-lead electrocardiogram does not show any evidence of ischemic changes. 4. CKD, stage V. 5. History of chronic liver disease due to alcoholism. 6. Thrombocytopenia. 7. Sepsis in view of leukocytosis and bandemia. 8. History of hypertension. All heart failure meds on hold due to hypotension. Subjective Subjective Was hypotensive earlier, responded well to IV NS 500cc. Sinus rhythm at rate of 98. Objective Last 24 Hour Vital Signs Date Time Temp Pulse Resp B/P (MAP) Pulse Ox O2 Delivery O2 Flow Rate FiO2 08/31/19 16:30 98.9 98 20 100/54 (69) 98 08/31/19 16:00 98.1 96 20 92/58 (69) 93 08/31/19 15:13 106 08/31/19 12:00 98.6 114 20 81/42 (55) 93 08/31/19 09:56 98.6 08/31/19 08:37 Room Air 08/31/19 08:00 102.7 93 20 98/55 (69) 93 08/31/19 07:42 127 08/31/19 00:00 99.4 88 17 95/61 (72) 97 Intake and Output 08/30/19 08/31/19 19:00 07:00 Intake Total 360 ml Output Total 400 ml Balance -400 ml 360 ml Intake Oral 360 ml Output Urine Total 400 ml # Voids 2 2D Echo: Anteroseptal wall hypokinesia with EF at 45%, Grade I LVDD, RVSP 45 Laboratory Tests Test 08/31/19 08:15 08/31/19 14:35 White Blood Count 8.4 K/UL (4.8-10.8) Red Blood Count 2.61 M/UL (4.70-6.10) L Hemoglobin 8.8 G/DL (14.2-18.0) L Hematocrit 26.5 % (42.0-52.0) L Mean Corpuscular Volume 102 FL (80-99) H Mean Corpuscular Hemoglobin 33.7 PG (27.0-31.0) H Mean Corpuscular Hemoglobin Concent 33.2 G/DL (32.0-36.0) Red Cell Distribution Width 14.1 % (11.6-14.8) Platelet Count 38 K/UL (150-450) L Mean Platelet Volume 10.5 FL (6.5-10.1) H Neutrophils (%) (Auto) % (45.0-75.0) Lymphocytes (%) (Auto) % (20.0-45.0) Monocytes (%) (Auto) % (1.0-10.0) Eosinophils (%) (Auto) % (0.0-3.0) Basophils (%) (Auto) % (0.0-2.0) Differential Total Cells Counted 100 Neutrophils % (Manual) 93 % (45-75) H Lymphocytes % (Manual) 3 % (20-45) L Monocytes % (Manual) 2 % (1-10) Eosinophils % (Manual) 1 % (0-3) Basophils % (Manual) 1 % (0-2) Band Neutrophils 0 % (0-8) Platelet Estimate Decreased L Platelet Morphology Normal Hypochromasia 2+ Anisocytosis 1+ Macrocytosis 1+ Spherocytes 1+ Sodium Level 134 MMOL/L (136-145) L Potassium Level 4.7 MMOL/L (3.5-5.1) Chloride Level 100 MMOL/L (98-107) Carbon Dioxide Level 23 MMOL/L (21-32) Anion Gap 11 mmol/L (5-15) Blood Urea Nitrogen 53 mg/dL (7-18) H Creatinine 4.1 MG/DL (0.55-1.30) H Estimat Glomerular Filtration Rate 14.7 mL/min (>60) Glucose Level 119 MG/DL (74-106) H Uric Acid 8.1 MG/DL (2.6-7.2) H Calcium Level 7.6 MG/DL (8.5-10.1) L Phosphorus Level 2.1 MG/DL (2.5-4.9) L Magnesium Level 1.8 MG/DL (1.8-2.4) Total Bilirubin 1.5 MG/DL (0.2-1.0) H Direct Bilirubin 1.0 MG/DL (0.0-0.3) H Aspartate Amino Transf (AST/SGOT) 43 U/L (15-37) H Alanine Aminotransferase (ALT/SGPT) 19 U/L (12-78) Alkaline Phosphatase 107 U/L (46-116) C-Reactive Protein, Quantitative 39.7 mg/dL (0.00-0.90) H Pro-B-Type Natriuretic Peptide 71411 pg/mL (0-125) H Total Protein 5.5 G/DL (6.4-8.2) L Albumin 1.4 G/DL (3.4-5.0) L Globulin 4.1 g/dL Albumin/Globulin Ratio 0.3 (1.0-2.7) L Lipase 154 U/L (73-393) Stool Occult Blood Pending Microbiology Date/Time Source Procedure Growth Status 08/29/19 02:00 Nasal Nares MRSA Culture - Final NO METHICILLIN RESISTANT STAPH AUREUS... Complete 08/29/19 00:50 Urine,Clean Catch Urine Culture - Final Escherichia Coli - Esbl Complete 08/29/19 02:00 Rectum - Final NO CARBAPENEM-RESISTANT ENTEROBACTERI... Complete 08/29/19 02:00 Rectum VRE Culture - Final Enterococcus Faecalis - Vre Complete Objective HEENT: Atraumatic and normocephalic. Anicteric. Pupils are equal, round, and reactive to light and accommodation. Extraocular muscles intact. NECK: JVP elevated at 10 cm. No carotid bruit. Carotid upstroke is 2+ bilaterally. CARDIOVASCULAR: Normal S1, S2. Regular rate and rhythm. Tachycardic. 2/6 mid systolic murmur at the left sternal border. PMI is at fourth intercostal space in the midclavicular line. LUNGS: Diminished breath sounds in both lungs with presence of the crackles. ABDOMEN: Distended. No hepatosplenomegaly. Positive bowel sounds. EXTREMITIES: 4+ pitting edema in the right leg and 2+ in the left leg. Gabino Castillo MD Aug 31, 2019 21:12
--- NOTE | 2019-09-01 12:14 | Discharge Summary ---
Discharge Summary Discharge Summary _ DATE OF ADMISSION: 08/29/2019 DATE OF DISCHARGE: 08/31/2019 Patient left AGAINST MEDICAL ADVICE REASON FOR ADMISSION: 64 years old male with past medical history of diabetes mellitus, coronary artery disease, history of CABG, hypothyroidism, depression, alcohol abuse, presented to emergency department with complaint of abdominal pain for 1 day. Pain reported to be located in epigastric and upper quadrant regions. He reported associated nausea and vomiting, but no diarrhea. Pain reported as sharp, 9 out of 10, nonradiating. No fever or chills. No trauma. Upon evaluation vital signs were stable. Laboratory work-up revealed leukocytosis with WBC 18, hemoglobin 11.2, hematocrit 32.1, platelet count 56. Sodium 131, chloride 96. BUN 31, creatinine 3.3. Glucose 422. Total bili 1.5, direct bili 0.6. AST 39, ALT 20, alkaline phosphatase 118. Albumin 2.0. Lipase 424 . Urinalysis revealed pyuria , moderate bacteria, +3 protein , +[address] scan of the abdomen and pelvis revealed left kidney with a 10 cm masslike process with surrounding mild hemorrhage, suspicious for hemorrhagic mass/ neoplasm. Cirrhosis. Splenomegaly. Mild hiatal hernia with thickened distal esophageal wall. Patient subsequently admitted for left renal mass, acute renal failure, UTI, anemia, thrombocytopenia, hyperglycemia and cirrhosis. CONSULTANTS: automobile body repairer Dr. Castillo bulb planter Dr. Oleary urologist Dr. Negrete ID specialist Dr. Andry Noble GI specialist Dr. Vargas cottage master Dr. Wilhelm outdoor advertising leasing agent/oncologist Dr. Briones psychiatrist pain specialist Dr. Mcdonald HOSPITAL COURSE: Patient admitted to telemetry floor. Echocardiogram revealed ejection fraction of 45% with anteroseptal distal hypokinesia. Right ventricular systolic pressure of 45 consistent with a moderate pulmonary hypertension. Sinus tachycardia, as per automobile body repairer , was most likely secondary to sepsis or hypotension. Guideline directed medical therapy for congestive heart failure provided with beta-josé luis, hydralazine ,and Isordil, given renal failure. Serial troponin were negative, EKG revealed no ischemic changes. later due to hypotension, all antihypertensives were on hold given hypotension. Urologist seen and evaluated patient for left kidney mass. Renal ultrasound revealed normal bilateral cortical thickness and echogenicity. The mid to lower pole of the left kidney appeared bulbous and diffusely heterogeneous, corresponding with a masslike heterogeneous density seen on the CT scan. Urologist subsequently recommended MRI of the abdomen , which revealed findings corresponding to the prior CT scan and ultrasound. The mid to lower pole of the left kidney was abnormal. It appeared enlarged, mobile and diffusely heterogeneous , resembling a focal mass. There was surrounding induration, also seen on the CT. Further characterization was unavailable due to test done without contrast. Consideration included pyelonephritis/lobar nephronia or focal mass. Cirrhosis with splenomegaly and splenic varices noted. Patient appeared to be a poor surgical candidate at this time . Creatinine trending up. Urologist recommended surgical intervention at a tertiary facility if overall health improves. Currently patient was not in a good condition , with high risk of complications or mortality. Antibiotic provided as per ID specialist recommendation. Urine culture revealed E. coli ESBL. Antibiotic regimen optimized. Patient was on meropenem. SARS COV 2 by PCR was not detecte . Renal parameters and electrolytes were closely monitored, electrolytes further corrected as needed. Creatinine worsened from 3.3 up to 4.1. Cancer Genetic Counselor recommended to consider initiating of hemodialysis. However patient wanted to go [facility] . And there was a question about his competency to male a decision. Hyperkalemia was treated. Per cottage master, patient had acute renal failure due to vomiting and dehydration, superimposed on chronic kidney disease st 5 due to diabetic nephropathy. Patient started on PPI. Counts were closely monitored. Transfusion of blood and platelets was ordered, but patient declined. Stool for occult blood was ordered, but patient declined to give the specimen . hepatitis panel was negative. LFT were closely monitored. Ammonia level 34 . Patient started on the IV iron after anemia work-up revealed evidence of anemia of chronic disease. Supportive care provided. Antiemetic provided as needed. Pain management was addressed as per pain specialist recommendation. Blood sugar was managed as per bulb planter recommendation with long-acting Levemir and sliding scale of insulin. Hypoglycemia protocol was in order. Levothyroxine IV continued. TSH within normal limits. Blood sugar stabilized. Oncologist followed. Left kidney with a 10 cm masslike process , most likely will need nephrectomy. After that he may need immunotherapy based on staging for long-term survival improvement. Pancytopenia was probably related to underlying liver cirrhosis from ETOH abuse Psychiatrist followed to determine patient's competency. Per psychiatrist , patient has anxiety disorder. Psychiatrist stated that patient had capacity to leave AGAINST MEDICAL ADVICE and was not holdable. On 08/30 patient decided to leave AGAINST MEDICAL ADVICE. The risks and consequences of signing AGAINST MEDICAL ADVICE were discussed with patient in detail. Patient verbalized understanding, nevertheless signed AMA form and left. FINAL DIAGNOSES: Sepsis Pyelonephritis/UTI with E. 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 I have been assigned to dictate discharge summary for this account. I was not involved in the patient's management. Stacey Hutson NP Sep 01, 2019 12:14
--- NOTE | 2019-09-06 16:08 | Coder Physician Query ---
Clarification is required for compliance, coding accuracy, and to reflect severity of illness for this patient. Dear Dr. العراقي Date: 09/06/19 FIRE CHIEF DEPUTY: MICHAEL SOLORIO SEPSIS QUERY- REASON FOR ADMISSION: 64 years old male with past medical history of diabetes mellitus, coronary artery disease, history of CABG, hypothyroidism, depression, alcohol abuse, presented to emergency department with complaint of abdominal pain for 1 day. Antibiotic provided as per ID specialist recommendation. Urine culture revealed E. coli ESBL. Antibiotic regimen optimized. Patient was on meropenem. SARS COV 2 by PCR was not detected Laboratory work-up revealed leukocytosis with WBC 18 Urinalysis revealed pyuria , moderate bacteria, +3 protein , +5 blood. FINAL DIAGNOSES: Sepsis Pyelonephritis/UTI with E. coli ESBL Left renal mass A posssible diagnois of SEPSIS was made in the medical record only in the Discharge summary & last progress note? Upon review, it is difficult to determine whether this diagnosis has been ruled in, ruled out,or is still being worked up. Please indicate below the status of the aforementioned diagnosis. [] Treated and resolve [] Presumed and treated [] Currently under treatment [] Still being worked-up [] Ruled out Present on Admission: [] Yes [] No [] Clinically Undetermined Physician signature Date Please also document in your Progress Notes and/or Discharge Summary and indicate if the condition was present on admission. MIRIAND
== END 2019-08-31 17:41 | disposition left against medical advice (07) | DRG 720 ==
LOC: EDUNIT# 23:42 → EDBD 23:42 → EMR 23:59 → 4E 08-29 01:25 → EDBEDREQ 08-29 02:04 → 2E 08-29 22:17
DX: A41.9 Sepsis, unspecified organism (principal); N17.0 Acute kidney failure with tubular necrosis; N39.0 Urinary tract infection, site not specified; E11.65 Type 2 diabetes mellitus with hyperglycemia; K70.30 Alcoholic cirrhosis of liver without ascites; E11.21 Type 2 diabetes mellitus with diabetic nephropathy; D61.818 Other pancytopenia; E11.22 Type 2 diabetes mellitus with diabetic chronic kidney disease; K85.90 Acute pancreatitis without necrosis or infection, unspecified; I13.2 Hypertensive heart and chronic kidney disease with heart failure and with stage 5 chronic kidney disease, or end stage renal disease; I50.9 Heart failure, unspecified; K44.9 Diaphragmatic hernia without obstruction or gangrene; I25.10 Atherosclerotic heart disease of native coronary artery without angina pectoris; Z95.1 Presence of aortocoronary bypass graft; F10.10 Alcohol abuse, uncomplicated; F41.9 Anxiety disorder, unspecified; B96.20 Unspecified Escherichia coli [E. coli] as the cause of diseases classified elsewhere; Z16.12 Extended spectrum beta lactamase (ESBL) resistance; I12.0 Hypertensive chronic kidney disease with stage 5 chronic kidney disease or end stage renal disease; N18.5 Chronic kidney disease, stage 5; N28.9 Disorder of kidney and ureter, unspecified; I25.5 Ischemic cardiomyopathy; E03.9 Hypothyroidism, unspecified; E86.0 Dehydration; F32.9 Major depressive disorder, single episode, unspecified; N12 Tubulo-interstitial nephritis, not specified as acute or chronic; Z79.4 Long term (current) use of insulin; G89.29 Other chronic pain; I27.20 Pulmonary hypertension, unspecified; F10.11 Alcohol abuse, in remission
CPT/HCPCS: 36415; 71045; 74176; 74181; 76770; 80053; 80076; 81003; 82140; 82248; 82270; 82607; 82728; 82746; 82962; 82977; 83540; 83550; 83615; 83690; 83735; 83880; 84100; 84443; 84484; 84550; 85007; 85025; 85610; 85730; 86140; 86705; 86709; 86803; 87081; 87086; 87181; 87340; 93306; 96365; 96375; 96376; 99285; J1815; J2405; J2765; S5561